=== PATIENT | male | born 1940 | race Caucasian/White ===

== ENCOUNTER 2018-10-16 10:48 | Outpatient (CLI) | payer MEDICARE, BC, SELFPAY ==
[2018-10-16 12:41] LABS: HCT 37.1 % (40.0-50.0); HGB 12.3 g/dL (13.5-17.5); Mean Corp. HGB Concentration 33.2 g/dL (32.0-36.0); Mean Corpuscular Hemoglobin 29.7 pg (27.0-33.0); Mean Corpuscular Volume 89.6 fL (80-95); Mean Platelet Volume 10.4 fL (8.0-11.0); Platelet Count 187 x1000/uL (130-400); RBC 4.14 m/cumm (4.50-6.00); RBC Distribution Width 14.3 % (11.8-14.1); White Blood Cell Count 5.26 k/cumm (4.4-10.8)
[2018-10-16 13:21] LABS: C-Reactive Protein 1.83 mg/dL (0.0-0.3)
== END 2018-10-16 11:08 ==
PROVIDERS: PCP General Practice; Referring Provider General Practice; Visit Provider Surgery
DX: L08.9 Local infection of the skin and subcutaneous tissue, unspecified (principal); L72.3 Sebaceous cyst; I48.91 Unspecified atrial fibrillation; Z79.01 Long term (current) use of anticoagulants
CPT/HCPCS: 85027; 99213; 86140; 87324; 93005; 93010

== ENCOUNTER 2018-11-05 07:57 | Day surgery (SDC) | payer MEDICARE, BC, SELFPAY ==
[2018-11-05 08:30] VITALS: BP 130/66; PULSE 50; RESP 16; TEMP 36.4; O2SAT 99
[2018-11-05] MEDS: Lidocaine 1% Multi-Dose 50 ML VIAL (10:07)
--- NOTE | 2018-11-05 10:20 | SKI_PTH ---
PATIENT: Toni Wells LOC: [facility] U#:[id number] AGE/SX: 78/M ROOM: RE11/05/[address]: Cristina Dean : 1940 BED: DIS: 11/05/2018 SPEC #: [id number] RECD: 11/05/18 12:29 STATUS: CANDACE REQ #: [id number] ADRIANNA: 11/05/18 10:[address]: Cristina Dean DEPT: Surgical Specimen RECD BY: Cherelle Mejia ENTERED: 11/05/18 12:30 SP TYPE: AMENA DAN DR: Arik Amador Tissues: 1 - SKIN CYST/TAG/DEBRIDEMENT Procedures: SKIN BIOPSY LEVEL 3 Comments: [id number]
--- NOTE | 2018-11-05 10:43 | W.PM.OP ---
Date of service: 11/05/18 Time of Service: 10:44 Operative Note DATE OF PROCEDURE: 11/05/18 PRE-OP DIAGNOSIS: recurrent sebaceous cyst POST-OP DIAGNOSIS: same PROCEDURE: excision of cyst. no infection at this time SURGEON: Cristina Dean ANESTHESIA: local ESTIMATED BLOOD LOSS: 5 COMPLICATIONS: None Patient was transported to: same day Patient's condition: stable Procedure Description: dictate
--- NOTE | 2018-11-05 10:46 | W.PM.DSUDISC ---
Discharge Plan Disposition Patient Disposition: HOME Condition: Good Discharge Details Reason For Visit: excision of cyst Attending Provider: Cristina Dean Primary Care Provider: Arik Amador Home Meds and New Rx's Prescriptions: Continued doxazosin [Cardura] 4 mg tablet 4 mg PO DAILY RF: 0 hydrochlorothiazide 25 MG tablet 25 mg PO DAILY RF: 0 Discontinued Xarelto 15 mg tablet 15 mg PO QPM RF: 0 Discharge Instructions Additional Instructions: Caring for Your Incision You?ll need to help care for your incision after surgery and certain medical procedures. To close an incision, your healthcare provider used stitches (sutures), special strips of surgical tape called Steri-Strips, surgical charles, or surgical skin glue. Follow the tips on this sheet to help stop bleeding, speed healing, and prevent infection of your incision. Pain Control Use ice! Ice keeps the swelling down and swelling is what causes pain. Never apply ice directly to the skin. Wrap it in a towel or cloth. Apply ice 20 minutes on and 20 minutes off for pain control. Use as needed. Take tylenol 325 mg by mouth with food every 4 hours as needed for pain. Or ibuprofen 400 mg by mouth with food every 4 hours as needed for pain. Do not take tylenol if you have a history of heavy drinking , hepatits C or liver problems. Do not take ibuprofen if you have a history of stomach ulcers/problems, bleeding problem or kidney issues. Types of incision closures ? Surgical stitches (sutures) are placed by sewing the edges of an incision together with surgical thread. Sutures are either absorbable or non-absorbable. Absorbable sutures break down in the body over time. Non-absorbable sutures need to be removed. ? Home care ? Always wash your hands before touching your incision. ? Keep the incision clean, dry, and out of water, keep the incision out of water. ? Do not to pick at the scabs. Scabs help protect the wound. ? You can take a shower in 24 hours and wash the incision with soap and water. Pat dry/don?t scrub. It?s OK to wash around the incision. But don?t spray water directly on it. ? Pat stitches dry if they get wet. Don't rub. ? Check the incision site daily for pain, redness, drainage, swelling, or separation of the incision edges. ? If there is a bandage (dressing) over the incision, change this every 24 hours as instructed by your provider. Using clean hands change the dressing as directed by your healthcare provider. Always wash your hands before changing your dressing. ? Make sure any clothing that touches the incision is loose-fitting. This will prevent rubbing. If the incision is on the head, keep your child from wearing caps or other head coverings. These may rub against the incision. ? Try to avoid from rough play, contact sports, or physical activities for two weeks. This can put you at risk of opening the incision. ? Make sure you avoid doing things that could cause dirt or sweat to get in or on the incision. As your incision heals, the skin may appear pink or red. It may also feel slightly bumpy or raised. This is called a healing ridge. Over time, the color should fade and the raised skin will become less noticeable. Care for specific closures : ? Sutures or charles. Once you no longer need to keep these dry, clean the incision or wound daily, generally after the first 24 hours. First remove the bandage using clean hands. Then wash the area gently with soap and warm water. Use a wet cotton swab to loosen and remove any blood or crust that forms. After cleaning, put a thin layer of antibiotic ointment on. Then put on a new bandage. Follow-up care [place] or sutures generally need to be removed in 7-10 days. 5 days for the face. Be sure to return for suture or staple removal as directed. If dissolving stitches were used in your mouth, these will not need to be removed. They should fall out or dissolve on their own. If tape closures were used, remove them yourself when your healthcare provider tells you to if they have not fallen off on their own. When to seek medical care Call your healthcare provider right away if you have any of these: ? More pain, redness, swelling, bleeding, or foul-smelling discharge around the incision area ? Fever of 101?F (38.3?C) or higher, or as directed by your child's healthcare provider ? Shaking chills ? Vomiting or nausea that doesn?t go away ? Numbness, coldness, or tingling around the incision area, or changes in skin color ? Opening of the sutures or wound Stitches or charles come apart or fall out or surgical tape falls off before 7 days, or as directed by your healthcare provider Activity:: no heavy lifting or strenuous activity x 3-5 day s Remove Dressings/Wound Care:: 24 hours Shower/Bathe:: 24 hours Diet:: As Tolerated Discharge Orders Discharge Orders: Discharge Order (Routine); Ordered 11/05/18 Ordered By: Cristina Dean DS: Diagnosis Discharge Diagnosis (1) Sebaceous cyst: Status: Acute
--- NOTE | 2018-11-05 10:55 | W.PM.DSUDISC ---
Discharge Plan Disposition Patient Disposition: HOME Condition: Good Discharge Details Reason For Visit: excision of cyst Attending Provider: Cristina Dean Primary Care Provider: Arik Amador Home Meds and New Rx's Prescriptions: New ibuprofen 600 mg tablet 600 mg PO QID PRN (Reason: pain) Qty: 30 RF: 0 tramadol 50 mg tablet 50 mg PO Q6H PRN (Reason: pain) Qty: 7 RF: 0 Continued doxazosin [Cardura] 4 mg tablet 4 mg PO DAILY RF: 0 hydrochlorothiazide 25 MG tablet 25 mg PO DAILY RF: 0 Discontinued Xarelto 15 mg tablet 15 mg PO QPM RF: 0 Discharge Instructions Additional Instructions: Caring for Your Incision You?ll need to help care for your incision after surgery and certain medical procedures. To close an incision, your healthcare provider used stitches (sutures), special strips of surgical tape called Steri-Strips, surgical charles, or surgical skin glue. Follow the tips on this sheet to help stop bleeding, speed healing, and prevent infection of your incision. Pain Control Use ice! Ice keeps the swelling down and swelling is what causes pain. Never apply ice directly to the skin. Wrap it in a towel or cloth. Apply ice 20 minutes on and 20 minutes off for pain control. Use as needed. Take tylenol 325 mg by mouth with food every 4 hours as needed for pain. Or ibuprofen 400 mg by mouth with food every 4 hours as needed for pain. Do not take tylenol if you have a history of heavy drinking , hepatits C or liver problems. Do not take ibuprofen if you have a history of stomach ulcers/problems, bleeding problem or kidney issues. Types of incision closures ? Surgical stitches (sutures) are placed by sewing the edges of an incision together with surgical thread. Sutures are either absorbable or non-absorbable. Absorbable sutures break down in the body over time. Non-absorbable sutures need to be removed. ? Home care ? Always wash your hands before touching your incision. ? Keep the incision clean, dry, and out of water, keep the incision out of water. ? Do not to pick at the scabs. Scabs help protect the wound. ? You can take a shower in 24 hours and wash the incision with soap and water. Pat dry/don?t scrub. It?s OK to wash around the incision. But don?t spray water directly on it. ? Pat stitches dry if they get wet. Don't rub. ? Check the incision site daily for pain, redness, drainage, swelling, or separation of the incision edges. ? If there is a bandage (dressing) over the incision, change this every 24 hours as instructed by your provider. Using clean hands change the dressing as directed by your healthcare provider. Always wash your hands before changing your dressing. ? Make sure any clothing that touches the incision is loose-fitting. This will prevent rubbing. If the incision is on the head, keep your child from wearing caps or other head coverings. These may rub against the incision. ? Try to avoid from rough play, contact sports, or physical activities for two weeks. This can put you at risk of opening the incision. ? Make sure you avoid doing things that could cause dirt or sweat to get in or on the incision. As your incision heals, the skin may appear pink or red. It may also feel slightly bumpy or raised. This is called a healing ridge. Over time, the color should fade and the raised skin will become less noticeable. Care for specific closures : ? Sutures or charles. Once you no longer need to keep these dry, clean the incision or wound daily, generally after the first 24 hours. First remove the bandage using clean hands. Then wash the area gently with soap and warm water. Use a wet cotton swab to loosen and remove any blood or crust that forms. After cleaning, put a thin layer of antibiotic ointment on. Then put on a new bandage. Follow-up care [place] or sutures generally need to be removed in 10 days. 5 days for the face. Be sure to return for suture or staple removal as directed. If dissolving stitches were used in your mouth, these will not need to be removed. They should fall out or dissolve on their own. If tape closures were used, remove them yourself when your healthcare provider tells you to if they have not fallen off on their own. When to seek medical care Call your healthcare provider right away if you have any of these: ? More pain, redness, swelling, bleeding, or foul-smelling discharge around the incision area ? Fever of 101?F (38.3?C) or higher, or as directed by your child's healthcare provider ? Shaking chills ? Vomiting or nausea that doesn?t go away ? Numbness, coldness, or tingling around the incision area, or changes in skin color ? Opening of the sutures or wound Stitches or charles come apart or fall out or surgical tape falls off before 7 days, or as directed by your healthcare provider do not take asa or Xaralto for the next week. Will decide when to re-start at the F/u appt. Stand Alone Forms: Jose Henry ([facility]) Activity:: no heavy lifting or strenuous activity x 3-5 day s Remove Dressings/Wound Care:: 24 hours Shower/Bathe:: 24 hours Diet:: As Tolerated Discharge Orders Discharge Orders: Discharge Order (Routine); Ordered 11/05/18 Ordered By: Cristina Dean DS: Diagnosis Discharge Diagnosis (1) Sebaceous cyst: Status: Acute
--- NOTE | 2018-11-05 10:58 | PDOC.DSDIS_ITS ---
Discharge Plan Disposition Patient Disposition: HOME Condition: Good Discharge Details Reason For Visit: excision of cyst Attending Provider: Cristina Dean Primary Care Provider: Arik Amador Home Meds and New Rx's Prescriptions: New ibuprofen 600 mg tablet 600 mg PO QID PRN (Reason: pain) Qty: 30 RF: 0 tramadol 50 mg tablet 50 mg PO Q6H PRN (Reason: pain) Qty: 7 RF: 0 Continued doxazosin [Cardura] 4 mg tablet 4 mg PO DAILY RF: 0 hydrochlorothiazide 25 MG tablet 25 mg PO DAILY RF: 0 Discontinued Xarelto 15 mg tablet 15 mg PO QPM RF: 0 Discharge Instructions Additional Instructions: Caring for Your Incision You?ll need to help care for your incision after surgery and certain medical procedures. To close an incision, your healthcare provider used stitches (sutures), special strips of surgical tape called Steri-Strips, surgical nadeem, or surgical skin glue. Follow the tips on this sheet to help stop bleeding, speed healing, and prevent infection of your incision. Pain Control Use ice! Ice keeps the swelling down and swelling is what causes pain. Never apply ice directly to the skin. Wrap it in a towel or cloth. Apply ice 20 minutes on and 20 minutes off for pain control. Use as needed. Take tylenol 325 mg by mouth with food every 4 hours as needed for pain. Or ibuprofen 400 mg by mouth with food every 4 hours as needed for pain. Do not take tylenol if you have a history of heavy drinking , hepatits C or liver problems. Do not take ibuprofen if you have a history of stomach ulcers/problems, bleeding problem or kidney issues. Types of incision closures ? Surgical stitches (sutures) are placed by sewing the edges of an incision together with surgical thread. Sutures are either absorbable or non-absorbable. Absorbable sutures break down in the body over time. Non-absorbable sutures need to be removed. ? Home care ? Always wash your hands before touching your incision. ? Keep the incision clean, dry, and out of water, keep the incision out of water. ? Do not to pick at the scabs. Scabs help protect the wound. ? You can take a shower in 24 hours and wash the incision with soap and water. Pat dry/don?t scrub. It?s OK to wash around the incision. But don?t spray water directly on it. ? Pat stitches dry if they get wet. Don't rub. ? Check the incision site daily for pain, redness, drainage, swelling, or separation of the incision edges. ? If there is a bandage (dressing) over the incision, change this every 24 hours as instructed by your provider. Using clean hands change the dressing as directed by your healthcare provider. Always wash your hands before changing your dressing. ? Make sure any clothing that touches the incision is loose-fitting. This will prevent rubbing. If the incision is on the head, keep your child from wearing caps or other head coverings. These may rub against the incision. ? Try to avoid from rough play, contact sports, or physical activities for two weeks. This can put you at risk of opening the incision. ? Make sure you avoid doing things that could cause dirt or sweat to get in or on the incision. As your incision heals, the skin may appear pink or red. It may also feel slightly bumpy or raised. This is called a healing ridge. Over time, the color should fade and the raised skin will become less noticeable. Care for specific closures : ? Sutures or nadeem. Once you no longer need to keep these dry, clean the in cision or wound daily, generally after the first 24 hours. First remove the bandage using clean hands. Then wash the area gently with soap and warm water. Use a wet cotton swab to loosen and remove any blood or crust that forms. After cleaning, put a thin layer of antibiotic ointment on. Then put on a new bandage. Follow-up care [place] or sutures generally need to be removed in 10 days. 5 days for the face. Be sure to return for suture or staple removal as directed. If dissolving stitches were used in your mouth, these will not need to be removed. They should fall out or dissolve on their own. If tape closures were used, remove them yourself when your healthcare provider tells you to if they have not fallen off on their own. When to seek medical care Call your healthcare provider right away if you have any of these: ? More pain, redness, swelling, bleeding, or foul-smelling discharge around the incision area ? Fever of 101?F (38.3?C) or higher, or as directed by your child's healthcare provider ? Shaking chills ? Vomiting or nausea that doesn?t go away ? Numbness, coldness, or tingling around the incision area, or changes in skin color ? Opening of the sutures or wound Stitches or nadeem come apart or fall out or surgical tape falls off before 7 days, or as directed by your healthcare provider do not take asa or Xaralto for the next week. Will decide when to re-start at the F/u appt. Stand Alone Forms: Jose Henry ([facility]) Activity:: no heavy lifting or strenuous activity x 3-5 day s Remove Dressings/Wound Care:: 24 hours Shower/Bathe:: 24 hours Diet:: As Tolerated Discharge Orders Discharge Orders: Discharge Order (Routine); Ordered 11/05/18 Ordered By: Cristina Dean DS: Diagnosis Discharge Diagnosis (1) Sebaceous cyst: Status: Acute
--- NOTE | 2018-11-05 12:30 | ROE_ITS ---
DATE OF PROCEDURE: November 05, 2018 PREOPERATIVE DIAGNOSIS: Recurrent sebaceous cyst of left lower back POSTOPERATIVE DIAGNOSIS: Same. PROCEDURE: Excision of sebaceous cyst 1.5 cm of left lower back/posterior torso SURGEON: Cristina Dean D.O. PEER SUPPORT SPECIALIST: Yulisa Graham ANESTHESIA: Local. ESTIMATED BLOOD LOSS: 5 cc's CONDITION: The patient tolerated the procedure well without complication. INDICATION FOR PROCEDURE: Mr. Wells is a 78-year-old male with a recurrent sebaceous cyst; it was infected. He is currently off antibiotics and there is no current infection. He is here today for removal. He is marked in preop. Informed consent is obtained, explaining risks and benefits of the procedure, including but not limited to bleeding, infection, scarring, recurrence, complications from the anesthesia and other unforetold complications. PROCEDURE DESCRIPTION: The patient is brought to the operative room suite and placed in the prone position. The patient is prepped and draped in the usual sterile fashion using a ChloraPrep scrub solution. A time-out is performed. 30 cc's of lidocaine and Marcaine mixed are used for local anesthetization. The area of the old scar is excised using a #15 blade. The entirety of the cyst, including all of the capsule is then dissected out and removed. It is [id number] of the left lower posterior torso. Electrocautery was used to provide hemostasis. Pressure is held. It is irrigated with saline. There is no bleeding noted at the time of closure. Deep tissues are approximated with #4-0 Vicryl and the skin is approximated with #3-0 Nylon. Compression dressing is applied. The patient tolerated the procedure well without complication and was transferred to recovery in stable condition. The patient is given instructions of wound care, activity and warning signs and will follow-up in ten days for suture removal. cc: Arik Amador M.D.
== END 2018-11-05 11:16 | disposition home or self-care (01) ==
PROVIDERS: PCP General Practice; Visit Provider Surgery
PROC: (CPT 11402; principal; 2018-11-05 09:00)
DX: L72.3 Sebaceous cyst (principal)
CPT/HCPCS: 11402; 12031; 88304

== ENCOUNTER → 2018-11-15 09:08 | Outpatient (BNVA) | payer MEDICARE, BC, SELFPAY | PROVIDERS: PCP General Practice; Referring Provider General Practice; Visit Provider Physical Therapy Assistant | DX: L72.3 Sebaceous cyst (principal); Z48.02 Encounter for removal of sutures ==

== ENCOUNTER 2019-07-15 16:40 | Outpatient (REF) | payer MEDICARE, BC, SELFPAY ==
[2019-07-15 19:59] LABS: Anion Gap 5.1 mmol/L (3-11); BUN 23 mg/dL (7-18); CO2 33.9 mmol/L (21.0-32.0); CREATININE 1.26 mg/dL (0.70-1.30); Calcium 9.3 mg/dL (8.5-10.1); Chloride 104 mmol/L (98-107); Estimated GFR 55.21 (mL/min/1.73m2); Glucose 131 mg/dL (74-106); Magnesium 1.8 mg/dL (1.8-2.4); Potassium 3.3 mmol/L (3.5-5.1); Sodium 143 mmol/L (136-145)
== END 2019-07-15 17:00 ==
LOC: NCHCN 16:40
PROVIDERS: PCP Family Medicine; Visit Provider Family Medicine
DX: I10 Essential (primary) hypertension (principal); I48.91 Unspecified atrial fibrillation
CPT/HCPCS: 80048; 83735

== ENCOUNTER 2020-02-25 08:28 | Outpatient (CLI) | payer MEDICARE, BC, SELFPAY ==
--- NOTE | 2020-02-25 14:23 | DI.RAD_ITS ---
EXAM: XR CHEST 2V PA LATERAL CLINICAL HISTORY: COUGH TECHNIQUE: 2D digital imaging was performed. COMPARISON: CT CHEST WITH CONTRAST from 01/12/2015 FINDINGS: Poor inspiration. MEDIASTINUM: Normal. HEART: Normal. PULMONARY VASCULATURE: Normal. LUNGS: No focal consolidating infiltrates. PLEURAL SPACE: No pleural effusion or pneumothorax. BONE:Within normal limits for the patient's age. OTHER FINDINGS:Normal. IMPRESSION: No acute pulmonary findings. DATA REPOSITORY: RADIATION DOSE DELIVERED:
== END 2020-02-25 08:48 ==
PROVIDERS: PCP Family Medicine; Visit Provider Nurse Practitioner Family
DX: R05 Cough (principal); R06.02 Shortness of breath
CPT/HCPCS: 36415; 80053; 71046; 83880; 85025

== ENCOUNTER 2020-02-25 14:12 | Outpatient (REF) | payer MEDICARE, BC, SELFPAY ==
[2020-02-27 13:43] LABS: Patient Race White; SARS-CoV-2 RNA Undetected (Undetected); SARS-CoV-2 Specimen Source Nasal
== END 2020-02-25 14:32 ==
LOC: NCHCN 14:12
PROVIDERS: PCP Family Medicine; Visit Provider Nurse Practitioner Family
DX: Z20.828 Contact with and (suspected) exposure to other viral communicable diseases (principal)
CPT/HCPCS: U0003

== ENCOUNTER 2020-02-25 14:18 | Outpatient (CLI) | payer MEDICARE, BC, SELFPAY ==
[2020-02-25 15:12] LABS: ALT 27 U/L (16-63); AST 31 U/L (15-37); Albumin 2.9 g/dL (3.4-5.0); Alkaline Phosphatase 80 U/L (46-116); Anion Gap 5.5 mmol/L (3-11); BUN 21 mg/dL (7-18); Bilirubin, Total 0.6 mg/dL (0.2-1.0); CO2 30.5 mmol/L (21.0-32.0); CREATININE 1.28 mg/dL (0.70-1.30); Chloride 102 mmol/L (98-107); Estimated GFR 54.07 (mL/min/1.73m2); Glucose 149 mg/dL (74-106); NT-proBNP 2911 pg/mL (<300); Potassium 3.9 mmol/L (3.5-5.1); Sodium 138 mmol/L (136-145); Total Protein 6.9 g/dL (6.4-8.2)
[2020-02-25 15:51] LABS: Abs Immature Grans 0.02 10^3/uL (0.0-0.06); Absolute Basophil Count 0.02 10^3/uL (0.0-0.2); Absolute Eosinophil Count 0.03 10^3/uL (0.0-0.7); Absolute Lymphocyte Count 0.69 10^3/uL (1.2-3.4); Absolute Monocyte Count 0.66 10^3/uL (0.1-0.8); Absolute Neutrophil Count 4.92 10^3/uL (1.2-6.7); Basophils % 0.3; Eosinophils % 0.5; HCT 30.3 % (40.0-50.0); HGB 9.6 g/dL (13.5-17.5); Immature Grans % 0.3; Lymphocytes % 10.9; MCH 28.7 pg (27.0-33.0); MCHC 31.7 % (32.0-36.0); MCV 90.4 fL (80-95); MPV 10.2 fL (8.0-11.0); Monocytes % 10.4; Neutrophils % 77.6; Nucleated RBC 0 %; Platelet Count 256 10^3/uL (130-400); RBC 3.35 10^6/uL (4.36-5.78); RDW 13.7 % (11.8-14.1); RDW-SD 45.2 fL; WBC 6.34 10^3/uL (4.4-10.8)
== END 2020-02-25 14:38 ==
PROVIDERS: PCP Family Medicine; Visit Provider Nurse Practitioner Family
DX: R06.02 Shortness of breath (principal); R05 Cough
CPT/HCPCS: 36415; 80053; 83880; 85025

== ENCOUNTER 2020-03-03 19:42 | Outpatient (REF) | payer MEDICARE, BC, SELFPAY ==
[2020-03-03 16:20] LABS: Anion Gap 6.7 mmol/L (3-11); BUN 19 mg/dL (7-18); CO2 32.3 mmol/L (21.0-32.0); CREATININE 1.21 mg/dL (0.70-1.30); Calcium 8.7 mg/dL (8.5-10.1); Chloride 102 mmol/L (98-107); Glucose 122 mg/dL (74-106); Potassium 3.2 mmol/L (3.5-5.1); Sodium 141 mmol/L (136-145)
== END 2020-03-03 20:02 ==
LOC: NCHCN 19:42
PROVIDERS: PCP Family Medicine; Visit Provider Nurse Practitioner Family
DX: Z51.81 Encounter for therapeutic drug level monitoring (principal); I10 Essential (primary) hypertension
CPT/HCPCS: 80048

== ENCOUNTER → 2020-03-05 13:31 | Outpatient (BNVA) | payer MEDICARE, BC, SELFPAY | PROVIDERS: PCP Family Medicine; Referring Provider Nurse Practitioner Family; Visit Provider Surgery | DX: D64.9 Anemia, unspecified (principal); E87.6 Hypokalemia; D12.6 Benign neoplasm of colon, unspecified; Z79.01 Long term (current) use of anticoagulants; I48.91 Unspecified atrial fibrillation; I10 Essential (primary) hypertension | CPT/HCPCS: 99213 ==

== ENCOUNTER 2020-03-08 10:28 | Outpatient (CLI) | payer MEDICARE, BC, SELFPAY ==
[2020-03-09 12:31] LABS: COVID-19 RT-PCR Result NEGATIVE (Negative)
== END 2020-03-08 10:48 ==
PROVIDERS: PCP Family Medicine; Visit Provider Surgery
DX: Z11.59 Encounter for screening for other viral diseases (principal); Z01.818 Encounter for other preprocedural examination
CPT/HCPCS: U0003

== ENCOUNTER 2020-03-09 10:23 | Inpatient (IN) | payer MEDICARE, BC, SELFPAY ==
[2020-03-09] VITALS (36 sets, daily range): BP systolic 92–144; BP diastolic 59–75; PULSE 57–82; RESP 16–33; TEMP 36.4–39.6; O2SAT 92–98
--- NOTE | 2020-03-09 10:30 | RT.EKG_ITS ---
APPROVED REPORT Exam: Resting ECG Patient Location: E HR:71 bpm ECG Measurements Heart Rate 71 AXIS AL [id number] P [id number] QRSd 142 QRS 56 QT 433 T -82 QTc 472 Conclusion Atrial fibrillation...V-rate 57- 82, irreg A-activity Right bundle branch block...QRSd>120, terminal axis(90,270)
--- NOTE | 2020-03-09 10:52 | ED.GENADUL_ITS ---
Discharge Plan Disposition Patient Disposition: OTHER Condition: Serious Discharge Details Clinical Impression: CHF (congestive heart failure), Cough, Febrile illness Primary Care Provider: Wing Phan ED Provider: Inder Reeves Rowdy Meds and New Rx's Prescriptions: New spironolactone 25 mg tablet 25 mg PO DAILY Qty: 30 RF: 0 Discontinued triamterene-hydrochlorothiazid 37.5-25 mg capsule 1 cap PO DAILY RF: 0 No Action Xarelto 15 mg tablet 15 mg PO QPM RF: 0 furosemide 20 mg tablet 20 mg PO DAILY RF: 0 Discharge Instructions Instructions: Heart Failure (ED), Acute Cough (ED) Care Plan Goals: At this time we are going to add on spironolactone and discontinue triamterene and hydrochlorothiazide. Starting today, and for the next 5 days, you will take furosemide 40 mg daily rather than 20 mg daily. We have been able to move your echocardiogram test from April 05 to tomorrow at 3 PM, please register at 2:45. Please watch for new or worsening symptoms and return to the ER for any concerns. I have personally spoken with Dr. Phan who is aware of your ER visit and this discharge plan and plans to see you as already scheduled on the . As we discussed, please watch for new or worsening symptoms and return immediately to the ER. Medical Decision Making 79-year-old gentleman with history of A. fib, chronic anticoagulation, hypertension, CHF, presenting to the ER for evaluation of 2-week history of worsening dyspnea, cough was fairly clear sputum. Reports overall generalized weakness-fatigue but no focal weakness. No chest pain whatsoever. Temperature at home was documented to be 101.3, afebrile here and 99.5. Did not take any antipyretics. Patient clinically appears well, nontoxic. Blood pressure is slightly soft at 107/59. Given his blood pressure, subjective complaints, fever at home, will initiate a septic work-up. Given his history of CHF, his pedal edema today, will not aggressively hydrate, will give 1 L IV now, 150 an hour. Work-up in the ER reveals a white count of 4.87 hemoglobin 11.0 hematocrit 34.6 platelet count 147. INR 1.4. Lactate 1.6. Sodium 132, potassium 3.9, creatinine 1.5 with a GFR of 45.03. Calcium 8.4. LFTs unremarkable. Troponin less than 0.05. BNP 6529. Urinalysis without signs of infection. Chest x-ray read by radiology as negative COVID pending 79-year-old gentleman, O2 sats remaining in the mid to high 90s on room air. He appears well, nontoxic. BNP 6529. I question if the cough is secondary to fluid overload. Still no clear source of infection and again he was afebrile. I discussed options with his and the patient himself. Patient would prefer to go home if at all possible. I will discuss the case with his primary care provider, Dr. Phan. We discussed his presentation and options. At this time he would like to increase his furosemide to 40 mg p.o. daily for the next 5 days. He is already scheduled to be seen in his office on the . He has an outpatient echo scheduled but would like this done sooner if at all possible, we will attempt to expedite this. He would like to discontinue his triamterene hydrochlorothiazide and initiate spironolactone 25 mg p.o. We were able to expedite his echocardiogram from April 05 until tomorrow at 3 PM, register at 245. I again updated his with all this information. As we were in the process of discharging the patient he developed a fever of 102.8. At this point there is no clear source of infection. Given his age, comorbidities, need for hydration yet diuresis, I do believe he will likely be better served coming into the hospital for observation. I will discuss the case with our hospitalist team. Case discussed with Dr. Gasca who was agreeable to observation admission. He would like to initiate a IV dose of Lasix 40 mg now here in the ER but hold off on any antibiotics as there is no clear source. It should be noted that his initial COVID test because he was being discharged was sent out as a tier 3 however he was swabbed again and this will be a tier 1 as he is being admitted. Medical Records Medical records reviewed: Yes I reviewed the patient's medical records. Lab Data Lab results reviewed: Yes I reviewed the patient's lab results. Lab results narrative: 03/09/20 10:50 Nose Influenza Types A,B Antigen - Final 03/09/20 10:50 Blood Blood Culture - Pending 03/09/20 10:45 Blood Blood Culture - Pending Laboratory Tests Range/Units 03/09/20 03/09/20 03/09/20 10:45 10:45 10:45 WBC (4.4-10.8) 10^3/uL RBC (4.36-5.78) 10^6/uL Hgb (13.5-17.5) g/dL Hct (40.0-50.0) % MCV (80-95) fL MCH (27.0-33.0) pg MCHC (32.0-36.0) % RDW (11.8-14.1) % Plt Count (130-400) 10^3/uL MPV (8.0-11.0) fL Immature Gran % Neutrophils % Lymphocytes % Monocytes % Eosinophils % Basophils % Nucleated RBC % % Absolute Neutrophils (1.2-6.7) 10^3/uL Absolute Lymphocytes (1.2-3.4) 10^3/uL Absolute Monocytes (0.1-0.8) 10^3/uL Absolute Eosinophils (0.0-0.7) 10^3/uL Absolute Basophils (0.0-0.2) 10^3/uL PT (9.3-11.0) sec INR (0.9-1.1) VBG Lactate (0.6-1.4) mmol/L 1.6 H Sodium (136-145) mmol/L Potassium (3.5-5.1) mmol/L Chloride (98-107) mmol/L Carbon Dioxide (21.0-32.0) mmol/L Anion Gap (3-11) mmol/L BUN (7-18) mg/dL Creatinine (0.70-1.30) mg/dL Estimated GFR/1.73 m2 (mL/min/1.73m2) Glucose (74-106) mg/dL Calcium (8.5-10.1) mg/dL Total Bilirubin (0.2-1.0) mg/dL AST (15-37) U/L ALT (16-63) U/L Alkaline Phosphatase (46-116) U/L Troponin I Cancelled NT-Pro-B Natriuret Pep (<300) pg/mL Total Protein (6.4-8.2) g/dL Albumin (3.4-5.0) g/dL Procalcitonin ng/mL 0.1 Urine Color (Yellow) Urine Clarity (Clear) Urine pH (5-8) Ur Specific [place] (1.005-1.025) Urine Protein (Negative) mg/dL Urine Ketones (Negative) mg/dL Urine Blood (Negative) Urine Nitrite (Negative) Urine Bilirubin (Negative) Urine Urobilinogen (Up TO 0.2) EU/dL Ur Leukocyte Esterase (Negative) Urine RBC (0-2) HPF Urine WBC (0-5) HPF Ur Epithelial Cells (Negative) HPF Urine Crystals (Negative) HPF Urine Bacteria (Negative) HPF Urine Casts (Negative) LPF Urine Mucus (Negative) Ur Culture Indicated? Urine Glucose (Negative) mg/dL COVID-19 PCR Nasopharyn COVID-19 PCR SARS-CoV-2 Source SARS-CoV-2 (PCR) Patient Race Patient Ethnicity Ref Test Method Ref Test Perform Site Range/Units 03/09/20 03/09/20 03/09/20 10:45 10:45 10:45 WBC (4.4-10.8) 10^3/uL 4.87 RBC (4.36-5.78) 10^6/uL 3.88 L Hgb (13.5-17.5) g/dL 11.0 L Hct (40.0-50.0) % 34.6 L MCV (80-95) fL 89.2 MCH (27.0-33.0) pg 28.4 MCHC (32.0-36.0) % 31.8 L RDW (11.8-14.1) % 14.7 H Plt Count (130-400) 10^3/uL 147 D MPV (8.0-11.0) fL 10.5 Immature Gran % 0.6 Neutrophils % 82.8 Lymphocytes % 8.6 Monocytes % 7.6 Eosinophils % 0.0 Basophils % 0.4 Nucleated RBC % % 0 Absolute Neutrophils (1.2-6.7) 10^3/uL 4.03 Absolute Lymphocytes (1.2-3.4) 10^3/uL 0.42 L Absolute Monocytes (0.1-0.8) 10^3/uL 0.37 Absolute Eosinophils (0.0-0.7) 10^3/uL 0.00 Absolute Basophils (0.0-0.2) 10^3/uL 0.02 PT (9.3-11.0) sec 14.3 H INR (0.9-1.1) 1.4 H VBG Lactate (0.6-1.4) mmol/L Sodium (136-145) mmol/L 132 L Potassium (3.5-5.1) mmol/L 3.9 Chloride (98-107) mmol/L 96 L Carbon Dioxide (21.0-32.0) mmol/L 28.7 Anion Gap (3-11) mmol/L 7.3 BUN (7-18) mg/dL 19 H Creatinine (0.70-1.30) mg/dL 1.50 H Estimated GFR/1.73 m2 (mL/min/1.73m2) 45.03 Glucose (74-106) mg/dL 97 Calcium (8.5-10.1) mg/dL 8.4 L Total Bilirubin (0.2-1.0) mg/dL 0.9 AST (15-37) U/L 31 ALT (16-63) U/L 20 Alkaline Phosphatase (46-116) U/L 79 Troponin I < 0.05 NT-Pro-B Natriuret Pep (<300) pg/mL 6529 H Total Protein (6.4-8.2) g/dL 7.2 Albumin (3.4-5.0) g/dL 3.1 L Procalcitonin ng/mL Urine Color (Yellow) Urine Clarity (Clear) Urine pH (5-8) Ur Specific [place] (1.005-1.025) Urine Protein (Negative) mg/dL Urine Ketones (Negative) mg/dL Urine Blood (Negative) Urine Nitrite (Negative) Urine Bilirubin (Negative) Urine Urobilinogen (Up TO 0.2) EU/dL Ur Leukocyte Esterase (Negative) Urine RBC (0-2) HPF Urine WBC (0-5) HPF Ur Epithelial Cells (Negative) HPF Urine Crystals (Negative) HPF Urine Bacteria (Negative) HPF Urine Casts (Negative) LPF Urine Mucus (Negative) Ur Culture Indicated? Urine Glucose (Negative) mg/dL COVID-19 PCR Nasopharyn COVID-19 PCR SARS-CoV-2 Source SARS-CoV-2 (PCR) Patient Race Patient Ethnicity Ref Test Method Ref Test Perform Site Range/Units 03/09/20 03/09/2020 10:45 10:50 10:58 WBC (4.4-10.8) 10^3/uL RBC (4.36-5.78) 10^6/uL Hgb (13.5-17.5) g/dL Hct (40.0-50.0) % MCV (80-95) fL MCH (27.0-33.0) pg MCHC (32.0-36.0) % RDW (11.8-14.1) % Plt Count (130-400) 10^3/uL MPV (8.0-11.0) fL Immature Gran % Neutrophils % Lymphocytes % Monocytes % Eosinophils % Basophils % Nucleated RBC % % Absolute Neutrophils (1.2-6.7) 10^3/uL Absolute Lymphocytes (1.2-3.4) 10^3/uL Absolute Monocytes (0.1-0.8) 10^3/uL Absolute Eosinophils (0.0-0.7) 10^3/uL Absolute Basophils (0.0-0.2) 10^3/uL PT (9.3-11.0) sec INR (0.9-1.1) VBG Lactate (0.6-1.4) mmol/L Sodium (136-145) mmol/L Potassium (3.5-5.1) mmol/L Chloride (98-107) mmol/L Carbon Dioxide (21.0-32.0) mmol/L Anion Gap (3-11) mmol/L BUN (7-18) mg/dL Creatinine (0.70-1.30) mg/dL Estimated GFR/1.73 m2 (mL/min/1.73m2) Glucose (74-106) mg/dL Calcium (8.5-10.1) mg/dL Total Bilirubin (0.2-1.0) mg/dL AST (15-37) U/L ALT (16-63) U/L Alkaline Phosphatase (46-116) U/L Troponin I NT-Pro-B Natriuret Pep (<300) pg/mL Cancelled Total Protein (6.4-8.2) g/dL Albumin (3.4-5.0) g/dL Procalcitonin ng/mL Urine Color (Yellow) Yellow Urine Clarity (Clear) Clear Urine pH (5-8) 5.5 Ur Specific [place] (1.005-1.025) 1.010 Urine Protein (Negative) mg/dL Negative Urine Ketones (Negative) mg/dL Negative Urine Blood (Negative) Small H Urine Nitrite (Negative) Negative Urine Bilirubin (Negative) Negative Urine Urobilinogen (Up TO 0.2) EU/dL 0.2 Ur Leukocyte Esterase (Negative) Negative Urine RBC (0-2) HPF 3-5 H Urine WBC (0-5) HPF 0-2 Ur Epithelial Cells (Negative) HPF Negative Urine Crystals (Negative) HPF Negative Urine Bacteria (Negative) HPF Few Urine Casts (Negative) LPF Negative Urine Mucus (Negative) Negative Ur Culture Indicated? No Urine Glucose (Negative) mg/dL Negative COVID-19 PCR Cancelled Nasopharyn COVID-19 PCR Cancelled SARS-CoV-2 Source Cancelled SARS-CoV-2 (PCR) Cancelled Patient Race Cancelled Patient Ethnicity Cancelled Ref Test Method Cancelled Ref Test Perform Site Cancelled ECG Data Attestation: I personally reviewed and interpreted this ECG (s) as follows: Interpretation: Please see official report by Dr. Johnson. Atrial fibrillation, ventricular rate of 71. Right bundle branch block. No STEMI. HPI General Mode of arrival: ambulatory . Date/Time Provider Initiated Documentation: 03/09/20 10:28 . Limitations to Documentation: no limitations . Information obtained by: patient . HPI Narrative: This is a 79-year-old gentleman with a history of anemia, atrial fibrillation, chronic anticoagulation, hypertension, presenting to the ER for he describes as a worsening cough over the past 2 weeks. He reports he has mild clear-white sputum, generalized fatigue, shortness of breath, headaches when he gets into a severe coughing fit. He denies any chest pain, neck pain, recent travel or sick contacts. He has not had his flu or pneumonia shot this year. What prompted his visit to the ER today was that he developed a fever today at home T-max 101.3. He denies skin rash, abdominal pain, nausea, vomiting, dysuria, diarrhea, numbness, tingling, weakness. Upon further investigation, patient does take 20 mg daily furosemide which he has taken as directed. He is scheduled for a colonoscopy on and is not taking his Xarelto in the last 2 days as directed. Related Data Home Medications Medication Instructions Recorded Confirmed rivaroxaban 15 mg tablet 15 mg PO QPM 11/15/18 03/09/20 furosemide 20 mg PO DAILY 03/09/20 03/09/20 spironolactone 25 mg PO DAILY #30 tab 03/09/20 Previous Rx's Medication Instructions Recorded spironolactone 25 mg PO DAILY #30 tab 03/09/20 Allergies Allergy/AdvReac Type Severity Reaction Status Date / Time oxycodone HCl [From Tylox] Allergy Skin Rash Verified 03/09/20 11:11 General Stated Complaint: SOB RICA: 3 Review of Systems Constitutional Constitutional: Reports fatigue, Reports fever(s), Denies headache(s) and Denies weakness Eyes Eyes: Denies eye discharge ENT Ears, Nose, Mouth, and Throat: Denies otalgia, Denies headache(s) and Denies sore throat Cardiovascular Cardiovascular: Denies chest pain and Reports dyspnea Respiratory Respiratory: Reports cough and Reports dyspnea Gastrointestinal Gastrointestinal: Denies abdominal pain, Denies nausea and Denies vomiting Genitourinary Genitourinary: Denies dysuria Musculoskeletal Musculoskeletal: Denies back pain, Denies numbness and Denies tingling Integumentary/Breasts Skin/Breast: Denies rash Neurologic Neurologic: Denies headache(s), Denies numbness, Denies tingling and Denies weakness Endocrine Endocrine: Reports fatigue PFSH Medical History Actinic keratoses Anemia Angioneurotic edema Atrial fibrillation Chronic anticoagulation Xarelto 15mgs qam Cough HTN (hypertension) Hx of fracture of finger L pointer Hypokalemia, ECF to ICF shifts Left ventricular hypertrophy 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 Called a pilonidal cyst (via biopsy) in [place], s/p partial resection at some point - wants it completely removed. mg Snoring Tubular adenoma of colon (02/11/16) Vitreous floaters of left eye Surgical History Cholecystectomy Colonoscopy - IV Sedation (02/11/16) H/O local excision of skin lesion 11/05/18 Dr Cristina Dean, right lower back, biopsy showed fibrovascular tissue, adipose tissue and skeletal muscle. Social History Smoking/Tobacco Use Status: Former Tobacco Use Quit Date: 06/25/99 Alcohol Intake: current Alcohol Intake frequency: 0-2 drinks per day Alcohol type: hard liquor Drug use: Never Substance use type: does not use Do you feel safe at home: Yes Do you feel safe in your relationship?: Yes Exam Const General: cooperative, healthy appearing, comfortable and no acute distress Orientation: alert, awake and oriented x3 HENMT Head: normal to inspection, normocephalic and atraumatic Ears: TM normal on the right, TM normal on the left (Not visualized, wearing a hearing aid) and other (Right canal unremarkable) General nose exam: external nose normal Face and sinus: normal facial exam Mouth: moist mucous membranes Throat: posterior oropharynx normal Eyes Conjunctivae: conjunctivae normal Sclera: sclerae normal Neck Neck: normal visual inspection, full ROM, no lymphadenopathy, no meningeal signs, trachea midline, supple and nontender Resp Effort & Inspection: normal respiratory effort, able to speak in complete sentences and cough Quality of cough: dry Auscultation: diminished lung sounds bilaterally (Minimally at bases) Cardio Rate: regular rate Rhythm: abnormal rhythm irregularly irregular GI Palpation: soft and nontender Back/Spine/Pelvis Back: No back tenderness Skin General skin exam: no rashes or lesions noted Neuro General: patient alert, patient awake, moves all extremities and no focal motor deficits Cognition: normal cognition Speech: speech normal Gait: normal gait Motor: muscle tone normal throughout Sensory Exam: no sensory deficits noted Extrem General: full ROM, capillary refill normal, no calf tenderness and pedal edema bilaterally pitting, 1+ and 2+ Psych Appearance: grossly normal Mental Status: mental status grossly normal Course Vital Signs Vital signs: Vital Signs Temperature 37.5 C 03/09/20 10:34 Pulse 71 03/09/20 10:34 Respiratory Rate 16 03/09/20 10:34 Blood Pressure 107/59 L 03/09/20 10:34 Pulse Oximetry 97 03/09/20 10:34 Temperature 37.5 C 03/09/20 10:34 Temperature Source Tympanic 03/09/20 10:34 Pulse 71 03/09/20 10:34 Respiratory Rate 16 03/09/20 10:34 Respiratory Effort Non-Labored 03/09/20 10:37 Blood Pressure 107/59 L 03/09/20 10:34 Blood Pressure Position Sitting 03/09/20 10:34 Pulse Oximetry 97 03/09/20 10:34 Oxygen Delivery Method Room Air 03/09/20 10:34 Oxygen Flow Rate 0 03/09/20 10:34 Pain Level 0 03/09/20 10:34 Lab/Test Results Lab/Test Results: 03/09/20 10:51 Nose Influenza Types A,B Antigen - Pending 03/09/20 10:48 Blood Blood Culture - Pending 03/09/20 10:48 Blood Blood Culture - Pending
[2020-03-09 11:08] LABS: Lactate 1.6 mmol/L (0.6-1.4)
[2020-03-09 11:09] LABS: Abs Immature Grans 0.03 10^3/uL (0.0-0.06); Absolute Basophil Count 0.02 10^3/uL (0.0-0.2); Absolute Lymphocyte Count 0.42 10^3/uL (1.2-3.4); Absolute Monocyte Count 0.37 10^3/uL (0.1-0.8); Absolute Neutrophil Count 4.03 10^3/uL (1.2-6.7); Basophils % 0.4; HCT 34.6 % (40.0-50.0); Immature Grans % 0.6; Lymphocytes % 8.6; MCH 28.4 pg (27.0-33.0); MCHC 31.8 % (32.0-36.0); MCV 89.2 fL (80-95); MPV 10.5 fL (8.0-11.0); Monocytes % 7.6; Neutrophils % 82.8; Nucleated RBC 0 %; Platelet Count 147 10^3/uL (130-400); RBC 3.88 10^6/uL (4.36-5.78); RDW 14.7 % (11.8-14.1); RDW-SD 46.5 fL; WBC 4.87 10^3/uL (4.4-10.8)
--- NOTE | 2020-03-09 11:11 | NUR.NOTE ---
Nursing Note: PT not taking blood thinner due to scheduled colonoscopy on 03/11.
[2020-03-09] MEDS: Normal Saline 1,000 ML 125 ML IV ×2 (11:15→22:24)
[2020-03-09 11:19] LABS: INR 1.4 (0.9-1.1); Prothrombin Time 14.3 sec (9.3-11.0)
[2020-03-09 11:24] LABS: Bilirubin Negative (Negative); Blood Small (Negative); Clarity Clear (Clear); Glucose Negative (Negative); Ketones Negative (Negative); Leukocyte Esterase Negative (Negative); Nitrite Negative (Negative); Urobilinogen 0.2 EU/dL (Up TO 0.2); pH 5.5 (5-8)
[2020-03-09 11:34] LABS: Bacteria Few HPF (Negative); C & S Indicated? No; Casts Negative LPF (Negative); Crystals Negative HPF (Negative); Epithelial Cells Negative HPF (Negative); Mucus Negative (Negative); WBC 0-2 HPF (0-5)
[2020-03-09 11:40] LABS: ALT 20 U/L (16-63); AST 31 U/L (15-37); Albumin 3.1 g/dL (3.4-5.0); Alkaline Phosphatase 79 U/L (46-116); Anion Gap 7.3 mmol/L (3-11); BUN 19 mg/dL (7-18); Bilirubin, Total 0.9 mg/dL (0.2-1.0); CO2 28.7 mmol/L (21.0-32.0); Calcium 8.4 mg/dL (8.5-10.1); Chloride 96 mmol/L (98-107); Estimated GFR 45.03 (mL/min/1.73m2); Glucose 97 mg/dL (74-106); NT-proBNP 6529 pg/mL (<300); Potassium 3.9 mmol/L (3.5-5.1); Sodium 132 mmol/L (136-145); Total Protein 7.2 g/dL (6.4-8.2); Troponin I < 0.05 ng/mL (<0.06)
--- NOTE | 2020-03-09 11:55 | DI.RAD_ITS ---
EXAM: XR PORTABLE CHEST AP CLINICAL HISTORY: cough/fever TECHNIQUE: COMPARISON: CR XR CHEST 2V PA LATERAL from 02/25/2020 FINDINGS: Portable AP chest at 1150 hours. The heart is not enlarged. Lungs appear clear. IMPRESSION: No evidence of acute process. RADIATION DOSE DELIVERED: Total DLP
[2020-03-09 12:12] LABS: Procalcitonin 0.1 ng/mL
--- NOTE | 2020-03-09 13:53 | NUR.NOTE ---
Nursing Note: Initial plan was to DC PT with follow up and prescriptions. Upon re assessment it oral temp was found to be 102.2. Provider Lala made aware. Discharge on hold at this time until further notice. PT is alert and oriented, all other vitals stable.
[2020-03-09] MEDS: Acetaminophen 500 MG TAB 1000 MG PO (13:59)
--- NOTE | 2020-03-09 14:00 | RT.EKG_ITS ---
APPROVED REPORT Exam: Resting ECG Patient Location: E HR:65 bpm ECG Measurements Heart Rate 65 AXIS OK [id number] P [id number] QRSd 134 QRS 62 QT 445 T 246 QTc 462 Conclusion Atrial fibrillation...V-rate 50- 73, irreg A-activity Right bundle branch block...QRSd>120, terminal axis(90,270) Abnrm T, consider ischemia, anterolateral lds...T <-0.20mV, I aVL V2-V6
--- NOTE | 2020-03-09 14:32 | HPE_ITS ---
Date of service: 03/09/20 Time of Service: 14:32 Assessment and Plan Assessment and plan (1) Fever: Status: Acute Assessment and plan: no source identified. COVID, blood and urine cultures pending, cxr clear, no skin issues, abdomen exam benign, no headache or meningeal signs, no back or neck pain. would like to get CT chest, abd/pelvis with oral and IV contrast but d/t kidney function will defer to tomorrow. labs added to ED include tick/lyme panel, crp, esr, cpk, HIV, (2) CHF (congestive heart failure): Status: Chronic Assessment and plan: given extra IV lasix dose given in the ED and diuresed 300 cc so far. He doesn't appear particularly wet on exam. no JVD, no orthopnea, cxr clear with clear breath sounds. will continue I&O, daily weights. echocardiogram pending, will hold off on further diuresis for now. (3) Acute kidney injury: Status: Acute Assessment and plan: unclear etiology, thought initially d/t CHF and if so should improve with diuresis. will renal dose meds, avoid nephrotoxic drugs. (4) Atrial fibrillation: Status: Chronic Assessment and plan: rate controlled, fully anticoagulated on xarelto which is on hold for upcoming upper and lower endoscopy. (5) Screening for colorectal cancer: Status: Acute Assessment and plan: patient was scheduled for upper and lower endoscopy with Dr Dean on for routine testing due. His xarelto had been placed on hold for this procedure. She has been notified of his admission and would like us to continue holding for now. (6) DVT prophylaxis: Status: Acute Assessment and plan: teds, xarelto on hold for upcoming testing. (7) Discharge planning issues: Status: Acute Assessment and plan: home with no services once medically stable. discussed with Dr Bonilla who is in agreement. History of Present Illness History of Present Illness Chief Complaint: shortness of breath Narrative: 79 year old male who presents to ED for evaluation of shortness of breath and mild dry cough. he reports he had a fever at home. no recent travel or sick contacts. lives with his who has not had recent illness. he has no identified source. he has been holding his xarelto for upcoming upper and lower endoscopy. work up in the ED is unrevealing. Review of Systems Constitutional Constitutional: Reports fever(s) and Denies headache(s) ENT Ears, Nose, Mouth, and Throat: Denies dizziness and Denies headache(s) Cardiovascular Cardiovascular: Denies chest pain and Reports dyspnea Respiratory Respiratory: Denies chest congestion, Reports cough, Denies hemoptysis, Reports dyspnea and Denies wheezing Gastrointestinal Gastrointestinal: Denies abdominal pain, Denies diarrhea, Denies nausea and D enies vomiting Genitourinary Genitourinary: Denies hematuria, Denies difficulty urinating, Denies dysuria and Denies flank pain Musculoskeletal Musculoskeletal: Denies back pain, Denies myalgias, Denies arthralgias and Denies joint swelling Integumentary/Breasts Skin/Breast: Denies lesions and Denies rash Neurologic Neurologic: Denies dizziness and Denies headache(s) Allergic/Immunologic Allergic/Immunologic: Denies wheezing [facility] Medical History Actinic keratoses Anemia Angioneurotic edema Atrial fibrillation Chronic anticoagulation Xarelto 15mgs qam Cough HTN (hypertension) Hx of fracture of finger L pointer Hypokalemia, ECF to ICF shifts Left ventricular hypertrophy 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 Called a pilonidal cyst (via biopsy) in [facility], s/p partial resection at some point - wants it completely removed. mg Snoring Tubular adenoma of colon (02/11/16) Vitreous floaters of left eye Surgical History Cholecystectomy Colonoscopy - IV Sedation (02/11/16) H/O local excision of skin lesion 11/05/18 Dr Cristina Dean, right lower back, biopsy showed fibrovascular tissue, adipose tissue and skeletal muscle. Social History Smoking/Tobacco Use Status: Former Tobacco Use Quit Date: 06/25/99 Alcohol Intake: current Alcohol Intake frequency: 0-2 drinks per day Alcohol type: hard liquor Drug use: Never Substance use type: does not use Do you feel safe at home: Yes Do you feel safe in your relationship?: Yes Meds Home Medications and Allergies Home Medications Medication Instructions Recorded Confirmed Type rivaroxaban 15 mg tablet 15 mg PO QPM 11/15/18 03/09/20 History furosemide 20 mg PO DAILY 03/09/20 03/09/20 History spironolactone 25 mg PO DAILY #30 tab 03/09/20 Rx Allergies Allergy/AdvReac Type Severity Reaction Status Date / Time oxycodone HCl [From Tylox] Allergy Skin Rash Verified 03/09/20 11:11 Exam Const General: cooperative, healthy appearing (younger than stated age), comfortable and no acute distress Nutritional Appearance: average body habitus Orientation: alert, awake and oriented x3 HENMT Head: normal to inspection, normocephalic and atraumatic Mouth: oral mucosae normal Resp Effort & Inspection: normal respiratory effort Auscultation: clear to auscultation bilaterally, no rales and no wheezes Cardio Rate: regular rate Rhythm: abnormal rhythm irregularly irregular GI Inspection: normal to inspection Palpation: soft, no guarding, no hepatomegaly, no masses, not rigid, nontender and No ascites Auscultation: normal bowel sounds Skin General skin exam: no rashes or lesions noted Neuro General: patient alert, patient awake and patient oriented x3 Cranial Nerves: CN's II-XI intact bilaterally Cognition: normal cognition Gait: normal gait Motor: muscle tone normal throughout Extrem General: normal to inspection, full ROM and no pedal edema Psych Appearance: grossly normal Mental Status: mental status grossly normal Speech and Movement: speech and movement normal Mood: congruent mood Affect: normal affect Attitude: cooperative Thought Process: normal Thought Content: normal Insight: insight good Judgment: judgment good Results Labs Result diagrams: 03/09/20 10:45 03/09/20 10:45 Labs: Laboratory Results - last 24 hr 03/09/20 03/09/20 03/09/20 10:45 10:45 10:45 WBC RBC Hgb Hct MCV MCH MCHC RDW Plt Count MPV Immature Gran % Neutrophils % Lymphocytes % Monocytes % Eosinophils % Basophils % Nucleated RBC % Absolute Neutrophils Absolute Lymphocytes Absolute Monocytes Absolute Eosinophils Absolute Basophils PT INR VBG Lactate 1.6 H Sodium Potassium Chloride Carbon Dioxide Anion Gap BUN Creatinine Estimated GFR/1.73 m2 Glucose Calcium Total Bilirubin AST ALT Alkaline Phosphatase Troponin I Cancelled NT-Pro-B Natriuret Pep Total Protein Albumin Procalcitonin 0.1 Urine Color Urine Clarity Urine pH Ur Specific [place] Urine Protein Urine Ketones Urine Blood Urine Nitrite Urine Bilirubin Urine Urobilinogen Ur Leukocyte Esterase Urine RBC Urine WBC Ur Epithelial Cells Urine Crystals Urine Bacteria Urine Casts Urine Mucus Ur Culture Indicated? Urine Glucose [facility] Ref Test Perform Site 03/09/20 03/09/20 03/09/20 10:45 10:45 10:45 WBC 4.87 RBC 3.88 L Hgb 11.0 L Hct 34.6 L MCV 89.2 MCH 28.4 MCHC 31.8 L RDW 14.7 H Plt Count 147 D MPV 10.5 Immature Gran % 0.6 Neutrophils % 82.8 Lymphocytes % 8.6 Monocytes % 7.6 Eosinophils % 0.0 Basophils % 0.4 Nucleated RBC % 0 Absolute Neutrophils 4.03 Absolute Lymphocytes 0.42 L Absolute Monocytes 0.37 Absolute Eosinophils 0.00 Absolute Basophils 0.02 PT 14.3 H INR 1.4 H VBG Lactate Sodium 132 L Potassium 3.9 Chloride 96 L Carbon Dioxide 28.7 Anion Gap 7.3 BUN 19 H Creatinine 1.50 H Estimated GFR/1.73 m2 45.03 Glucose 97 Calcium 8.4 L Total Bilirubin 0.9 AST 31 ALT 20 Alkaline Phosphatase 79 Troponin I < 0.05 NT-Pro-B Natriuret Pep 6529 H Total Protein 7.2 Albumin 3.1 L Procalcitonin Urine Color Urine Clarity Urine pH Ur Specific [place] Urine Protein Urine Ketones Urine Blood Urine Nitrite Urine Bilirubin Urine Urobilinogen Ur Leukocyte Esterase Urine RBC Urine WBC Ur Epithelial Cells Urine Crystals Urine Bacteria Urine Casts Urine Mucus Ur Culture Indicated? Urine Glucose [facility] Ref Test Perform Site 03/09/20 03/09/20 03/09/20 10:45 10:50 10:58 WBC RBC Hgb Hct MCV MCH MCHC RDW Plt Count MPV Immature Gran % Neutrophils % Lymphocytes % Monocytes % Eosinophils % Basophils % Nucleated RBC % Absolute Neutrophils Absolute Lymphocytes Absolute Monocytes Absolute Eosinophils Absolute Basophils PT INR VBG Lactate Sodium Potassium Chloride Carbon Dioxide Anion Gap BUN Creatinine Estimated GFR/1.73 m2 Glucose Calcium Total Bilirubin AST ALT Alkaline Phosphatase Troponin I NT-Pro-B Natriuret Pep Cancelled Total Protein Albumin Procalcitonin Urine Color Yellow Urine Clarity Clear Urine pH 5.5 Ur Specific [place] 1.010 Urine Protein Negative Urine Ketones Negative Urine Blood Small H Urine Nitrite Negative Urine Bilirubin Negative Urine Urobilinogen 0.2 Ur Leukocyte Esterase Negative Urine RBC 3-5 H Urine WBC 0-2 Ur Epithelial Cells Negative Urine Crystals Negative Urine Bacteria Few Urine Casts Negative Urine Mucus Negative Ur Culture Indicated? No Urine Glucose Negative COVID-19 PCR Cancelled Nasopharyn COVID-19 PCR Cancelled Ref Test Perform Site Cancelled Last Vital Signs Temp 39.0 C H 03/09/20 13:59 Pulse 67 03/09/20 13:31 Resp 33 H 03/09/20 13:40 BP 113/63 03/09/20 13:31 Pulse Ox 97 03/09/20 13:40 COVID-19 Screening Have you,or household,traveled outside [place] in last 14 days?: No Had IN PERSON contact w/suspected or confirmed C-19 person: No
[2020-03-09] MEDS: Furosemide 40 MG/4 ML VIAL IVP (14:49)
[2020-03-09 15:23] LABS: Troponin I < 0.05 ng/mL (<0.06)
--- NOTE | 2020-03-09 15:55 | NUR.NOTE ---
spoke with paris in the lab at 1554 on this date; he relayed to me that patient did in fact get covid swabbed 03/09/20 at 10:55 am but is unsure why it doesn't show under pending labs. Nursing Note:
[2020-03-09 17:05] LABS: C-Reactive Protein 5.21 mg/dL (0.0-0.3)
[2020-03-09 17:09] LABS: Creatine Kinase 88 U/L (39-308)
[2020-03-09 18:11] LABS: ESR 27 mm/hr (1-20)
[2020-03-09] MEDS: Acetaminophen 325 MG TAB 650 MG PO (22:31)
[2020-03-10] VITALS (13 sets, daily range): BP systolic 88–146; BP diastolic 59–86; PULSE 59–85; RESP 16–19; TEMP 36.9–39.8; O2SAT 93–97
--- NOTE | 2020-03-10 | DI.CT_ITS ---
EXAM: CT ABDOMEN PELVIS W CLINICAL HISTORY: left kidney mass TECHNIQUE: COMPARISON: CT CT CHEST/ABD/PEL WO from 03/10/2020 FINDINGS: CT examination of the abdomen and pelvis was performed with bolus infusion of 100 cc of Omnipaque 350 . As noted on the noncontrast CT obtained earlier today, there is cardiomegaly, bilateral pleural ef fusions, and bilateral pulmonary nodules. The liver shows heterogeneous decreased attenuation, this may be due to the patient's presumed CHF. Gallbladder has been surgically removed, no biliary dilatation. No pancreatic mass or other focal pa ncreatic abnormality. Spleen appears normal. There is question of edema/wall thickening of the gastric antrum, consider gastritis. Abdominal aorta is of normal diameter and no major vascular abnormality is seen. No significant abdominal or pelvic adenopathy identified. Adrenals appear normal bilaterally. There are fluid attenuation masses of the left kidney, the large st measuring about 3.8 cm in greatest diameter with appearance consistent with cysts. Minimal wall c alcification identified in the larger cyst. No evidence malignancy. No urinary tract calcification or obstruction. Urinary bladder is mildly thick walled which may indicate bladder outlet obstruction versus cystitis. Mild ascites noted. There is question mild thickening of the wall of the rectum and there is also wall thickening of the sigmoid with a questionable focal area of mucosal abnormality, probable muscular hypertrophy but gerard gnancy not excluded on the basis of this examination. Correlation with colonoscopy recommended. Appendix is normal. IMPRESSION: The left renal mass identified on noncontrast CT is a cyst. No suggestion of renal malignancy. Question gastric antral wall thickening/edema, consider gastritis. Question rectal wall thickening, sigmoid wall thickening noted with question mucosal abnormality, cor relation with colonoscopy recommended to exclude neoplasia or colitis. RADIATION DOSE DELIVERED: 577.4mGy.cm Total DLP
[2020-03-10] MEDS: Normal Saline 1,000 ML 125 ML IV (06:19)
[2020-03-10] MEDS: Acetaminophen 325 MG TAB 650 MG PO ×3 (06:21→23:21)
[2020-03-10 07:18] LABS: Lactate 1.2 mmol/L (0.6-1.4)
[2020-03-10 07:24] LABS: Abs Immature Grans 0.03 10^3/uL (0.0-0.06); Absolute Basophil Count 0.01 10^3/uL (0.0-0.2); Absolute Lymphocyte Count 0.24 10^3/uL (1.2-3.4); Absolute Monocyte Count 0.17 10^3/uL (0.1-0.8); Absolute Neutrophil Count 3.58 10^3/uL (1.2-6.7); Basophils % 0.2; HGB 10.5 g/dL (13.5-17.5); Immature Grans % 0.7; MCH 28.3 pg (27.0-33.0); MCHC 32.8 % (32.0-36.0); MCV 86.3 fL (80-95); MPV 10.4 fL (8.0-11.0); Monocytes % 4.2; Neutrophils % 88.9; Nucleated RBC 0 %; Platelet Count 117 10^3/uL (130-400); RBC 3.71 10^6/uL (4.36-5.78); RDW 14.5 % (11.8-14.1); RDW-SD 45.3 fL; WBC 4.03 10^3/uL (4.4-10.8)
[2020-03-10 07:40] LABS: ALT 17 U/L (16-63); AST 32 U/L (15-37); Albumin 2.5 g/dL (3.4-5.0); Alkaline Phosphatase 63 U/L (46-116); Anion Gap 9.5 mmol/L (3-11); BUN 22 mg/dL (7-18); CO2 25.5 mmol/L (21.0-32.0); CREATININE 1.47 mg/dL (0.70-1.30); Calcium 7.7 mg/dL (8.5-10.1); Chloride 100 mmol/L (98-107); Estimated GFR 46.09 (mL/min/1.73m2); Glucose 92 mg/dL (74-106); Potassium 3.5 mmol/L (3.5-5.1); Sodium 135 mmol/L (136-145); Troponin I < 0.05 ng/mL (<0.06)
[2020-03-10] MEDS: Furosemide 20 MG TAB PO (08:10)
[2020-03-10 08:33] LABS: COVID-19 RT-PCR UVMMC Result Negative (Negative)
--- NOTE | 2020-03-10 08:49 | PGE_ITS ---
Date of Service Date of service: 03/10/20 Time of Service: 08:49 Assessment and Plan Assessment and plan (1) Fever: Status: Acute Assessment and plan: no source identified yet. likely tumor fever. COVID negative x2, blood and urine cultures pending, cxr clear, no skin issues, abdomen exam benign, no headache or meningeal signs, no back or neck pain. will get CT chest, abd/pelvis with oral contrast no IV d/t kidney function. (2) CHF (congestive heart failure): Status: Chronic Assessment and plan: respiratory symptoms improved, resume home lasix dose. will continue I&O, daily weights. echocardiogram today: LVEF 50-55%, no valvular stenosis, mild to mod regurg on all valves, no pericardial effusion Echo from 01/16/2018 EF 55-60% with mild to mod regurg in aortic, mitral and tricuspid valves. (3) Acute kidney injury: Status: Acute Assessment and plan: creatinine stable/slightly improved. will renal dose meds, avoid nephrotoxic drugs. (4) Atrial fibrillation: Status: Chronic Assessment and plan: rate controlled, fully anticoagulated on xarelto which is on hold for upcoming upper and lower endoscopy tomorrow.. (5) Screening for colorectal cancer: Status: Acute Assessment and plan: patient was scheduled for upper and lower endoscopy with Dr Dean on for routine testing due. His xarelto had been placed on hold for this procedure. She has been notified of his admission and would like us to continue holding for now. he is clear liquids today for possible endoscopy tomorrow. suspect malignancy. (6) Pancytopenia: Status: Acute Assessment and plan: add peripheral smear. (7) HTN (hypertension): Status: Chronic Assessment and plan: blood pressures stable off his HCTZ/triam which was stopped prior to admission. continue to monitor. (8) DVT prophylaxis: Status: Acute Assessment and plan: teds, xarelto on hold for upcoming testing. (9) Discharge planning issues: Status: Acute Assessment and plan: home with no services once medically stable. discussed with Dr Bonilla who is in agreement. Subjective Subjective Interval history since last seen: max temp overnight 39.6. otherwise unremarkable evening. oxygenating in the mid 90's on room air. blood pressures soft with sbp 100. symptomatic. no source of infection identified overnight. Exam Const General: cooperative, healthy appearing (younger than stated age), comfortable and no acute distress Nutritional Appearance: average body habitus Orientation: alert, awake and oriented x3 HENMT Head: normal to inspection, normocephalic and atraumatic Mouth: oral mucosae normal Resp Effort & Inspection: normal respiratory effort Auscultation: clear to auscultation bilaterally, no rales and no wheezes Cardio Rate: regular rate Rhythm: abnormal rhythm irregularly irregular GI Inspection: normal to inspection Palpation: soft, no guarding, no hepatomegaly, no masses, not rigid, nontender and No ascites Auscultation: normal bowel sounds Skin General skin exam: no rashes or lesions noted Neuro General: patient alert, patient awake and patient oriented x3 Cranial Nerves: CN's II-XI intact bilaterally Cognition: normal cognition Gait: normal gait Motor: muscle tone normal throughout Extrem General: normal to inspection, full ROM and edema (chronic) Laterality: bilateral Psych Appearance: grossly normal Mental Status: mental status grossly normal Speech and Movement: speech and movement normal Mood: congruent mood Affect: normal affect Attitude: cooperative Thought Process: normal Thought Content: normal Insight: insight good Judgment: judgment good Objective Last Vital Signs Temp 37.6 C H 03/10/20 08:08 Pulse 65 03/10/20 08:08 Resp 18 03/10/20 08:08 BP 99/69 L 03/10/20 08:08 Pulse Ox 94 03/10/20 08:08 Laboratory Results - last 24 hr 03/09/20 03/09/20 03/09/20 10:45 10:45 10:45 WBC RBC Hgb Hct MCV MCH MCHC RDW Plt Count MPV Immature Gran % Neutrophils % Lymphocytes % Monocytes % Eosinophils % Basophils % Nucleated RBC % Absolute Neutrophils Absolute Lymphocytes Absolute Monocytes Absolute Eosinophils Absolute Basophils ESR PT INR VBG Lactate 1.6 H Sodium Potassium Chloride Carbon Dioxide Anion Gap BUN Creatinine Estimated GFR/1.73 m2 Glucose Calcium Total Bilirubin AST ALT Alkaline Phosphatase Creatine Kinase Troponin I Cancelled C-Reactive Protein NT-Pro-B Natriuret Pep Total Protein Albumin Procalcitonin 0.1 Urine Color Urine Clarity Urine pH Ur Specific [place] Urine Protein Urine Ketones Urine Blood Urine Nitrite Urine Bilirubin Urine Urobilinogen Ur Leukocyte Esterase Urine RBC Urine WBC Ur Epithelial Cells Urine Crystals Urine Bacteria Urine Casts Urine Mucus Ur Culture Indicated? Urine Glucose COVID-19 PCR Nasopharyn COVID-19 PCR SARS-CoV-2 Source SARS-CoV-2 (PCR) Patient Race Patient Ethnicity Ref Test Method Ref Test Perform Site 03/09/20 03/09/20 03/09/20 10:45 10:45 10:45 WBC 4.87 RBC 3.88 L Hgb 11.0 L Hct 34.6 L MCV 89.2 MCH 28.4 MCHC 31.8 L RDW 14.7 H Plt Count 147 D MPV 10.5 Immature Gran % 0.6 Neutrophils % 82.8 Lymphocytes % 8.6 Monocytes % 7.6 Eosinophils % 0.0 Basophils % 0.4 Nucleated RBC % 0 Absolute Neutrophils 4.03 Absolute Lymphocytes 0.42 L Absolute Monocytes 0.37 Absolute Eosinophils 0.00 Absolute Basophils 0.02 ESR PT 14.3 H INR 1.4 H VBG Lactate Sodium 132 L Potassium 3.9 Chloride 96 L Carbon Dioxide 28.7 Anion Gap 7.3 BUN 19 H Creatinine 1.50 H Estimated GFR/1.73 m2 45.03 Glucose 97 Calcium 8.4 L Total Bilirubin 0.9 AST 31 ALT 20 Alkaline Phosphatase 79 Creatine Kinase Troponin I < 0.05 C-Reactive Protein NT-Pro-B Natriuret Pep 6529 H Total Protein 7.2 Albumin 3.1 L Procalcitonin Urine Color Urine Clarity Urine pH Ur Specific [place] Urine Protein Urine Ketones Urine Blood Urine Nitrite Urine Bilirubin Urine Urobilinogen Ur Leukocyte Esterase Urine RBC Urine WBC Ur Epithelial Cells Urine Crystals Urine Bacteria Urine Casts Urine Mucus Ur Culture Indicated? Urine Glucose COVID-19 PCR Nasopharyn COVID-19 PCR SARS-CoV-2 Source SARS-CoV-2 (PCR) Patient Race Patient Ethnicity Ref Test Method Ref Test Perform Site 03/09/20 03/09/20 03/09/20 10:45 10:50 10:50 WBC RBC Hgb Hct MCV MCH MCHC RDW Plt Count MPV Immature Gran % Neutrophils % Lymphocytes % Monocytes % Eosinophils % Basophils % Nucleated RBC % Absolute Neutrophils Absolute Lymphocytes Absolute Monocytes Absolute Eosinophils Absolute Basophils ESR PT INR VBG Lactate Sodium Potassium Chloride Carbon Dioxide Anion Gap BUN Creatinine Estimated GFR/1.73 m2 Glucose Calcium Total Bilirubin AST ALT Alkaline Phosphatase Creatine Kinase Troponin I C-Reactive Protein NT-Pro-B Natriuret Pep Cancelled Total Protein Albumin Procalcitonin Urine Color Urine Clarity Urine pH Ur Specific [place] Urine Protein Urine Ketones Urine Blood Urine Nitrite Urine Bilirubin Urine Urobilinogen Ur Leukocyte Esterase Urine RBC Urine WBC Ur Epithelial Cells Urine Crystals Urine Bacteria Urine Casts Urine Mucus Ur Culture Indicated? Urine Glucose COVID-19 PCR Cancelled Negative Nasopharyn COVID-19 PCR Cancelled Not Applicable SARS-CoV-2 Source Cancelled SARS-CoV-2 (PCR) Cancelled Patient Race Cancelled Patient Ethnicity Cancelled Ref Test Method Cancelled Ref Test Perform Site Cancelled [facility] 03/09/20 03/09/20 03/09/20 10:58 14:51 14:51 WBC RBC Hgb Hct MCV MCH MCHC RDW Plt Count MPV Immature Gran % Neutrophils % Lymphocytes % Monocytes % Eosinophils % Basophils % Nucleated RBC % Absolute Neutrophils Absolute Lymphocytes Absolute Monocytes Absolute Eosinophils Absolute Basophils ESR PT INR VBG Lactate Sodium Potassium Chloride Carbon Dioxide Anion Gap BUN Creatinine Estimated GFR/1.73 m2 Glucose Calcium Total Bilirubin AST ALT Alkaline Phosphatase Creatine Kinase Troponin I < 0.05 C-Reactive Protein 5.21 H NT-Pro-B Natriuret Pep Total Protein Albumin Procalcitonin Urine Color Yellow Urine Clarity Clear Urine pH 5.5 Ur Specific [place] 1.010 Urine Protein Negative Urine Ketones Negative Urine Blood Small H Urine Nitrite Negative Urine Bilirubin Negative Urine Urobilinogen 0.2 Ur Leukocyte Esterase Negative Urine RBC 3-5 H Urine WBC 0-2 Ur Epithelial Cells Negative Urine Crystals Negative Urine Bacteria Few Urine Casts Negative Urine Mucus Negative Ur Culture Indicated? No Urine Glucose Negative COVID-19 PCR Nasopharyn COVID-19 PCR SARS-CoV-2 Source SARS-CoV-2 (PCR) Patient Race Patient Ethnicity Ref Test Method Ref Test Perform Site 03/09/20 03/09/20 03/10/20 14:51 16:37 07:09 WBC RBC Hgb Hct MCV MCH MCHC RDW Plt Count MPV Immature Gran % Neutrophils % Lymphocytes % Monocytes % Eosinophils % Basophils % Nucleated RBC % Absolute Neutrophils Absolute Lymphocytes Absolute Monocytes Absolute Eosinophils Absolute Basophils ESR 27 H PT INR VBG Lactate Sodium 135 L Potassium 3.5 Chloride 100 Carbon Dioxide 25.5 Anion Gap 9.5 BUN 22 H Creatinine 1.47 H Estimated GFR/1.73 m2 46.09 Glucose 92 Calcium 7.7 L Total Bilirubin 1.0 AST 32 ALT 17 Alkaline Phosphatase 63 Creatine Kinase 88 Troponin I < 0.05 C-Reactive Protein NT-Pro-B Natriuret Pep Total Protein 6.0 L Albumin 2.5 L Procalcitonin Urine Color Urine Clarity Urine pH Ur Specific [place] Urine Protein Urine Ketones Urine Blood Urine Nitrite Urine Bilirubin Urine Urobilinogen Ur Leukocyte Esterase Urine RBC Urine WBC Ur Epithelial Cells Urine Crystals Urine Bacteria Urine Casts Urine Mucus Ur Culture Indicated? Urine Glucose COVID-19 PCR Nasopharyn COVID-19 PCR SARS-CoV-2 Source SARS-CoV-2 (PCR) Patient Race Patient Ethnicity Ref Test Method Ref Test Perform Site 03/10/20 03/10/20 07:09 07:09 WBC 4.03 L RBC 3.71 L Hgb 10.5 L Hct 32.0 L MCV 86.3 MCH 28.3 MCHC 32.8 RDW 14.5 H Plt Count 117 L MPV 10.4 Immature Gran % 0.7 Neutrophils % 88.9 Lymphocytes % 6.0 Monocytes % 4.2 Eosinophils % 0.0 Basophils % 0.2 Nucleated RBC % 0 Absolute Neutrophils 3.58 Absolute Lymphocytes 0.24 L Absolute Monocytes 0.17 Absolute Eosinophils 0.00 Absolute Basophils 0.01 ESR PT INR VBG Lactate 1.2 Sodium Potassium Chloride Carbon Dioxide Anion Gap BUN Creatinine Estimated GFR/1.73 m2 Glucose Calcium Total Bilirubin AST ALT Alkaline Phosphatase Creatine Kinase Troponin I C-Reactive Protein NT-Pro-B Natriuret Pep Total Protein Albumin Procalcitonin Urine Color Urine Clarity Urine pH Ur Specific [place] Urine Protein Urine Ketones Urine Blood Urine Nitrite Urine Bilirubin Urine Urobilinogen Ur Leukocyte Esterase Urine RBC Urine WBC Ur Epithelial Cells Urine Crystals Urine Bacteria Urine Casts Urine Mucus Ur Culture Indicated? Urine Glucose COVID-19 PCR Nasopharyn COVID-19 PCR SARS-CoV-2 Source SARS-CoV-2 (PCR) Patient Race Patient Ethnicity Ref Test Method Ref Test Perform Site
--- NOTE | 2020-03-10 09:02 | W.SURGCON ---
Date of service: 03/10/20 Time of Service: 09:03 Assessment and Plan Assessment and plan (1) Pancytopenia: Status: Acute (2) Acute kidney injury: Status: Acute (3) Febrile illness: Status: Acute (4) CHF (congestive heart failure): Status: Chronic (5) Anemia: Status: Acute (6) Tubular adenoma of colon: Status: Resolved (7) Atrial fibrillation: Status: Chronic (8) Abnormal CT of the abdomen: Status: Acute Assessment and plan: I did review the patient's CT scans with Dr. Rivas. The mass in his kidney does just appear to be a simple cyst. He does have some thickening in the gastric wall on CT and also some thickening in the rectosigmoid region. Medicine feels that he is medicaTh ept understands that they need to do a bowel prep and the importance of hydration during this. The patient understands there is a theuraretical risk of renal failure. Plavix and coumadin will need to be held except in unusual circumstances. patient in A. Fib do not need to be bridged with Lovenox or on CVA prophylaxis. A baby ASA can be continued but full dose ASA needs to be stopped for 10 days prior to the procedure. A complete H & P is required with in 30 days of the procedure. MAC is used for the colonoscopy. Colonoscopy does not require antibiotics prophylaxis. Risks: Informed consent is obtained for the procedural (explained in simple layman's terms that the pt and/or family could understand) explaining risks vs benefits and alternatives to the procedure and consequences if we do not do the procedure and need/rational for the procedure. Risks include but are not limited to:bleeding, infection, perforation of colon. This would necessitate emergency surgery to repair the damage w/ possible ostomy; and other associated complications w/ the required surgery. Also complications of anesthesia including aspiration,MD/CVA/. I discussed with the patient would they could expect during the procedure, post procedure and recovery time and risks. The patient understands that they need to have a ride home after the procedure. The patient was given all this information in writing and expressed understanding. medically stable for EGD and colonoscopy. And we will plan on proceeding with those procedures tomorrow patient is in agreement History of Present Illness Narrative: Consult date 916 I saw Toni in the office on 03/05 for anemia. Since I have seen him last week looks like he has lost quite a bit of weight. His says he is actually been having a lot of diarrhea. He looks frail and not robust like he normally does. (1) Anemia: (2) Hypokalemia, ECF to ICF shifts: (3) Tubular adenoma of colon: (4) Chronic anticoagulation: (5) Atrial fibrillation: (6) Anemia: From office consult: Denies pin or diff swallowing. wt is same. eating ok. notes swollen legs. started on HCTZ. feels tired adn SOB. denies blood in stools or black tarry stools. on Xaralto for A fib. denies hematomas or blood thinners. no nose bleeds. denies changes in bowels habits. notes stools are loose. 2-3x a day depending on what he eats. this is same. denies any upper or lower s/s. no abdom pain whatsoever. feels week and tired. no dizziness or feeling his heart is beating fast or erratic. polyps in the past. smoker- quit in 20 yrs than chewed for 10 yrs coffee: 2per day ETOH 1 day. stopped for last week. 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 mg Snoring Tubular adenoma of colon (02/11/16) Vitreous floaters of left eye Surgical History Cholecystectomy Colonoscopy - IV Sedation (02/11/16) H/O local excision of skin lesion 5/14/19 Dr Cristina Dean, right lower back, biopsy showed fibrovascular tissue, adipose tissue and skeletal muscle. Social History Smoking/Tobacco Use Status: Former Tobacco Use Quit Date: 06/25/99 Alcohol Intake: current Alcohol Intake frequency: 0-2 drinks per day Alcohol type: hard liquor Drug use: Never Substance use type: does not use Do you feel safe at home: Yes Do you feel safe in your relationship?: Yes Exam Const General: cooperative, healthy appearing, comfortable, no acute distress, well developed and well groomed Nutritional Appearance: average body habitus and well nourished Orientation: alert, awake and oriented x3 HENMT Head: normal to inspection, normocephalic and atraumatic Ears: hearing grossly normal bilaterally and external ears normal General nose exam: external nose normal Face and sinus: normal facial exam and sinuses nontender Mouth: oral mucosae normal, lip normal, tongue normal and moist mucous membranes Teeth and gingiva: dentition normal Eyes General: appearance normal, both eyes and all related structures Conjunctivae: conjunctivae normal Sclera: sclerae normal Pupils: PERRL Neck Neck: normal visual inspection and full ROM Chest Chest: normal inspection of the chest Resp Effort & Inspection: normal respiratory effort, able to speak in complete sentences, no cough, no nasal flaring, not tachypneic and no use of accessory muscles Auscultation: clear to auscultation bilaterally, no rales, no rhonchi and no wheezes Cardio Jugular venous pressure: no JVD Rate: regular rate Rhythm: other GI Inspection: normal to inspection, no edema and non-distended Palpation: soft, no masses, nontender and No ascites Auscultation: normal bowel sounds Skin General skin exam: no rashes or lesions noted Trauma: no lacerations or abrasions Neuro General: patient alert, patient oriented x3, oriented, gait normal, moves all extremities, no focal motor deficits and CN's II-XI intact bilaterally Cognition: normal cognition Speech: speech normal Gait: normal gait Motor: muscle tone normal throughout Extrem General: full ROM and no clubbing, cyanosis or edema Other: 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 Psych Appearance: grossly normal and well kempt Mental Status: mental status grossly normal Speech and Movement: speech and movement normal Affect: normal affect Results Last Vital Signs Temp 37.6 C H 03/10/20 08:08 Pulse 65 03/10/20 08:08 Resp 18 03/10/20 08:08 BP 99/69 L 03/10/20 08:08 Pulse Ox 94 03/10/20 08:08 Labs Result diagrams: 03/10/20 07:09 03/10/20 07:09 Labs: Laboratory Results - last 24 hr 03/09/20 03/09/20 03/09/20 10:45 10:45 10:45 WBC RBC Hgb Hct MCV MCH MCHC RDW Plt Count MPV Immature Gran % Neutrophils % Lymphocytes % Monocytes % Eosinophils % Basophils % Nucleated RBC % Absolute Neutrophils Absolute Lymphocytes Absolute Monocytes Absolute Eosinophils Absolute Basophils ESR PT INR VBG Lactate 1.6 H Sodium Potassium Chloride Carbon Dioxide Anion Gap BUN Creatinine Estimated GFR/1.73 m2 Glucose Calcium Total Bilirubin AST ALT Alkaline Phosphatase Creatine Kinase Troponin I Cancelled C-Reactive Protein NT-Pro-B Natriuret Pep Total Protein Albumin Procalcitonin 0.1 Urine Color Urine Clarity Urine pH Ur Specific [place] Urine Protein Urine Ketones Urine Blood Urine Nitrite Urine Bilirubin Urine Urobilinogen Ur Leukocyte Esterase Urine RBC Urine WBC Ur Epithelial Cells Urine Crystals Urine Bacteria Urine Casts Urine Mucus Ur Culture Indicated? Urine Glucose COVID-19 PCR Nasopharyn COVID-19 PCR SARS-CoV-2 Source SARS-CoV-2 (PCR) Patient Race Patient Ethnicity Ref Test Method Ref Test Perform Site 03/09/20 03/09/20 03/09/20 10:45 10:45 10:45 WBC 4.87 RBC 3.88 L Hgb 11.0 L Hct 34.6 L MCV 89.2 MCH 28.4 MCHC 31.8 L RDW 14.7 H Plt Count 147 D MPV 10.5 Immature Gran % 0.6 Neutrophils % 82.8 Lymphocytes % 8.6 Monocytes % 7.6 Eosinophils % 0.0 Basophils % 0.4 Nucleated RBC % 0 Absolute Neutrophils 4.03 Absolute Lymphocytes 0.42 L Absolute Monocytes 0.37 Absolute Eosinophils 0.00 Absolute Basophils 0.02 ESR PT 14.3 H INR 1.4 H VBG Lactate Sodium 132 L Potassium 3.9 Chloride 96 L Carbon Dioxide 28.7 Anion Gap 7.3 BUN 19 H Creatinine 1.50 H Estimated GFR/1.73 m2 45.03 Glucose 97 Calcium 8.4 L Total Bilirubin 0.9 AST 31 ALT 20 Alkaline Phosphatase 79 Creatine Kinase Troponin I < 0.05 C-Reactive Protein NT-Pro-B Natriuret Pep 6529 H Total Protein 7.2 Albumin 3.1 L Procalcitonin Urine Color Urine Clarity Urine pH Ur Specific [place] Urine Protein Urine Ketones Urine Blood Urine Nitrite Urine Bilirubin Urine Urobilinogen Ur Leukocyte Esterase Urine RBC Urine WBC Ur Epithelial Cells Urine Crystals Urine Bacteria Urine Casts Urine Mucus Ur Culture Indicated? Urine Glucose COVID-19 PCR Nasopharyn COVID-19 PCR SARS-CoV-2 Source SARS-CoV-2 (PCR) Patient Race Patient Ethnicity Ref Test Method Ref Test Perform Site 03/09/20 03/09/20 03/09/20 10:45 10:50 10:50 WBC RBC Hgb Hct MCV MCH MCHC RDW Plt Count MPV Immature Gran % Neutrophils % Lymphocytes % Monocytes % Eosinophils % Basophils % Nucleated RBC % Absolute Neutrophils Absolute Lymphocytes Absolute Monocytes Absolute Eosinophils Absolute Basophils ESR PT INR VBG Lactate Sodium Potassium Chloride Carbon Dioxide Anion Gap BUN Creatinine Estimated GFR/1.73 m2 Glucose Calcium Total Bilirubin AST ALT Alkaline Phosphatase Creatine Kinase Troponin I C-Reactive Protein NT-Pro-B Natriuret Pep Cancelled Total Protein Albumin Procalcitonin Urine Color Urine Clarity Urine pH Ur Specific [place] Urine Protein Urine Ketones Urine Blood Urine Nitrite Urine Bilirubin Urine Urobilinogen Ur Leukocyte Esterase Urine RBC Urine WBC Ur Epithelial Cells Urine Crystals Urine Bacteria Urine Casts Urine Mucus Ur Culture Indicated? Urine Glucose COVID-19 PCR Cancelled Negative Nasopharyn COVID-19 PCR Cancelled Not Applicable SARS-CoV-2 Source Cancelled SARS-CoV-2 (PCR) Cancelled Patient Race Cancelled Patient Ethnicity Cancelled Ref Test Method Cancelled Ref Test Perform Site Cancelled Graff uvmmc lab 03/09/20 03/09/20 03/09/20 10:58 14:51 14:51 WBC RBC Hgb Hct MCV MCH MCHC RDW Plt Count MPV Immature Gran % Neutrophils % Lymphocytes % Monocytes % Eosinophils % Basophils % Nucleated RBC % Absolute Neutrophils Absolute Lymphocytes Absolute Monocytes Absolute Eosinophils Absolute Basophils ESR PT INR VBG Lactate Sodium Potassium Chloride Carbon Dioxide Anion Gap BUN Creatinine Estimated GFR/1.73 m2 Glucose Calcium Total Bilirubin AST ALT Alkaline Phosphatase Creatine Kinase Troponin I < 0.05 C-Reactive Protein 5.21 H NT-Pro-B Natriuret Pep Total Protein Albumin Procalcitonin Urine Color Yellow Urine Clarity Clear Urine pH 5.5 Ur Specific [place] 1.010 Urine Protein Negative Urine Ketones Negative Urine Blood Small H Urine Nitrite Negative Urine Bilirubin Negative Urine Urobilinogen 0.2 Ur Leukocyte Esterase Negative Urine RBC 3-5 H Urine WBC 0-2 Ur Epithelial Cells Negative Urine Crystals Negative Urine Bacteria Few Urine Casts Negative Urine Mucus Negative Ur Culture Indicated? No Urine Glucose Negative COVID-19 PCR Nasopharyn COVID-19 PCR SARS-CoV-2 Source SARS-CoV-2 (PCR) Patient Race Patient Ethnicity Ref Test Method Ref Test Perform Site 03/09/20 03/09/20 03/10/20 14:51 16:37 07:09 WBC RBC Hgb Hct MCV MCH MCHC RDW Plt Count MPV Immature Gran % Neutrophils % Lymphocytes % Monocytes % Eosinophils % Basophils % Nucleated RBC % Absolute Neutrophils Absolute Lymphocytes Absolute Monocytes Absolute Eosinophils Absolute Basophils ESR 27 H PT INR VBG Lactate Sodium 135 L Potassium 3.5 Chloride 100 Carbon Dioxide 25.5 Anion Gap 9.5 BUN 22 H Creatinine 1.47 H Estimated GFR/1.73 m2 46.09 Glucose 92 Calcium 7.7 L Total Bilirubin 1.0 AST 32 ALT 17 Alkaline Phosphatase 63 Creatine Kinase 88 Troponin I < 0.05 C-Reactive Protein NT-Pro-B Natriuret Pep Total Protein 6.0 L Albumin 2.5 L Procalcitonin Urine Color Urine Clarity Urine pH Ur Specific [place] Urine Protein Urine Ketones Urine Blood Urine Nitrite Urine Bilirubin Urine Urobilinogen Ur Leukocyte Esterase Urine RBC Urine WBC Ur Epithelial Cells Urine Crystals Urine Bacteria Urine Casts Urine Mucus Ur Culture Indicated? Urine Glucose COVID-19 PCR Nasopharyn COVID-19 PCR SARS-CoV-2 Source SARS-CoV-2 (PCR) Patient Race Patient Ethnicity Ref Test Method Ref Test Perform Site 03/10/20 03/10/20 07:09 07:09 WBC 4.03 L RBC 3.71 L Hgb 10.5 L Hct 32.0 L MCV 86.3 MCH 28.3 MCHC 32.8 RDW 14.5 H Plt Count 117 L MPV 10.4 Immature Gran % 0.7 Neutrophils % 88.9 Lymphocytes % 6.0 Monocytes % 4.2 Eosinophils % 0.0 Basophils % 0.2 Nucleated RBC % 0 Absolute Neutrophils 3.58 Absolute Lymphocytes 0.24 L Absolute Monocytes 0.17 Absolute Eosinophils 0.00 Absolute Basophils 0.01 ESR PT INR VBG Lactate 1.2 Sodium Potassium Chloride Carbon Dioxide Anion Gap BUN Creatinine Estimated GFR/1.73 m2 Glucose Calcium Total Bilirubin AST ALT Alkaline Phosphatase Creatine Kinase Troponin I C-Reactive Protein NT-Pro-B Natriuret Pep Total Protein Albumin Procalcitonin Urine Color Urine Clarity Urine pH Ur Specific [place] Urine Protein Urine Ketones Urine Blood Urine Nitrite Urine Bilirubin Urine Urobilinogen Ur Leukocyte Esterase Urine RBC Urine WBC Ur Epithelial Cells Urine Crystals Urine Bacteria Urine Casts Urine Mucus Ur Culture Indicated? Urine Glucose COVID-19 PCR Nasopharyn COVID-19 PCR SARS-CoV-2 Source SARS-CoV-2 (PCR) Patient Race Patient Ethnicity Ref Test Method Ref Test Perform Site
[2020-03-10 09:21] LABS: Iron 8 ug/dL (65-175); Total Iron Binding Capacity 214 ug/dL (250-450); Transferrin Sat 4 % (20-55)
[2020-03-10 09:34] LABS: Ferritin 548 ng/mL (26-388)
--- NOTE | 2020-03-10 10:21 | PDOC.CMIN ---
- If Service Date Differs Date of service: 03/10/20 Time of Service: 15:28 Care Management Initial Assess REASON FOR HOSPITALIZATION:: Fever unknown origin PAST MEDICAL HISTORY/PAST SURGICAL HISTORY:: Actinic keratoses, anemia, angioneurotic edema, A-fib, chronic anticoagulation, current everyday drinker, cough, HTN, finger fracture, hypokalemia, left ventricular hypertrophy, malignant melanoma of skin of elbow, sebaceous cyst, sensorineural hearing loss, shortness of breath, skin lesion on back, snoring, tubular adenoma of colon, vitreous floaters of left eye, cholecystectomy, colonoscopy, local excision of skin lesion PREVIOUS FUNCTIONAL STATUS/SOCIAL/FAMILY SUPPORTS:: Toni resides with his , Rolo in [place], [place]. He remains independent at baseline in the community. CURRENT FUNCTIONAL STATUS:: Toni is up independently in his room. He is awaiting determination of treatment recommendations. ADVANCE DIRECTIVES:: None on file at [facility]. Has patient been provided with info about the portal/API?: Yes Did the patient sign up for the portal?: No CODE STATUS:: Full Code INSURANCE COVERAGE / FINANCIAL ISSUES:: BC/BS. Medicare CURRENT HOME/COMMUNITY SERVICES/EQUIPMENT:: No current services or equipment. PRIMARY CARE PHYSICIAN:: Wing Phan MD. POTENTIAL DISCHARGE NEEDS:: Follow up appointment with PCP. PATIENT/FAMILY EDUCATION NEEDS:: Review discharge instructions, discuss Ask Me Three. ANTICIPATED BARRIERS TO DISCHARGE:: None identified. TRANSPORTATION:: Toni will transport home via private vehicle. PLAN:: Toni continues to be closely monitored at this time. Anticipate he will return home with no additional services when ready per MD. Toni will follow up with his PCP and plan of care as prescribed. He will transport home via private vehicle with his .
[2020-03-10] MEDS: Pantoprazole 40 MG VIAL IVP (10:36)
--- NOTE | 2020-03-10 12:30 | DI.CT_ITS ---
EXAM: CT CHEST/ABD/PEL WO CLINICAL HISTORY: FEVER UNKNOWN ORIGIN TECHNIQUE: CT examination of the chest, abdomen and pelvis was performed without contrast administra tion. COMPARISON: No exams were available for comparison FINDINGS: There are bilateral pleural effusions. There is cardiomegaly. There is a trace pericardial effusion . There are coronary artery calcifications. No focal pulmonary consolidation or pulmonary edema. There are multiple pleural-based and intrapulmo nary nodules seen in both lungs, the largest in the right upper lobe measuring about 8 millimeters in greatest diameter. These are noncalcified. These are of uncertain etiology, metastatic disease not excluded. Tracheobronchial tree appears intact. There is an enlarged aortopulmonary window node me asuring about 10 x 23 millimeters in diameter. No other significant mediastinal or hilar adenopathy seen by noncontrast criteria. No thoracic aortic aneurysm. There is trace ascites. There is unremarkable appearance of the liver. Gallbladder has been surgica lly removed. No biliary dilatation. Unremarkable appearance of the pancreas by noncontrast criteria . Unremarkable noncontrast appearance of the spleen. Adrenals appear normal bilaterally. Right kidney is unremarkable in appearance with no hydronephrosis, mass, or calcification. Urinary b ladder grossly unremarkable. There is a question of a 4 cm in diameter isoattenuating mass of the lower pole of the left kidney. Possibility of renal neoplasm is raised. Additional evaluation with contrast enhanced CT, MRI, or ul trasound recommended. No abdominal aortic aneurysm seen. No significant abdominal or pelvic adenopathy. No significant ab dominal wall hernia. Appendix is normal. No evidence of diverticulitis or bowel obstruction. Multiple metallic foreign bodies noted in the right buttock/SI joint region. No gross erosive or destructive bony lesion identified in the region surveilled in the chest, abdomen , or pelvis. IMPRESSION: Question left renal 4 cm in diameter mass, suspicious for neoplasm. Additional evaluation with contr ast-enhanced CT or MRI recommended. Multiple indeterminate intrapulmonary nodules, which are noncalcified. Metastatic disease not exclud ed; however, the findings may be due to post inflammatory process. Enlarged left AP window node, nonspecific. Bilateral pleural effusions and cardiomegaly, question mild CHF. No caleb pulmonary edema. Trace as cites and trace pericardial effusion also noted. RADIATION DOSE DELIVERED: 801.16mGy.cm Total DLP
--- NOTE | 2020-03-10 14:25 | PHA.REVIEW ---
Pharmacy Admission Review - Admission Clinical Review (Last Updated 03/10/20 @ 08:56 by Marsha Rubio NP) Pancytopenia (Acute) Acute kidney injury (Acute) Febrile illness (Acute) Discharge planning issues (Acute) DVT prophylaxis (Acute) Fever (Acute) Cough (Acute) Screening for colorectal cancer (Acute) oxycodone HCl [From Tylox] Allergy (Verified 03/09/20 11:11) Skin Rash Height 5 ft 11 in Weight 64.864 kg - Comments Comments/Follow Ups: Fever due to malignancy/tumor? - Renal Dosing Renal Dosing: BUN 22 mg/dL (7-18) H 03/10/20 07:09 Creatinine 1.47 mg/dL (0.70-1.30) H 03/10/20 07:09 Medications needing adjustments: Reviewed - Anticoagulation Anticoagulation: Hgb 10.5 g/dL (13.5-17.5) L 03/10/20 07:09 Hct 32.0 % (40.0-50.0) L 03/10/20 07:09 Plt Count 117 10^3/uL (130-400) L 03/10/20 07:09 INR 1.4 (0.9-1.1) H 03/09/20 10:45 Creatinine 1.47 mg/dL (0.70-1.30) H 03/10/20 07:09 DVT Prohphylaxis: N/A Therapeutic Anticoagulation: Reviewed Medications: Rivaroxaban (currently on hold for upcoming endoscopy) - Opiate Usage Evaluate Pain Scale/Pains Meds: N/A - Relevant Labs ESR 27 mm/hr (1-20) H 03/09/20 16:37 Sodium 135 mmol/L (136-145) L 03/10/20 07:09 Potassium 3.5 mmol/L (3.5-5.1) 03/10/20 07:09 Chloride 100 mmol/L (98-107) 03/10/20 07:09 C-Reactive Protein 5.21 mg/dL (0.0-0.3) H 03/09/20 14:51 Electrolytes, C-Reactive P, ESR: Reviewed - DM Control DM Control: Glucose 92 mg/dL (74-106) 03/10/20 07:09 - Heart Failure/NY Heart Failure/NY: Troponin I < 0.05 ng/mL (<0.06) 03/10/20 07:09 NT-Pro-B Natriuret Pep 6529 pg/mL (<300) H 03/09/20 10:45 NT-Pro-B Natriuret Pep Cancelled 03/09/20 10:45 EF%, VICKY's, B-Blockers, Diuretics: Reviewed - BP Control BP Control: Blood Pressure 122/67 Blood Pressure 99/69 Blood Pressure 104/63 If elevated: Reviewed - Qtc Review If Elevated: Reviewed (QTc 472) - IV to PO Switch IV Medications: Reviewed - Home Meds Home Med List reviewed: Reviewed (Prior to the decision to be admitted, ED provider in consultation with Mr. Wells's PCP changed some of his medications -- discontinue triamterene-HCTZ and initiate spironolactone 25mg) Relevent Home Meds Not ordered & why?: Spironolactone, Xarelto is on hold due to procedure
[2020-03-10] MEDS: Bisacodyl 5 MG TABEC 10 MG PO (15:27)
[2020-03-10] MEDS: Polyethylene Glycol 3350 238 GM BTL PO (16:00)
--- NOTE | 2020-03-10 18:00 | PAPNONF_PTH ---
PATIENT: Toni Wells LOC: [id number] AGE/SX: 79/M ROOM: RE03/10/[address]: Inder Gasca : 1940 BED: A DIS: 03/13/2020 SPEC #: [id number] RECD: 03/11/20 13:17 STATUS: CANDACE REQ #: [id number] ADRIANNA: 03/10/20 18:[address]: Inder Gasca DEPT: [facility], 1928–1983 Cytology RECD BY: Cherelle Mejia ENTERED: 03/11/20 13:18 SP TYPE: RAÚL DAN DR: Wing Phan Tissues: 1 - BODY FLUID CYTO(SPUTUM/URINE)[facility] Procedures: BODY FLUID CYTO(URINE/SPUTUM) Comments: [id number] (TOTAL VOLUME = 80 ml's) (40 ml's URINE & 40 ml's CYTOLYT ADDED IN 2 CONTAINERS)
[2020-03-10] MEDS: Normal Saline 1,000 ML 75 ML IV ×2 (20:12→23:22)
[2020-03-11] VITALS (10 sets, daily range): BP systolic 108–141; BP diastolic 65–93; PULSE 63–82; RESP 17–22; TEMP 37.4–39.5; O2SAT 91–98
[2020-03-11] MEDS: Normal Saline 1,000 ML 100 ML IV ×3 (01:14→17:31)
[2020-03-11] MEDS: Normal Saline Flush 10 ML SYR IVP ×2 (07:47→21:29)
[2020-03-11] MEDS: Pantoprazole 40 MG VIAL IVP (07:47)
[2020-03-11] MEDS: Acetaminophen 325 MG TAB 650 MG PO ×3 (07:47→21:28)
--- NOTE | 2020-03-11 09:57 | PDOC.CMPRO ---
- If Service Date Differs Date of service: 03/11/21 Time of Service: 16:00 Care Management Progress Note S/O: Toni remains inpatient, CM continues to follow. A: 79 year old male admitted to [facility] 03/10/20 for Fever Unknown Origin P: Toni continues to be closely monitored at this time. Anticipate he will return home with no additional services when ready per MD. Toni will follow up with his PCP and plan of care as prescribed. He will transport home via private vehicle with his .
[2020-03-11 10:10] LABS: HIV-1/2 Ag & Ab Screen Negative (Negative)
[2020-03-11 10:18] LABS: Lyme Ab w Rflx to Lyme Confirm Negative (Negative)
--- NOTE | 2020-03-11 12:03 | W.PM.PROGNOT ---
Date of Service Date of service: 03/11/20 Time of Service: 12:04 Assessment and Plan Assessment and plan (1) Fever: Status: Acute Assessment and plan: no source identified yet. COVID negative x2, blood and urine cultures pending, cxr clear, no skin issues, abdomen exam benign, no headache or meningeal signs, no back or neck pain. will get CT chest, abd/pelvis with oral contrast no IV d/t kidney function. (2) CHF (congestive heart failure): Status: Chronic Assessment and plan: respiratory symptoms improved, resume home lasix dose. will continue I&O, daily weights. echocardiogram today: LVEF 50-55%, no valvular stenosis, mild to mod regurg on all valves, no pericardial effusion Echo from 01/16/2018 EF 55-60% with mild to mod regurg in aortic, mitral and tricuspid valves. (3) Acute kidney injury: Status: Acute Assessment and plan: creatinine stable/slightly improved. will renal dose meds, avoid nephrotoxic drugs. (4) Atrial fibrillation: Status: Chronic Assessment and plan: rate controlled, fully anticoagulated on xarelto which is on hold for upcoming upper and lower endoscopy. (5) Screening for colorectal cancer: Status: Acute Assessment and plan: patient was scheduled for upper and lower endoscopy with Dr Dean on for routine testing due. His xarelto had been placed on hold for this procedure. She has been notified of his admission and would like us to continue holding for now. he is clear liquids today for possible endoscopy tomorrow. suspect malignancy. (6) Pancytopenia: Status: Acute Assessment and plan: add peripheral smear. (7) HTN (hypertension): Status: Chronic Assessment and plan: blood pressures stable off his HCTZ/triam which was stopped prior to admission. continue to monitor. (8) DVT prophylaxis: Status: Acute Assessment and plan: teds, xarelto on hold for upcoming testing. (9) Discharge planning issues: Status: Acute Assessment and plan: home with no services once medically stable. discussed with Dr Bonilla who is in agreement. Subjective Subjective Patient reports: no new complaints and fever Interval history since last seen: max temp 38.9 overnight. NPO for upper and lower endoscopy today. Exam Const General: cooperative, healthy appearing (younger than stated age), comfortable and no acute distress Nutritional Appearance: average body habitus Orientation: alert, awake and oriented x3 [facility] Head: normal to inspection, normocephalic and atraumatic Mouth: oral mucosae normal Resp Effort & Inspection: normal respiratory effort Auscultation: clear to auscultation bilaterally, no rales and no wheezes Cardio Rate: regular rate Rhythm: abnormal rhythm irregularly irregular GI Inspection: normal to inspection Palpation: soft, no guarding, no hepatomegaly, no masses, not rigid, nontender and No ascites Auscultation: normal bowel sounds Skin General skin exam: no rashes or lesions noted Neuro General: patient alert, patient awake and patient oriented x3 Cranial Nerves: CN's II-XI intact bilaterally Cognition: normal cognition Gait: normal gait Motor: muscle tone normal throughout Extrem General: normal to inspection, full ROM and edema (chronic) Laterality: bilateral Psych Appearance: grossly normal Mental Status: mental status grossly normal Speech and Movement: speech and movement normal Mood: congruent mood Affect: normal affect Attitude: cooperative Thought Process: normal Thought Content: normal Insight: insight good Judgment: judgment good Objective Last Vital Signs Temp 37.8 C H 03/11/20 11:33 Pulse 82 03/11/20 11:33 Resp 17 03/11/20 11:33 BP 138/86 03/11/20 11:33 Pulse Ox 97 03/11/20 11:33
[2020-03-11 14:48] LABS: Erythropoietin 30.1 mIU/mL (2.6 - 18.5)
--- NOTE | 2020-03-11 15:15 | BOWEL_PTH ---
PATIENT: Toni Wells LOC: U#:[id number] AGE/SX: 79/M ROOM: RE03/10/[address]: Inder Gasca : 1940 BED: A DIS: 03/13/2020 SPEC #: [id number] RECD: 03/11/20 18:21 STATUS: CANDACE REQ #: [id number] ADRIANNA: 03/11/20 15:[address]: Inder Gasca DEPT: Surgical Specimen RECD BY: Cherelle Mejia ENTERED: 03/11/20 18:23 SP TYPE: Bowel OTHR DR: Wing Phan Tissues: 1 - BIOPSY BOWEL 2 - STOMACH BIOPSY 3 - STOMACH BIOPSY 4 - ESOPHAGUS BIOPSY 5 - ESOPHAGUS BIOPSY Procedures: GROSS AND MICRO LEVEL 4 IMMUNOPEROXIDASE STAIN Comments: [id number]
--- NOTE | 2020-03-11 15:49 | W.COLOREPORT ---
Date of service: 03/11/20 Time of Service: 15:49 Colonoscopy Report Date of procedure: 03/11/20 Pre-op diagnosis general: Anemia Post-op diagnosis procedure note: other (Minor diverticular disease) Procedure: Colonoscopy Surgeon: Cristina Dean Anesthesia proc note operative: MAC Pathology: none sent Complications: None Disposition: PACU Prep: Miralax/Dulcolax Retraction Time: 10 Procedure Description: After informed consent was obtained the patient was taken to the procedure room and placed in a left decubitous position. Monitors were applied and a time out was done. The patients name, date of , procedure, allergies to medications and metal in their body was reviewed. The patient was then sedated. Once sedated and comfortable a rectal exam was done. External exam was normal. Internal exam revealed a normal sphincter tone and no palpable masses. The prostate nl. The scope was then introduced and retrofelexed. grade II internal hemorrhoids were identified. The scope was then advanced to the cecum w/out difficulty. The TI and appendiceal orifice were identified. The prep was good. The scope was then slowly retracted over 10 minutes back into the rectum. Polyps were removed at none. He has a few small scattered diverticuli in the sigmoid colon of no consequence. There is no signs of active bleeding or infection. Mucosa is pink and healthy. The scope was removed and the patient was woken up and taken back to Same day surgery in stable condition. The patient tolerated the procedure well and there were no immediate complications. Follow up: The patient should follow up in [] years unless they develop changes in bowel habits or other new gastrointestinal complaints.
--- NOTE | 2020-03-11 15:52 | W.PM.ENDDOP ---
Date of service: 03/11/20 Time of Service: 15:52 Endoscopy Report DATE OF PROCEDURE: 03/11/20 PRE-OP DIAGNOSIS: anemia POST-OP DIAGNOSIS: other (mild gastritis ) PROCEDURE: EGD and bx SURGEON: Cristina Dean ANESTHESIA: MAC ESTIMATED BLOOD LOSS: 0 PATHOLOGY: other COMPLICATIONS: None DISPOSITION: PACU PROCEDURE DESCRIPTION: After informed consent was obtained the patient was take to the procedure room and placed in a supine position. Monitors were applied and a time out was done. The patients name, date of , procedure type, allergies to medications and metal in their body was reviewed. A bite block was placed and the patient was sedated. Once sedated and comfortable the gastroscope was advanced through the oropharynx which was grossly normal into the esophagus. The proximal and mid-esophagus were nl. In the distal esophagus there was : No esophageal erosions varices diverticular stricture apparent. The scope was advanced into the stomach and through the pylorus into the 3rd portion of the duodenum. The duodenum was noted to be nl. Biopsies were done all specimen is retrieved and no bleeding is noted.. The scope was retracted back into the stomach and biopsies were done to rule out H. pylori. There is maybe some mild gastritis in the antral region. there were no ulcers. The scope was retroflexed. The cardia and fundus were noted to be normal. There no a hiatal hernia noted. The scope was retracted back into the esophagus and biopsies were done of the GE junction to rule out Smart's. The Z line was regular. The scope was removed and the patient was woken up and taken back to [facility] in stable condition.
--- NOTE | 2020-03-11 15:53 | CMPROGNOTE_ITS ---
Care Management Progress Note S/O: Toni was sitting up in bed when CM met with him. He reported being hungry, but shared no other concerns. He used good humor and appeared to be in good spirits. He will be brought to the OR today for colonoscopy; CM continues to follow. A: 79 year old male admitted to [facility] 03/10/20 for fever of unknown origin P: Toni will be brought to the OR for colonoscopy today; awaiting results. Toni continues to be closely monitored at this time. Anticipate he will return home with no additional services when ready per MD. Toni will follow up with his PCP and plan of care as prescribed. He will transport home via private vehicle with his .
--- NOTE | 2020-03-11 20:10 | W.PM.PROGNOT ---
Date of Service Date of service: 03/11/20 Time of Service: 20:11 Assessment and Plan Assessment and plan (1) HTN (hypertension): Status: Chronic (2) Acute kidney injury: Status: Acute (3) CHF (congestive heart failure): Status: Chronic (4) Anemia: Status: Acute Assessment and plan: EGD_ minimal gastritis. CE- few diverticula -this findings do not explain his degree of anemia. I don't thnk it is related to this anemia Will check his peripheral smear and retic count. Iron stores are borderline. WIll hold on venofer for now. d/c when medical stable per hosp (5) Chronic anticoagulation: Status: Chronic (6) Atrial fibrillation: Status: Chronic Objective Last Vital Signs Temp 38.2 C H 03/11/20 19:41 Pulse 82 03/11/20 19:41 Resp 18 03/11/20 19:41 BP 108/65 03/11/20 19:41 Pulse Ox 96 03/11/20 19:41 Laboratory Results - last 24 hr 03/09/20 03/09/20 03/10/20 10:45 10:45 07:09 Erythropoietin 30.1 H Lyme Disease Antibody Negative HIV 1&2 Ag/Ab, 4th Gen Negative
[2020-03-12] VITALS (9 sets, daily range): BP systolic 112–150; BP diastolic 64–91; PULSE 68–80; RESP 18–22; TEMP 36.7–39.6; O2SAT 95–99
[2020-03-12] MEDS: Normal Saline 1,000 ML 100 ML IV ×2 (03:10→13:24)
[2020-03-12] MEDS: Acetaminophen 325 MG TAB 650 MG PO ×2 (03:56→10:08)
[2020-03-12 07:16] LABS: Reticulocyte 0.8 % (0.5-2.4)
[2020-03-12] MEDS: Normal Saline Flush 10 ML SYR IVP (07:52)
[2020-03-12] MEDS: Pantoprazole 40 MG VIAL IVP (07:52)
--- NOTE | 2020-03-12 09:59 | CMPROGNOTE_ITS ---
Care Management Progress Note S/O: Toni remains independent in his room though weaker than usual. Fevers continue; undetermined source, continues work-up. Per provider, new IV ABX will be trialed today. CM continues to follow. A: 79 year old male admitted to [facility] 03/10/20 for fever of unknown origin P: Toni continues to be closely monitored at this time. Anticipate he will return home with no additional services when ready per MD. Toni will follow up with his PCP and plan of care as prescribed. He will transport home via private vehicle with his .
[2020-03-12 10:03] LABS: Abs Immature Grans 0.02 10^3/uL (0.0-0.06); HCT 34.5 % (40.0-50.0); HGB 11.2 g/dL (13.5-17.5); MCH 28.4 pg (27.0-33.0); MCHC 32.5 % (32.0-36.0); MCV 87.3 fL (80-95); MPV 11.9 fL (8.0-11.0); Nucleated RBC 0 %; RBC 3.95 10^6/uL (4.36-5.78); RDW 14.7 % (11.8-14.1); RDW-SD 46.9 fL; WBC 3.75 10^3/uL (4.4-10.8)
[2020-03-12 10:08] LABS: Platelet Count 78 10^3/uL (130-400)
[2020-03-12 10:14] LABS: ALT 26 U/L (16-63); AST 53 U/L (15-37); Absolute Lymphocyte Count 0.45 10^3/uL (1.2-3.4); Absolute Monocyte Count 0.15 10^3/uL (0.1-0.8); Absolute Neutrophil Count 3.15 10^3/uL (1.2-6.7); Albumin 2.4 g/dL (3.4-5.0); Alkaline Phosphatase 66 U/L (46-116); Anion Gap 9.9 mmol/L (3-11); BUN 23 mg/dL (7-18); Bands % 10; Bilirubin, Total 0.8 mg/dL (0.2-1.0); CO2 24.1 mmol/L (21.0-32.0); CREATININE 1.41 mg/dL (0.70-1.30); Calcium 7.5 mg/dL (8.5-10.1); Chloride 102 mmol/L (98-107); Estimated GFR 48.36 (mL/min/1.73m2); Glucose 106 mg/dL (74-106); Potassium 3.7 mmol/L (3.5-5.1); Sodium 136 mmol/L (136-145); Total Protein 5.6 g/dL (6.4-8.2)
[2020-03-12 10:15] LABS: Diff Comment Manual Differential; Polychromasia Present
[2020-03-12 10:16] LABS: Poikilocytes 1+
[2020-03-12] MEDS: Ferrous Sulfate 325 MG TAB PO ×2 (11:09→20:16)
[2020-03-12] MEDS: DOXYCYCLINE 100 MG in Normal Saline 100 ML IVPB ×2 (11:10→21:31)
--- NOTE | 2020-03-12 11:52 | W.PM.PROGNOT ---
Date of Service Date of service: 03/12/20 Time of Service: 11:52 Assessment and Plan Assessment and plan (1) Fever: Status: Acute Assessment and plan: no source identified yet. was suspicious for tumor fever but CT chest/abd/pelvis unrevealing and upper and lower endoscopy unrevealing. will add spep and upep. tick panel still pending but now remembers a tick removal 4 weeks ago. will add doxycycline while pending. COVID negative x2, blood and urine cultures pending, cxr clear, no skin issues, abdomen exam benign, no headache or meningeal signs, no back or neck pain. (2) CHF (congestive heart failure): Status: Chronic Assessment and plan: respiratory symptoms improved, resume home lasix dose. will continue I&O, daily weights. echocardiogram today: LVEF 50-55%, no valvular stenosis, mild to mod regurg on all valves, no pericardial effusion Echo from 01/16/2018 EF 55-60% with mild to mod regurg in aortic, mitral and tricuspid valves. (3) Acute kidney injury: Status: Acute Assessment and plan: creatinine stable/slightly improved. will renal dose meds, avoid nephrotoxic drugs. (4) Atrial fibrillation: Status: Chronic Assessment and plan: rate controlled, fully anticoagulated on xarelto which is on hold for upcoming upper and lower endoscopy tomorrow.. (5) Screening for colorectal cancer: Status: Acute Assessment and plan: patient was scheduled for upper and lower endoscopy with Dr Dean on for routine testing due. His xarelto had been placed on hold for this procedure. She has been notified of his admission and would like us to continue holding for now. he is clear liquids today for possible endoscopy tomorrow. suspect malignancy. (6) Pancytopenia: Status: Acute Assessment and plan: add peripheral smear. (7) HTN (hypertension): Status: Chronic Assessment and plan: blood pressures stable off his HCTZ/triam which was stopped prior to admission. continue to monitor. (8) DVT prophylaxis: Status: Acute Assessment and plan: teds, xarelto on hold for upcoming testing. (9) Discharge planning issues: Status: Acute Assessment and plan: home with no services once medically stable. discussed with Dr Bonilla who is in agreement. Subjective Subjective Patient reports: no new complaints and fever Interval history since last seen: continues with fevers, does have a productive cough clear sputum, no shortness of breath or oxygen requirements. no source of infection identified. does recall his removing a small tick with tweezer that was not embedded approx 4 weeks ago Exam Const General: cooperative, healthy appearing (younger than stated age), comfortable and no acute distress Nutritional Appearance: average body habitus Orientation: alert, awake and oriented x3 [facility] Head: normal to inspection, normocephalic and atraumatic Mouth: oral mucosae normal Resp Effort & Inspection: normal respiratory effort Auscultation: clear to auscultation bilaterally, no rales and no wheezes Cardio Rate: regular rate Rhythm: abnormal rhythm irregularly irregular GI Inspection: normal to inspection Palpation: soft, no guarding, no hepatomegaly, no masses, not rigid, nontender and No ascites Auscultation: normal bowel sounds Skin General skin exam: no rashes or lesions noted Neuro General: patient alert, patient awake and patient oriented x3 Cranial Nerves: CN's II-XI intact bilaterally Cognition: normal cognition Gait: normal gait Motor: muscle tone normal throughout Extrem General: normal to inspection, full ROM and edema (chronic) Laterality: bilateral Psych Appearance: grossly normal Mental Status: mental status grossly normal Speech and Movement: speech and movement normal Mood: congruent mood Affect: normal affect Attitude: cooperative Thought Process: normal Thought Content: normal Insight: insight good Judgment: judgment good Objective Last Vital Signs Temp 39.0 C H 03/12/20 11:23 Pulse 77 03/12/20 11:23 Resp 20 03/12/20 11:23 BP 119/65 03/12/20 11:23 Pulse Ox 95 03/12/20 11:23 Laboratory Results - last 24 hr 03/09/20 03/09/20 03/10/20 10:45 10:45 07:09 WBC RBC Hgb Hct MCV MCH MCHC RDW Plt Count MPV Reticulocyte % (Auto) Immature Gran % Neutrophils % Band Neutrophils % Lymphocytes % Monocytes % Eosinophils % Basophils % Nucleated RBC % Absolute Neutrophils Absolute Lymphocytes Absolute Monocytes Absolute Eosinophils Absolute Basophils RBC Morphology Polychromasia Poikilocytosis Sodium Potassium Chloride Carbon Dioxide Anion Gap BUN Creatinine Estimated GFR/1.73 m2 Glucose Calcium Erythropoietin Total Bilirubin AST ALT Alkaline Phosphatase Total Protein Albumin Lyme Disease Antibody Negative HIV 1&2 Ag/Ab, 4th Gen Negative Pathology Consult Spec 09/03/11/20 03/12/20 07:09 15:55 06:44 WBC RBC Hgb Hct MCV MCH MCHC RDW Plt Count MPV Reticulocyte % (Auto) 0.8 Immature Gran % Neutrophils % Band Neutrophils % Lymphocytes % Monocytes % Eosinophils % Basophils % Nucleated RBC % Absolute Neutrophils Absolute Lymphocytes Absolute Monocytes Absolute Eosinophils Absolute Basophils RBC Morphology Polychromasia Poikilocytosis Sodium Potassium Chloride Carbon Dioxide Anion Gap BUN Creatinine Estimated GFR/1.73 m2 Glucose Calcium Erythropoietin 30.1 H Total Bilirubin AST ALT Alkaline Phosphatase Total Protein Albumin Lyme Disease Antibody HIV 1&2 Ag/Ab, 4th Gen Pathology Consult Spec Cancelled 03/12/20 03/12/20 06:44 06:44 WBC 3.75 L RBC 3.95 L Hgb 11.2 L Hct 34.5 L MCV 87.3 MCH 28.4 MCHC 32.5 RDW 14.7 H Plt Count 78 L MPV 11.9 H Reticulocyte % (Auto) Immature Gran % 0.0 Neutrophils % 74.0 Band Neutrophils % 10 Lymphocytes % 12.0 Monocytes % 4.0 Eosinophils % 0.0 Basophils % 0.0 Nucleated RBC % 0 Absolute Neutrophils 3.15 Absolute Lymphocytes 0.45 L Absolute Monocytes 0.15 Absolute Eosinophils 0.00 Absolute Basophils 0.00 RBC Morphology See below Polychromasia Present Poikilocytosis 1+ Sodium 136 Potassium 3.7 Chloride 102 Carbon Dioxide 24.1 Anion Gap 9.9 BUN 23 H Creatinine 1.41 H Estimated GFR/1.73 m2 48.36 Glucose 106 Calcium 7.5 L Erythropoietin Total Bilirubin 0.8 AST 53 H ALT 26 Alkaline Phosphatase 66 Total Protein 5.6 L Albumin 2.4 L Lyme Disease Antibody HIV 1&2 Ag/Ab, 4th Gen Pathology Consult Spec
[2020-03-12 20:26] LABS: B. miyamotoi PCR Negative (Negative); Babesia divergens/MO-1 Negative (Negative); Babesia duncani Negative (Negative); Babesia microti Negative (Negative); Ehrlichia chaffeensis Negative (Negative); Ehrlichia ewingii/canis Negative (Negative); Ehrlichia muris eauclairensis Negative (Negative)
[2020-03-12 22:42] LABS: Anaplasma phagocytophilum Positive (Negative)
[2020-03-13] MEDS: Normal Saline 1,000 ML 100 ML IV (00:16)
[2020-03-13 04:45] VITALS: BP 136/62; PULSE 69; RESP 17; TEMP 37; O2SAT 97
[2020-03-13 07:32] VITALS: BP 138/90; PULSE 76; RESP 28; TEMP 36; O2SAT 93
[2020-03-13 11:38] VITALS: BP 138/82; PULSE 78; RESP 21; TEMP 37.1; O2SAT 96
[2020-03-13] MEDS: Ferrous Sulfate 325 MG TAB PO (11:41)
[2020-03-13] MEDS: Normal Saline Flush 10 ML SYR IVP (11:42)
--- NOTE | 2020-03-13 12:25 | W.PM.DS.N ---
Date of service: 03/13/20 Time of Service: 12:25 DS: Diagnosis Discharge Diagnosis (1) Fever: Status: Acute (2) CHF (congestive heart failure): Status: Chronic (3) Acute kidney injury: Status: Acute (4) Atrial fibrillation: Status: Chronic (5) Screening for colorectal cancer: Status: Acute (6) Pancytopenia: Status: Acute (7) HTN (hypertension): Status: Chronic (8) DVT prophylaxis: Status: Resolved (9) Discharge planning issues: Status: Resolved Discharge Plan Disposition Patient Disposition: HOME Condition: Serious Discharge Details Reason For Visit: FEVER UNKNOWN ORIGIN Admit Date/Time: 03/10/20 10:13 Admit Provider: Inder Gasca Attending Provider: Inder Gasca Primary Care Provider: Wing Phan [facility] Course: Toni Wells is a very pleasant 79 year old man with a past medical history significant for HTN, CHF, and a-fib anticoagulated with xarelto who presented to the [facility] ED on 03/09/20 with reports of a 2-week history of worsening dyspnea, cough, weakness, fatigue and fever. In he ED, his chest x-ray was negative for an acute process, his labs were notable for elevated BNP. His case was discussed with his PCP who requested that his lasix be increased to 40 mg PO daily x5 days, HCTZ discontinued and add aldactone 25 mg po daily. He was ready for discharge home from the ED when he was noted to have a fever of 102.8 and he was admitted to med/surg for further evaluation and management of FUO. He went on to have an echocardiogram which showed LVEF of 50%, moderately dilated left atrium and mildly dilated right atrium, moderate mitral regurgitation. He had a CT chest/abd/pelvis w/o contrast with concern for a left renal mass, follow up CT w/ contrast showed a cyst, no suggestion of renal malignancy. He was also noted on CT w/o to have multiple indeterminate intrapulmonary nodules, which are noncalcified, there was initially concern that they could represent metastatic disease, however, they may be due to post inflammatory process. He will require follow up on these nodules, he was noted to have nodules on CT chest in 2015. A tick panel was drawn and he was positive for anaplasmosis. He recalls removing a tick about 4 weeks ago. He was initiated on doxycycline with no further fevers. Toni was scheduled for an outpatient upper and lower endoscopy, which as completed during his hospitalization. He was noted to have minimal gastritis and was started on PPI therapy. His iron stores are borderline and he was initiated on oral iron (he is advised to take PPI/doxy and iron at different times). His colonoscopy showed few diverticula. He is discharged home on oral doxycycline for a total of 10 days. He is back on his home dose of lasix, 20 mg daily.He will follow up with his PCP next week as scheduled. ED note states that he has a PCP visit scheduled for 03/17, he will call Sunday to verify. Labs ordered to reassess renal function next week as his creatinine was slightly increased from baseline. Home Meds and New Rx's Prescriptions: New spironolactone 25 mg tablet 25 mg PO DAILY Qty: 30 RF: 0 doxycycline hyclate 100 mg Capsule 100 mg PO Q12H Qty: 17 RF: 0 ferrous sulfate 325 mg (65 mg iron) Tablet 325 mg PO BID Qty: 30 RF: 0 omeprazole 20 mg Capsule,Delayed Release(Dr/Ec) 40 mg PO DAILY@0730 Qty: 30 RF: 0 Continued Xarelto 15 mg tablet 15 mg PO QPM RF: 0 furosemide 20 mg tablet 20 mg PO DAILY RF: 0 Discontinued triamterene-hydrochlorothiazid 37.5-25 mg capsule 1 cap PO DAILY RF: 0 Discharge Instructions Instructions: Heart Failure (ED), Tick Bite (ED) Care Plan Goals: Resume your usual medications. Spironolactone, omeprazole, iron and doxycycline have been added. Take the omeprazole, doxycycline and spironolactone in the morning. Take iron separately, at least 4 hours later (you may take it at night). Your CT scan showed a cyst on your kidney and lung nodules. Discuss follow up with your PCP. You have a PCP appointment scheduled for 03/17, call Sunday to verify that they still have it scheduled. You will need to have labs drawn in 3 days to reassess your kidney function. take care! Stand Alone Forms: Nursing Discharge Form Referrals: [facility] Radiology [Other] - 03/14/20 3:00 pm Activity:: Activity as Tolerated Equipment/Supplies:: No Equipment Needed Diet:: As Tolerated Discharge Orders Discharge Orders: Discharge Order (Routine); Ordered 03/13/20 Ordered By: Unique Martinez Other Ambulatory Orders: Basic Metabolic Panel (Routine) Timeframe: 3 Days Location: None Selected Ordered By: Unique Martinez DS: Summary Status at Discharge Functional status at discharge: independent ambulation Overall status at discharge: patient is progressing back to baseline Mental Status: mental status grossly normal Speech and Movement: speech and movement normal Mood: congruent mood Affect: normal affect Exam Narrative Exam Narrative: General: Elderly, thin man, laying in bed, in no acute distress, awake and alert, talkative, answers questions appropriately. HEENT: Normocephalic, atraumatic, pupils equal and round, mucous membranes moist. Neck: Supple, no JVD. Cardiovascular: Heart sounds irregularly irregular, non-tachycardic. Respiratory: Respirations appear even and unlabored, lung sounds clear to auscultation throughout, rare cough during exam. GI: Abdomen is soft, flat, nondistended, nontender on palpation, bowel sounds x4 quadrants. Extremities: No cyanosis or edema. Psych Mental Status: mental status grossly normal Speech and Movement: speech and movement normal Mood: congruent mood Affect: normal affect DS: Data Vitals/I&O Vitals and I&O: Vital Signs Temperature 36 C L 03/13/20 07:32 Temperature Source Tympanic 03/13/20 07:32 Pulse 76 03/13/20 07:32 Pulse Rhythm Irregular 03/13/20 04:46 Pulse 71 03/09/20 13:40 Respiratory Rate 28 H 03/13/20 07:32 Respiratory Effort Non-Labored 03/13/20 04:46 Respiratory Depth Normal 03/13/20 04:46 Respiratory Pattern Normal 03/13/20 04:46 Blood Pressure 138/90 03/13/20 07:32 Blood Pressure Mean 75 03/09/20 13:31 Blood Pressure Position Sitting 03/09/20 10:34 Pulse Oximetry 93 03/13/20 07:32 Oxygen Delivery Method Room Air 03/13/20 07:32 Oxygen Flow Rate 0 03/13/20 07:32 Pain Level 0 03/13/20 07:32 Comment 03/13/20 07:32 Intake & Output 03/12/20 03/13/20 03/13/20 23:59 11:59 23:59 Intake Total 2680 / 3665 1000 / 1000 Output Total 300 / 300 Balance 2680 / 3665 700 / 700 Weight 61.8 kg Intake: IV 2200 / 3185 1000 / 1000 Oral 480 / 480 Output: Urine 300 / 300 Other: Comment pt voiding independently. Voiding Methods Toilet Data Completed and Pending Completed studies during hospitalization [Text1]: See hospital course. Labs on day of discharge: Labs from last 24 hours 03/12/20 03/09/20 11:20 10:45 Ur Random Albumin Pending U Random Total Protein Pending Urine Globulin Pending Urine Random PEP Note Pending Urine Immunofixation Pending A.phagocytophil DNA PCR Positive A B. divergens/MO-1 PCR Negative Babesia duncani (PCR) Negative Babesia microti DNA PCR Negative Borrelia (PCR) Negative E.chaffeensis DNA (PCR) Negative E.ewingii/canis DNA PCR Negative E. muris-like DNA (PCR) Negative Preliminary micro results at discharge 03/10/20 16:25 Blood Culture - Preliminary Blood NO GROWTH 48 HOURS 03/10/20 16:25 Blood Culture - Preliminary Blood NO GROWTH 48 HOURS 03/09/20 10:50 Blood Culture - Preliminary Blood NO GROWTH 72 HOURS 03/09/20 10:45 Blood Culture - Preliminary Blood NO GROWTH 72 HOURS PFS Medical History Abnormal CT of the abdomen Actinic keratoses Anemia Angioneurotic edema Atrial fibrillation Chronic anticoagulation Xarelto 15mgs qam Cough HTN (hypertension) Hx of fracture of finger L pointer Hypokalemia, ECF to ICF shifts Left ventricular hypertrophy 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 Called a pilonidal cyst (via biopsy) in [facility], s/p partial resection at some point - wants it completely removed. mg Snoring Tubular adenoma of colon (02/11/16) Vitreous floaters of left eye Surgical History Cholecystectomy Colonoscopy - IV Sedation (02/11/16) H/O local excision of skin lesion 11/05/18 Dr Cristina Dean, right lower back, biopsy showed fibrovascular tissue, adipose tissue and skeletal muscle. Social History Smoking/Tobacco Use Status: Former Tobacco Use Quit Date: 06/25/99 Alcohol Intake: current Alcohol Intake frequency: 0-2 drinks per day Alcohol type: hard liquor Drug use: Never Substance use type: does not use Do you feel safe at home: Yes Do you feel safe in your relationship?: Yes
[2020-03-13] MEDS: Omeprazole 20 MG CAPCR 40 MG PO (13:15)
[2020-03-13] MEDS: Doxycycline Hyclate 100 MG CAP PO (13:16)
--- NOTE | 2020-03-13 17:20 | PDOC.CMDIS ---
- If Service Date Differs Date of service: 03/13/20 Time of Service: 17:20 LACE Index Scoring Tool - Questions: Length of Stay (in days): 4 - 6 Acuity (Admit via E.D.?): Yes Comorbidities: Congestive Heart Failure, Mild Liver/Renal Disease E.D. Visits: 1 - Answers: Total Score: 13 Risk of Readmission: High Risk Care Management Discharge Reason for Hospitalization: Fever unknown origin Discharge Plan: Toni will return home with no additional services at this time. He will be driven home via private vehicle by family. He will follow up with his PCP and discharge plan of care. Patient/Family Education Needs: Review discharge instructions regarding activity levels and medications, discussion of self care needs and goals of care.
[2020-03-15 12:57] LABS: Albumin 47.7 % (55.8-66.1); Comment (See Note); Total Protein 5.5 g/dL (6.3-8.2)
[2020-03-15 15:52] LABS: Albumin, Urine % 13.8 % ((See Note)); Globulins, Urine % 86.2 %; Immunotyping, Urine (See Note); Total Protein Urine 39 mg/dL (See Note)
[2020-03-16 16:07] LABS: Immunotyping, Serum (See Note)
== END 2020-03-13 15:42 | disposition home or self-care (01) | DRG 868 ==
LOC: ER 15:49 → MS 15:50
PROVIDERS: Nurse Practitioner Acute Care; Surgery; Admitting Provider Internal Medicine; Emergency Provider Physician Assistant; PCP Family Medicine; Visit Provider Internal Medicine
PROC: 0DJD8ZZ Inspection of Lower Intestinal Tract, Via Natural or Artificial Opening Endoscopic (ICD-10-PCS; CPT 43239; principal; 2020-03-11 13:30)
DX: A77.49 Other ehrlichiosis (principal); N17.9 Acute kidney failure, unspecified; I48.20 Chronic atrial fibrillation, unspecified; D61.818 Other pancytopenia; I50.9 Heart failure, unspecified; Z79.01 Long term (current) use of anticoagulants; D64.9 Anemia, unspecified; R05 Cough; I11.0 Hypertensive heart disease with heart failure; H90.3 Sensorineural hearing loss, bilateral; Z86.010 Personal history of colon polyps; Z87.891 Personal history of nicotine dependence; E87.6 Hypokalemia; K64.1 Second degree hemorrhoids; R91.8 Other nonspecific abnormal finding of lung field; N28.1 Cyst of kidney, acquired; K29.70 Gastritis, unspecified, without bleeding; W57.XXXA Bitten or stung by nonvenomous insect and other nonvenomous arthropods, initial encounter; Z12.11 Encounter for screening for malignant neoplasm of colon
CPT/HCPCS: 43239; G0105; 36410; 36415; 45378; 71250; 80053; 82550; 82668; 84145; 84156; 84166; 85652; 86335; 87040; 87389; 87449; 87798; 88305; 93005; 96361; 96374; 99220; 99221; 99233; 99239; 99252; 99285; NC; U0003; 71045; 74176; 74177; 81003; 81015; 82728; 83540; 83550; 83605; 83880; 84165; 84484; 85025; 85045; 85610; 86140; 86320; 86618; 87070; 87205; 88104; 88361; 93010; 93306; G0378; J1940; J2001; J3490

== ENCOUNTER 2020-03-17 10:47 | Outpatient (REF) | payer MEDICARE, BC, SELFPAY ==
[2020-03-17 20:15] LABS: Anion Gap 6.4 mmol/L (3-11); BUN 14 mg/dL (7-18); CO2 30.6 mmol/L (21.0-32.0); CREATININE 1.07 mg/dL (0.70-1.30); Calcium 8.5 mg/dL (8.5-10.1); Chloride 104 mmol/L (98-107); Glucose 112 mg/dL (74-106); Potassium 3.9 mmol/L (3.5-5.1); Sodium 141 mmol/L (136-145)
== END 2020-03-17 11:07 ==
LOC: NCHCN 10:47
PROVIDERS: PCP Family Medicine; Visit Provider Family Medicine
DX: N28.9 Disorder of kidney and ureter, unspecified (principal)
CPT/HCPCS: 80048

== ENCOUNTER → 2020-03-19 11:28 | Outpatient (BNVA) | payer MEDICARE, BC, SELFPAY | PROVIDERS: PCP Family Medicine; Referring Provider Family Medicine; Visit Provider Internal Medicine Cardiovascular Disease | DX: I50.9 Heart failure, unspecified (principal); I11.0 Hypertensive heart disease with heart failure; E87.6 Hypokalemia; Z79.01 Long term (current) use of anticoagulants; I48.20 Chronic atrial fibrillation, unspecified | CPT/HCPCS: 99204; 99215 ==

== ENCOUNTER → 2020-06-29 12:44 | Outpatient (BNVA) | payer MEDICARE, BC, SELFPAY | PROVIDERS: PCP Family Medicine; Referring Provider Family Medicine; Visit Provider Internal Medicine Cardiovascular Disease | DX: I48.20 Chronic atrial fibrillation, unspecified (principal); I11.0 Hypertensive heart disease with heart failure; Z79.01 Long term (current) use of anticoagulants; I50.9 Heart failure, unspecified; M79.89 Other specified soft tissue disorders | CPT/HCPCS: 99214; 99213 ==

== ENCOUNTER 2020-08-26 15:54 | Outpatient (REF) | payer MEDICARE, BC, SELFPAY ==
[2020-08-26 15:58] LABS: HCT 39.9 % (40.0-50.0); HGB 13.3 g/dL (13.5-17.5); MCH 30.3 pg (27.0-33.0); MCHC 33.3 % (32.0-36.0); MCV 90.9 fL (80-95); MPV 11.6 fL (8.0-11.0); Platelet Count 169 10^3/uL (130-400); RBC 4.39 10^6/uL (4.36-5.78); RDW 14.1 % (11.8-14.1); RDW-SD 47.2 fL; WBC 6.22 10^3/uL (4.4-10.8)
[2020-08-26 16:03] LABS: Iron 63 ug/dL (65-175); Total Iron Binding Capacity 340 ug/dL (250-450); Transferrin Sat 19 % (20-55)
[2020-08-26 16:21] LABS: ALT 22 U/L (16-63); AST 23 U/L (15-37); Alkaline Phosphatase 95 U/L (46-116); Anion Gap 8.9 mmol/L (3-11); BUN 31 mg/dL (7-18); Bilirubin, Total 0.6 mg/dL (0.2-1.0); CO2 29.1 mmol/L (21.0-32.0); CREATININE 1.2 mg/dL (0.70-1.30); Calcium 9.2 mg/dL (8.5-10.1); Chloride 105 mmol/L (98-107); Estimated GFR 58.11 (mL/min/1.73m2); Glucose 103 mg/dL (74-106); Potassium 4.6 mmol/L (3.5-5.1); Sodium 143 mmol/L (136-145); Total Protein 7.3 g/dL (6.4-8.2)
[2020-08-27 09:15] LABS: Hepatitis B Surface Ag Negative (Negative)
[2020-08-27 09:53] LABS: Hepatitis C Ab w Rflx HCV PCR Negative (Negative)
== END 2020-08-26 15:55 | disposition home or self-care (01) ==
LOC: NCHCN 15:54
PROVIDERS: PCP Family Medicine; Visit Provider Family Medicine
DX: D50.9 Iron deficiency anemia, unspecified (principal); R94.5 Abnormal results of liver function studies; I10 Essential (primary) hypertension
CPT/HCPCS: 80053; 85027; 86803; 87340; 83540; 83550

== ENCOUNTER → 2021-07-01 09:50 | Outpatient (BNVA) | payer MEDICARE, BC, SELFPAY | PROVIDERS: PCP Family Medicine; Referring Provider Family Medicine; Visit Provider Internal Medicine Cardiovascular Disease | DX: I48.21 Permanent atrial fibrillation (principal); I10 Essential (primary) hypertension; Z79.01 Long term (current) use of anticoagulants | CPT/HCPCS: 99213 ==

== ENCOUNTER 2021-10-18 16:52 | Outpatient (REF) | payer MEDICARE, BC, SELFPAY ==
[2021-10-18 19:20] LABS: HCT 39.7 % (40.0-50.0); HGB 13.2 g/dL (13.5-17.5); MCH 30.9 pg (27.0-33.0); MCHC 33.2 % (32.0-36.0); MPV 11.2 fL (8.0-11.0); Platelet Count 162 10^3/uL (130-400); RBC 4.27 10^6/uL (4.36-5.78); RDW 13.4 % (11.8-14.1); RDW-SD 45.7 fL; WBC 6.47 10^3/uL (4.4-10.8)
[2021-10-18 19:28] LABS: Iron 94 ug/dL (65-175); Total Iron Binding Capacity 304 ug/dL (250-450); Transferrin Sat 31 % (20-55)
[2021-10-18 19:40] LABS: Anion Gap 8.2 mmol/L (3-11); BUN 27 mg/dL (7-18); CO2 26.8 mmol/L (21.0-32.0); CREATININE 1.3 mg/dL (0.70-1.30); Calcium 8.8 mg/dL (8.5-10.1); Chloride 103 mmol/L (98-107); Estimated GFR 52.85 (mL/min/1.73m2); Glucose 170 mg/dL (74-106); Potassium 4.5 mmol/L (3.5-5.1); Sodium 138 mmol/L (136-145); TSH (W/Ref FT4) 1.75 uIU/mL (0.36-3.74)
[2021-10-19 05:36] LABS: Vitamin B12 299 pg/mL (193-986)
== END 2021-10-18 16:53 | disposition home or self-care (01) ==
LOC: NCHCN 16:52
PROVIDERS: PCP Family Medicine; Visit Provider Family Medicine
DX: D50.9 Iron deficiency anemia, unspecified (principal); R41.3 Other amnesia; I10 Essential (primary) hypertension
CPT/HCPCS: 80048; 85027; 82607; 83540; 83550; 84443

== ENCOUNTER 2022-01-24 16:01 | Observation (INO) | payer MEDICARE, BC, SELFPAY ==
[2022-01-24 16:06] VITALS: BP 138/80; PULSE 65; RESP 16; TEMP 36.2; O2SAT 99
--- NOTE | 2022-01-24 16:15 | DI.CT_ITS ---
Exam(s) CT HEAD CERVICAL SPINE WO EXAM: CT HEAD CERVICAL SPINE WO CLINICAL HISTORY: Fall with neck pain-on Xarelto. TECHNIQUE: Imaging Protocol: Axial computed tomography images with coronal and sagittal reformatted images were created and reviewed COMPARISON: No exams were available for comparison FINDINGS: Head CT Ventricles and Extra axial spaces: Normal in size and morphology for the patient's age. Hemorrhage: None. Cerebral parenchyma: Mild atrophy. Old right parietal infarct.. Midline shift: None. Brainstem/Cerebellum: Normal. Calvarium: Normal. Visualized Paranasal sinuses/Mastoids: Clear. Cervical Spine CT BONES: vertebral body heights are maintained. Alignment is normal. There is no evidence of acute fra cture. Degenerative disc changes and facet degenerative changes are seen . SOFT TISSUES: No paraspinal hematoma. The airway appears intact. No pneumothorax is seen at the lung apices. Fibrotic changes are seen at the lung apices. IMPRESSION: Head CT: Old right parietal infarct. No acute abnormality. C-spine CT: Degenerative changes, no acute abnormality. RADIATION DOSE DELIVERED: 989.99mGy.cm Total DLP DATA REPOSITORY: All CT scans at this facility are submitted to the National Radiology Data Registry (NRDR) Dose Index Registry (DIR) with the [employer] (ACR). RADIATION OPTIMIZATION: All CT scans at this facility use at least one of these dose optimization te chniques: automated exposure control; mA and/or kV adjustment per patient size (includes targeted exa ms where dose is matched to clinical indication); or iterative reconstruction.
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
[2022-01-24 16:43] LABS: Abs Immature Grans 0.02 10^3/uL (0.0-0.06); Absolute Basophil Count 0.03 10^3/uL (0.0-0.2); Absolute Eosinophil Count 0.05 10^3/uL (0.0-0.7); Absolute Lymphocyte Count 1.29 10^3/uL (1.2-3.4); Absolute Monocyte Count 0.73 10^3/uL (0.1-0.8); Absolute Neutrophil Count 4.94 10^3/uL (1.2-6.7); Basophils % 0.4; Eosinophils % 0.7; HCT 40.3 % (40.0-50.0); HGB 13.8 g/dL (13.5-17.5); Immature Grans % 0.3; Lymphocytes % 18.3; MCHC 34.2 % (32.0-36.0); MCV 91 fL (80-95); Monocytes % 10.3; Platelet Count 146 10^3/uL (130-400); RBC 4.45 10^6/uL (4.36-5.78); RDW 13.3 % (11.8-14.1); WBC 7.06 10^3/uL (4.4-10.8)
[2022-01-24 17:01] LABS: Bilirubin Negative (Negative); Blood Large (Negative); Clarity Sl Cloudy (Clear); Glucose Negative (Negative); Ketones Negative (Negative); Leukocyte Esterase Small (Negative); Nitrite Negative (Negative); Urobilinogen 0.2 EU/dL (Up TO 0.2)
[2022-01-24 17:04] LABS: ALT 27 U/L (16-63); AST 35 U/L (15-37); Alkaline Phosphatase 83 U/L (46-116); Anion Gap 6.4 mmol/L (3-11); BUN 24 mg/dL (7-18); Bilirubin, Total 0.8 mg/dL (0.2-1.0); CO2 29.6 mmol/L (21.0-32.0); CREATININE 1.4 mg/dL (0.70-1.30); Calcium 9.4 mg/dL (8.5-10.1); Chloride 100 mmol/L (98-107); Estimated GFR 48.52 (mL/min/1.73m2); Glucose 126 mg/dL (74-106); Potassium 4.2 mmol/L (3.5-5.1); Sodium 136 mmol/L (136-145); Total Protein 8.1 g/dL (6.4-8.2)
[2022-01-24 17:10] LABS: Bacteria Rare HPF (Negative); C & S Indicated? Yes; RBC >50 HPF (0-2)
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
[2022-01-24 18:15] VITALS: BP 155/88; PULSE 54; RESP 18; TEMP 36.2; O2SAT 98
[2022-01-24] MEDS: Omnipaque 350 MG/ML 100 ML BTL IV (18:25)
[2022-01-24] MEDS: Normal Saline Flush 10 ML SYR IVP (18:26)
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
--- NOTE | 2022-01-24 18:42 | DI.VRAD_ITS ---
PROCEDURE INFORMATION: Exam: CT Head Without Contrast Exam date and time: 01/24/2022 5:24 PM Age: 81 years old Clinical indication: Other: Fall with neck pain-on xarelto; Additional info: Fall-on xarelto, TECHNIQUE: Imaging protocol: Computed tomography of the head without contrast. Radiation optimization: All CT scans at this facility use at least one of these dose optimization techniques: automated exposure control; mA and/or kV adjustment per patient size (includes targeted exams where dose is matched to clinical indication); or iterative reconstruction. COMPARISON: No relevant prior studies available. FINDINGS: Brain: Encephalomalacia in the right parietal lobe. Calcification in the right basal ganglia. Cerebral ventricles: No ventriculomegaly. Paranasal sinuses: Visualized sinuses are unremarkable. No fluid levels. Mastoid air cells: Visualized mastoid air cells are well aerated. Orbital cavities: Left cataract surgery. Bones/joints: Unremarkable. No acute fracture. Soft tissues: Unremarkable. IMPRESSION: 1. No acute intracranial abnormality. 2. Chronic microvascular ischemic changes. PROCEDURE INFORMATION: Exam: CT Cervical Spine Without Contrast Exam date and time: 01/24/2022 5:24 PM Age: 81 years old Clinical indication: Other: Fall with neck pain-on xarelto; Additional info: Fall-on xarelto, TECHNIQUE: Imaging protocol: Computed tomography of the cervical spine without contrast. Radiation optimization: All CT scans at this facility use at least one of these dose optimization techniques: automated exposure control; mA and/or kV adjustment per patient size (includes targeted exams where dose is matched to clinical indication); or iterative reconstruction. COMPARISON: CT CHEST/ABD/PEL WO 03/10/2020 12:28 PM FINDINGS: Bones/joints: No acute fracture. Normal alignment. Discs/Spinal canal/Neural foramina: Multilevel degenerative disc disease. Lungs: Lung apices are normal. Soft tissues: Unremarkable. IMPRESSION: No acute abnormality. Dictated and Authenticated by: Skyler Lang MD. Ordering:JIMMIE Colorado MD
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
[2022-01-24] MEDS: Normal Saline 1,000 ML 150 ML IV (19:36)
[2022-01-24 20:41] LABS: Source Nasal/Nares
[2022-01-24 21:22] VITALS: BP 151/73; PULSE 55; TEMP 36.3; O2SAT 99
[2022-01-24 21:51] LABS: COVID-19 PCR Negative (Negative)
[2022-01-24 22:13] VITALS: BP 165/75; PULSE 60; RESP 18; TEMP 36.4; O2SAT 99
[2022-01-24 22:30] VITALS: BP 132/70; PULSE 60
[2022-01-24 22:35] VITALS: BP 165/75; PULSE 60; RESP 18; TEMP 36.4; O2SAT 99
--- NOTE | 2022-01-25 | DI.US_ITS ---
Exam(s) US RENAL EXAM: US RENAL CLINICAL HISTORY: hemorrhagic cyst of kidney secondary to trauma. TECHNIQUE: Covarrubias scale, color and spectral Doppler were used. COMPARISON: No exams were available for comparison FINDINGS: Renal size in cm: Right: 9.3 left: 11.7 Echogenicity: Normal Hydronephrosis: No Cyst or mass: 4.4 x 3.4 x 4 centimeter cystic lesion with internal clot. No vascularity. Additional 1.3 centimeter simple cyst posterior midpole left kidney. Nephrolithiasis: No Bladder:Distended with a prevoid volume of 655 cc Postvoid vol:0 cc Prostate volume 60 cc. IMPRESSION: 4.4 centimeter cyst with internal debris which may represent hemorrhage. Mass not entirely excluded. Close interval follow-up recommended. DATA REPOSITORY:
[2022-01-25] MEDS: Normal Saline 1,000 ML 150 ML IV ×2 (02:20→07:42)
[2022-01-25 07:02] LABS: Abs Immature Grans 0.02 10^3/uL (0.0-0.06); Absolute Basophil Count 0.03 10^3/uL (0.0-0.2); Absolute Eosinophil Count 0.07 10^3/uL (0.0-0.7); Absolute Lymphocyte Count 1.08 10^3/uL (1.2-3.4); Absolute Monocyte Count 0.62 10^3/uL (0.1-0.8); Absolute Neutrophil Count 3.93 10^3/uL (1.2-6.7); Basophils % 0.5; Eosinophils % 1.2; HCT 34.4 % (40.0-50.0); HGB 11.8 g/dL (13.5-17.5); Immature Grans % 0.3; Lymphocytes % 18.8; MCH 31.2 pg (27.0-33.0); MCHC 34.3 % (32.0-36.0); MCV 91 fL (80-95); MPV 11.1 fL (8.0-11.0); Monocytes % 10.8; Neutrophils % 68.4; Platelet Count 129 10^3/uL (130-400); RBC 3.78 10^6/uL (4.36-5.78); RDW 13.5 % (11.8-14.1); RDW-SD 45.4 fL; WBC 5.75 10^3/uL (4.4-10.8)
[2022-01-25 07:18] LABS: Anion Gap 4.8 mmol/L (3-11); BUN 21 mg/dL (7-18); CO2 28.2 mmol/L (21.0-32.0); CREATININE 1.2 mg/dL (0.70-1.30); Calcium 8.3 mg/dL (8.5-10.1); Chloride 106 mmol/L (98-107); Estimated GFR 57.96 (mL/min/1.73m2); Glucose 102 mg/dL (74-106); Potassium 4.1 mmol/L (3.5-5.1); Sodium 139 mmol/L (136-145)
[2022-01-25 07:28] LABS: Creatine Kinase 123 U/L (39-308); NT-proBNP 1180 pg/mL (<300)
[2022-01-25] MEDS: Spironolactone 25 MG TAB PO (07:42)
[2022-01-25 08:32] VITALS: BP 166/78; PULSE 91; RESP 20; TEMP 36.1; O2SAT 100
--- NOTE | 2022-01-25 08:52 | PDOC.CMIN ---
- If Service Date Differs Date of service: 01/25/22 Time of Service: 08:52 Care Management Initial Assess REASON FOR HOSPITALIZATION:: Blunt Abdominal Trauma, Hemorrhagic renal cyst PAST MEDICAL HISTORY/PAST SURGICAL HISTORY:: All Active Problems (Updated 01/24/22 @ 21:18 by Stanislav Morales NP). Traumatic hematuria (Acute). Trauma (Acute). Abnormal CT of the abdomen (Acute). Pancytopenia (Acute). HTN (hypertension) (Chronic). Acute kidney injury (Acute). Febrile illness (Acute). Fever (Acute). CHF (congestive heart failure) (Chronic). Cough (Acute). Anemia (Acute). Hypokalemia, ECF to ICF shifts (Acute). Chronic anticoagulation (Chronic). Xarelto 15mgs qam. Atrial fibrillation (Chronic). Sebaceous cyst (Acute). Screening for colorectal cancer (Acute). Medical History . Actinic keratoses. Angioneurotic edema. Cough. Hx of fracture of finger. L pointer. Left ventricular hypertrophy. Sensorineural hearing loss. bilateral. Shortness of breath. Skin lesion of back. 09/30/[address] Amador for mass of right mid back which has frequently been infected. Called a pilonidal cyst (via biopsy) in [facility], s/p partial resection at some point - wants it completely removed. mg. Snoring. Vitreous floaters of left eye. Surgical History . Cholecystectomy. Colonoscopy - IV Sedation (02/11/16). H/O local excision of skin lesion. 11/05/18 Dr Cristina Dean, right lower back, biopsy showed fibrovascular tissue, adipose tissue and skeletal muscle. PREVIOUS FUNCTIONAL STATUS/SOCIAL/FAMILY SUPPORTS:: Toni lives in [facility] with his Rolo. He has 2 adult children and is retired from the [employer]. Toni drives and is independent at baseline. Toni enjoys music and playing his guitar at local events, including the meal site in [place]. CURRENT FUNCTIONAL STATUS:: Toni was lying in bed when CM met with his. He is alert, oriented and easy to engage in conversation. Toni spoke fondly of the times that he traveled to his favorite campground in [place] and how he taught himself to play the mandolin, which turned out being a big hit among the campers. ADVANCE DIRECTIVES:: None on file, per pt filed with his workers compensation attorney Has patient been provided with info about the portal/API?: Yes Did the patient sign up for the portal?: No CODE STATUS:: Full Code INSURANCE COVERAGE / FINANCIAL ISSUES:: /BS. Medicare CURRENT HOME/COMMUNITY SERVICES/EQUIPMENT:: None PRIMARY CARE PHYSICIAN:: Wing Phan MD. PATIENT/FAMILY EDUCATION NEEDS:: Review discharge instructions, discuss [facility] [employer]. TRANSPORTATION:: Toni will transport home via private vehicle. PLAN:: Toni requires additional monitoring and medical workup. Anticipate Toni will discharge home with no new services when medically ready. He will transport via private vehicle located in the parking lot. Toni will need follow up appointments and discharge plan of care.
--- NOTE | 2022-01-25 09:03 | W.PM.HP.N ---
Date of service: 01/25/22 Time of Service: 09:04 Assessment and Plan Assessment and plan (1) Traumatic hematuria: Status: Acute Assessment and plan: Patient describes continued hematuria H/H 11.8/34.4 Today Patient denies any pain or discomfort. Regular diet Activity as tolerated in the room, ambulation and sitting in the chair (2) Trauma: Status: Acute (3) Abnormal CT of the abdomen: Status: Acute Assessment and plan: Question left renal 4 cm in diameter mass, suspicious for neoplasm.? Additional evaluation with contrast-enhanced CT or MRI recommended. Urolog[place] [facility] [place] holding patient's Xeralto and follow up with repeat CT imaging. (4) Acute kidney injury: Status: Acute (5) HTN (hypertension): Status: Chronic (6) CHF (congestive heart failure): Status: Chronic History of Present Illness History of Present Illness Chief Complaint: Hematuria Narrative: 81 y/o male with a history of HTN, CHF and atrial fibrillation on chronic anticoagulation presented tot he ER last evening with c/o hematuria. Patient describes having a fall 3 days prior at which time he has some neck and back pain which had fully resolved. Today the patient states he feels great! Absolutely no pain, but still having bright red urine. Chest/Abd/Pelvic CT scan was remarkable for, Question left renal 4 cm in diameter mass, suspicious for neoplasm.? Additional evaluation with contrast-enhanced CT or MRI recommended. ER provider spoke with Urologist at [facility] [place] whom recommended holding patient's Xarelto and following up with CT imaging for concern of calcifications and complex cyst. Patient was admitted to observation over night to monitor him and to recheck labs this morning. Xarelto evening dose was held last night. PFSH All Active Problems (Updated 01/24/22 @ 21:18 by Stanislav Morales NP) Traumatic hematuria (Acute) Trauma (Acute) Abnormal CT of the abdomen (Acute) Pancytopenia (Acute) HTN (hypertension) (Chronic) Acute kidney injury (Acute) Febrile illness (Acute) Fever (Acute) CHF (congestive heart failure) (Chronic) Cough (Acute) Anemia (Acute) Hypokalemia, ECF to ICF shifts (Acute) Chronic anticoagulation (Chronic) Xarelto 15mgs qam Atrial fibrillation (Chronic) Sebaceous cyst (Acute) Screening for colorectal cancer (Acute) Medical History Actinic keratoses Angioneurotic edema Cough Hx of fracture of finger L pointer Left ventricular hypertrophy Sensorineural hearing loss bilateral Shortness of breath Skin lesion of back 09/30/[address] Amador for mass of right mid back which has frequently been infected. Called a pilonidal cyst (via biopsy) in [facility], s/p partial resection at some point - wants it completely removed. mg Snoring Vitreous floaters of left eye Surgical History Cholecystectomy Colonoscopy - IV Sedation (02/11/16) H/O local excision of skin lesion 11/05/18 Dr Cristina Dean, right lower back, biopsy showed fibrovascular tissue, adipose tissue and skeletal muscle. Social History Smoking/Tobacco Use Status: Former Tobacco Use Quit Date: 06/25/99 Smoking risk assessment performed?: Yes Alcohol Intake: current Alcohol Intake frequency: 0-2 drinks per day Alcohol type: hard liquor Drug use: Never Substance use type: does not use Do you feel safe at home: Yes Do you feel safe in your relationship?: Yes Meds Allergies and Home Medications Allergies Allergy/AdvReac Type Severity Reaction Status Date / Time oxycodone HCl [From Tylox] Allergy Skin Rash Verified 01/24/22 16:08 Home Medications Medication Instructions Recorded Confirmed Type rivaroxaban 15 mg tablet (Xarelto) 15 mg PO QPM 11/15/18 01/25/22 History spironolactone 25 mg tablet 25 mg PO DAILY #30 tabs 03/14/20 01/25/22 Rx cholecalciferol (vitamin D3) 25 25 mcg PO DAILY 07/01/21 01/25/22 History mcg (1,000 unit) capsule multivit with [id number] 1 cap PO DAILY 07/01/21 01/25/22 History 3,6,9 no.3 400 mcg-300 mcg capsule Exam Const General: cooperative, healthy appearing and comfortable Orientation: alert and oriented x3 Resp Effort & Inspection: normal respiratory effort, no audible wheezes and no cough GI Inspection: normal to inspection Palpation: soft, no guarding and nontender Results Labs Result diagrams: 01/25/22 06:28 01/25/22 06:28 Labs: Laboratory Results - last 24 hr 01/24/22 01/24/22 01/24/22 16:37 16:37 16:52 WBC 7.06 RBC 4.45 Hgb 13.8 Hct 40.3 MCV 91 MCH 31.0 MCHC 34.2 RDW 13.3 Plt Count 146 MPV 11.0 Immature Gran % 0.3 Neutrophils % 70.0 Lymphocytes % 18.3 Monocytes % 10.3 Eosinophils % 0.7 Basophils % 0.4 Nucleated RBC % 0.0 Absolute Neutrophils 4.94 Absolute Lymphocytes 1.29 Absolute Monocytes 0.73 Absolute Eosinophils 0.05 Absolute Basophils 0.03 Sodium 136 Potassium 4.2 Chloride 100 Carbon Dioxide 29.6 Anion Gap 6.4 BUN 24 H Creatinine 1.4 H Estimated GFR/1.73 m2 48.52 Glucose 126 H Calcium 9.4 Total Bilirubin 0.8 AST 35 ALT 27 Alkaline Phosphatase 83 Creatine Kinase NT-Pro-B Natriuret Pep Total Protein 8.1 Albumin 4.0 Urine Color Urine Clarity Sl Cloudy Urine pH 6.0 Ur Specific [place] 1.010 Urine Protein 100 H Urine Ketones Negative Urine Blood Large H Urine Nitrite Negative Urine Bilirubin Negative Urine Urobilinogen 0.2 Ur Leukocyte Esterase Small H Urine RBC >50 H Urine WBC Ur Epithelial Cells Not Applicable Urine Crystals Not Applicable Urine Bacteria Rare Urine Mucus Not Applicable Ur Culture Indicated? Yes Urine Glucose Negative COVID-19 Source SARS-CoV-2 (PCR) 01/24/22 01/25/22 01/25/22 20:37 06:28 06:28 WBC 5.75 RBC 3.78 L Hgb 11.8 L D Hct 34.4 L MCV 91 MCH 31.2 MCHC 34.3 RDW 13.5 Plt Count 129 L MPV 11.1 H Immature Gran % 0.3 Neutrophils % 68.4 Lymphocytes % 18.8 Monocytes % 10.8 Eosinophils % 1.2 Basophils % 0.5 Nucleated RBC % 0.0 Absolute Neutrophils 3.93 Absolute Lymphocytes 1.08 L Absolute Monocytes 0.62 Absolute Eosinophils 0.07 Absolute Basophils 0.03 Sodium Potassium Chloride Carbon Dioxide Anion Gap BUN Creatinine Estimated GFR/1.73 m2 Glucose Calcium Total Bilirubin AST ALT Alkaline Phosphatase Creatine Kinase 123 NT-Pro-B Natriuret Pep 1180 H Total Protein Albumin Urine Color Urine Clarity Urine pH Ur Specific [place] Urine Protein Urine Ketones Urine Blood Urine Nitrite Urine Bilirubin Urine Urobilinogen Ur Leukocyte Esterase Urine RBC Urine WBC Ur Epithelial Cells Urine Crystals Urine Bacteria Urine Mucus Ur Culture Indicated? Urine Glucose COVID-19 Source Nasal/Nares SARS-CoV-2 (PCR) Negative 01/25/22 06:28 WBC RBC Hgb Hct MCV MCH MCHC RDW Plt Count MPV Immature Gran % Neutrophils % Lymphocytes % Monocytes % Eosinophils % Basophils % Nucleated RBC % Absolute Neutrophils Absolute Lymphocytes Absolute Monocytes Absolute Eosinophils Absolute Basophils Sodium 139 Potassium 4.1 Chloride 106 Carbon Dioxide 28.2 Anion Gap 4.8 BUN 21 H Creatinine 1.2 Estimated GFR/1.73 m2 57.96 Glucose 102 Calcium 8.3 L Total Bilirubin AST ALT Alkaline Phosphatase Creatine Kinase NT-Pro-B Natriuret Pep Total Protein Albumin Urine Color Urine Clarity Urine pH Ur Specific [place] Urine Protein Urine Ketones Urine Blood Urine Nitrite Urine Bilirubin Urine Urobilinogen Ur Leukocyte Esterase Urine RBC Urine WBC Ur Epithelial Cells Urine Crystals Urine Bacteria Urine Mucus Ur Culture Indicated? Urine Glucose COVID-19 Source SARS-CoV-2 (PCR) Last Vital Signs Temp 36.1 C L 01/25/22 08:32 Pulse 91 H 01/25/22 08:32 Resp 20 01/25/22 08:32 BP 166/78 H 01/25/22 08:32 Pulse Ox 100 01/25/22 08:32
[2022-01-25 15:47] VITALS: BP 115/60; PULSE 60; RESP 19; TEMP 36.8; O2SAT 99
--- NOTE | 2022-01-25 16:41 | W.PM.DS.N ---
Date of service: 01/25/22 Time of Service: 16:42 DS: Diagnosis Discharge Diagnosis (1) Traumatic hematuria: Status: Acute Asessment and Plan: This seems most consistent with traumatic rupture of the renal cyst, although renal mass remains on the differential diagnosis. His hematuria has cleared, and his vital signs remained reassuring despite the original decrease in his hemoglobin. Follow-up ultrasound supported the diagnosis of a ruptured renal cyst but it did not definitively rule out malignancy. I will continue to hold her Xarelto until this upcoming Sunday at which time I think it would be fine to reintroduce it. I would like him to follow-up with Dr. Phan next week. You will probably benefit from a urology consultation as an outpatient to better characterize the renal abnormalities. (2) HTN (hypertension): Status: Chronic Asessment and Plan: He can resume his spironolactone tomorrow. (3) CHF (congestive heart failure): Status: Chronic Asessment and Plan: At this time, his lungs are clear, he does not have any edema. I think the resumption of his spironolactone will help with help with this. Discharge Plan Disposition Patient Disposition: HOME Condition: Stable Discharge Details Reason For Visit: Blunt Abdominal Trauma/Hemorrhagic Renal Cyst/Customer Engagement Specialist Admit Date/Time: 01/24/22 20:42 Admit Provider: Cristina Dean Attending Provider: Cristina Dean Primary Care Provider: Wing Phan [facility] Course: Briefly, Toni is an 81-year-old male who has a past medical history that is most significant for use of rivaroxaban for atrial fibrillation. He was on a ladder approximately 5 feet off the ground several days ago when the ladder gave way and he fell straight down landing on the hard portion of the ladder. Although he initially felt well, he did develop some hematuria. That is why he went to the emergency department. He underwent a CAT scan of the abdomen and pelvis that demonstrated a left-sided renal cyst with some change in the internal character that seems most consistent with hemorrhage, although renal malignancy remains on the differential diagnosis. By the morning of 01/25/2022 his hematuria had markedly improved. His vital signs are all reassuring, and he was able to tolerate a diet without any difficulty. He underwent a ultrasound of the kidney that supported the findings of the CAT scan. By the evening of the third, he felt back to his baseline and is eager to be discharged home. I explained that I would recommend continuing to hold rivaroxaban until this upcoming Sunday at which point I think it would be safe to resume. Home Meds and New Rx's Prescriptions: Continued cholecalciferol (vitamin D3) 25 mcg (1,000 unit) capsule 25 mcg PO DAILY sx-yz-EO-lycop-omega 3,6,9 #3 400-300 mcg capsule 1 cap PO DAILY spironolactone 25 mg tablet 25 mg PO DAILY Qty: 30 0RF Held Xarelto 15 mg tablet 15 mg PO QPM Hold Instructions: Resume on 01/28/22. Discharge Instructions Instructions: Kidney Cyst (GEN) Additional Instructions: 1. Do not take Xarelto until Sunday 2. Schedule appointment to see Dr. Phan next week Stand Alone Forms: Nursing Discharge Form Referrals: Wing Phan [Primary Care Provider] - (Please call morning for an appointment in the next 3 weeks ) Wiley Mcelroy MD [[facility] STAFF PHYSICIAN] - (Call for an appointment ) Activity:: Activity as Tolerated Equipment/Supplies:: No Equipment Needed Diet:: As Tolerated Discharge Orders Discharge Orders: Discharge Order (Routine); Ordered 01/25/22 Ordered By: Wiley Mcelroy DS: Summary Time Spent with Patient providing and/or coordinating discharge services: Greater than 30 minutes Specific discharge activities: Reviewing activity, reviewing follow-up with his primary care physician and urology, reviewing medication Status at Discharge Functional status at discharge: independent ambulation Overall status at discharge: patient is back to baseline Mental Status: mental status grossly normal Speech and Movement: speech and movement normal Mood: congruent mood Affect: normal affect Exam Const General: cooperative and healthy appearing Nutritional Appearance: average body habitus and well nourished Orientation: alert, awake and oriented x3 Neck Neck: normal visual inspection, full ROM, trachea midline and supple Chest Chest: normal inspection of the chest Resp Effort & Inspection: normal respiratory effort Auscultation: clear to auscultation bilaterally Cardio Jugular venous pressure: no JVD Rate: abnormal rate Heart Sounds: S1 normal and S2 normal GI Inspection: normal to inspection Palpation: soft, not firm, no guarding and no hernias Percussion: normal to percussion Auscultation: normal bowel sounds Back/Spine/Pelvis Back: no CVA tenderness Cervical Spine: cervical ROM normal Thoracic/Lumbar Spine: thoracic and lumbar spine normal to inspection and No paraspinal tenderness Neuro General: patient alert, patient awake and patient oriented x3 Extrem General: normal to inspection Right upper extremity: no edema Left upper extremity: no edema Right lower extremity: no edema Left lower extremity: no edema Psych Mental Status: mental status grossly normal Speech and Movement: speech and movement normal Mood: congruent mood Affect: normal affect DS: Data Vitals/I&O Vitals and I&O: Vital Signs Temperature 98.2 F 01/25/22 15:47 Temperature Source Tympanic 01/25/22 15:47 Pulse 60 01/25/22 15:47 Pulse Rhythm Regular 01/25/22 14:50 Respiratory Rate 19 01/25/22 15:47 Respiratory Effort Non-Labored 01/25/22 14:50 Respiratory Depth Normal 01/25/22 06:00 Respiratory Pattern Normal 01/25/22 14:50 Blood Pressure 115/60 01/25/22 15:47 Blood Pressure Position Sitting 01/24/22 16:06 Pulse Oximetry 99 01/25/22 15:47 Oxygen Delivery Method Room Air 01/25/22 15:47 Oxygen Flow Rate 0 01/25/22 15:47 Pain Level 0 01/25/22 08:32 Comment 01/24/22 22:13 Intake & Output 01/24/22 01/25/22 01/25/22 23:59 11:59 23:59 Intake Total 140 / 140 2205 / 3205 1000 / 3205 Output Total 1050 / 1950 900 / 1950 Balance 140 / 140 1155 / 1255 100 / 1255 Weight 125 lb 125 lb Intake: IV 20 / 20 1805 / 2805 1000 / 2805 Oral 120 / 120 400 / 400 Output: Urine 1050 / 1950 900 / 1950 Other: Urine Color [place] Light Kalie Bone Urine Appearance Hematuria Clear Sediment Urine Odor Normal None Comment pepsi color Voiding Methods Urinal Urinal Data Completed and Pending Labs on day of discharge: Labs from last 24 hours 01/25/22 01/25/22 01/25/22 06:28 06:28 06:28 WBC 5.75 RBC 3.78 L Hgb 11.8 L D Hct 34.4 L MCV 91 MCH 31.2 MCHC 34.3 RDW 13.5 Plt Count 129 L MPV 11.1 H Immature Gran % 0.3 Neutrophils % 68.4 Lymphocytes % 18.8 Monocytes % 10.8 Eosinophils % 1.2 Basophils % 0.5 Nucleated RBC % 0.0 Absolute Neutrophils 3.93 Absolute Lymphocytes 1.08 L Absolute Monocytes 0.62 Absolute Eosinophils 0.07 Absolute Basophils 0.03 Sodium 139 Potassium 4.1 Chloride 106 Carbon Dioxide 28.2 Anion Gap 4.8 BUN 21 H Creatinine 1.2 Estimated GFR/1.73 m2 57.96 Glucose 102 Calcium 8.3 L Total Bilirubin AST ALT Alkaline Phosphatase Creatine Kinase 123 NT-Pro-B Natriuret Pep 1180 H Total Protein Albumin Urine Color Urine Clarity Urine pH Ur Specific [employer] Urine Protein Urine Ketones Urine Blood Urine Nitrite Urine Bilirubin Urine Urobilinogen Ur Leukocyte Esterase Urine RBC Urine WBC Ur Epithelial Cells Urine Crystals Urine Bacteria Urine Mucus Ur Culture Indicated? Urine Glucose COVID-19 Source SARS-CoV-2 (PCR) 01/24/22 01/24/22 01/24/22 20:37 16:52 16:37 WBC 7.06 RBC 4.45 Hgb 13.8 Hct 40.3 MCV 91 MCH 31.0 MCHC 34.2 RDW 13.3 Plt Count 146 MPV 11.0 Immature Gran % 0.3 Neutrophils % 70.0 Lymphocytes % 18.3 Monocytes % 10.3 Eosinophils % 0.7 Basophils % 0.4 Nucleated RBC % 0.0 Absolute Neutrophils 4.94 Absolute Lymphocytes 1.29 Absolute Monocytes 0.73 Absolute Eosinophils 0.05 Absolute Basophils 0.03 Sodium Potassium Chloride Carbon Dioxide Anion Gap BUN Creatinine Estimated GFR/1.73 m2 Glucose Calcium Total Bilirubin AST ALT Alkaline Phosphatase Creatine Kinase NT-Pro-B Natriuret Pep Total Protein Albumin Urine Color Urine Clarity Sl Cloudy Urine pH 6.0 Ur Specific [employer] 1.010 Urine Protein 100 H Urine Ketones Negative Urine Blood Large H Urine Nitrite Negative Urine Bilirubin Negative Urine Urobilinogen 0.2 Ur Leukocyte Esterase Small H Urine RBC >50 H Urine WBC Ur Epithelial Cells Not Applicable Urine Crystals Not Applicable Urine Bacteria Rare Urine Mucus Not Applicable Ur Culture Indicated? Yes Urine Glucose Negative COVID-19 Source Nasal/Nares SARS-CoV-2 (PCR) Negative 01/24/22 16:37 WBC RBC Hgb Hct MCV MCH MCHC RDW Plt Count MPV Immature Gran % Neutrophils % Lymphocytes % Monocytes % Eosinophils % Basophils % Nucleated RBC % Absolute Neutrophils Absolute Lymphocytes Absolute Monocytes Absolute Eosinophils Absolute Basophils Sodium 136 Potassium 4.2 Chloride 100 Carbon Dioxide 29.6 Anion Gap 6.4 BUN 24 H Creatinine 1.4 H Estimated GFR/1.73 m2 48.52 Glucose 126 H Calcium 9.4 Total Bilirubin 0.8 AST 35 ALT 27 Alkaline Phosphatase 83 Creatine Kinase NT-Pro-B Natriuret Pep Total Protein 8.1 Albumin 4.0 Urine Color Urine Clarity Urine pH Ur Specific [employer] Urine Protein Urine Ketones Urine Blood Urine Nitrite Urine Bilirubin Urine Urobilinogen Ur Leukocyte Esterase Urine RBC Urine WBC Ur Epithelial Cells Urine Crystals Urine Bacteria Urine Mucus Ur Culture Indicated? Urine Glucose COVID-19 Source SARS-CoV-2 (PCR) Preliminary micro results at discharge 01/24/22 16:52 Urine Culture - Preliminary Urine - Reflex from Ua Gram Positive Mary PFSH All Active Problems Traumatic hematuria (Acute) Trauma (Acute) Abnormal CT of the abdomen (Acute) Pancytopenia (Acute) HTN (hypertension) (Chronic) Acute kidney injury (Acute) Febrile illness (Acute) Fever (Acute) CHF (congestive heart failure) (Chronic) Cough (Acute) Anemia (Acute) Hypokalemia, ECF to ICF shifts (Acute) Chronic anticoagulation (Chronic) Xarelto 15mgs qam Atrial fibrillation (Chronic) Sebaceous cyst (Acute) Screening for colorectal cancer (Acute) Medical History Actinic keratoses Angioneurotic edema Cough Hx of fracture of finger L pointer Left ventricular hypertrophy Sensorineural hearing loss bilateral Shortness of breath Skin lesion of back 09/30/[address] Amador for mass of right mid back which has frequently been infected. Called a pilonidal cyst (via biopsy) in [facility], s/p partial resection at some point - wants it completely removed. mg Snoring Vitreous floaters of left eye Surgical History Cholecystectomy Colonoscopy - IV Sedation (02/11/16) H/O local excision of skin lesion 11/05/18 Dr Cristina Dean, right lower back, biopsy showed fibrovascular tissue, adipose tissue and skeletal muscle. Social History Smoking/Tobacco Use Status: Former Tobacco Use Quit Date: 06/25/99 Smoking risk assessment performed?: Yes Alcohol Intake: current Alcohol Intake frequency: 0-2 drinks per day Alcohol type: hard liquor Drug use: Never Substance use type: does not use Do you feel safe at home: Yes Do you feel safe in your relationship?: Yes
== END 2022-01-25 17:27 | disposition home or self-care (01) ==
LOC: ER 21:29 → MS 22:00
PROVIDERS: Admitting Provider Surgery; Emergency Provider Nurse Practitioner Family; PCP Family Medicine; Visit Provider Surgery
DX: S37.092A Other injury of left kidney, initial encounter (principal); N17.9 Acute kidney failure, unspecified; R31.9 Hematuria, unspecified; I48.91 Unspecified atrial fibrillation; Z79.01 Long term (current) use of anticoagulants; N28.1 Cyst of kidney, acquired; R91.8 Other nonspecific abnormal finding of lung field; I11.0 Hypertensive heart disease with heart failure; I50.9 Heart failure, unspecified; W19.XXXA Unspecified fall, initial encounter; D61.818 Other pancytopenia; D64.9 Anemia, unspecified; R93.5 Abnormal findings on diagnostic imaging of other abdominal regions, including retroperitoneum; Z79.899 Other long term (current) drug therapy; Z20.822 Contact with and (suspected) exposure to COVID-19
CPT/HCPCS: 36415; 74177; 76770; 80048; 80053; 82550; 87635; 96360; 96361; 99219; 99284; 99285; 70450; 71260; 72125; 81003; 81015; 83880; 85025; 87086; G0378; J3490

== ENCOUNTER 2022-01-27 01:57 | Outpatient (CLI) | payer MEDICARE, BC, SELFPAY ==
--- OUTSIDE RECORDS SUMMARY | 2022-01-27 01:59 | XMS_ITS | Encounter Summary ---
:1940 Author Organization [facility] [place] [address] Care Team Providers Name Role Phone Arik Amador MD Primary Care Provider Reason for Visit Reason Comments Annual Exam Encounter Details Date Type Department Care Team Description 03/27/2019 Office Visit Dermatology at [facility] [place] (act inic keratosis); Jose MEADOWS History of malignant melanoma [address] [facility] Isai B DERMATOLOGY [place], [place] [id number] [phone] Social History Tobacco Use Types Packs/Day Years Used Date Former Smoker Quit: 06/30/18 70 Smokeless Tobacco: Never Used Alcohol Use Standard Drinks/Week Comments Yes 5 (1 standard drink = 0.6 oz pure alcoho l) Sex Assigned at Date Recorded Not on file documented as of this encounter Progress Notes Pete Baltazar MD - 03/27/2019 1:45 PM EDT Problem: 1. Repeat skin checkup 2. History of malignant melanoma, 0.5 mm Breslow depth, left lateral shoulder, November 2007 3. History of malignant melanoma, 0.65 mm Breslow depth, left elbow, March 2007 4. 43 years of service with [employer], started working for stated age 20 in 1960 5. 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 He is been doing well. [place] and not deal with a traffic on the long drive to [place] any longer. He hashis wood all split and ready for the winter. 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 Physical examination feels a pleasant 78-year-old gentleman who has actinic's present on the dorsal hands in very early stages of development. They are not symptomatic. He has actinic's on the helical rims. Fortunately examination of the thinning parietal scalp the face the neck the chest the back thehands the arms informs is benign. There is no evidence of recurrent pigmentation at the above-noted 2 melanoma excision sites. Assessment plan: Actinic keratosis dorsal hands 1. Relatively minimal today 2. Last year LN2 therapy to this caused significant blistering 3. Monitor for now consider 5-FU in the future Actinic keratosis helical rims 1. LN 2 x 2 applied each of 3 sites Personal history of 2 malignant melanomas 1. Patient reassured by today's benign skin examination 2. Return to clinic in another year for repeat check. Is: Arik Amador MD documented in this encounter Plan of Treatment Upcoming Encounters Date Type Specialty Care Team Description 04/17/2022 Office Visit Dermatology Pete Baltazar MD [address] [facility] DERMATOLOGY [place], [place] [address] (Wo rk) documented as of this encounter Visit Diagnoses Diagnosis [place] (actinic keratosis) Actinic keratosis History of malignant melanoma Personal history of malignant melanoma o f skin documented in this encounter Care Teams Public Relations Studies Director Relationship Specialty Start Date End Date Arik Amador MD PCP - General 05/17/10 06/24/19 documented as of this encounter
--- OUTSIDE RECORDS SUMMARY | 2022-01-27 01:59 | XMS_ITS | Encounter Summary ---
:1940 [place] [address] Care Team Providers Name Role Phone Wing Phan MD Primary Care Provider Encounter Details Date Type Department Care Team Description 01/24/2022 [facility] [place] [address] [place] [address] [phone] (Wo rk) Social History Tobacco Use Types Packs/Day Years Used Date Former Smoker Quit: 06/30/18 69 Smokeless Tobacco: Never Used Alcohol Use Standard Drinks/Week Comments Yes 5 (1 standard drink = 0.6 oz pure alcoho l) Sex Assigned at Date Recorded Not on file documented as of this encounter Plan of Treatment Upcoming Encounters Date Type Specialty Care Team Description 04/17/2022 Office Visit Dermatology Pete Baltazar MD [address] [place] [address] DERMATOLOGY [place], [place] [address] (Wo rk) documented as of this encounter Procedures Procedure Name Priority Date/Time Associated Diagnosis Comme nts FILM LIBRARY Routine 01/24/2022 7:18 PM Results f or this STORAGE ONLY CT EDT procedure ar e in HEAD AND SPINE the results section. documented in this encounter Results Film Library- Storage Only CT Head And Spine (01/24/2022 7:18 PM EDT) Specimen (Source) Anatomical Location Collection Method / Collectio n Time Received Time / Laterality Volume Narrative RAD - 01/24/2022 7:18 PM EDT This exam is auto-finalizing. It's purpo se is for storage only. Arik Ross MD IMG FILM LIBRARY ORDERABLES Performing Organization Address City/State/ZIP Code Phon e Number [place], [place] documented in this encounter Visit Diagnoses Not on filedocumented in this encounter Care Teams Care Giver Relationship Specialty Start Date End Date Wing Phan MD PCP - General Family Medicine 03/29/20 [address] [place] [phone] documented as of this encounter
--- OUTSIDE RECORDS SUMMARY | 2022-01-27 01:59 | XMS_ITS | Encounter Summary ---
:1940 Author Organization [facility] [address] Care Team Providers Name Role Phone Wing Phan MD Primary Care Provider Encounter Details Date Type Department Care Team Description 04/22/2021 Telephone Dermatology at [facility] Kiesha Reveles LPN [address] [place] [address] Social History Tobacco Use Types Packs/Day Years Used Date Former Smoker Quit: 06/30/18 69 Smokeless Tobacco: Never Used Alcohol Use Standard Drinks/Week Comments Yes 5 (1 standard drink = 0.6 oz pure alcoho l) Sex Assigned at Date Recorded Not on file documented as of this encounter Miscellaneous Notes Telephone Encounter - Kiesha Reveles LPN - 04/22/2021 3:03 PM EDT 04/15/21 A- shave right dorsal hand B-shave 2nd MCP right hand C-Shave 2nd MCP left hand Dx: A-SCCA, no further treatment necessary B-SCCA, no further treatment necessary C-SCCA, no further treatment necessary Return to clinic 04/17/22 Reviewed biopsies results with Rolo. She voiced understanding documented in this encounter Plan of Treatment Upcoming Encounters Date Type Specialty Care Team Description 04/17/2022 Office Visit Dermatology Pete Baltazar MD [address] [facility] DERMATOLOGY [place], [place] [address] (Wo rk) documented as of this encounter Visit Diagnoses Not on filedocumented in this encounter Care Teams Hide Cleaner Relationship Specialty Start Date End Date Wing Phan MD PCP - General Family Medicine 03/29/20 [address] [place] [phone] documented as of this encounter
--- OUTSIDE RECORDS SUMMARY | 2022-01-27 01:59 | XMS_ITS | Encounter Summary ---
:1940 Author Organization [facility] [place] [address] Care Team Providers Name Role Phone Arik Amador MD Primary Care Provider Reason for Visit Reason Comments Follow-up s/p radha anthonye ac 12/01 Encounter Details Date Type Department Care Team Description 12/29/2014 Office Visit General Surgery at [facility] Veronica Gibson, [place] [address] GENERAL SURGERY [place] [id number] (Wo rk) Social History Tobacco Use Types Packs/Day Years Used Date Former Smoker Quit: 06/30/18 69 Smokeless Tobacco: Never Used Alcohol Use Standard Drinks/Week Comments Yes 5 (1 standard drink = 0.6 oz pure alcoho l) Sex Assigned at Date Recorded Not on file documented as of this encounter Progress Notes Veronica Gibson, ARBITRATOR - 01/01/2015 3:27 PM EDT Toni Wells is here for hospital check. 12/02/14 :laparoscopic cholecystectomy-Ronan Path:Gallbladder, cholecystectomy: Chronic cholecystitis and cholelithiasis Feels very well, denies fevers chills jaundice, pale stools or dark urine. Denies abdominal pain, nausea, or vomiting, appetite and energy good, denies any incisional pain. Pleased with progress, in good spirits. Exam: Well appearing, moves easily about the exam room and onto the exam table. Sclera clear and non icteric, no jaundice. Abd soft non tender non distended, with benign trocar sites. Impression/plan: Unremarkable post discharge course At this time there is no scheduled general surgery FU indicated. However, the patient knows to feelfree to call us should there be any question, concern, or should anything specific arise. documented in this encounter Plan of Treatment Upcoming Encounters Date Type Specialty Care Team Description 04/17/2022 Office Visit Dermatology Pete Baltazar MD [address] [place] [address] DERMATOLOGY [place], [place] [address] (Wo rk) documented as of this encounter Visit Diagnoses Diagnosis Surgery follow-up Follow-up examination, following unspeci fied surgery documented in this encounter Care Teams Tool/Die Maker Relationship Specialty Start Date End Date Arik Amador MD PCP - General 05/17/10 06/24/19 documented as of this encounter
--- OUTSIDE RECORDS SUMMARY | 2022-01-27 01:59 | XMS_ITS | Encounter Summary ---
:1940 [place] [address] Care Team Providers Name Role Phone Wing Phan MD Primary Care Provider Encounter Details Date Type Department Care Team Description 01/24/2022 Ancillary [facility] [place] [address] [place] [address] [phone] (Wo rk) Social History Tobacco Use Types [...] 04/17/2022 Office Visit Dermatology Pete Baltazar MD [address] [place] [address] DERMATOLOGY [place], [place] [address] (Wo rk) documented as of this encounter Procedures Procedure Name Priority Date/Time Associated Diagnosis Comme nts FILM LIBRARY Routine 01/24/2022 7:19 PM Results f or this STORAGE ONLY CT EDT procedure ar e in CHEST ABDOMEN the results PELVIS section. documented in this encounter Results Film Library- Storage Only CT Chest Abdomen Pelvis (01/24/2022 7:19 PM EDT) Specimen (Source) Anatomical Location Collection Method / Collectio n Time Received Time / Laterality Volume Narrative RAD - 01/24/2022 7:19 PM EDT This exam is auto-finalizing. It's purpo se is for storage only. Arik Ross MD IMG FILM LIBRARY ORDERABLES Performing Organization Address City/State/ZIP Code Phon e Number [place], [place] documented in this encounter Visit Diagnoses Not on filedocumented in this encounter Care Teams Program Director/Music Director Relationship Specialty Start Date End Date Wing Phan MD PCP - General Family Medicine 03/29/20 [address] [place] [phone] documented as of this encounter
--- OUTSIDE RECORDS SUMMARY | 2022-01-27 01:59 | XMS_ITS | Encounter Summary ---
:1940 [place] [address] Care Team Providers Name Role Phone Benedicto Amador MD Primary Care Provider Encounter Details Date Type Department Care Team Description 11/27/2014 - Hospital Encounter 3 Brendon Vinson Do, [place] [address] Choledocholithiasis 12/02/2014 [facility] [place] [address] [place] [phone] Social History Tobacco Use Types Packs/Day Years Used Date Former Smoker Quit: 06/30/18 69 Smokeless Tobacco: Never Used Alcohol Use Standard Drinks/Week Comments Yes 5 (1 standard drink = 0.6 oz pure alcoho l) Sex Assigned at Date Recorded Not on file documented as of this encounter Last Filed Vital Signs Vital Sign Reading Time Taken Comments Blood Pressure 127/66 12/02/2014 8:25 AM EDT Pulse 72 12/02/2014 8:25 AM EDT Temperature 36.7 ??C (98.1 ??F) 12/02/2014 8:25 AM EDT Respiratory Rate 17 12/02/2014 8:25 AM EDT Oxygen Saturation 96% 12/02/2014 8:25 AM EDT Inhaled Oxygen Concentration - - Weight 67.1 kg (148 lb) 11/28/2014 7:00 AM EDT Height 172.7 cm (5' 8) 11/28/2014 7:00 AM EDT Body Mass Index 22.5 11/28/2014 7:00 AM EDT documented in this encounter Discharge Summaries Latha Gunter I - 12/01/2014 11:30 AM EDT Discharge Summary Patient Name: Toni Vincent Patient Age: 74 y.o. Language: Setswana Race: White Ethnicity: Not nor Admit date: 11/27/2014 Discharge date and time: 12/03/2014 Attending Physician: Lazaro Kaiser MD Discharge Physician: Latha Gunter MD Follow-up Recommendations for Providers: - F/u appt scheduled with surgery in 4 weeks - Please f/u his Cr, on discharge his Cr was 1.31 he was hydrated during his admission, unclear if this is his baseline Cr but given his trend while he was here this seems to be where he usually is - On discharge his WBC was elevated at 13.2 from 6. This was not concerning given that this leukocytosis was most likely inflammatory post-op. Please follow up on this if patient has any signs or symptoms of infection; he competed 5d course of zosyn during his admission and never had any fevers, leukocytosis (until day after surgery), or other signs of infection. Inpatient Provider Contact Information: For questions regarding this document or issues relating to this hospitalization on the Medical Service, please contact your inpatient physician through the [facility] Hospital Education Coordinator . Issues after hours and on weekends will be handled by the Hospitalist staff on-call. Discharge Diagnoses (Hospital Problems) and Secondary Diagnoses (Chronic Problems): Active Hospital Problems Diagnosis ??? Choledocholithiasis ??? Hypertension Resolved Hospital Problems Diagnosis Date Resolved No resolved problems to display. Active Non-Hospital Problems Diagnosis ??? History of squamous cell carcinoma ??? Squamous cell carcinoma ??? History of malignant melanoma ??? Actinic keratosis Operations/Major Procedures: Operations: Procedure(s): ERCP 11/28/2014 Procedure(s): LAPAROSCOPIC CHOLECYSTECTOMY 12/01/2014 History of Presentation: 74 y.o. male w/ hx of HTN who presents with 3 days of worsening abd pain. Pain is RUQ, has been waxing/waning but progressively worsening over the last 3 days, and this AM, woke up and it was 20/10 squeezing pain, did not radiate. No associated symptoms he had. Food did not seem to affect it. Bowel movement was more pellet like in form, but color was normal. No nausea or vomiting. Did not feel like he had a fever, but documented 38.6 at OSH. Denies skin color changes. He says the pain went away whenthey gave him pain meds in the ambulance; has not really returned, he just feels some discomfort in the RUQ area. He thought he had a similar episode in August, of pain and nausea/vomiting. At OSH, was febrile, US showed dilated common bile duct to 0.9cm, gallbladder wall 0.4cm, gallbladder had sludge and stones. Received zosyn OSH labs: CBC: 8.7 / 11.8 / 148 BMP: 141 / 3.8 / 104 / 30 / 15 / 1.3 LFT: t bili 2.46 -> 4.25; AST 129, ALT 208; Alk phos 200; amylase 62; Lipase 425 -> 200 Hospital Course: # Choledocholithiasis 74 y.o. male w/ hx of HTN who presented with 3 days of abd pain, fever at OSH, dilated CBD concerning for possible cholangitis, was started on zosyn and completed 5 day course. Since admission, howeverhe has remained afebrile with no leukocytosis or evidence of infection. GI was consulted on presentation and preformed ERCP which was c/w obstructing stone and sludge. Sphincterotomy was preformed withgood result. Since then, his abdominal pain has resolved and he was tolerating normal diet, LFTs down-trending. On 12/01 he underwent a a laparoscopic cholecystectomy, which he tolerated very well. The next day he was feeling well with no abdominal pain, having normal BMs, urinating adequately and tolerating normal diet. He had minimal pain from surgery and did not require any pain medication afterwards. Patient was told he would be discharged home with a few days of narcotics for pain if he were to have any as this is expected after surgery. He refused pain medication and said that he had not had any pain. He was instructed to take tylenol or Ibuprofen if he does have pain. He was discharged home with a 4 week f/u with in surgery clinic and a f/u appointment with his PCP. Vital Signs at Discharge: BP: 127/66 mmHg, Heart Rate: 72, Temp: 36.7 ??C (98.1 ??F), Resp: 17, BMI (Calculated): 22.6 Height: 172.7 cm (5' 8) (11/28/14 07) Weight - Scale: 67.132 kg (148 lb) (11/28/14 07) Functional and Cognitive Status: Good/Good Important Studies and Lab Data: Labs: Last 3 wbc, hgb, hct plt Recent Labs 12/02/14 0335 12/01/145 11/30/14 0345 WBC 13.2* 6.0 5.8 HGB 11.8* 12.1* 11.5* HCT 35.4* 36.1* 35.0* PLATELET 187 189 180 Last 3 Lytes Recent Labs 12/02/14 0335 12/01/14 0415 11/30/14 0345 NA 139 141 142 K 4.1 4.5 4.2 CL 99 101 99 CO2 28 28 30 BUN 15 14 16 CREATININE 1.31 1.24 1.34 Last 3 LFTs Recent Labs 12/02/14 0335 12/01/145 11/30/14 0345 AST 71* 40* 49* ALT 94* 80* 99* ALKPHOS 134* 161* 183* BILITOT 1.2 1.3 1.5* BILIDIR 0.5* 0.7* 0.8* Last 3 Coags Recent Labs 11/28/14 0211 PT 15.1 INR 1.1 Microbiology: OSH BCx (11/27/14) - No growth BCx (11/28/14) - No growth Imaging: ERCP (11/28/14) - - A filling defect consistent with a stone and sludge was seen on the cholangiogram. - A sphincterotomy was performed. - The biliary tree was swept and sludge was found. - The examination was suspicious for choledocholithiasis. Sludge was removed from the common bile duct. No pus noted with initial sphincterotomy and/or sweeping of bile duct. Pending Studies and Lab Data: None Discharge Conditions/Prognosis: Choledocholithiasis s/p lap hansa / Good Discharge to: Home Updated Allergies/ADRs: Allergies Allergen Reactions ??? Codeine ??? Tylox [Oxycodone-Acetaminophen] Immunizations Given this Hospitalization: There is no immunization history on file for this patient. Discharge Medications: Your Medications Continued medications, unchanged Dose Details aspirin 81 mg Tbec Take 81 mg by mouth daily. 81 mg Refills: 0 DOXAZOSIN ORAL Take 8 mg by mouth daily. 8 mg Refills: 0 hydrochlorothiazide 25 mg Tab Commonly known as: HYDRODIURIL Take 25 mg by mouth daily. 25 mg Refills: 0 Smoking Status at Discharge: History Smoking status ??? Former Smoker ??? Quit date: 06/30/1969 Smokeless tobacco ??? Never Used Instructions Given to Patient at Discharge: Patient Instructions Instructions For Patient: Wound Care: Keep dressings/Band-Aids on incisions for the next 2 days. Do not get dressings wet. If they become wet or soaked with drainage you may change them with fresh ones as needed. If there are pieces of tape directly on the incision (steri-strips or butterflys), please leave them on until they fall off on their own. You may trim them back as they begin to peel up. After 2 days you may remove dressing/Band-Aids and leave open to air. You may now shower and get incisions wet. Pat dry immediately following. Do not scrub them vigorously for the next 2-3 weeks. Do not soak incision(s) under water for the next 2 weeks (i.e. soaking in bath or swimming) as this may promote a wound infection. Your stitches will dissolve and do not need to be removed. Activity: No heavy lifting more than 15 pounds for the next 4 weeks, then you may gradually lift heavier objects as tolerated by discomfort. Otherwise activity as tolerated by your comfort level. Diet: You may resume a normal regular diet. Call Doctor for: Please call if you notice worsening redness or drainage from incision(s) lasting longer than 5 days after your surgery, any foul-smelling drainage from the incision, pain not controlled by pain medications, persistent nausea and vomiting, or for any fevers greater than 101.3 F. The number for questions is [phone] before 5 PM weekdays and [phone] after 5 PM and weekends. Pain Medication: No driving for 8 hours after any dose of opioid pain medication if one was prescribed for you. You may use ibuprofen (motrin, advil) in addition to this medication if your pain is not totally controlled by the opioid. Follow-up: You will need to follow up wit the surgery clinic in 3- weeks. Below is a scheduled time.Please call [phone] (clinic number for appointments) to confirm date and time of your appointment if you do not receive your apointment in 3 weeks. Future Appointments Date Time Provider Department Center 12/29/2014 10:30 AM Veronica Gibson APRN [facility] Your inpatient Providers: Attending - Lazaro Kaiser MD Resident - Celestino Carrasquillo MD Order Make Up Clerk - Latha Gunter MD Your PCP: BENEDICTO AMADOR MD [address] [address] General Instructions None Future Appointments Provider Department Dept Phone 12/29/2014 10:30 AM Veronica Gibson APRN General Surgery [phone] Discharge References/Attachments None documented in this encounter Discharge Instructions Patient InstructionsLatha Gunter I - 12/01/2014 12:08 PM EDT Instructions For Patient: Wound Care: Keep dressings/Band-Aids on incisions for the next 2 days. Do not get dressings wet. If they become wet or soaked with drainage you may change them with fresh ones as needed. If there are pieces of tape directly on the incision (steri-strips or butterflys), please leave them on until they fall off on their own. You may trim them back as they begin to peel up. After 2 days you may remove dressing/Band-Aids and leave open to air. You may now shower and get incisions wet. Pat dry immediately following. Do not scrub them vigorously for the next 2-3 weeks. Do not soak incision(s) under water for the next 2 weeks (i.e. soaking in bath or swimming) as this may promote a wound infection. Your stitches will dissolve and do not need to be removed. Activity: No heavy lifting more than 15 pounds for the next 4 weeks, then you may gradually lift heavier objects as tolerated by discomfort. Otherwise activity as tolerated by your comfort level. Diet: You may resume a normal regular diet. Call Doctor for: Please call if you notice worsening redness or drainage from incision(s) lasting longer than 5 days after your surgery, any foul-smelling drainage from the incision, pain not controlled by pain medications, persistent nausea and vomiting, or for any fevers greater than 101.3 F. The number for questions is [phone] before 5 PM weekdays and [phone] after 5 PM and weekends. Pain Medication: No driving for 8 hours after any dose of opioid pain medication if one was prescribed for you. You may use ibuprofen (motrin, advil) in addition to this medication if your pain is not totally controlled by the opioid. Follow-up: You will need to follow up wit the surgery clinic in 3- weeks. Below is a scheduled time.Please call [phone] (clinic number for appointments) to confirm date and time of your appointment if you do not receive your apointment in 3 weeks. Future Appointments Date Time Provider Department Center 12/29/2014 10:30 AM Veronica Gibson, RESEARCH SCHOLAR [facility] Your inpatient Providers: Attending - Lazaro Kaiser MD Resident - Celestino Carrasquillo MD Order Make Up Clerk - Latha Gunter MD Your PCP: BENEDICTO AMADOR MD [address] / [facility] [id number] documented in this encounter Medications at Time of Discharge Medication Sig Dispensed Refills Start Date End Date aspirin 81 mg EC tablet Take 81 mg by 0 04/01/2018 mouth daily. hydrochlorothiazide Take 25 mg by 0 (HYDRODIURIL) 25 mg tablet mouth daily. DOXAZOSIN MESYLATE (DOXAZOSIN Take 8 mg by 0 04/01/2018 ORAL) mouth daily. documented as of this encounter Progress Notes Lazaro Kaiser MD - 12/03/2014 6:06 PM EDT Hospital Medicine - Attending Day of Discharge Documentation Discharge diagnosis Active Hospital Problems Diagnosis ??? Choledocholithiasis ??? Hypertension Resolved Hospital Problems Diagnosis Date Resolved No resolved problems to display. Secondary Issues Active Non-Hospital Problems Diagnosis ??? History of squamous cell carcinoma ??? Squamous cell carcinoma ??? History of malignant melanoma ??? Actinic keratosis I have personally seen and examined the patient and they are ready for discharge. Select the appropriate statement that describes your involvement and care and omit the other: I spent <30 minutes (Day of Discharge Code 30690) involved in the final examination of the patient, discussion of the hospital stay, instructions for continuing care to all relevant caregivers, and preparation of discharge records, prescriptions and referral forms. Plans ? Discharge to home ? Follow-up scheduled with surgery ? Please see the Discharge Summary for complete details of any medication changes and additional plans. Natalia Valverde RN - 12/02/2014 11:38 AM EDT Pt d/c to home per MD order. Patient AOx4, hrr, lung sounds clear, no n/v, sob or chest pain at timeof discharge. +bs, LBM 12/02/14, voiding clear yellow urine. Patient ambulating independently at thistime. Patient has minimal pain and has not been taking pain medication. All LDA's removed. All belongings home with patient. Prescriptions given to patient, all discharge instructions reviewed with patient and . All questions answered. Please see flowsheet for full assessment. De Gordillo - 12/02/2014 9:05 AM EDT Video Production Engineer Encounter Note Patient Name: Toni Vincent : [id number] MR#: [id number] Admit Date: 11/27/2014 11:30 PM Hospital Day 5 days Narrative:Visited to introduce and assess acceptance of Video Production Engineer services. Pt was awake, alert, oriented and in bed. Pt says that he is feeling better and today going to home and his is coming to give him ride. Assessment:Patient coping positively with stresses of illness/hospitalization at this time. Pt seemed in good spirits and happy that he is going to home. Pt has family care and support. Intervention and Outcome:Video Production Engineer services accepted.Conversation to build trusting relationship.Provided pastoral presence. Follow-up: No Time in Direct Care:10 Mins De Rand 12/02/2014 Inder Lowe MD - 12/01/2014 6:15 PM EDT Post-Op Check note: ID: [id number] POD# 0 s/p Lap cholecystectomy S: feels well, tolerating regular diet, pain controlled, ambulated O: AVSS Exam: NAD, non-toxic, pleasant, RRR, abdomen appropriately tendner, incision dressing c/d/i A: POD# 1 s/p Lap Hansa. Doing well, HD stable, pain controlled. Tolerating a diet. Ok to discharge from surgery perspective. P: Ok for discharge home this evening from surgery perspective F/u appt scheduled with surgery in 4 weeks Discharge pt with about 30-40 tabs of dilaudid for pain management in addition to Tylenol and Ibuprofen Discharge Instruction provided Inder Lowe MD Mohini Trotter RN - 12/01/2014 12:00 PM EDT Arrived pacu #12, monitors placed, alarms set. 12:45 states abd. timoteoe, does not use # scale, discussed pain med options, denies need for IVP med,given Tylenol 650mg at pt. Request. Inder Lowe MD - 12/01/2014 8:54 AM EDT [facility] Department of Surgery Inpatient Consult Progress Note ID: Toni Vincent is a 74 y.o. male with choledocholithiasis s/p ERCP sphincterotomy consulted forcholecystectomy in the setting of cholelithiasis. 24 hr events: No acute events S: feels well, tolerating reg diet yesterday. No N/V no abdominal pain. PE: Temp: [36.4 ??C (97.5 ??F)-36.8 ??C (98.2 ??F)] Heart Rate: [47-63] Resp: [18-20] BP: (144-174)/(70-80) SpO2: [97 %-100 %] Intake/Output Summary (Last 24 hours) at 12/01/14 0854 Last data filed at 12/01/14 0841 Gross per 24 hour Intake 3048 ml Output 3175 ml Net -127 ml Gen: NAD, nontoxic, well nourshied CV: RRR, no murmurs Pulm: CTABL, equal chest rise Abd: soft, ND, NT Ext: warm well perfused no edema Recent Results (from the past 24 hour(s)) BASIC METABOLIC PANEL (NON-FASTING) Result Value Ref Range Glucose Lvl 97 65 - 199 mg/dL BUN 14 10 - 20 mg/dL Creatinine 1.24 0.80 - 1.50 mg/dL Sodium 141 135 - 145 mmol/L Potassium 4.5 3.5 - 5.0 mmol/L Chloride 101 98 - 107 mmol/L CO2 28 22 - 31 mmol/L Anion Gap 12 5 - 15 mmol/L Calcium 9.4 8.5 - 10.5 mg/dL Estimated GFR 57 (*) >=60 HEPATIC FUNCTION PANEL Result Value Ref Range Total Protein 6.5 6.1 - 8.0 gm/dL Albumin 3.4 3.2 - 5.2 gm/dL AST 40 (*) 0 - 39 unit/L ALT 80 (*) 0 - 55 unit/L Alk Phos 161 (*) 40 - 120 unit/L Total Bilirubin 1.3 0.2 - 1.3 mg/dL Bili, Direct 0.7 (*) 0.0 - 0.3 mg/dL HEMOGRAM Result Value Ref Range WBC 6.0 4.0 - 10.0 x10(3)/mcL RBC 4.06 (*) 4.63 - 6.08 x10(6)/mcL Hemoglobin 12.1 (*) 13.7 - 17.5 gm/dL Hematocrit 36.1 (*) 40.0 - 51.0 % MCV 88.9 79.0 - 92.0 fL MCH 29.8 25.6 - 32.2 pg MCHC 33.5 32.0 - 36.5 gm/dL Platelets 189 145 - 370 x10(3)/mcL RDWSD 46.5 (*) 35.0 - 46.0 fL RDWCV 14.2 10.9 - 14.4 % MPV 11.0 9.0 - 12.0 fL DIFFERENTIAL, AUTOMATED Result Value Ref Range Neutrophils % 63.9 Neutr Abs (ANC) 3.81 1.50 - 6.30 x10(3)/mcL Lymphocytes % 21.8 Lymphocytes Abs 1.3 1.0 - 3.6 x10(3)/mcL Monocytes % 10.9 Monocyte Abs 0.6 0.2 - 1.0 x10(3)/mcL Eosinophils % 2.8 Eosinophils Abs 0.2 0.0 - 0.5 x10(3)/mcL Basophils % 0.3 Basophils Abs 0.0 0.0 - 0.2 x10(3)/mcL Immature Gran % 0.30 Ginny Gran Abs 0.02 0.00 - 0.05 x10(3)/mcL ABO/RH TYPING Result Value Ref Range ABORh Type A Neg ANTIBODY SCREEN Result Value Ref Range Ab Screen Interp Negative Expires at 5093 on: [id number] Assessment: 74 y.o. male with choledocholithiasis s/p ERCP sphincterotomy consulted for cholecystectomy in the setting of cholelithiasis and choledocholithiasis . Doing well. Plan for cholecystectomy this AM. Plan: NPO To OR today for Lap Hansa 2g Cefazolin pre-op SCDs for DVT ppx Inder Lowe MD Lazaro Kaiser MD - 12/01/2014 7:25 AM EDT General Internal Medicine Progress Note Attending:Lazaro Kaiser MD Hospital Course: 74 y.o. male w/ hx of HTN who presented with 3 days of abd pain, fever at OSH, dilated CBD concerning for possible cholangitis, was started on zosyn and completed 5 day course. Since admission, howeverhe has remained afebrile with no leukocytosis or evidence of infection. GI was consulted on presentation and preformed ERCP which was c/w obstructing stone and sludge. Sphincterotomy was preformed withgood result. Since then, his abdominal pain has resolved and he was tolerating normal diet, LFTs down-trending. Plan is for patient to go for elective cholecystectomy today for choledocholithiasis. 24 hour events/subjective: - Afebrile, VSS, no acute events o/n - Day 5 of zosyn - no fevers or leukocytosis - LFTs trending down, tolerating diet, abdominal pain resolved - denies CP, SOB, F/C, N/V, pain, constipation Vitals: Last value 24Hr Range Temperature Temp: 36.5 ??C (97.7 ??F) Temp: [36.4 ??C (97.5 ??F)-36.8 ??C (98.2 ??F)] Heart Rate Heart Rate: 54 Heart Rate: [46-63] Blood Pressure BP: 171/77 mmHg BP: (144-178)/(70-80) Respiratory Rate Resp: 18 Resp: [17-18] SpO2 SpO2: 98 % SpO2: [97 %-100 %] Intake/Output Summary (Last 24 hours) at 12/01/14 0726 Last data filed at 12/01/14 0606 Gross per 24 hour Intake 3048 ml Output 2875 ml Net 173 ml Physical Exam: Gen: AAOX3, NAD HEENT: PERRLA, EOMI, Anicteric sclera, OP clear with mmm Neck: Supple with normal ROM, No cervical LAD appreciated, JVD flat CV: RRR without murmur, rub, click or lester Resp: CTAB, Nl respiratory effort Abd: Soft, NT, ND, NABS, No HSM appreciated EXT: WWP, no pitting edema and equal dpp bl Skin: No rashes, sores or ulcers Neuro: Nonfocal, Moving all 4 extremities equally Labs: Recent Labs 12/01/1441411/30/1434411/29/14 0422 WBC 6.0 5.8 5.4 HGB 12.1* 11.5* 11.6* HCT 36.1* 35.0* 34.1* PLATELET 189 180 165 NEUTROABS 3.81 3.55 3.69 Recent Labs 12/01/1441411/30/1434411/29/14 042 NA 141 142 138 K 4.5 4.2 4.0 CL 101 99 99 CO2 28 30 29 BUN 14 16 14 CREATININE 1.24 1.34 1.14 GLUCOSE 97 105 102 Recent Labs 12/01/1441411/30/1434411/29/14 042 AST 40* 49* 89* ALT 80* 99* 128* ALKPHOS 161* 183* 210* BILITOT 1.3 1.5* 3.4* BILIDIR 0.7* 0.8* 2.4* Microbiology: OSH BCx (11/27/14) - NGTD BCx (11/28/14) - NGTD Imaging: ERCP (11/28/14) - - A filling defect consistent with a stone and sludge was seen on the cholangiogram. - A sphincterotomy was performed. - The biliary tree was swept and sludge was found. - The examination was suspicious for choledocholithiasis. Sludge was removed from the common bile duct. No pus noted with initial sphincterotomy and/or sweeping of bile duct. Assessment: 74 y.o. male w/ hx of HTN who presented with 3 days of abd pain, fever at OSH, dilated CBD concerning for possible cholangitis, was started on zosyn, but has been afebrile here and no WBC count, picture looking more like choledocolithiasis. ERCP c/w obstructing stone and sludge. Sphincterotomy was preformed with good result. LFTs down-trending. Plan for elective cholecystectomy this morning. NPO at [place] otherwise doing well today. Plan: # Choledocholithiasis - s/p ERCP and sphincterotomy - LFTs down-trending - tolerating normal diet - tentative plan for cholecystectomy tomorrow - NPO at FL tonight - good PO intake so d/c IVFs - cont zosyn for 5d course (D5) per GI; although no signs of infection # HTN - cont home HCTZ # PPx: DVT - lovenox, holding morning dose for OR Diet - low residual diet Code - FULL CODE Latha Gunter MD Internal Medcine, PGY-1 [facility], Pager #[phone] 12/01/2014 I have seen and examined the patient, providing santoro components as outlined below. I have reviewed the resident???s above note and agree with the findings, assessment and plan with exceptions noted in my evaluation of the patient below: 74 y.o. male with h/o choledocholithiasis sp cholecystectomy today, will monitor, potentially discharge tomorrow post op. Lazaro Kaiser MD 12/01/2014 Lazaro Kaiser MD - 11/30/2014 7:28 AM EDT General Internal Medicine Progress Note Attending:Lazaro Kaiser MD ID: 74 y.o. male w/ hx of HTN who presents with 3 days of abd pain, fever at OSH, dilated CBD concerning for choledocholithiasis. 24 hour events/subjective: - Afebrile, VSS, no acute events o/n - Day 4 of zosyn - no fevers or leukocytosis - LFTs trending down, tolerating diet, abdominal pain resolved - denies CP, SOB, F/C, N/V, pain, constipation Vitals: Last value 24Hr Range Temperature Temp: 36.6 ??C (97.9 ??F) Temp: [36.4 ??C (97.5 ??F)-37 ??C (98.6 ??F)] Heart Rate Heart Rate: 46 (RN awared) Heart Rate: [46-67] Blood Pressure BP: 178/79 mmHg BP: (118-178)/(65-80) Respiratory Rate Resp: 17 Resp: [17-18] SpO2 SpO2: 100 % SpO2: [97 %-100 %] Intake/Output Summary (Last 24 hours) at 11/30/14 0949 Last data filed at 11/30/14 0705 Gross per 24 hour Intake 1635 ml Output 1950 ml Net -315 ml Physical Exam: Gen: AAOX3, NAD HEENT: PERRLA, EOMI, Anicteric sclera, OP clear with mmm Neck: Supple with normal ROM, No cervical LAD appreciated, JVD flat CV: RRR without murmur, rub, click or lester Resp: CTAB, Nl respiratory effort Abd: Soft, NT, ND, NABS, No HSM appreciated EXT: WWP, no pitting edema and equal dpp bl Skin: No rashes, sores or ulcers Neuro: Nonfocal, Moving all 4 extremities equally Labs: Recent Labs 11/30/1434411/29/14 0422 11/28/14 0211 WBC 5.8 5.4 5.2 HGB 11.5* 11.6* 11.4* HCT 35.0* 34.1* 33.8* PLATELET 180 165 135* NEUTROABS 3.55 3.69 3.43 Recent Labs 11/30/1434411/29/14 0422 11/28/14 0211 NA 142 138 142 K 4.2 4.0 3.9 CL 99 99 103 CO2 30 29 28 BUN 16 14 16 CREATININE 1.34 1.14 1.25 GLUCOSE 105 102 86 Recent Labs 11/30/1434411/29/14 0422 11/28/14 0211 CALCIUM 9.5 8.6 8.7 MAGNESIUM -- -- 0.74 PHOS -- -- 2.7 Recent Labs 11/30/1434411/29/14 0422 11/28/14 0211 AST 49* 89* 125* ALT 99* 128* 155* ALKPHOS 183* 210* 192* BILITOT 1.5* 3.4* 5.4* BILIDIR 0.8* 2.4* 4.5* Recent Labs 11/28/14 0211 INR 1.1 PT 15.1 Microbiology: OSH BCx (11/27/14) - NGTD BCx (11/28/14) - NGTD Imaging: ERCP (11/28/14) - - A filling defect consistent with a stone and sludge was seen on the cholangiogram. - A sphincterotomy was performed. - The biliary tree was swept and sludge was found. - The examination was suspicious for choledocholithiasis. Sludge was removed from the common bile duct. No pus noted with initial sphincterotomy and/or sweeping of bile duct. Assessment: 74 y.o. male w/ hx of HTN who presents with 3 days of abd pain, fever at OSH, dilated CBD concerningfor possible cholangitis, was started on zosyn, but has been afebrile here and no WBC count, picturelooking more like choledocolithiasis. ERCP yesterday c/w obstructing stone and sludge. Sphincterotomy was preformed with good result. LFTs down-trending. Plan for elective cholecystectomy stan. NPO at [place] otherwise doing well today. Plan: # Choledocholithiasis - s/p ERCP and sphincterotomy - LFTs down-trending - tolerating normal diet - tentative plan for cholecystectomy tomorrow - NPO at [place] tonight - good PO intake so d/c IVFs - cont zosyn for 5d course (D4) per GI; although no signs of infection # HTN - cont home HCTZ # PPx: DVT - lovenox, holding morning dose for OR stan Diet - low residual diet Code - FULL CODE Latha Gunter MD Internal Medcine, PGY-1 [facility], Pager #[phone] 11/30/2014 I have seen and examined the patient, providing santoro components as outlined below. I have reviewed the resident???s above note and agree with the findings, assessment and plan with exceptions noted in my evaluation of the patient below: 74 y.o. male with h/o choledocolithiasis, now stable, to surgery tomorrow for cholecystectomy. Lazaro Kaiser MD 12/01/2014 Marsha Magaña RN - 11/30/2014 12:57 AM EDT Patient transferred to [facility], report given to NASRIN Cates. Patient denies pain, VSS. Ml Lopes MD - 11/29/2014 1:36 PM EDT [facility] Department of Gastroenterology Inpatient Progress Note Patient info: Toni Vincent 1940 [id number] BENEDICTO AMADOR MD Date of Admission: 11/27/2014 ( Hospital Day 2 days ) Attending: Dr. Lopes Service: Gastroenterology ID: 74yo male with pmh HTN, intermittent biliary colic for 1 year, with more acute 24 hours persistent RUQ pain, progressive acute jaundice at OSH 11/27, eventually febrile, transferred to [facility] for cholangitis, GI consulted. GI Problem List: Cholangitis -s/p ERCP 11/28 noting choledocholithiasis on cholangiogram, no overt pus drained -Abd US OSH had noted cholelithiasis -Pt had biliary colic for 1 year Interval Events: HD stable stable, afebrile, downtrending LFTs, T.bili, Surgery consulted Subjective: Pt feeling better tolerating PO denies f/c/n/v/cp/sob. Medications: Scheduled Meds: ??? hydrochlorothiazide 25 mg Oral Daily ??? sodium chloride 0.9 % 5 mL Intravenous BID ??? enoxaparin 40 mg Subcutaneous Daily ??? senna-docusate 2 tablet Oral BID ??? piperacillin-tazobactam 3.375 g Intravenous Q8H Continuous Infusions: PRN Meds:.sodium chloride 0.9 %, lidocaine, polyethylene glycol, acetaminophen, ondansetron OR ondansetron PHYSICAL EXAM: Vitals: Last value Range last 24 hrs Temperature Temp: 37 ??C (98.6 ??F) Temp: [36.6 ??C (97.9 ??F)-37 ??C (98.6 ??F)] Heart Rate Heart Rate: 61 Heart Rate: [43-74] Blood Pressure BP: 120/60 mmHg BP: (120-146)/(60-75) Respiratory Rate Resp: 18 Resp: [16-19] SpO2 SpO2: 97 % SpO2: [96 %-99 %] Intake/Output Summary (Last 24 hours) at 11/29/14 1336 Last data filed at 11/29/14 1200 Gross per 24 hour Intake 1410 ml Output 2375 ml Net -965 ml Wt Readings from Last 3 Encounters: 11/28/14 67.132 kg (148 lb) Body mass index is 22.51 kg/(m^2). Exam: Gen: NAD, cooperative HEENT: EOMI, Anicteric sclera, MMM CV: RRR Resp: CTAB Abd: Soft, NT, no murphys sign, ND, NABS, No HSM appreciated EXT: No pedal edema Neuro: Grossly nonfocal Labs: Recent Labs 11/29/1442111/28/14210 WBC 5.4 5.2 HGB 11.6* 11.4* HCT 34.1* 33.8* PLATELET 165 135* NEUTROABS 3.69 3.43 Recent Labs 11/29/1442111/28/14 021 NA 138 142 K 4.0 3.9 CL 99 103 CO2 29 28 BUN 14 16 CREATININE 1.14 1.25 Recent Labs 11/29/1442111/28/14210 CALCIUM 8.6 8.7 MAGNESIUM -- 0.74 PHOS -- 2.7 Recent Labs 11/29/1442111/28/14210 AST 89* 125* ALT 128* 155* ALKPHOS 210* 192* BILITOT 3.4* 5.4* BILIDIR 2.4* 4.5* Recent Labs 11/28/14210 INR 1.1 PT 15.1 Microbiology: Blood Culture: NGTD ASSESSMENT/PLAN: 74yo male with pmh HTN, intermittent biliary colic for 1 year, with more acute RUQ pain, progressivejaundice, fevers, Abd US noting serial CBD dilation, cholelithiasis, pt transferred for ERCP for cholangitis. ERCP noted choledocholithiasis s/p balloon extraction and sphincterotomy successful. No overt pus noted during stone extraction. At this time recommend 5 days zosyn, Surgery consult for CCY during hospitalization. Recommendations: -Daily LFTs -Zosyn X5 days -Surgery consult -PO as tolerated Code Status: Full Code Felipe Licea Gastroenterology Fellow 11/29/2014 Pager #[phone] Staff Addendum: I have independently interviewed and examined this patient and have personally reviewed the relevantclinical, laboratory and radiological data with Dr. Licea. Please refer to his note above, for complete details of our encounter with this patient. I have reviewed and agree with the recommendations as outlined. Ml Lopes MD Lazaro Kaiser MD - 11/29/2014 7:33 AM EDT General Internal Medicine Progress Note Attending:Lazaro Kaiser MD ID: 74 y.o. male w/ hx of HTN who presents with 3 days of abd pain, fever at OSH, dilated CBD concerning for choledocholithiasis. 24 hour events/subjective: - ERCP yesterday with sphincterotomy, sludge and no signs of infection - Afebrile, VSS, no acute events o/n - Day 3 of zosyn - no fevers or leukocytosis - abdominal pain resolved, tolerating normal diet - denies CP, SOB, F/C, N/V, pain, constipation Vitals: Last value 24Hr Range Temperature Temp: 36.9 ??C (98.4 ??F) Temp: [36.6 ??C (97.9 ??F)-36.9 ??C (98.4 ??F)] Heart Rate Heart Rate: 74 Heart Rate: [43-74] Blood Pressure BP: 138/75 mmHg BP: (128-177)/(60-82) Respiratory Rate Resp: 18 Resp: [9-22] SpO2 SpO2: 99 % SpO2: [96 %-100 %] Physical Exam: Gen: AAOX3, NAD HEENT: PERRLA, EOMI, Anicteric sclera, OP clear with mmm Neck: Supple with normal ROM, No cervical LAD appreciated, JVD flat CV: RRR without murmur, rub, click or lester Resp: CTAB, Nl respiratory effort Abd: Soft, NT, ND, NABS, No HSM appreciated EXT: WWP, no pitting edema and equal dpp bl Skin: No rashes, sores or ulcers Neuro: Nonfocal, Moving all 4 extremities equally Labs: Recent Labs 11/29/142 11/28/14210 WBC 5.4 5.2 HGB 11.6* 11.4* HCT 34.1* 33.8* PLATELET 165 135* NEUTROABS 3.69 3.43 Recent Labs 11/29/142 11/28/14210 NA 138 142 K 4.0 3.9 CL 99 103 CO2 29 28 BUN 14 16 CREATININE 1.14 1.25 GLUCOSE 102 86 Recent Labs 11/29/14421 11/28/14 0211 CALCIUM 8.6 8.7 MAGNESIUM -- 0.74 PHOS -- 2.7 Recent Labs 11/29/14 0422 11/28/14 0211 AST 89* 125* ALT 128* 155* ALKPHOS 210* 192* BILITOT 3.4* 5.4* BILIDIR 2.4* 4.5* Recent Labs 11/28/14 0211 INR 1.1 PT 15.1 Microbiology: OSH BCx (11/27/14) - NGTD BCx (11/28/14) - NGTD Imaging: ERCP (11/28/14) - - A filling defect consistent with a stone and sludge was seen on the cholangiogram. - A sphincterotomy was performed. - The biliary tree was swept and sludge was found. - The examination was suspicious for choledocholithiasis. Sludge was removed from the common bile duct. No pus noted with initial sphincterotomy and/or sweeping of bile duct. Assessment: 74 y.o. male w/ hx of HTN who presents with 3 days of abd pain, fever at OSH, dilated CBD concerningfor possible cholangitis, was started on zosyn, but has been afebrile here and no WBC count, picturelooking more like choledocolithiasis. ERCP yesterday c/w obstructing stone and sludge. Sphincterotomy was preformed with good result. LFTs down-trending. Plan for elective cholecystectomy this admission. Discussed with General Surgery resident, Inder Lowe, and will make NPO at midnight in anticipation of surgery possibly Mon. Plan: # Choledocholithiasis - s/p ERCP and sphincterotomy - LFTs down-trending - tolerating normal diet - anticipate cholecystectomy during this admsion, maybe Mon or - NPO at [place] tonight - good PO intake so d/c IVFs - cont zosyn for now per GI; although no signs of infection # HTN - cont home HCTZ # PPx: DVT - lovenox Diet - low residual diet Code - FULL CODE Latha Gunter MD Internal Medcine, PGY-1 [facility], Pager #[phone] 11/29/2014 I have seen and examined the patient, providing santoro components as outlined below. I have reviewed the resident???s above note and agree with the findings, assessment and plan with exceptions noted in my evaluation of the patient below: 74 y.o. male with h/o abdominal pain, now with probable choledocholithiasis. On abx, not clearly infected but possible so monitoring. Need surgery this stay will discuss with general surgery tomorrow for possible transfer to them. Lazaro Kaiser MD 11/29/2014 Trudy Walden RN - 11/28/2014 9:00 AM EDT Pt off unit for ERCP procedure in endoscopy. Lazaro Kaiser MD - 11/28/2014 8:55 AM EDT General Internal Medicine Progress Note Attending:Brendon Garcia MD ID: 4 y.o. male w/ hx of HTN who presents with 3 days of abd pain, fever at OSH, dilated CBD concerning for choledocholithiasis 24 hour events/subjective -D2 of zosyn -no fevers or leukocytosis -no pain, hasn't required pain meds -undergoing ERCP today Vitals: Last value 24Hr Range Temperature Temp: 36.6 ??C (97.9 ??F) Temp: [36.6 ??C (97.9 ??F)-36.8 ??C (98.2 ??F)] Heart Rate Heart Rate: 53 Heart Rate: [45-57] Blood Pressure BP: 134/62 mmHg BP: (124-155)/(62-82) Respiratory Rate Resp: 16 Resp: [16-18] SpO2 SpO2: 96 % SpO2: [94 %-99 %] Physical Exam: Gen: AAOX3, NAD HEENT: PERRLA, EOMI, Anicteric sclera, OP clear with mmm Neck: Supple with normal ROM, No cervical LAD appreciated, JVD flat CV: RRR without murmur, rub, click or lester Resp: CTAB, Nl respiratory effort Abd: Soft, NT, ND, NABS, No HSM appreciated EXT: WWP, no pitting edema and equal dpp bl Skin: No rashes, sores or ulcers Neuro: Nonfocal, Moving all 4 extremities equally Labs: Recent Labs 11/28/14210 WBC 5.2 HGB 11.4* HCT 33.8* PLATELET 135* NEUTROABS 3.43 Recent Labs 11/28/14210 NA 142 K 3.9 CL 103 CO2 28 BUN 16 CREATININE 1.25 GLUCOSE 86 Recent Labs 11/28/14210 CALCIUM 8.7 MAGNESIUM 0.74 PHOS 2.7 Recent Labs 11/28/14210 AST 125* ALT 155* ALKPHOS 192* BILITOT 5.4* BILIDIR 4.5* Recent Labs 11/28/14210 INR 1.1 PT 15.1 No results for input(s): LDH, URICACID in the last 168 hours. Assessment: 74 y.o. male w/ hx of HTN who presents with 3 days of abd pain, fever at OSH, dilated CBD concerningfor possible cholangitis, was started on zosyn, but has been afebrile here and no WBC count, picturelooking more like choledocolithiasis. GI is involved, and plan for ERCP today. Discussed with General Surgery resident, and since it is no cholecystitis, doesn't need urgent cholecystostomy, but one during the admission. Plan is for reconsult on Sunday AM (talk with Inder Lowe) after presumed improvement in LFTs, make NPO at midnight in anticipation of surgery Sunday. Plan: # Choledocholithiasis - undergoing ERCP today - trend LFTs - anticipate restarting diet after ERCP, but following for GI recommendation - anticipate cholecystectomy during this admsion, maybe Sun or Patient was seen and discussed with Brendon Garcia MD [facility], PGY-2 11/28/2014 Team Pager [phone] I have seen and examined the patient, providing santoro components as outlined below. I have reviewed the resident???s above note and agree with the findings, assessment and plan with exceptions noted in my evaluation of the patient below: 74 y.o. male with h/o RUQ pain, ERCP today showed evidence of cheoldocolithiasis, no puss. Continuing NPO and abx, surgical consultation for cholecystectomy. Lazaro Kaiser MD 11/28/2014 Jolie Kemp RN - 11/28/2014 2:20 AM EDT Patient arrived to floor via stretcher. Patient A&O x 4, lungs clear, heart rate regular. Patient has active bowel sounds, tender to palpation of RUQ. Patient has an IV access to right arm. Patientstates their pain level is 0/10. Patient denies chest pain, shortness of breath, numbness or tingling. Patient oriented to room, call claros, IS. Will continue to monitor. documented in this encounter H&P Notes Felipe Licea - 11/28/2014 9:50 AM EDT Gastroenterology and Hepatology Pre-Procedure History and Physical Exam Procedure: ERCP: Indication: 74yo male with pmh HTN, intermittent biliary colic for 1 year, with more acute 24 hours persistent RUQ pain, progressive acute jaundice at OSH 6/5, cholestatic LFTs transaminases 200s, alk phos 200, T.bili 4.2. Last evening at OSH multiple temperatures at > 38C. Absd US noting interval increased CBD dilation to 9mm, cholelithiasis, sludge in gallbladder. Based on clinical cholangitis, pt transferred to [facility], placed on IVF, NPO Zosyn, consented for ERCP. Overnight pt HD stable afebrile while on zosyn. Patient Active Problem List Diagnosis Code ??? History of malignant melanoma V10.82 ??? Actinic keratosis 702.0 ??? Squamous cell carcinoma 199.1 ??? History of squamous cell carcinoma V10.89 ??? Hypertension 401.9 EXAM: HEENT: Airway examined, oropharynx clear Mallampati Score: II (soft palate, uvula, fauces visible) LUNGS: Clear to auscultation HEART: Regular rate and rhythm, normal S1, S2 ABDOMEN: Normal bowel sounds, soft, TTP RUQ, non distended, A/P Proceed with the planned endoscopic procedure. ASA 2 - Patient with mild systemic disease with no functional limitations Sedation Plan: moderate (conscious sedation) Risks and benefits of the procedure explained to the patient. Consent signed. Electronically signed by: Felipe Licea Gastroenterology Fellow [facility] Pager [phone] 11/28/2014 Lazaro Kaiser MD - 11/28/2014 1:18 AM EDT Inpatient Hospital Medicine - Admission History & Physical Presenting diagnosis/chief complaint: abd pain Past medical/surgical history: Patient Active Problem List Diagnosis Code ??? History of malignant melanoma V10.82 ??? Actinic keratosis 702.0 ??? Squamous cell carcinoma 199.1 ??? History of squamous cell carcinoma V10.89 ??? Hypertension 401.9 History of present illness: 74 y.o. male w/ hx of HTN who presents with 3 days of worsening abd pain. Pain is RUQ, has been waxing/waning but progressively worsening over the last 3 days, and this AM, woke up and it was 20/10 squeezing pain, did not radiate. No associated symptoms he had. Food did notseem to affect it. Bowel movement was more pellet like in form, but color was normal. No nausea or vomiting. Did not feel like he had a fever, but documented 38.6 at OSH. Denies skin color changes. He says the pain went away when they gave him pain meds in the ambulance; has not really returned, he just feels some discomfort in the RUQ area. He thought he had a similar episode in August, of pain and nausea/vomiting. At OSH, was febrile, US showed dilated common bile duct to 0.9cm, gallbladder wall 0.4cm, gallbladder had sludge and stones. Received zosyn OSH labs: CBC: 8.7 / 11.8 / 148 BMP: 141 / 3.8 / 104 / 30 / 15 / 1.3 LFT: t bili 2.46 -> 4.25; AST 129, ALT 208; Alk phos 200; amylase 62; Lipase 425 -> 200 Review of systems: General: no chills, weight change, night sweats, fatigue Eyes: no change in vision ENT: no dysphagia, no change in hearing Cardiovascular: no chest pain, palpitations, orthopnea or PND Respiratory: no dyspnea, cough or wheeze GI: no nausea, vomiting, diarrhea, constipation, maroon or dark stools : no hematuria or dysuria Musculoskeletal: no new jont pains or joint swelling Neuro: no numbness or tingling, no focal weakness Hem/Lymph: no easy bruising or bleeding Skin: no rashes Medications: Prescriptions prior to admission Medication Sig Dispense Refill ??? aspirin 81 mg EC tablet Take 81 mg by mouth daily. ??? hydrochlorothiazide (HYDRODIURIL) 25 mg tablet Take 25 mg by mouth daily. ??? DOXAZOSIN MESYLATE (DOXAZOSIN ORAL) Take 8 mg by mouth daily. Allergies: Allergies Allergen Reactions ??? Codeine ??? Tylox [Oxycodone-Acetaminophen] Social history: - tobacco: denies; quit 35 years ago - alcohol: 1 drink per night, never more - illicits: denies Retired [employer]. Lives with Significant family history: Father: emphysema Mother; Bone Ca Physical Exam: Temp: [36.8 ??C (98.2 ??F)] Heart Rate: [57] Resp: [18] BP: (155)/(71) SpO2: [99 %] Constitutional: NAD, laying comfortably in bed HEENT: eomi, perrl, mmm, no scleral icterus CV: rrr, no m/r/g, nl s1s2 Lungs; CTAB Abd; Soft, ND, no tenderness to percussion; mild tenderness to palpation in RUQ, negative sanchez's. Negative straight leg. No rebound Ext: no edema, pedal pulses 2+, no rashes Neuro: CN2-12, strength 5/5 in major muscle groups; sensation grossly intact Laboratory: No results found for this or any previous visit (from the past 24 hour(s)). Assessment: 74 y.o. male w/ hx of HTN who presents with 3 days of abd pain, fever at OSH, dilated CBD concerning for possible cholangitis, was started on zosyn. Is hemodynamically stable and comfortable right now. -admit to medicine -cont zosyn -recheck CMP, lipase, BMP, blood cultures -GI consult for possible ERCP -NPO -IVF: 100cc/hr -zofran prn -home meds: Cont hctz # Prophylaxis - lovenox la # Full code Stephen Perez MD PGY3 Pager [phone] I have seen and examined the patient, providing santoro components as outlined below. I have reviewed the resident???s above note and agree with the findings, assessment and plan with exceptions noted in my evaluation of the patient below: Please see my addendum from 11/28 for day's documentation. Lazaro Kaiser MD 11/30/2014 documented in this encounter Procedure Notes Shonna Bhandari RN - 11/28/2014 12:08 PM EDT Post ERCP report given to NASRIN Yates. Pt drowsy, but arousable to name spoken. Denies pain. Stateshe wants to go back to his room. VSS. documented in this encounter Miscellaneous Notes Op Note - Inder Lowe MD - 12/02/2014 7:31 AM EDT [facility] Operative Note Patient Name: Toni Vincent : [id number] MR#: [id number] Case Date: 12/01/2014 Surgeon: Surgeon(s) and Role: * Yamil Ferraro MD - Primary * Inder Lowe MD - Resident-Surgeon Tio * Zaki Gama MD - Resident-Kosher Sealer Preoperative diagnosis: CHOLEDOCOLITHIASIS Postoperative diagnosis: CHOLEDOCOLITHIASIS Procedure(s): LAPAROSCOPIC CHOLECYSTECTOMY Anesthesia: General Estimated Blood Loss: 75 mL Specimens removed during surgery: Gallbladder Findings: 1. Normal appearing GB but with some evidence of scarring. 2. Critical view of safety achieved with classic anatomy. 3. Some spillage of stones during dissection but all stones meticulousy removed. Drains: none Surgical Closure: Primary Closure - closure of ALL tissue levels during the original surgery regardless of wires, wickes, drains, or other devices extruding through the incision Disposition: awakened from anesthesia, extubated and taken to the recovery room in a stable condition, having suffered no apparent untoward event. Condition: doing well without problems (Please see the Surgical Encounter Summary for any Implant and Specimen details pertinent to this patient.) HPI/Surgical Indications: 74 y.o. Man with cholelithiasis, likely history of biliary colic with choledocholithiasis, s/p ERCP with sphincterotomy sludge extraction and resolution in symptoms with normalizing LFTs. Surgery consulted for Cholecystectomy. Although chance of further episode of choledocholithiasis is low after sphincterotomy, risk of recurrence would be further reduced with cholecystectomy. After discussion with patient he agrees with proceeding with cholecystectomy tomorrow so we will plan on taking him to the operating room tomorrow. The risks and benefits were explained and he wishesto proceed. Procedure Description: The patient was taken from his inpatient bed to the OR after obtaining consent. He was placed in the supine position. He was anesthetized and intubated by anesthesia. The patientwas prepped and draped in the usual sterile fashion. A timed out was performed. All were in agreement to proceed. We started by making infraumbilical curvilinear incision to fit a 11mm trochar after infiltration with local anesthetic. The tissue was spread with S retractors to expose the midline fascia which was grasped with a Catrina. A 2-0 vicryl U stich on a UR-6 was placed on either side of the fascia. The peritoneum was gasped and entered. A nupur 11 mm trochar was inserted into the abdomen and secured. The abdomen was insufflated to 15 L/min of CO2. A 10mm 30 degree scope was inserted. And the abdomen surveyed. The gallbladder appeared grossly normal. We proceeded to place a a 5mm epigastricport and 2 LUQ ports under direct visualization. The patient was placed in reverse Trendelenburg andairplaned to the left. The gallbladder was grasped with a wave and elevated cranially. The infundibulum was grasped and retracted anterolaterally. The peritoneum was carefully dissected at the lateral edge of the cystic duct to help expose it. This was done with a combination using a kelly, curved cryo and a kittner. The tissues were somewhat friable and there was evidence of scarring. Once the cysti c duct was better exposed a window was developed between the cystic artery and cystic duct with a curved cryo. The cystic duct was cleared of remaining peritoneum. A critical view was then obtained andthe duct was then clipped X 3 proximally and X 1 near the GB. The cystic duct was then transected. We then dissected the the cystic artery circumferentially and clipped and transected it. The gallbladder was then dissected off the liver with electrocautery the plane was somewhat thin and a hole was made in the GB which spilled some small stones. The stones and bile was carefully suctioned. There alsosome bleeding from the liver bed which a controlled with electrocautery. The GB was eventually comple tley dissected off and removed with an endo catch bag. The pursestring did break while extracting and the bag was removed with a nciholas clamp. The specimen was sent for pathology. The operative site was then irrigated with 1 L of sterile NS and assessed for hemostasis. Areas of oozing from the liver bed were controlled with electrocautery. At the end the fluid was clear and there was good hemostasis.All visible stones and clot were removed. The trochars were then removed under visualization. The abdomen was desufflated. The umbilical fascia was closed with the already placed the 2-0 vicryl. There was no defect on palpation. The skin was then closed with 4-0 subcuticular monocryl followed by mastisol and steri strips. A count was correct X2. Dr. Ferraro was present and scrubbed for the procedure. The patient was awakened and extubated and taken to the PACU in stable condition. There were no complications with the procedure. Inder Lowe MD Associated attestation - Yamil Ferraro MD - 12/02/2014 9:52 PM EDT Attestation: Case Date: 12/01/2014 I was present and I participated during the entire procedure (does not need to include opening and closing). Yamil Ferraro MD 12/02/2014 Plan of Care - Reva Hester RN - 12/02/2014 3:33 AM EDT Problem: General Plan of Care Goal: Plan of Care Review 12/01/14 0355 Plan of Care Review Plan of Care Outcome Status ongoing (interventions implemented as appropriate) Progress improving Coping/Psychosocial Response Interventions Plan of Care Reviewed with patient OUTCOME EVALUATION NOTE: OUTCOME SUMMARY: Toni had a good night this shift. He denies SOB, CP, N/V. Denies pain at this time and is aware to call RN if pain level increases. Pt repositions himself in bed prn. Voiding adequately. Stab sites to abdomen with steri-strips intact, no drainage noted. PLAN MOVING FORWARD: pain management; infection control; develop d/c plan INDIVIDUALIZED FALL PREVENTION: Assistance: Stand by assist when OOB. Repositions self independently while in bed. Supervision: Independent with ADL's. Surveillance: Omer, purposeful rounding. CPG GOAL OUTCOME EVALUATION: Goal: Individualization and Mutuality 11/28/14652 Mutuality/Individual Preferences What anxieties, fears or concerns do you have about your health or care? none What questions do you have about your health or care? none What information would help us give you more personalized care? none Goal: Fall Prevention-Safe Patient Handling 11/30/142053 Safety Interventions Safety Precautions/Fall Reduction commode/urinal/bedpan at bedside;fall reduction program maintained;environmental modification;lighting adjusted for task/safety;low bed;nonskid shoes/slippers when outof bed Johnson Fall Risk History of Falling 0 Secondary Diagnosis 0 Ambulatory Aids 0 Intravenous Therapy/Heparin/Saline Lock 20 Gait/Transferring 0 Mental Status 0 Score 20 OTHER Johnson Fall Risk Low Musculoskeletal Interventions Activity/Level of Assistance up ad silvio;with stand by assist Positioning independent Goal: Infection Control 11/30/142053 Safety Interventions Isolation Precautions standard precautions maintained Infection Prevention rest/sleep promoted;promote handwashing;hydration promoted;environmental surveillance Coping/Psychosocial Response Interventions Counseling understanding of situation facilitated;reassurance provided Goal: Discharge Needs Assessment 12/01/14354 Discharge Needs Assessment Concerns to be Addressed denies needs/concerns at this time Readmission Within the Last 30 Days no previous admission in last 30 days Living Environment Transportation Available car;family or friend will provide Problem: Pain, Acute (Adult, Obstetrics) Goal: Identify Signs and Symptoms and Related Risk Factors Signs and symptoms and related risk factors are identified upon initiation of Human Response Clinical Practice Guideline (CPG) 12/01/14 0355 Pain, Acute Related Risk Factors (Acute Pain) disease process Signs and Symptoms (Acute Pain) verbalization of pain descriptors Goal: Acceptable Pain Control/Comfort Level Patient will demonstrate the desired outcomes. 12/01/14 0355 Pain, Acute (Adult, Obstetrics) Acceptable Pain Control/Comfort Level making progress toward outcome Plan of Care - Natalia Valverde RN - 12/01/2014 6:10 PM EDT Problem: General Plan of Care Goal: Plan of Care Review Outcome: Ongoing (Interventions Implemented as Appropriate) 12/01/141804 Plan of Care Review Plan of Care Outcome Status ongoing (interventions implemented as appropriate) Progress progress toward functional goals as expected Coping/Psychosocial Response Interventions Plan of Care Reviewed with patient OUTCOME EVALUATION NOTE: OUTCOME SUMMARY: Patient went to OR this morning for laparoscopic cholecystectomy. Lap sites covered with steri-strips and band-aids; umbilical site covered with gauze. Pt denies nausea and was able to eat lunch. Voiding adequate amounts in urinal and has passed flatus once. He reports minimal to moderate pain in abdomen but refused scheduled and PRN pain medications. PLAN MOVING FORWARD: Pain control Probable D/C to home Sunday INDIVIDUALIZED FALL PREVENTION: Assistance: Independent Supervision: Eyes on with ambulation Surveillance: Purposeful hourly rounding, Masimo monitoring CPG GOAL OUTCOME EVALUATION: Goal: Individualization and Mutuality Outcome: Ongoing (Interventions Implemented as Appropriate) Goal: Fall Prevention-Safe Patient Handling Outcome: Ongoing (Interventions Implemented as Appropriate) 12/01/14133712/01/141804 Safety Interventions Safety Precautions/Fall Reduction commode/urinal/bedpan at bedside;environmental modification;fall reduction program maintained;lighting adjusted for task/safety;low bed;nonskid shoes/slippers when outof bed -- Johnson Fall Risk History of Falling 0 -- Secondary Diagnosis 15 -- Ambulatory Aids 0 -- Intravenous Therapy/Heparin/Saline Lock 20 -- Gait/Transferring 0 -- Mental Status 0 -- Score 35 -- OTHER Johnson Fall Risk Med -- Musculoskeletal Interventions Activity/Level of Assistance up ad silvio;independently -- Positioning independent -- Self-Care Promotion -- independence encouraged while providing assistance Goal: Infection Control Outcome: Ongoing (Interventions Implemented as Appropriate) 12/01/141337 Safety Interventions Isolation Precautions standard precautions maintained Infection Prevention environmental surveillance;hydration promoted;nutrition promoted;rest/sleep promoted Coping/Psychosocial Response Interventions Counseling reassurance provided;understanding of situation facilitated;verbalization of feelings encouraged Goal: Discharge Needs Assessment Outcome: Ongoing (Interventions Implemented as Appropriate) Problem: Pain, Acute (Adult, Obstetrics) Goal: Identify Signs and Symptoms and Related Risk Factors Signs and symptoms and related risk factors are identified upon initiation of Human Response Clinical Practice Guideline (CPG) Outcome: Ongoing (Interventions Implemented as Appropriate) 12/01/14 0355 12/01/14 1805 Pain, Acute Related Risk Factors (Acute Pain) disease process -- Signs and Symptoms (Acute Pain) -- facial mask of pain/grimace;verbalization of pain descriptors Goal: Acceptable Pain Control/Comfort Level Patient will demonstrate the desired outcomes. Outcome: Ongoing (Interventions Implemented as Appropriate) 12/01/14 1805 Pain, Acute (Adult, Obstetrics) Acceptable Pain Control/Comfort Level making progress toward outcome Brief Op Note - Inder Lowe MD - 12/01/2014 12:12 PM EDT Brief Operative Note Patient Name: Toni Vincent : [id number] MR#: [id number] Case Date: 12/01/2014 Surgeon: Surgeon(s) and Role: * Yamil Ferraro MD - Primary * Inder Lowe MD - Resident-Surgeon Tio * Zaki Gama MD - Resident-Kosher Sealer Preoperative diagnosis: CHOLEDOCOLITHIASIS Postoperative diagnosis: CHOLEDOCOLITHIASIS Procedure(s): LAPAROSCOPIC CHOLECYSTECTOMY Anesthesia: General Findings: 1. Normal appearing GB but with some evidence of scarring. 2. Critical view of safety achieved with classic anatomy. 3. Some spillage of stones during dissection but all stones meticulousy removed. Complications: none Fluids: 1200 Estimated Blood Loss: 75 mL Drains: none Disposition: awakened from anesthesia, extubated and taken to the recovery room in a stable condition, having suffered no apparent untoward event. Condition: doing well without problems (Please see the Surgical Encounter Summary for any Implant and Specimen details pertinent to this patient.) Inder Lowe MD Plan of Care - Reva Hester RN - 12/01/2014 4:02 AM EDT Problem: General Plan of Care Goal: Plan of Care Review 12/01/14354 Plan of Care Review Plan of Care Outcome Status ongoing (interventions implemented as appropriate) Progress improving Coping/Psychosocial Response Interventions Plan of Care Reviewed with patient OUTCOME EVALUATION NOTE: OUTCOME SUMMARY: Toni had a good night this shift. He denies SOB, CP, N/V. Denies pain at this time and is aware to call RN if pain level increases. Pt repositions himself in bed prn. Voiding adequately. He has beenNPO since [place] and is scheduled to go to OR around 08:30. PLAN MOVING FORWARD: OR today for lap cholecystectomy; pain management; infection control INDIVIDUALIZED FALL PREVENTION: Assistance: Stand by assist when OOB. Repositions self independently while in bed. Supervision: Independent with ADL's. Surveillance: Omer, purposeful rounding. CPG GOAL OUTCOME EVALUATION: Goal: Individualization and Mutuality 11/28/14652 Mutuality/Individual Preferences What anxieties, fears or concerns do you have about your health or care? none What questions do you have about your health or care? none What information would help us give you more personalized care? none Goal: Fall Prevention-Safe Patient Handling 11/30/142053 Safety Interventions Safety Precautions/Fall Reduction commode/urinal/bedpan at bedside;fall reduction program maintained;environmental modification;lighting adjusted for task/safety;low bed;nonskid shoes/slippers when outof bed Johnson Fall Risk History of Falling 0 Secondary Diagnosis 0 Ambulatory Aids 0 Intravenous Therapy/Heparin/Saline Lock 20 Gait/Transferring 0 Mental Status 0 Score 20 OTHER Johnson Fall Risk Low Musculoskeletal Interventions Activity/Level of Assistance up ad silvio;with stand by assist Positioning independent Goal: Infection Control 11/30/142053 Safety Interventions Isolation Precautions standard precautions maintained Infection Prevention rest/sleep promoted;promote handwashing;hydration promoted;environmental surveillance Coping/Psychosocial Response Interventions Counseling understanding of situation facilitated;reassurance provided Goal: Discharge Needs Assessment 12/01/14354 Discharge Needs Assessment Concerns to be Addressed denies needs/concerns at this time Readmission Within the Last 30 Days no previous admission in last 30 days Living Environment Transportation Available car;family or friend will provide Problem: Pain, Acute (Adult, Obstetrics) Goal: Identify Signs and Symptoms and Related Risk Factors Signs and symptoms and related risk factors are identified upon initiation of Human Response Clinical Practice Guideline (CPG) 12/01/14 0355 Pain, Acute Related Risk Factors (Acute Pain) disease process Signs and Symptoms (Acute Pain) verbalization of pain descriptors Goal: Acceptable Pain Control/Comfort Level Patient will demonstrate the desired outcomes. 12/01/14 0355 Pain, Acute (Adult, Obstetrics) Acceptable Pain Control/Comfort Level making progress toward outcome Plan of Care - Trudy Walden RN - 11/30/2014 3:59 PM EDT Problem: General Plan of Care Goal: Plan of Care Review Outcome: Ongoing (Interventions Implemented as Appropriate) 11/29/14 1753 11/30/14 1000 Plan of Care Review Plan of Care Outcome Status ongoing (interventions implemented as appropriate) -- Progress improving -- Coping/Psychosocial Response Interventions Plan of Care Reviewed with -- patient OUTCOME EVALUATION NOTE: OUTCOME SUMMARY: Pt having a decent day, disappointed he will not be going to the OR until tomorrow (Tu AM), diet switched from NPO to restricted fat diet. Pt tolerating PO intake. Receiving IV antibiotic. VSS; BP elevated in AM; medicine team paged and aware. Voiding adequate amounts of urine in bedside urinal. Will continue to monitor. PLAN MOVING FORWARD: NPO at midnight for OR in am, IV antibiotics, mobilize INDIVIDUALIZED FALL PREVENTION: Assistance: 1x Standby assist Supervision: Intermittent, pt making needs known Surveillance: Purposeful roundingomer CPG GOAL OUTCOME EVALUATION: Goal: Individualization and Mutuality Outcome: Ongoing (Interventions Implemented as Appropriate) 11/28/14 0653 Mutuality/Individual Preferences What anxieties, fears or concerns do you have about your health or care? none What questions do you have about your health or care? none What information would help us give you more personalized care? none Goal: Fall Prevention-Safe Patient Handling Outcome: Ongoing (Interventions Implemented as Appropriate) 11/30/14 1000 Safety Interventions Safety Precautions/Fall Reduction commode/urinal/bedpan at bedside;lighting adjusted for task/safety;fall reduction program maintained;environmental modification;nonskid shoes/slippers when out of bed;low bed Johnson Fall Risk History of Falling 0 Secondary Diagnosis 15 Ambulatory Aids 0 Intravenous Therapy/Heparin/Saline Lock 20 Gait/Transferring 0 Mental Status 0 Score 35 OTHER Johnson Fall Risk Med Musculoskeletal Interventions Activity/Level of Assistance up ad silvio Positioning HOB up 30 degrees Goal: Infection Control Outcome: Ongoing (Interventions Implemented as Appropriate) 11/30/14 1000 Safety Interventions Isolation Precautions standard precautions maintained Infection Prevention rest/sleep promoted;promote handwashing;nutrition promoted;hydration promoted Coping/Psychosocial Response Interventions Counseling calming techniques promoted;emotional support provided Goal: Discharge Needs Assessment Outcome: Ongoing (Interventions Implemented as Appropriate) Problem: Pain, Acute (Adult, Obstetrics) Goal: Identify Signs and Symptoms and Related Risk Factors Signs and symptoms and related risk factors are identified upon initiation of Human Response Clinical Practice Guideline (CPG) Outcome: Ongoing (Interventions Implemented as Appropriate) Goal: Acceptable Pain Control/Comfort Level Patient will demonstrate the desired outcomes. Outcome: Unable to achieve outcome by discharge 11/30/14 1553 Pain, Acute (Adult, Obstetrics) Acceptable Pain Control/Comfort Level making progress toward outcome Problem: Skin Integrity Impairment, Risk/Actual (Adult, Obstetrics) Goal: Identify Signs and Symptoms and Related Risk Factors Signs and symptoms and related risk factors are identified upon initiation of Human Response Clinical Practice Guideline (CPG) Outcome: Ongoing (Interventions Implemented as Appropriate) Goal: Skin Integrity/Wound Healing Patient will demonstrate the desired outcomes. Outcome: Ongoing (Interventions Implemented as Appropriate) 11/30/14 1553 Skin Integrity Impairment, Risk/Actual (Adult, Obstetrics) Skin Integrity/Wound Healing making progress toward outcome Consult Note - Yamil Ferraro MD - 11/30/2014 10:24 AM EDT [facility] Department of Acute Care Surgery Inpatient Consult Note Consultation Requested by: Lazaro Kaiser MD History of Present Illness: We are seeing Toni Vincent today at the request of Lazaro Stallings MD for evaluation and advice about cholecystectomy in the setting of choledocholithiasis. Mr. Vincent is 74 y.o. Man with PMH of HTN who presented to [facility] on 11/28 with worsening RUQ abdominal pain . He has had intermittent RUQ abdominal pain over the last week. He has had intermittentRUQ abdominal pain over the last year as well although he is not sure if it was post pranadial. Denies heartburn symptoms Non N/V fevers or chills. No changes stool color but had dark urine and no jaundice. He has had only 1 episode of severe RUQ pain associated with N/V and after a big meal in the past when he was in [place] which resolved after a couple of days. He had a RUQ US on 11/[address] [facility] whichshowed gallstones no acute cholecystitis and a dilated CBD with a a distal obstruction. He was transferred here for ERCP. Here he had RUQ abdominal pain that showed a LFTs sig for T Bili 5.4, dbili 4.5and AST/ALT 125/155 AlkP 192. Normal lipase. WBC of 5.8. He had ERCP 11/28 which showed obstructing sludge which was swept and a sphincterotomy was performed. His LFTs have downtrended and his pain has resolved post procedure. He has tolerated a Low fat diet post procedure and has no abdominal pain today. Has never had any surgery before. Has no difficult climbing stairs and denies SOB or CP. Quit smoking 3+ years ago and drinks occasionally. Had colo 5 years ag which was normal. Past Medical History: No past medical history on file. Past Surgical History Procedure Laterality Date ??? Ercp,diagnostic N/A 11/28/2014 ERCP performed by iWley Hemphill MD at [facility] ENDOSCOPY Family History: Emphysema Bone cancer Social History: History Social History ??? Marital Status: Spouse Name: N/A Number of Children: N/A ??? Years of Education: N/A Occupational History ??? Not on file. Social History Main Topics ??? Smoking status: Former Smoker Quit date: 06/30/1969 ??? Smokeless tobacco: Never Used ??? Alcohol Use: 3.0 oz/week 5 Cans of beer per week ??? Drug Use: No ??? Sexual Activity: Not on file Other Topics Concern ??? Not on file Social History Narrative Review of Systems: As stated above, otherwise negative Physical Exam: Temp: [36.4 ??C (97.5 ??F)-37 ??C (98.6 ??F)] Heart Rate: [46-67] Resp: [17-18] BP: (118-178)/(65-80) SpO2: [97 %-100 %] Gen: NAD, nontoxic, well nourshied CV: RRR, no murmurs Pulm: CTABL, equal chest rise Abd: soft, ND, NT Ext: warm well perfused no edema Skin: warm pink no lesions Data independently reviewed: Recent Results (from the past 24 hour(s)) BASIC METABOLIC PANEL (NON-FASTING) Result Value Ref Range Glucose Lvl 105 65 - 199 mg/dL BUN 16 10 - 20 mg/dL Creatinine 1.34 0.80 - 1.50 mg/dL Sodium 142 135 - 145 mmol/L Potassium 4.2 3.5 - 5.0 mmol/L Chloride 99 98 - 107 mmol/L CO2 30 22 - 31 mmol/L Anion Gap 13 5 - 15 mmol/L Calcium 9.5 8.5 - 10.5 mg/dL Estimated GFR 52 (*) >=60 HEPATIC FUNCTION PANEL Result Value Ref Range Total Protein 6.3 6.1 - 8.0 gm/dL Albumin 3.3 3.2 - 5.2 gm/dL AST 49 (*) 0 - 39 unit/L ALT 99 (*) 0 - 55 unit/L Alk Phos 183 (*) 40 - 120 unit/L Total Bilirubin 1.5 (*) 0.2 - 1.3 mg/dL Bili, Direct 0.8 (*) 0.0 - 0.3 mg/dL HEMOGRAM Result Value Ref Range WBC 5.8 4.0 - 10.0 x10(3)/mcL RBC 3.92 (*) 4.63 - 6.08 x10(6)/mcL Hemoglobin 11.5 (*) 13.7 - 17.5 gm/dL Hematocrit 35.0 (*) 40.0 - 51.0 % MCV 89.3 79.0 - 92.0 fL MCH 29.3 25.6 - 32.2 pg MCHC 32.9 32.0 - 36.5 gm/dL Platelets 180 145 - 370 x10(3)/mcL RDWSD 47.3 (*) 35.0 - 46.0 fL RDWCV 14.4 10.9 - 14.4 % MPV 11.3 9.0 - 12.0 fL DIFFERENTIAL, AUTOMATED Result Value Ref Range Neutrophils % 61.8 Neutr Abs (ANC) 3.55 1.50 - 6.30 x10(3)/mcL Lymphocytes % 26.6 Lymphocytes Abs 1.5 1.0 - 3.6 x10(3)/mcL Monocytes % 9.0 Monocyte Abs 0.5 0.2 - 1.0 x10(3)/mcL Eosinophils % 2.1 Eosinophils Abs 0.1 0.0 - 0.5 x10(3)/mcL Basophils % 0.3 Basophils Abs 0.0 0.0 - 0.2 x10(3)/mcL Immature Gran % 0.20 Ginny Gran Abs 0.01 0.00 - 0.05 x10(3)/mcL RUQ US FROM OSH: - Neg Sonographic Sanchez's sign - sludge filled GB, mild GB wall thickening but no pericholecystic fluid - Dilated CBD to 9mm ERCP: - A filling defect consistent with a stone and sludge was seen on the cholangiogram. - A sphincterotomy was performed. - The biliary tree was swept and sludge was found. - The examination was suspicious for choledocholithiasis. Sludge was removed from the common bile duct Impression: 74 y.o. Man with cholelithiasis, likely history of biliary colic with choledocholithiasis, s/p ERCP with sphincterotomy sludge extraction and resolution in symptoms with normalizing LFTs. Surgery consulted for Cholecystectomy. Although chance of further episode of choledocholithiasis is low after sphincterotomy, risk of recurrence would be further reduced with cholecystectomy. After discussion with patient he agrees with proceeding with cholecystectomy tomorrow so we will plan on taking him to the operating room tomorrow. The risks and benefits were explained and he wishes to proceed. Please Make NPO at [place] Recommendations: - NPO at [place] - Plan for Cholecystectomy tomorrow morning - Type and screen - Discussed with Dr. Ferraro Thank you for this consult. If you have any questions regarding this consult, please page [phone] [X] Consult service to continue to follow [] Consult service to sign off Inder Lowe MD ADDENDUM: I have independently seen and evaluated the patient. I agree with the assessment and plan listed above with the following additions: Toni Vincent is a 74 y.o. male admitted to ERCP after discovery of choledocholithiasis. S/p ERCP.Pain and LFTs improving. RUQ U/S showed evidence of cholelithiasis and sludge. Consult placed for consideration of L/S hansa. Given recent sphincterotomy, pt unlikely to suffer recurrent episode of chol edocholithiasis or cholangitis. Concern, however, for recurrent biliary colic or cholecystitis. Pt requests operative intervention to decrease possibility of recurrent RUQ/biliary pain syndrome. To OR for L/S hansa in AM. NPO p MN. Routine post op care. Yamil Ferraro MD Care Management - Dax More RN - 11/30/2014 8:54 AM EDT 74 y.o. male w/ hx of HTN who presents with 3 days of abd pain, fever at OSH, dilated CBD concerningfor possible cholangitis, was started on zosyn. Is hemodynamically stable and comfortable right now. 74yo male with pmh HTN, intermittent biliary colic for 1 year, with more acute 24 hours persistent RUQ pain, progressive acute jaundice at OSH 6/5, cholestatic LFTs transaminases 200s, alk phos 200, T.bili 4.2. Last evening at OSH multiple temperatures at > 38C. Absd US noting interval increased CBD dilation to 9mm, cholelithiasis, sludge in gallbladder. Based on clinical cholangitis, pt transferred to [facility], placed on IVF, NPO Zosyn, consented for ERCP. S: I was surprised I could stand up today after the procedure but I was fine, I even ate a little fruit. O: Chart reviewed and met with pt who is lying in bed in NAD. Pt had lap hansa this am and states hefeels so much better since the surgery. I discussed having a VN at home and he denies the need but Isaid I would check again after he speaks with his . A: Much improved since surgery. P: Will follow in am, anticipate d/c in am. Plan of Care - Loan Garza RN - 11/30/2014 6:28 AM EDT Problem: General Plan of Care Goal: Plan of Care Review Outcome: Ongoing (Interventions Implemented as Appropriate) 11/29/14 1753 11/29/141933 Plan of Care Review Plan of Care Outcome Status ongoing (interventions implemented as appropriate) -- Progress improving -- Coping/Psychosocial Response Interventions Plan of Care Reviewed with -- patient OUTCOME EVALUATION NOTE: OUTCOME SUMMARY: Pt comfortable, slept well overnight. No complaints of pain. Pt has been NPO since midnight for possible OR in the morning. No N/V. PLAN MOVING FORWARD: To the OR INDIVIDUALIZED FALL PREVENTION: Assistance: OOB with walker and standby assist Supervision: Minimal assist with ADLs Surveillance: Ajith, hourly rounding. CPG GOAL OUTCOME EVALUATION: Goal: Individualization and Mutuality Outcome: Ongoing (Interventions Implemented as Appropriate) 11/28/14 0653 Mutuality/Individual Preferences What anxieties, fears or concerns do you have about your health or care? none What questions do you have about your health or care? none What information would help us give you more personalized care? none Goal: Fall Prevention-Safe Patient Handling Outcome: Ongoing (Interventions Implemented as Appropriate) 11/30/14 0100 Safety Interventions Safety Precautions/Fall Reduction commode/urinal/bedpan at bedside;environmental modification;fall reduction program maintained;nonskid shoes/slippers when out of bed;room near unit station Johnson Fall Risk History of Falling 0 Secondary Diagnosis 15 Ambulatory Aids 0 Intravenous Therapy/Heparin/Saline Lock 20 Gait/Transferring 0 Mental Status 0 Score 35 OTHER Johnson Fall Risk Med Musculoskeletal Interventions Activity/Level of Assistance bed rest Positioning independent Goal: Infection Control Outcome: Ongoing (Interventions Implemented as Appropriate) 11/29/14 193 Safety Interventions Isolation Precautions standard precautions maintained Infection Prevention environmental surveillance;hydration promoted;nutrition promoted;rest/sleep promoted;promote handwashing Coping/Psychosocial Response Interventions Counseling calming techniques promoted Goal: Discharge Needs Assessment Outcome: Ongoing (Interventions Implemented as Appropriate) 11/28/14 0653 11/29/14 0134 Discharge Needs Assessment Concerns to be Addressed -- adjustment to diagnosis/illness concerns Living Environment Transportation Available family or friend will provide -- Problem: Pain, Acute (Adult, Obstetrics) Goal: Identify Signs and Symptoms and Related Risk Factors Signs and symptoms and related risk factors are identified upon initiation of Human Response Clinical Practice Guideline (CPG) Outcome: Ongoing (Interventions Implemented as Appropriate) Goal: Acceptable Pain Control/Comfort Level Patient will demonstrate the desired outcomes. Outcome: Ongoing (Interventions Implemented as Appropriate) 11/28/14 1844 Pain, Acute (Adult, Obstetrics) Acceptable Pain Control/Comfort Level making progress toward outcome Problem: Skin Integrity Impairment, Risk/Actual (Adult, Obstetrics) Goal: Identify Signs and Symptoms and Related Risk Factors Signs and symptoms and related risk factors are identified upon initiation of Human Response Clinical Practice Guideline (CPG) Outcome: Ongoing (Interventions Implemented as Appropriate) Goal: Skin Integrity/Wound Healing Patient will demonstrate the desired outcomes. Outcome: Ongoing (Interventions Implemented as Appropriate) Plan of Care - Mariam Lora RN - 11/29/2014 5:55 PM EDT Problem: General Plan of Care Goal: Plan of Care Review Outcome: Ongoing (Interventions Implemented as Appropriate) 11/29/14 175 Plan of Care Review Plan of Care Outcome Status ongoing (interventions implemented as appropriate) Progress improving Coping/Psychosocial Response Interventions Plan of Care Reviewed with patient Goal: Individualization and Mutuality Outcome: Ongoing (Interventions Implemented as Appropriate) 11/28/14 0653 Mutuality/Individual Preferences What anxieties, fears or concerns do you have about your health or care? none What questions do you have about your health or care? none What information would help us give you more personalized care? none Goal: Fall Prevention-Safe Patient Handling Outcome: Ongoing (Interventions Implemented as Appropriate) 11/29/14 1753 Johnson Fall Risk History of Falling 0 Secondary Diagnosis 15 Ambulatory Aids 0 Intravenous Therapy/Heparin/Saline Lock 20 Gait/Transferring 0 Mental Status 0 Score 35 OTHER Johnson Fall Risk Med Goal: Infection Control Outcome: Ongoing (Interventions Implemented as Appropriate) 11/29/14 0920 11/29/14 1753 Safety Interventions Isolation Precautions standard precautions maintained -- Infection Prevention -- environmental surveillance;hydration promoted;nutrition promoted;promote handwashing;rest/sleep promoted Coping/Psychosocial Response Interventions Counseling -- understanding of situation facilitated;goal setting facilitated Goal: Discharge Needs Assessment 11/28/14 0653 11/29/14 0134 Discharge Needs Assessment Concerns to be Addressed -- adjustment to diagnosis/illness concerns Living Environment Transportation Available family or friend will provide -- OUTCOME EVALUATION NOTE: OUTCOME SUMMARY: Patient tolerating low fiber diet today. Receiving iv antibiotics and awaiting OR. No pain, nausea or discomfort today. PLAN MOVING FORWARD: continue to monitor. INDIVIDUALIZED FALL PREVENTION: Assistance: independent Supervision: independent Surveillance: maschantaleo, hourly rounding CPG OUTCOME EVALUATION: progress Plan of Care - Marlo Hodges RN - 11/29/2014 1:35 AM EDT Problem: General Plan of Care Goal: Plan of Care Review Outcome: Ongoing (Interventions Implemented as Appropriate) 11/28/141930 Coping/Psychosocial Response Interventions Plan of Care Reviewed with patient OUTCOME EVALUATION NOTE: OUTCOME SUMMARY: Patient states he has no concerns or problems at this time. IV infusing in RUE, no signs of infiltration/infection. Pt. States he understands he is NPO p MN and fluids removed from bedside. Pt. Voidingyellow urine in urinal without problems. States he has no pain at this time. PLAN MOVING FORWARD: INDIVIDUALIZED FALL PREVENTION: Assistance: Supervision: Surveillance: jennifero and rounding CPG GOAL OUTCOME EVALUATION: Goal: Individualization and Mutuality Outcome: Ongoing (Interventions Implemented as Appropriate) 11/28/14652 Mutuality/Individual Preferences What anxieties, fears or concerns do you have about your health or care? none What questions do you have about your health or care? none What information would help us give you more personalized care? none Goal: Fall Prevention-Safe Patient Handling Outcome: Ongoing (Interventions Implemented as Appropriate) 11/28/141930 Safety Interventions Safety Precautions/Fall Reduction environmental modification;fall reduction program maintained;lighting adjusted for task/safety;low bed;nonskid shoes/slippers when out of bed;room near unit station Johnson Fall Risk History of Falling 0 Secondary Diagnosis 15 Ambulatory Aids 0 Intravenous Therapy/Heparin/Saline Lock 20 Gait/Transferring 0 Mental Status 0 Score 35 OTHER Johnson Fall Risk Med Musculoskeletal Interventions Activity/Level of Assistance up in room;with stand by assist Positioning independent Goal: Infection Control Outcome: Ongoing (Interventions Implemented as Appropriate) 06/06/15 1931 Safety Interventions Isolation Precautions standard precautions maintained Infection Prevention hydration promoted;nutrition promoted;environmental surveillance Coping/Psychosocial Response Interventions Counseling calming techniques promoted;emotional support provided;reassurance provided;verbalizationof feelings encouraged Goal: Discharge Needs Assessment Outcome: Ongoing (Interventions Implemented as Appropriate) 11/29/14 0134 Discharge Needs Assessment Concerns to be Addressed adjustment to diagnosis/illness concerns Plan of Care - Trudy Walden RN - 11/28/2014 6:53 PM EDT Problem: General Plan of Care Goal: Plan of Care Review Outcome: Ongoing (Interventions Implemented as Appropriate) 11/28/14 1347 Coping/Psychosocial Response Interventions Plan of Care Reviewed with patient OUTCOME EVALUATION NOTE: OUTCOME SUMMARY: Pt having an okay day, ERCP procedure in morning, NPO all AM into late afternoon, MD changed diet tohealthy menu/cardiac diet in later afternoon. Pt been sleeping on and off all day, VSS; HR indio, dipping down to 42-44's, Medicine MD Engle paged and aware. Pt receiving NS at 100 mls/ hr, encourag ing PO's now that pt is NPO at midnight. Voiding in urinal dark julio cesar urine. Family has been at pt'sbedside throughout shift, MD Engle at bedside with family earlier to answer questions. Will continue to monitor. PLAN MOVING FORWARD: NPO at midnight for possible OR, pain control, antibiotics INDIVIDUALIZED FALL PREVENTION: Assistance: 1x SBA Supervision: Intermittent, pt making needs known Surveillance: Purposeful roundOmer segal CPG GOAL OUTCOME EVALUATION: Goal: Individualization and Mutuality Outcome: Ongoing (Interventions Implemented as Appropriate) 11/28/14 0653 Mutuality/Individual Preferences What anxieties, fears or concerns do you have about your health or care? none What questions do you have about your health or care? none What information would help us give you more personalized care? none Goal: Fall Prevention-Safe Patient Handling Outcome: Ongoing (Interventions Implemented as Appropriate) 11/28/14 1347 Safety Interventions Safety Precautions/Fall Reduction fall reduction program maintained;lighting adjusted for task/safety;low bed;nonskid shoes/slippers when out of bed;environmental modification;commode/urinal/bedpan at bedside Johnson Fall Risk History of Falling 0 Secondary Diagnosis 15 Ambulatory Aids 0 Intravenous Therapy/Heparin/Saline Lock 20 Gait/Transferring 0 Mental Status 0 Score 35 OTHER Johnson Fall Risk Med Musculoskeletal Interventions Activity/Level of Assistance up in room;with 1-person assist Positioning up in chair Goal: Infection Control Outcome: Ongoing (Interventions Implemented as Appropriate) 11/28/14 1347 Safety Interventions Isolation Precautions standard precautions maintained Infection Prevention rest/sleep promoted;environmental surveillance Coping/Psychosocial Response Interventions Counseling calming techniques promoted;verbalization of feelings encouraged Goal: Discharge Needs Assessment Outcome: Ongoing (Interventions Implemented as Appropriate) 11/28/14 0653 Living Environment Transportation Available family or friend will provide Problem: Pain, Acute (Adult, Obstetrics) Goal: Identify Signs and Symptoms and Related Risk Factors Signs and symptoms and related risk factors are identified upon initiation of Human Response Clinical Practice Guideline (CPG) Outcome: Ongoing (Interventions Implemented as Appropriate) Goal: Acceptable Pain Control/Comfort Level Patient will demonstrate the desired outcomes. Outcome: Ongoing (Interventions Implemented as Appropriate) 11/28/14 1844 Pain, Acute (Adult, Obstetrics) Acceptable Pain Control/Comfort Level making progress toward outcome Plan of Care - Jolie Kemp RN - 11/28/2014 7:36 AM EDT Problem: General Plan of Care Goal: Plan of Care Review Outcome: Ongoing (Interventions Implemented as Appropriate) 11/27/14 2343 Coping/Psychosocial Response Interventions Plan of Care Reviewed with patient OUTCOME EVALUATION NOTE: OUTCOME SUMMARY: Patient sleeping most of the night. A&Ox4, Heart rate occasionally dipping down to the low 40s, patient asymptomatic. MD Perez aware, will continue to monitor patient. Some discomfort to RUQ. Currently denies pain, patient aware to alert RN if pain is arises. NPO. Will continue to monitor patient. PLAN MOVING FORWARD: NPO, plan for possible surgery today? Monitor labs INDIVIDUALIZED FALL PREVENTION: Assistance: Standby assist Supervision: With ADLS/Transfers Surveillance: Jennifero, Purposeful rounding CPG OUTCOME EVALUATION: Goal: Individualization and Mutuality Outcome: Ongoing (Interventions Implemented as Appropriate) 11/28/14 0653 Mutuality/Individual Preferences What anxieties, fears or concerns do you have about your health or care? none What questions do you have about your health or care? none What information would help us give you more personalized care? none Goal: Fall Prevention-Safe Patient Handling 11/27/14 2343 Safety Interventions Safety Precautions/Fall Reduction fall reduction program maintained;environmental modification;lighting adjusted for task/safety;low bed;nonskid shoes/slippers when out of bed;room near unit station Johnson Fall Risk History of Falling 0 Secondary Diagnosis 15 Ambulatory Aids 0 Intravenous Therapy/Heparin/Saline Lock 20 Gait/Transferring 0 Mental Status 0 Score 35 OTHER Johnson Fall Risk Med Musculoskeletal Interventions Activity/Level of Assistance up in room;with stand by assist Positioning HOB up 30-45 degrees;independent Goal: Infection Control Outcome: Ongoing (Interventions Implemented as Appropriate) 11/27/14 23411/28/14 0708 Safety Interventions Isolation Precautions -- standard precautions maintained Infection Prevention rest/sleep promoted;promote handwashing -- Coping/Psychosocial Response Interventions Counseling verbalization of feelings encouraged;understanding of situation facilitated;relaxation techniques promoted;reassurance provided;personal strengths integrated;problem solving facilitated -- Goal: Discharge Needs Assessment Outcome: Ongoing (Interventions Implemented as Appropriate) 11/28/14 0653 Living Environment Transportation Available family or friend will provide documented in this encounter Plan of Treatment Upcoming Encounters Date Type Specialty Care Team Description 04/17/2022 Office Visit Dermatology Pete Baltazar MD [address] [facility] [place], [place] [address] (Wo rk) Pending Results Name Type Priority Associated Diagnoses Date/Ti me XR ERCP Imaging Routine 11/28/2014 11:0 6 AM EDT Scheduled Orders Name Type Priority Associated Diagnoses Order S chedule XR ERCP Imaging Routine Once PRN (for R adiant use) for 1 Occurrences sta rting 11/28/2014 until 11/28/2014 documented as of this encounter Procedures Procedure Name Priority Date/Time Associated Diagnosis Comme nts ECG SCAN 12/03/2014 12:00 AM EDT HEMOGRAM Routine 12/02/2014 3:35 Results for this AM EDT procedure are i n the results section. DIFFERENTIAL, AUTOMATED Routine 12/02/2014 3:35 R esults for this AM EDT procedure are i n the results section. CBC (WITH DIFF) Routine 12/02/2014 3:35 AM EDT HEPATIC FUNCTION PANEL Routine 12/02/2014 3:35 Re sults for this AM EDT procedure are i n the results section. BASIC METABOLIC PANEL Routine 12/02/2014 3:35 Res ults for this (NON-FASTING) AM EDT procedure are in the results section. SURGICAL PATHOLOGY Routine 12/01/2014 11:45 Resul ts for this REPORT AM EDT procedure are i n the results section. SPECIMEN TO PATHOLOGY Routine 12/01/2014 11:21 Re sults for this AM EDT procedure are i n the results section. LAPAROSCOPIC 12/01/2014 9:17 CHOLEDOCOLITHIASIS CHOLECYSTECTOMY ([facility] AM EDT 10.47) HEMOGRAM Routine 12/01/2014 4:15 Results for this AM EDT procedure are i n the results section. DIFFERENTIAL, AUTOMATED Routine 12/01/2014 4:15 R esults for this AM EDT procedure are i n the results section. ABO/RH TYPING Routine 12/01/2014 4:15 Results for this AM EDT procedure are i n the results section. CBC (WITH DIFF) Routine 12/01/2014 4:15 AM EDT ANTIBODY SCREEN Routine 12/01/2014 4:15 Results f or this AM EDT procedure are i n the results section. TYPE AND SCREEN Routine 12/01/2014 4:15 ([facility]/VINCE) AM EDT HEPATIC FUNCTION PANEL Routine 12/01/2014 4:15 Re sults for this AM EDT procedure are i n the results section. BASIC METABOLIC PANEL Routine 12/01/2014 4:15 Res ults for this (NON-FASTING) AM EDT procedure are in the results section. EKG 12-LEAD Routine 11/30/2014 6:16 Choledocholithiasis Resul ts for this PM EDT procedure are i n the results section. HEMOGRAM Routine 11/30/2014 3:45 Results for this AM EDT procedure are i n the results section. DIFFERENTIAL, AUTOMATED Routine 11/30/2014 3:45 R esults for this AM EDT procedure are i n the results section. CBC (WITH DIFF) Routine 11/30/2014 3:45 AM EDT HEPATIC FUNCTION PANEL Routine 11/30/2014 3:45 Re sults for this AM EDT procedure are i n the results section. BASIC METABOLIC PANEL Routine 11/30/2014 3:45 Res ults for this (NON-FASTING) AM EDT procedure are in the results section. HEMOGRAM Routine 11/29/2014 4:22 Results for this AM EDT procedure are i n the results section. DIFFERENTIAL, AUTOMATED Routine 11/29/2014 4:22 R esults for this AM EDT procedure are i n the results section. CBC (WITH DIFF) Routine 11/29/2014 4:22 AM EDT HEPATIC FUNCTION PANEL Routine 11/29/2014 4:22 Re sults for this AM EDT procedure are i n the results section. BASIC METABOLIC PANEL Routine 11/29/2014 4:22 Res ults for this (NON-FASTING) AM EDT procedure are in the results section. ERCP 11/28/2014 9:18 ? cholangitis AM EDT BLOOD CULTURE STAT 11/28/2014 3:26 Results for this AM EDT procedure are i n the results section. BLOOD CULTURE STAT 11/28/2014 3:21 Results for this AM EDT procedure are i n the results section. HEMOGRAM Routine 11/28/2014 2:11 Results for this AM EDT procedure are i n the results section. DIFFERENTIAL, AUTOMATED Routine 11/28/2014 2:11 R esults for this AM EDT procedure are i n the results section. PROTHROMBIN TIME Routine 11/28/2014 2:11 Results for this AM EDT procedure are i n the results section. CBC (WITH DIFF) Routine 11/28/2014 2:11 AM EDT PHOSPHORUS Routine 11/28/2014 2:11 Results for this AM EDT procedure are i n the results section. MAGNESIUM Routine 11/28/2014 2:11 Results for this AM EDT procedure are i n the results section. LIPASE Routine 11/28/2014 2:11 Results for this AM EDT procedure are i n the results section. HEPATIC FUNCTION PANEL Routine 11/28/2014 2:11 Re sults for this AM EDT procedure are i n the results section. BASIC METABOLIC PANEL Routine 11/28/2014 2:11 Res ults for this (NON-FASTING) AM EDT procedure are in the results section. documented in this encounter Results SCAN DOC: ECG (12/03/2014 12:00 AM EDT) Narrative This result has an attachment that is no t available. Scanning Provider MEDIA MGR SCAN EXT ORDR/RSLT (ABNORMAL) Differential, Automated (12/02/2014 3:35 AM EDT) Patholo gist Method Time Signature Neutrophils % 83.6 % CERNER MILLENNIUM Neutr Abs (ANC) 11.03 (H) 1.50 - CERNER 6.30 MILLENNIUM x10(3)/mc L Lymphocytes % 10.2 % CERNER MILLENNIUM Lymphocytes Abs 1.3 1.0 - 3.6 CERNER x10(3)/mc MILLENNIUM L Monocytes % 5.8 % CERNER MILLENNIUM Monocyte Abs 0.8 0.2 - 1.0 CERNER x10(3)/mc MILLENNIUM L Eosinophils % 0.2 % CERNER MILLENNIUM Eosinophils Abs 0.0 0.0 - 0.5 CERNER x10(3)/mc MILLENNIUM L Basophils % 0.0 % CERNER MILLENNIUM Basophils Abs 0.0 0.0 - 0.2 CERNER x10(3)/mc MILLENNIUM L Immature Gran % 0.20 % CERNER MILLENNIUM Comment: Immature granulocytes(IG's)percentage an d absolute count will include metamyelocytes, myelocytes, and promyelo cytes. Blood smears from CBCs yielding IG's will be scanned manually for leander elaine. If this scan disagrees with the automated IG or if promyelocytes are not ed, a manual differential will be performed. Ginny Gran Abs 0.03 0.00 - 0.05 x10(3)/mcL CER NER MILLENNIUM Specimen Anatomical Collection Method Collection Time Receive d Time (Source) Location / / Volume Laterality Blood specimen 12/02/2014 3:35 AM 015 3:44 (specimen) EDT AM EDT Resulting Agency Comment Spec In Lab Lazaro Kaiser MD HEMATOLOGY ORDERABLES Performing Organization Address City/State/[place] [address] CERNER MILLENNIUM (ABNORMAL) Hemogram (12/02/2014 3:35 AM EDT) P athologist Signature WBC 13.2 (H) 4.0 - 10.0 CERNER x10(3)/mcL MILLENNIUM RBC 4.02 (L) 4.63 - CERNER 6.08 MILLENNIUM x10(6)/mcL Hemoglobin 11.8 (L) 13.7 - CERNER 17.5 gm/dL MILLENNIUM Hematocrit 35.4 (L) 40.0 - CERNER 51.0 % MILLENNIUM MCV 88.1 79.0 - CERNER 92.0 fL MILLENNIUM MCH 29.4 25.6 - CERNER 32.2 pg MILLENNIUM MCHC 33.3 32.0 - CERNER 36.5 gm/dL MILLENNIUM Platelets 187 145 - 370 CERNER x10(3)/mcL MILLENNIUM RDWSD 45.8 35.0 - CERNER 46.0 fL MILLENNIUM RDWCV 14.2 10.9 - CERNER 14.4 % MILLENNIUM MPV 10.8 9.0 - 12.0 CERNER fL MILLENNIUM Specimen Anatomical Collection Method Collection Time Receive d Time (Source) Location / / Volume Laterality Blood specimen 12/02/2014 3:35 AM 015 3:44 (specimen) EDT AM EDT Resulting Agency Comment Spec In Lab Lazaro Kaiser MD HEMATOLOGY ORDERABLES Performing Organization Address City/State/ZIP Code Phon e Number [place] [phone] CERNER MILLENNIUM (ABNORMAL) Hepatic Function Panel (12/02/2014 3:35 AM EDT) P athologist Signature Total Protein 6.3 6.1 - 8.0 CERNER gm/dL MILLENNIUM Albumin 3.3 3.2 - 5.2 CERNER gm/dL MILLENNIUM AST 71 (H) 0 - 39 CERNER unit/L MILLENNIUM ALT 94 (H) 0 - 55 CERNER unit/L MILLENNIUM Alk Phos 134 (H) 40 - 120 CERNER unit/L MILLENNIUM Total 1.2 0.2 - 1.3 CERNER Bilirubin mg/dL MILLENNIUM Bili, Direct 0.5 (H) 0.0 - 0.3 CERNER mg/dL MILLENNIUM Specimen Anatomical Collection Method Collection Time Receive d Time (Source) Location / / Volume Laterality Blood specimen 12/02/2014 3:35 AM 015 3:44 (specimen) EDT AM EDT Resulting Agency Comment Spec In Lab Lazaro Kaiser MD CHEMISTRY ORDERABLES Performing Organization Address City/State/ZIP [place] [address] CERNER MILLENNIUM (ABNORMAL) Basic Metabolic Panel (non-fasting) (12/02/2014 3:35 AM EDT) P athologist Signature Glucose Lvl 147 65 - 199 CERNER mg/dL MILLENNIUM Comment: Diabetes: >=200 mg/dL plus symp toms BUN 15 10 - 20 mg/dL CERNER MILLENNIU M Creatinine 1.31 0.80 - 1.50 mg/dL CERNER MILL ENNIUM Comment: Please note that the pediatric reference intervals supplied above were not validated at [facility]. Results from pediatri c patients should be interpreted in conjunction to the patient's age, height and muscle mass. Sodium 139 135 - 145 mmol/L CERNER YNES NIUM Potassium 4.1 3.5 - 5.0 mmol/L CERNER YNES NIUM Comment: Please note: ??Patients with WBC >100,00 0 may have falsely elevated Potassium levels. ??For accurate Potassium quantif ication in these patients send serum separator tube (gold top) for subsequent determinations. ??Contact the Clinical Chemistry Laboratory if there are any qu estions. Chloride 99 98 - 107 mmol/L CERNER MILLENN IUM CO2 28 22 - 31 mmol/L CERNER MILLENNI UM Anion Gap 12 5 - 15 mmol/L CERNER MILLENNIU M Calcium 8.8 8.5 - 10.5 mg/dL CERNER YNES NIUM Estimated GFR 53 (L) >=60 CERNER MILLENNIU M Comment: This estimated GFR (eGFR) value was calc ulated using the MDRD equation which has been validated on patients between t he ages of 18 and 70. The MDRD should not be used to assess kidney function in patients < 18 years of age or in patients with extremes of body mass, or in patients with acute kidney failure. This value should be multiplied by 1.2 f or patients. For further information please copy and past e the following links into your internet browser. [email or web address] http://[employer]DHMCnkf Specimen Anatomical Collection Method Collection Time Receive d Time (Source) Location / / Volume Laterality Blood specimen 12/02/2014 3:35 AM 015 3:44 (specimen) EDT AM EDT Resulting Agency Comment Spec In Lab Lazaro Kaiser MD CHEMISTRY ORDERABLES Performing Organization Address City/State/Z[place] [address] [facility] Surgical Pathology Report (12/01/2014 11:45 AM EDT) Component Value Ref Test Analysis Performed At [facility] gist Range Method Time Signature Surgical [facility] Pathology ? [facility] Report ? Provider: ?? YAMIL FERRARO ??Pt. Name: ?? TONI VINCENT ? Acc #: ?[id number] ?Pt. MRN: ?[id number] ? Col Date: ?? 12/01/2014 ?/Sex: ?1940,(74 years),Male ? Rec Date: ?? 12/01/2014 ?LOC: ?[id number] ? SURGICAL PATHOLOGY ? ---Pathologic Diagnosis--- ? Gallbladder, cholecystectomy: ? Chronic cholecystitis and cholelithiasis. ? CR-0 ? 12/02/14 ? AAS ? 12/02/14 Verified by: ? Felipe Trevino MD ? Pathologist ? (Electronic Si gnature) ? The attending pathologist whose signature appears o n this report has ? reviewed all diagnostic slides and has edited the dre ss and/or ? microscopic portion of the report in rendering the fi nal pathologic ? diagnosis. ? ---Gross Description--- ? A - Labeled/Fixative: Gallbladder and content, fresh. ? Quantity/Size: Single, 6.0 x 3.2 x 1.4 cm. ? Specimen Description: Previously incised and focally torn gallbladder. ? External surface: The serosal surface is smooth and glistening. The ? adventitia is shaggy. ? Lumen contents: Multiple green -brown slightly firm debris fragments. ? Mucosa: Rayo-red and velvety. ? Wall: Averaging 0.3 cm. ? Duct: Patent and unremarkable. ? Lymph Node: Absent. ? Sections/Processing: (R1) ??aee/ejr ? ---Clinical Information--- ? Specimen Submitted: ? A - Gallbladder and content ? Clinical History: ? Choledocolithiasis ? Clinical Diagnosis: ? Same Specimen (Source) Anatomical Collection Method Collection Time Re ceived Time Location / / Volume Laterality 12/01/2014 11:45 AM EDT Yamil Ferraro MD PATHOLOGY/CYTOLOGY ORDERABLE S Performing Organization Address [facility]/ZIP Code Phon e Number [address] REGINALDOTaggable Specimen to Pathology (surgical or derm) (12/01/2014 11:21 AM EDT) Specimen Anatomical Collection Method Collection Time Receive d Time (Source) Location / / Volume Laterality AP Specimen 12/01/2014 11:21 12/01/2014 AM EDT 11:21 AM EDT Narrative CERNER CRISTOBALENNIUM - 12/01/2014 11:21 AM EDT Specimen requisition ordered. ??Separate Pathology report to follow Yamil Ferraro MD PATHOLOGY/CYTOLOGY ORDERABLE S Performing Organization Address [facility]/ZIP Code Phon e Number [address] CERNER MILLENNIUM Antibody screen (12/01/2014 4:15 AM EDT) Analysis Performed At [facility] logist [place] Signature Ab Screen Negative LUBNA Lemus RONIUM Expires at [id number] on: MILLENNIUM Specimen Anatomical Collection Method Collection Time Receive d Time (Source) Location / / Volume Laterality Blood specimen 12/01/2014 4:15 AM 015 5:26 (specimen) EDT AM EDT Resulting Agency Comment Spec In Lab Lazaro Kaiser MD BLOOD BANK ORDERABLES Performing Organization Address City/State/ZIP Code Phon e Number [address] LUBNA VELASQUEZIUM ABO/Rh Typing (12/01/2014 4:15 AM EDT) athologist Signature ABORh Type A Neg [facility] Specimen Anatomical Collection Method Collection Time Receive d Time (Source) Location / / Volume Laterality Blood specimen 12/01/2014 4:15 AM 015 5:26 (specimen) EDT AM EDT Resulting Agency Comment Spec In Lab Lazaro Kaiser MD BLOOD BANK ORDERABLES Performing Organization Address City/State/ZIP Code Phon e Number [address] LUBNA VELASQUEZIUM Differential, Automated (12/01/2014 4:15 AM EDT) athologist Signature Neutrophils % 63.9 % CERNER MILLENNIUM Neutr Abs (ANC) 3.81 1.50 - CERNER 6.30 MILLENNIUM x10(3)/mcL Lymphocytes % 21.8 % CERNER MILLENNIUM Lymphocytes Abs 1.3 1.0 - 3.6 CERNER x10(3)/mcL MILLENNIUM Monocytes % 10.9 % CERNER MILLENNIUM Monocyte Abs 0.6 0.2 - 1.0 CERNER x10(3)/mcL MILLENNIUM Eosinophils % 2.8 % CERNER MILLENNIUM Eosinophils Abs 0.2 0.0 - 0.5 CERNER x10(3)/mcL MILLENNIUM Basophils % 0.3 % CERNER MILLENNIUM Basophils Abs 0.0 0.0 - 0.2 CERNER x10(3)/mcL MILLENNIUM Immature Gran % 0.30 % CERNER MILLENNIUM Comment: Immature granulocytes(IG's)percentage an d absolute count will include metamyelocytes, myelocytes, and promyelo cytes. Blood smears from CBCs yielding IG's will be scanned manually for concor dance. If this scan disagrees with the automated IG or if promyelocytes are not ed, a manual differential will be performed. Ginny Gran Abs 0.02 0.00 - 0.05 x10(3)/mcL CER NER MILLENNIUM Specimen Anatomical Collection Method Collection Time Receive d Time (Source) Location / / Volume Laterality Blood specimen 12/01/2014 4:15 AM 015 4:41 (specimen) EDT AM EDT Resulting Agency Comment Spec In Lab Jonathan Diop MD HEMATOLOGY ORDERABLES Performing Organization Address City/State/[place] [address] CERNER MILLENNIUM (ABNORMAL) Hemogram (12/01/2014 4:15 AM EDT) P athologist Signature WBC 6.0 4.0 - 10.0 CERNER x10(3)/mcL MILLENNIUM RBC 4.06 (L) 4.63 - CERNER 6.08 MILLENNIUM x10(6)/mcL Hemoglobin 12.1 (L) 13.7 - CERNER 17.5 gm/dL MILLENNIUM Hematocrit 36.1 (L) 40.0 - CERNER 51.0 % MILLENNIUM MCV 88.9 79.0 - CERNER 92.0 fL MILLENNIUM MCH 29.8 25.6 - CERNER 32.2 pg MILLENNIUM MCHC 33.5 32.0 - CERNER 36.5 gm/dL MILLENNIUM Platelets 189 145 - 370 CERNER x10(3)/mcL MILLENNIUM RDWSD 46.5 (H) 35.0 - CERNER 46.0 fL MILLENNIUM RDWCV 14.2 10.9 - CERNER 14.4 % MILLENNIUM MPV 11.0 9.0 - 12.0 CERNER fL MILLENNIUM Specimen Anatomical Collection Method Collection Time Receive d Time (Source) Location / / Volume Laterality Blood specimen 12/01/2014 4:15 AM 015 4:41 (specimen) EDT AM EDT Resulting Agency Comment Spec In Lab Jonathan Diop MD HEMATOLOGY ORDERABLES Performing Organization Address City/[facility]/ZIP Code Phon e Number [address] CERNER MILLENNIUM (ABNORMAL) Hepatic Function Panel (12/01/2014 4:15 AM EDT) athologist Signature Total Protein 6.5 6.1 - 8.0 CERNER gm/dL MILLENNIUM Albumin 3.4 3.2 - 5.2 CERNER gm/dL MILLENNIUM AST 40 (H) 0 - 39 CERNER unit/L MILLENNIUM ALT 80 (H) 0 - 55 CERNER unit/L MILLENNIUM Alk Phos 161 (H) 40 - 120 CERNER unit/L MILLENNIUM Total 1.3 0.2 - 1.3 CERNER Bilirubin mg/dL MILLENNIUM Bili, Direct 0.7 (H) 0.0 - 0.3 CERNER mg/dL MILLENNIUM Specimen Anatomical Collection Method Collection Time Receive d Time (Source) Location / / Volume Laterality Blood specimen 12/01/2014 4:15 AM 015 4:41 (specimen) EDT AM EDT Resulting Agency Comment Spec In Lab Lazaro Kaiser MD CHEMISTRY ORDERABLES Performing Organization Address City/[facility] [place] [address] CERNER MILLENNIUM (ABNORMAL) Basic Metabolic Panel (non-fasting) (12/01/2014 4:15 AM EDT) athologist Signature Glucose Lvl 97 65 - 199 CERNER mg/dL MILLENNIUM Comment: Diabetes: >=200 mg/dL plus symp toms BUN 14 10 - 20 mg/dL CERNER MILLENNIU M Creatinine 1.24 0.80 - 1.50 mg/dL CERNER MILL ENNIUM Comment: Please note that the pediatric reference intervals supplied above were not validated at [facility]. Results from pediatri c patients should be interpreted in conjunction to the patient's age, height and muscle mass. Sodium 141 135 - 145 mmol/L CERNER YNES NIUM Potassium 4.5 3.5 - 5.0 mmol/L CERNER YNES NIUM Comment: Please note: ??Patients with WBC >100,00 0 may have falsely elevated Potassium levels. ??For accurate Potassium quantif ication in these patients send serum separator tube (gold top) for subsequent determinations. ??Contact the Clinical Chemistry Laboratory if there are any qu estions. Chloride 101 98 - 107 mmol/L CERNER MILLENN IUM CO2 28 22 - 31 mmol/L CERNER MILLENNI UM Anion Gap 12 5 - 15 mmol/L CERNER MILLENNIU M Calcium 9.4 8.5 - 10.5 mg/dL CERNER YNES NIUM Estimated GFR 57 (L) >=60 CERNER MILLENNIU M Comment: This estimated GFR (eGFR) value was calc ulated using the MDRD equation which has been validated on patients between t he ages of 18 and 70. The MDRD should not be used to assess kidney function in patients < 18 years of age or in patients with extremes of body mass, or in patients with acute kidney failure. This value should be multiplied by 1.2 f or patients. For further information please copy and past e the following links into your internet browser. http://[employer]DHnkdep http://[employer]DHMCnkf Specimen Anatomical Collection Method Collection Time Receive d Time (Source) Location / / Volume Laterality Blood specimen 12/01/2014 4:15 AM 015 4:41 (specimen) EDT AM EDT Resulting Agency Comment Spec In Lab Lazaro Kaiser MD CHEMISTRY ORDERABLES Performing Organization Address City/State/[place] [address] CERAMOR MILLENNIUM EKG 12 Lead (11/30/2014 6:16 PM EDT) [facility] Method Time Signature Ventricular rate 62 BPM MUSE SYSTEM Atrial Rate 62 BPM MUSE SYSTEM P-R Interval 144 ms MUSE SYSTEM QRS Duration 122 ms MUSE SYSTEM Q-T Interval 458 ms MUSE SYSTEM QTC Calculated 464 ms MUSE SYSTEM (Bezet) Calculated P [place] 37 degrees MUSE SYSTEM Calculated R [place] -14 degrees MUSE SYSTEM Calculated T [place] 6 degrees MUSE SYSTEM INTERPRETATION Normal sinus rhythm MUSE SYSTEM Right bundle branch block Moderate voltage criteria for LVH, may be normal variant Abnormal ECG No previous ECGs available Confirmed by MD URRUTIA ARMIN ([id number]) on 11/30/2014 11:05:18 PM Specimen Anatomical Collection Method Collection Time Receive d Time (Source) Location / / Volume Laterality 11/30/2014 6:16 PM 5 EDT 11:05 PM EDT Gisel Tovar MD ECG ORDERABLES Performing Organization Address City/State/ZIP Code Phon e Number MUSE SYSTEM Differential, Automated (11/30/2014 3:45 AM EDT) P athologist Signature Neutrophils % 61.8 % CERNER MILLENNIUM Neutr Abs (ANC) 3.55 1.50 - CERNER 6.30 MILLENNIUM x10(3)/mcL Lymphocytes % 26.6 % CERNER MILLENNIUM Lymphocytes Abs 1.5 1.0 - 3.6 CERNER x10(3)/mcL MILLENNIUM Monocytes % 9.0 % CERNER MILLENNIUM Monocyte Abs 0.5 0.2 - 1.0 CERNER x10(3)/mcL MILLENNIUM Eosinophils % 2.1 % CERNER MILLENNIUM Eosinophils Abs 0.1 0.0 - 0.5 CERNER x10(3)/mcL MILLENNIUM Basophils % 0.3 % CERNER MILLENNIUM Basophils Abs 0.0 0.0 - 0.2 CERNER x10(3)/mcL MILLENNIUM Immature Gran % 0.20 % CERNER MILLENNIUM Comment: Immature granulocytes(IG's)percentage an d absolute count will include metamyelocytes, myelocytes, and promyelo cytes. Blood smears from CBCs yielding IG's will be scanned manually for concor dance. If this scan disagrees with the automated IG or if promyelocytes are not ed, a manual differential will be performed. Ginny Gran Abs 0.01 0.00 - 0.05 x10(3)/mcL CER NER MILLENNIUM Specimen Anatomical Collection Method Collection Time Receive d Time (Source) Location / / Volume Laterality Blood specimen 11/30/2014 3:45 AM 015 4:27 (specimen) EDT AM EDT Resulting Agency Comment Spec In Lab Jonathan Diop MD HEMATOLOGY ORDERABLES Performing Organization Address City/State/ZIP Code Phon e Number [place] [phone] CERNER MILLENNIUM (ABNORMAL) Hemogram (11/30/2014 3:45 AM EDT) P athologist Signature WBC 5.8 4.0 - 10.0 CERNER x10(3)/mcL MILLENNIUM RBC 3.92 (L) 4.63 - CERNER 6.08 MILLENNIUM x10(6)/mcL Hemoglobin 11.5 (L) 13.7 - CERNER 17.5 gm/dL MILLENNIUM Hematocrit 35.0 (L) 40.0 - CERNER 51.0 % MILLENNIUM MCV 89.3 79.0 - CERNER 92.0 fL MILLENNIUM MCH 29.3 25.6 - CERNER 32.2 pg MILLENNIUM MCHC 32.9 32.0 - CERNER 36.5 gm/dL MILLENNIUM Platelets 180 145 - 370 CERNER x10(3)/mcL MILLENNIUM RDWSD 47.3 (H) 35.0 - CERNER 46.0 fL MILLENNIUM RDWCV 14.4 10.9 - CERNER 14.4 % MILLENNIUM MPV 11.3 9.0 - 12.0 CERNER fL MILLENNIUM Specimen Anatomical Collection Method Collection Time Receive d Time (Source) Location / / Volume Laterality Blood specimen 11/30/2014 3:45 AM 015 4:27 (specimen) EDT AM EDT Resulting Agency Comment Spec In Lab Jonathan Diop MD HEMATOLOGY ORDERABLES Performing Organization Address City/State/[place] [address] CERNER MILLENNIUM (ABNORMAL) Hepatic Function Panel (11/30/2014 3:45 AM EDT) P athologist Signature Total Protein 6.3 6.1 - 8.0 CERNER gm/dL MILLENNIUM Albumin 3.3 3.2 - 5.2 CERNER gm/dL MILLENNIUM AST 49 (H) 0 - 39 CERNER unit/L MILLENNIUM ALT 99 (H) 0 - 55 CERNER unit/L MILLENNIUM Alk Phos 183 (H) 40 - 120 CERNER unit/L MILLENNIUM Total 1.5 (H) 0.2 - 1.3 CERNER Bilirubin mg/dL MILLENNIUM Bili, Direct 0.8 (H) 0.0 - 0.3 CERNER mg/dL MILLENNIUM Specimen Anatomical Collection Method Collection Time Receive d Time (Source) Location / / Volume Laterality Blood specimen 11/30/2014 3:45 AM 015 4:27 (specimen) EDT AM EDT Resulting Agency Comment Spec In Lab Lazaro Kaiser MD CHEMISTRY ORDERABLES Performing Organization Address City/State/[place] [address] CERNER MILLENNIUM (ABNORMAL) Basic Metabolic Panel (non-fasting) (11/30/2014 3:45 AM EDT) athologist Signature Glucose Lvl 105 65 - 199 CERNER mg/dL MILLENNIUM Comment: Diabetes: >=200 mg/dL plus symp toms BUN 16 10 - 20 mg/dL CERNER MILLENNIU M Creatinine 1.34 0.80 - 1.50 mg/dL CERNER MILL ENNIUM Comment: Please note that the pediatric reference intervals supplied above were not validated at [facility]. Results from pediatri c patients should be interpreted in conjunction to the patient's age, height and muscle mass. Sodium 142 135 - 145 mmol/L CERNER YNES NIUM Potassium 4.2 3.5 - 5.0 mmol/L CERNER YNES NIUM Comment: Please note: ??Patients with WBC >100,00 0 may have falsely elevated Potassium levels. ??For accurate Potassium quantif ication in these patients send serum separator tube (gold top) for subsequent determinations. ??Contact the Clinical Chemistry Laboratory if there are any qu estions. Chloride 99 98 - 107 mmol/L CERNER MILLENN IUM CO2 30 22 - 31 mmol/L CERNER MILLENNI UM Anion Gap 13 5 - 15 mmol/L CERNER MILLENNIU M Calcium 9.5 8.5 - 10.5 mg/dL CERNER YNES NIUM Estimated GFR 52 (L) >=60 CERNER MILLENNIU M Comment: This estimated GFR (eGFR) value was calc ulated using the MDRD equation which has been validated on patients between t he ages of 18 and 70. The MDRD should not be used to assess kidney function in patients < 18 years of age or in patients with extremes of body mass, or in patients with acute kidney failure. This value should be multiplied by 1.2 f or patients. For further information please copy and past e the following links into your internet browser. http://[employer]DHnkdep http://[employer]DHMCnkf Specimen Anatomical Collection Method Collection Time Receive d Time (Source) Location / / Volume Laterality Blood specimen 11/30/2014 3:45 AM 015 4:27 (specimen) EDT AM EDT Resulting Agency Comment Spec In Lab Lazaro Kaiser MD CHEMISTRY ORDERABLES Performing Organization Address City/State/ZIP Code Phon e Number [place] [phone] CERNER MILLENNIUM (ABNORMAL) Differential, Automated (11/29/2014 4:22 AM EDT) [facility] Method Time Signature Neutrophils % 68.9 % CERNER MILLENNIUM Neutr Abs (ANC) 3.69 1.50 - CERNER 6.30 MILLENNIUM x10(3)/mcL Lymphocytes % 17.4 % CERNER MILLENNIUM Lymphocytes Abs 0.9 (L) 1.0 - 3.6 CERNER x10(3)/mcL MILLENNIUM Monocytes % 10.7 % CERNER MILLENNIUM Monocyte Abs 0.6 0.2 - 1.0 CERNER x10(3)/mcL MILLENNIUM Eosinophils % 2.4 % CERNER MILLENNIUM Eosinophils Abs 0.1 0.0 - 0.5 CERNER x10(3)/mcL MILLENNIUM Basophils % 0.6 % CERNER MILLENNIUM Basophils Abs 0.0 0.0 - 0.2 CERNER x10(3)/mcL MILLENNIUM Immature Gran % 0.00 % CERNER MILLENNIUM Comment: Immature granulocytes(IG's)percentage an d absolute count will include metamyelocytes, myelocytes, and promyelo cytes. Blood smears from CBCs yielding IG's will be scanned manually for concor dance. If this scan disagrees with the automated IG or if promyelocytes are not ed, a manual differential will be performed. Ginny Gran Abs 0.00 0.00 - 0.05 x10(3)/mcL CER NER MILLENNIUM Specimen Anatomical Collection Method Collection Time Receive d Time (Source) Location / / Volume Laterality Blood specimen 11/29/2014 4:22 AM 015 4:31 (specimen) EDT AM EDT Resulting Agency Comment Spec In Lab Jonathan Diop MD HEMATOLOGY ORDERABLES Performing Organization Address City/[facility]/[place] [address] CERNER MILLENNIUM (ABNORMAL) Hemogram (11/29/2014 4:22 AM EDT) P athologist Signature WBC 5.4 4.0 - 10.0 CERNER x10(3)/mcL MILLENNIUM RBC 3.91 (L) 4.63 - CERNER 6.08 MILLENNIUM x10(6)/mcL Hemoglobin 11.6 (L) 13.7 - CERNER 17.5 gm/dL MILLENNIUM Hematocrit 34.1 (L) 40.0 - CERNER 51.0 % MILLENNIUM MCV 87.2 79.0 - CERNER 92.0 fL MILLENNIUM MCH 29.7 25.6 - CERNER 32.2 pg MILLENNIUM MCHC 34.0 32.0 - CERNER 36.5 gm/dL MILLENNIUM Platelets 165 145 - 370 CERNER x10(3)/mcL MILLENNIUM RDWSD 45.4 35.0 - CERNER 46.0 fL MILLENNIUM RDWCV 14.3 10.9 - CERNER 14.4 % MILLENNIUM MPV 11.0 9.0 - 12.0 CERNER fL MILLENNIUM Specimen Anatomical Collection Method Collection Time Receive d Time (Source) Location / / Volume Laterality Blood specimen 11/29/2014 4:22 AM 015 4:31 (specimen) EDT AM EDT Resulting Agency Comment Spec In Lab Jonathan Diop MD HEMATOLOGY ORDERABLES Performing Organization Address City/[facility]/ZIP Code Phon e Number [address] CERNER MILLENNIUM (ABNORMAL) Hepatic Function Panel (11/29/2014 4:22 AM EDT) P athologist Signature Total Protein 5.9 (L) 6.1 - 8.0 CERNER gm/dL MILLENNIUM Albumin 3.1 (L) 3.2 - 5.2 CERNER gm/dL MILLENNIUM AST 89 (H) 0 - 39 CERNER unit/L MILLENNIUM ALT 128 (H) 0 - 55 CERNER unit/L MILLENNIUM Alk Phos 210 (H) 40 - 120 CERNER unit/L MILLENNIUM Total 3.4 (H) 0.2 - 1.3 CERNER Bilirubin mg/dL MILLENNIUM Bili, Direct 2.4 (H) 0.0 - 0.3 CERNER mg/dL MILLENNIUM Specimen Anatomical Collection Method Collection Time Receive d Time (Source) Location / / Volume Laterality Blood specimen 11/29/2014 4:22 AM 015 4:30 (specimen) EDT AM EDT Resulting Agency Comment Spec In Lab Lazaro Kaiser MD CHEMISTRY ORDERABLES Performing Organization Address City/State/[place] [address] CERNER MILLENNIUM Basic Metabolic Panel (non-fasting) (11/29/2014 4:22 AM EDT) athologist Signature Glucose Lvl 102 65 - 199 CERNER mg/dL MILLENNIUM Comment: Diabetes: >=200 mg/dL plus symp toms BUN 14 10 - 20 mg/dL CERNER MILLENNIU M Creatinine 1.14 0.80 - 1.50 mg/dL CERNER MILL ENNIUM Comment: Please note that the pediatric reference intervals supplied above were not validated at [facility]. Results from pediatri c patients should be interpreted in conjunction to the patient's age, height and muscle mass. Sodium 138 135 - 145 mmol/L CERNER YNES NIUM Potassium 4.0 3.5 - 5.0 mmol/L CERNER YNES NIUM Comment: Please note: ??Patients with WBC >100,00 0 may have falsely elevated Potassium levels. ??For accurate Potassium quantif ication in these patients send serum separator tube (gold top) for subsequent determinations. ??Contact the Clinical Chemistry Laboratory if there are any qu estions. Chloride 99 98 - 107 mmol/L CERNER MILLENN IUM CO2 29 22 - 31 mmol/L LUBNA GANNON UM Anion Gap 10 5 - 15 mmol/L LUBNA Perez Calcium 8.6 8.5 - 10.5 mg/dL LUBNA QUICK NIUM Estimated GFR >60 >=60 LUBNA Perez Comment: This estimated GFR (eGFR) value was calc ulated using the MDRD equation which has been validated on patients between t he ages of 18 and 70. The MDRD should not be used to assess kidney function in patients < 18 years of age or in patients with extremes of body mass, or in patients with acute kidney failure. This value should be multiplied by 1.2 f or patients. For further information please copy and past e the following links into your internet browser. http://[employer]DHnkdep http://[employer]DHMCnkf Specimen Anatomical Collection Method Collection Time Receive d Time (Source) Location / / Volume Laterality Blood specimen 11/29/2014 4:22 AM 015 4:30 (specimen) EDT AM EDT Resulting Agency Comment Spec In Lab Lazaro Kaiser MD CHEMISTRY ORDERABLES Performing Organization Address City/State/[place] [address] LUBNA MATHUR Blood culture (11/28/2014 3:26 AM EDT) [facility] Method Time Signature Blood Culture CERNER ? Patient Name: TONI VINCENT ? Ordered By: JONATHAN DIOP ? MR#: [id number] ?LOC: ??3WST ? /Sex: ??1940 (74 years), ? Male ? PROCEDURE: Blood Culture ?SOURCE: Blood ? COLLECTED: 11/28/2014 03:26 ?FREE TEXT SOURCE: LAC ? STARTED: 11/28/2014 04:03 ? FINAL REPORT ? Final Report ? Verified:12/03/2014 07:01 ? No growth at 5 days. ? PRELIMINARY REPORT ? Preliminary Report ? Verified:12/02/2014 07:01 ? No growth at 4 days. ? Specimen Anatomical Collection Method Collection Time Receive d Time (Source) Location / / Volume Laterality Blood specimen 11/28/2014 3:26 AM 015 4:03 (specimen) EDT AM EDT Comment: LAC Resulting Agency Comment Spec In Lab Jonathan Diop MD MICROBIOLOGY - BLOOD ORDERAB LES Performing Organization Address City/State/[place] [address] LUBNA MATHUR Blood culture (11/28/2014 3:21 AM EDT) [facility] Method Time Signature Blood Culture [facility] ? Patient Name: TONI VINCENT ? Ordered By: JONATHAN DIOP ? MR#: [id number] ?LOC: ??3WST ? /Sex: ??1940 (74 years), ? Male ? PROCEDURE: Blood Culture ?SOURCE: Blood ? COLLECTED: 11/28/2014 03:21 ?FREE TEXT SOURCE: RH ? STARTED: 11/28/2014 04:03 ? FINAL REPORT ? Final Report ? Verified:12/03/2014 07:01 ? No growth at 5 days. ? PRELIMINARY REPORT ? Preliminary Report ? Verified:12/02/2014 07:01 ? No growth at 4 days. ? Specimen Anatomical Collection Method Collection Time Receive d Time (Source) Location / / Volume Laterality Blood specimen 11/28/2014 3:21 AM 015 4:03 (specimen) EDT AM EDT Comment: RH Resulting Agency Comment Spec In Lab Jonathan Diop MD MICROBIOLOGY - BLOOD ORDERAB LES Performing Organization Address City/State/[place] [address] CERNER MILLENNIUM (ABNORMAL) Differential, Automated (11/28/2014 2:11 AM EDT) [facility] Method Time Signature Neutrophils % 65.9 % CERNER MILLENNIUM Neutr Abs (ANC) 3.43 1.50 - CERNER 6.30 MILLENNIUM x10(3)/mcL Lymphocytes % 17.5 % CERNER MILLENNIUM Lymphocytes Abs 0.9 (L) 1.0 - 3.6 CERNER x10(3)/mcL MILLENNIUM Monocytes % 13.7 % CERNER MILLENNIUM Monocyte Abs 0.7 0.2 - 1.0 CERNER x10(3)/mcL MILLENNIUM Eosinophils % 2.5 % CERNER MILLENNIUM Eosinophils Abs 0.1 0.0 - 0.5 CERNER x10(3)/mcL MILLENNIUM Basophils % 0.4 % CERNER MILLENNIUM Basophils Abs 0.0 0.0 - 0.2 CERNER x10(3)/mcL MILLENNIUM Immature Gran % 0.00 % CERNER MILLENNIUM Comment: Immature granulocytes(IG's)percentage an d absolute count will include metamyelocytes, myelocytes, and promyelo cytes. Blood smears from CBCs yielding IG's will be scanned manually for concor dance. If this scan disagrees with the automated IG or if promyelocytes are not ed, a manual differential will be performed. Ginny Gran Abs 0.00 0.00 - 0.05 x10(3)/mcL CER NER MILLENNIUM Specimen Anatomical Collection Method Collection Time Receive d Time (Source) Location / / Volume Laterality Blood specimen 11/28/2014 2:11 AM 015 2:17 (specimen) EDT AM EDT Resulting Agency Comment Spec In Lab Jonathan Diop MD HEMATOLOGY ORDERABLES Performing Organization Address City/State/[place] [address] CERNER MILLENNIUM (ABNORMAL) Hemogram (11/28/2014 2:11 AM EDT) P athologist Signature WBC 5.2 4.0 - 10.0 CERNER x10(3)/mcL MILLENNIUM RBC 3.80 (L) 4.63 - CERNER 6.08 MILLENNIUM x10(6)/mcL Hemoglobin 11.4 (L) 13.7 - CERNER 17.5 gm/dL MILLENNIUM Hematocrit 33.8 (L) 40.0 - CERNER 51.0 % MILLENNIUM MCV 88.9 79.0 - CERNER 92.0 fL MILLENNIUM MCH 30.0 25.6 - CERNER 32.2 pg MILLENNIUM MCHC 33.7 32.0 - CERNER 36.5 gm/dL MILLENNIUM Platelets 135 (L) 145 - 370 CERNER x10(3)/mcL MILLENNIUM RDWSD 46.2 (H) 35.0 - CERNER 46.0 fL MILLENNIUM RDWCV 14.2 10.9 - CERNER 14.4 % MILLENNIUM MPV 11.1 9.0 - 12.0 CERNER fL MILLENNIUM Specimen Anatomical Collection Method Collection Time Receive d Time (Source) Location / / Volume Laterality Blood specimen 11/28/2014 2:11 AM 015 2:17 (specimen) EDT AM EDT Resulting Agency Comment Spec In Lab Jonathan Diop MD HEMATOLOGY ORDERABLES Performing Organization Address City/[facility]/ZIP Code Phon e Number [address] CERNER MILLENNIUM (ABNORMAL) Hepatic Function Panel (11/28/2014 2:11 AM EDT) athologist Signature Total Protein 6.0 (L) 6.1 - 8.0 CERNER gm/dL MILLENNIUM Albumin 3.2 3.2 - 5.2 CERNER gm/dL MILLENNIUM AST 125 (H) 0 - 39 CERNER unit/L MILLENNIUM ALT 155 (H) 0 - 55 CERNER unit/L MILLENNIUM Alk Phos 192 (H) 40 - 120 CERNER unit/L MILLENNIUM Total 5.4 (H) 0.2 - 1.3 CERNER Bilirubin mg/dL MILLENNIUM Bili, Direct 4.5 (H) 0.0 - 0.3 CERNER mg/dL MILLENNIUM Specimen Anatomical Collection Method Collection Time Receive d Time (Source) Location / / Volume Laterality Blood specimen 11/28/2014 2:11 AM 015 2:17 (specimen) EDT AM EDT Resulting Agency Comment Spec In Lab Lazaro Kaiser MD CHEMISTRY ORDERABLES Performing Organization Address City/[facility]/[place] [address] CERNER MILLENNIUM (ABNORMAL) Basic Metabolic Panel (non-fasting) (11/28/2014 2:11 AM EDT) P athologist Signature Glucose Lvl 86 65 - 199 CERNER mg/dL MILLENNIUM Comment: Diabetes: >=200 mg/dL plus symp toms BUN 16 10 - 20 mg/dL CERNER MILLENNIU M Creatinine 1.25 0.80 - 1.50 mg/dL CERNER MILL ENNIUM Comment: Please note that the pediatric reference intervals supplied above were not validated at [facility]. Results from pediatri c patients should be interpreted in conjunction to the patient's age, height and muscle mass. Sodium 142 135 - 145 mmol/L CERNER YNES NIUM Potassium 3.9 3.5 - 5.0 mmol/L CERNER YNES NIUM Comment: Please note: ??Patients with WBC >100,00 0 may have falsely elevated Potassium levels. ??For accurate Potassium quantif ication in these patients send serum separator tube (gold top) for subsequent determinations. ??Contact the Clinical Chemistry Laboratory if there are any qu estions. Chloride 103 98 - 107 mmol/L CERNER MILLENN IUM CO2 28 22 - 31 mmol/L CERNER MILLENNI UM Anion Gap 11 5 - 15 mmol/L CERNER MILLENNIU M Calcium 8.7 8.5 - 10.5 mg/dL CERNER YNES NIUM Estimated GFR 56 (L) >=60 CERNER MILLENNIU M Comment: This estimated GFR (eGFR) value was calc ulated using the MDRD equation which has been validated on patients between t he ages of 18 and 70. The MDRD should not be used to assess kidney function in patients < 18 years of age or in patients with extremes of body mass, or in patients with acute kidney failure. This value should be multiplied by 1.2 f or patients. For further information please copy and past e the following links into your internet browser. http://[employer]DHnkdep http://[employer]DHMCnkf Specimen Anatomical Collection Method Collection Time Receive d Time (Source) Location / / Volume Laterality Blood specimen 11/28/2014 2:11 AM 015 2:17 (specimen) EDT AM EDT Resulting Agency Comment Spec In Lab Lazaro Kaiser MD CHEMISTRY ORDERABLES Performing Organization Address City/State/Z[place] [address] CERNER MILLENNIUM Lipase (11/28/2014 2:11 AM EDT) P athologist Signature Lipase 34 0 - 60 CERNER unit/L MILLENNIUM Specimen Anatomical Collection Method Collection Time Receive d Time (Source) Location / / Volume Laterality Blood specimen 11/28/2014 2:11 AM 015 2:17 (specimen) EDT AM EDT Resulting Agency Comment Spec In Lab Jonathan Diop MD CHEMISTRY ORDERABLES Performing Organization Address City/State/[place] [address] CERNER MILLENNIUM Phosphorus (11/28/2014 2:11 AM EDT) P athologist Signature Phosphorus 2.7 2.5 - 4.5 CERNER mg/dL MILLENNIUM Specimen Anatomical Collection Method Collection Time Receive d Time (Source) Location / / Volume Laterality Blood specimen 11/28/2014 2:11 AM 015 2:17 (specimen) EDT AM EDT Resulting Agency Comment Spec In Lab Jonathan Diop MD CHEMISTRY ORDERABLES Performing Organization Address City/[facility]/ZIP Code Phon e Number [address] CERNER MILLENNIUM Magnesium (11/28/2014 2:11 AM EDT) athologist Signature Magnesium 0.74 0.69 - 1.07 CERNER mmol/L MILLENNIUM Specimen Anatomical Collection Method Collection Time Receive d Time (Source) Location / / Volume Laterality Blood specimen 11/28/2014 2:11 AM 015 2:17 (specimen) EDT AM EDT Resulting Agency Comment Spec In Lab Jonathan Diop MD CHEMISTRY ORDERABLES Performing Organization Address City/[facility]/ZIP [facility] [place] [address] CERNER MILLENNIUM Prothrombin Time (11/28/2014 2:11 AM EDT) P athologist Signature PT 15.1 12.5 - 15.5 CERNER sec MILLENNIUM Comment: Transfusion Committee Guidelines: INR less than 2.0, PTT less than OR equal to 43.5 seconds, or Fibrinogen greater t lazaro or equal to 100 mg/dl indicate adequate procoagulant activity for hemos tasis in patients without underlying bleeding disorders. INR 1.1 0.9 - 1.1 CERNER MILLENNIUM Specimen Anatomical Collection Method Collection Time Receive d Time (Source) Location / / Volume Laterality Blood specimen 11/28/2014 2:11 AM 015 2:17 (specimen) EDT AM EDT Resulting Agency Comment Spec In Lab Jonathan Diop MD HEMATOLOGY ORDERABLES Performing Organization Address City/State/ZIP Code Phon e Number [place] [phone] [facility] documented in this encounter Visit Diagnoses Diagnosis Choledocholithiasis Calculus of bile duct without mention of cholecystitis or obstruction Hypertension Unspecified essential hypertension documented in this encounter Administered Medications Inactive Administered Medications - up to 3 most recent administrations Medication Order MAR Action Action Date Dose Rate Site acetaminophen (TYLENOL) tablet Given 12/01/2014 12:38 PM EDT 650 mg 650 mg 650 mg, Oral, EVERY 6 HOURS PRN, Starting on Sun11/28/14 at 0128, Until Sun12/02/14 at 1344, Pain, Fever, Administer for temperature greater than or equal to 38.2 degrees celsius. Maximum daily dose of acetaminophen from all sources not to exceed 4,000 mg., Routine enoxaparin (LOVENOX) injection 40 mg Given 11/29/2014 9:27 AM EDT 40 mg 40 mg, Subcutaneous, DAILY, First dose on Sun11/28/14 at 0900, Until Discontinued, Routine heparin (porcine) subcutaneous injection Given 015 9:39 AM EDT 5,000 Units 5,000 Units 5,000 Units, Subcutaneous, EVERY 12 HOURS SCHEDULED (2 times per day), First dose on Sun12/01/14 at 2100, Until Discontinued, Routine Given 12/01/2014 9:17 PM EDT 5,000 Units hydrochlorothiazide (HYDRODIURIL) tablet 25 mg Given 11/30/2014 8:22 AM EDT 25 mg 25 mg, Oral, DAILY, First dose on Sun11/28/14 at 0900, Until Discontinued, Routine Given 11/29/2014 9:26 AM EDT 25 mg Given 11/28/2014 1:30 PM EDT 25 mg hydrochlorothiazide (HYDRODIURIL) tablet 25 mg Given 12/02/2014 9:39 AM EDT 25 mg 25 mg, Oral, DAILY, First dose (after last modification) on Sun12/01/14 at 0900, Until Discontinued, Routine Given 12/01/2014 8:44 AM EDT 25 mg lactated ringers infusion New Bag 12/01/2014 12:41 PM EDT 100 mL/hr 100 mL/hr 100 mL/hr, Intravenous, CONTINUOUS, Starting on Sun12/01/14 at 1245, Until Sun12/02/14 at 1344 piperacillin-tazobactam (ZOSYN) Given 12/01/2014 9:18 PM EDT 3.3 75 g 12.5 mL/hr 3.375 g in dextrose 5% 50 mL 3.375 g, Intravenous, EVERY 8 HOURS, 12 doses, First dose on Sun11/28/14 at 0600, Last dose on Sun12/01/14 at 2200, Administer over 4 Hours, Indication for (Active or Suspected): GI/Intra-abdominal Given 12/01/2014 2:34 PM EDT 3.375 g 12.5 mL/hr Given 12/01/2014 6:06 AM EDT 3.375 g 12.5 mL/hr senna-docusate (PERICOLACE) 8.6-50 mg per Given 2014 9:39 AM EDT 2 tablets tablet 2 tablet 2 tablet, Oral, 2 TIMES DAILY, First dose on Sun11/28/14 at 0145, Until Discontinued, Routine Given 12/01/2014 9:17 PM EDT 2 tablets Given 12/01/2014 8:44 AM EDT 2 tablets sodium chloride 0.9 % flush 5 mL Given 12/02/2014 9:39 AM EDT 5 mLs 5 mL, Intravenous, 2 TIMES DAILY, First dose on Sun11/28/14 at 0145, Until Discontinued, Routine Given 11/30/2014 9:47 PM EDT 5 mLs Given 11/30/2014 8:23 AM EDT 5 mLs sodium chloride 0.9% 1,000 mL IV bolus Given 11/30/2014 9:43 AM EDT Intravenous, ONCE, 1 dose, On 11/30/14 at 0915 sodium chloride 0.9% infusion New Bag 11/28/2014 2:19 AM EDT 1,000 mLs 100 mL/hr 1,000 mL, at 100 mL/hr, Intravenous, CONTINUOUS, Starting on 11/28/14 at 0145, Until Sun11/28/14 at 1144 sodium chloride 0.9% infusion New Bag 11/29/2014 1:30 AM EDT 100 mL/hr 100 mL/hr 100 mL/hr, Intravenous, CONTINUOUS, Starting on Sun11/29/14 at 0130, Until 11/29/14 at 0838 documented in this encounter Active and Recently Administered Medications Times are shown in EDT. Scheduled Medication Order 11/30/2014 12/01/2014 12/02/2014 heparin (porcine) subcutaneous injection 5,000 Units (CANCEL ED) 0900 (AUG Hold - Provider: Admin Adt - Reason: Transfer to a Procedural area)1342 (AUG Unhold - Provider: Admin Adt)2117 (Given - Provider: Marquita Valdez RN) 0939 (Given - Provider: Natalia Valverde RN) 5,000 Units, Subcutaneous, EVERY 12 HOUR S SCHEDULED (2 times per day), First dose on Sun12/01/14 at 2100, Until Discontinued, Routine hydrochlorothiazide (HYDRODIURIL) tablet 25 mg (CANCEL ED) 0822 (Given - Provider: Trudy aWlden RN) 25 mg, Oral, DAILY, First dose on 11/28/14 at 0900, Until Discontinued, Routine hydrochlorothiazide (HYDRODIURIL) tablet 25 mg (CANCELED) 0844 (Given - Provider: Natalia Valverde RN)0900 (AUG Hold - Provider: Admin Adt - Reason: Transfer to a Procedural area)1342 (AUG Unhold - Provider: Admin Adt) 0939 (Given - Provider: Natalia Valverde RN) 25 mg, Oral, DAILY, First dose on 03/09 at 0900, Until Discontinued, Routine piperacillin-tazobactam (ZOSYN) 3.375 g in dextrose 5% 50 mL () 0616 (Given - Provider: Loan Garza RN)1358 (Given - Provider: Trudy Walden RN)2144 (Given - Provider: Reva Hester RN) 0606 (Given - Provider: Reva Hester RN)0900 (AUG Hold - Provider: Admin Adt - Reason: Transfer to a Procedural area)1342 (AUG Unhold - Provider: Admin Adt)1434 (Given - Provider: Natalia Valverde RN) 3.375 g, Intravenous, EVERY 8 HOURS, 12 doses, First dose on 11/28/14 at 0600, Last dose on Sun12/01/14 at 2200, for 4 Hours, Indication for (Active or Suspected): GI/Intra-abdominal 2117 (Given - Provider: Marquita Valdez, NASRIN) senna-docusate (PERICOLACE) 8.6-50 mg per tablet 2 tab let (CANCELED) 0822 (Given - Provider: Trudy Walden RN)214 (Given - Provider: Reva Hester, NASRIN) 0844 (Given - Provider: Natalia Valverde RN)0900 (MAR Hold - Provider: Admin Adt - Reason: Transfer to a Procedural area)1342 (MAR Unhold - Provider: Admin Adt)2117 (Given - Provider: Marquita Valdez RN) 0939 (Given - Provider: Natalia Valverde RN) 2 tablet, Oral, 2 TIMES DAILY, First dos e on 11/28/14 at 0145, Until Discontinued, Routine sodium chloride 0.9 % flush 5 mL (CANCELED) 0823 (Give n - Provider: Trudy Walden RN)214 (Given - Provider: Reva Hester RN) 0900 (Not Given - Provider: Natalia Valverde RN - Reason: See comment - Comment: IV infusing)0901 ([facility] Hold - Provider: Admin Adt - Reason: Transfer to a Procedural area)1342 ([facility] Unhold - Provider: Admin Adt) 0939 (Given - Provider: Natalia Valverde RN) 5 mL, Intravenous, 2 TIMES DAILY, First dose on 11/28/14 at 0145, Until Discontinued, Routine 2100 (Not Given - Provider: Marquita Valdez RN - Reason: See comment - Comment: infusing) sodium chloride 0.9% 1,000 mL IV bolus (COMPLETED) 090 0 (Not Given - Provider: Trudy Walden RN - Reason: See comment - Comment: spoke with medicine MD, fluids to go at 100 ml/hr)0943 (Given - Provider: Trudy Walden RN) Intravenous, ONCE, 1 dose, 11/30/14 at 0915 Continuous Medication Order 11/30/2014 12/01/2014 12/02/2014 lactated ringers infusion (CANCELED) 124 1 (New Bag - Provider: Mohini Cunha RN) 100 mL/hr, at 100 mL/hr, Intravenous, CO NTINUOUS, Starting 12/01/14 at 1245, Until 12/02/14 at 1344 PRN Medication Order 11/30/2014 12/01/2014 12/02/2014 acetaminophen (TYLENOL) tablet 650 mg (CANCELED) 0900 (AUG Hold - Provider: Admin Adt - Reason: Transfer to a Procedural area)1236 (MAR Unhold - Provider: Mohini Cunha RN)1238 (Given - Provider: Mohini Cunha RN) 650 mg, Oral, EVERY 6 HOURS PRN, Startin g 11/28/14 at 0128, Until 12/02/14 at 1344, Pain, Fever, Administer for temperature greater than or equal to 38.2 degrees celsius. Maximum daily dose of acet aminophen from all sources not to exceed 4,000 mg., Routine BUpivacaine (PF) (MARCAINE) 0.25 % (2.5 mg/mL) injection (CA NCELED) 1100 (Given - Provider: Yamil Ferraro MD - Comment: 8 ml) ONCE PRN, Starting 12/01/14 at 1100, U ntil 12/01/14 at 1335, Intra-Operative (Intra-Procedure), Routine documented in this encounter Care Teams Mobile Unit Assistant Relationship Specialty Start Date End Date Benedicto Amador MD PCP - General 05/17/10 06/24/19 documented as of this encounter
--- OUTSIDE RECORDS SUMMARY | 2022-01-27 01:59 | XMS_ITS | Encounter Summary ---
:1940 Author Organization [facility] [place] [address] Care Team Providers Name Role Phone Wing Phan MD Primary Care Provider Reason for Visit Reason Comments Skin Check Encounter Details Date Type Department Care Team Description 04/15/2021 Office Visit Dermatology at [facility]ta[facility] [place] (act inic keratosis); Jose MEADOWS History of malignant melanoma [address] [facility] [address] [facility] Isai B DERMATOLOGY [place], [place] [id number] [phone] Social History Tobacco Use Types Packs/Day Years Used Date Former Smoker Quit: 06/30/18 70 Smokeless Tobacco: Never Used Alcohol Use Standard Drinks/Week Comments Yes 5 (1 standard drink = 0.6 oz pure alcoho l) Sex Assigned at Date Recorded Not on file documented as of this encounter Progress Notes Pete Baltazar MD - 04/15/2021 2:45 PM EDT Problem: 1. ??Repeat ??skin checkup 2. ??History of malignant melanoma, 0.5 mm Breslow depth, left lateral shoulder, November 2007 3. ??History of malignant melanoma, 0.65 mm Breslow depth, left elbow, March 2007 4. ??43 years of service with??[employer], started working for stated age 20 in 1960 5. 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 Last February he was in thehospital for Lyme disease. He notes some new lesions of concern on his hands. Physical examination reveals a pleasant 80-year-old gentleman who has to hyperkeratotic papular nodules on the right dorsal hand and 1 on the left. These are concerning for SCCA's. Otherwise careful examination of the head and neck the chest the back the hands the arms follows the thighs and the calves is benign. There is no evidence of recurrent melanoma at the two-point prior excision sites. Assessment plan: Rule out SCCA's 1. After obtaining informed patient consent, 3 sites were anesthetized and site A right dorsal hand,site B second MCP right hand, and site C second MCP left hand were removed with shave C&D. 2. After curettage each site measured 1 cm in diameter 3. Triple antibiotic ointment and Band-Aids placed 4. Wound care instructions supplies given 5. Return to clinic in a year for repeat check. 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 No evidence of recurrence at prior treatment sites 2. Continue our once yearly skin checkups. CC: Wing Phan MD documented in this encounter Plan of Treatment Upcoming Encounters Date Type Specialty Care Team Description 04/17/2022 Office Visit Dermatology Pete Baltazar MD [address] [facility] DERMATOLOGY [place], [place] [address] (Wo rk) documented as of this encounter Visit Diagnoses Diagnosis [place] (actinic keratosis) Actinic keratosis History of malignant melanoma Personal history of malignant melanoma o f skin documented in this encounter Care Teams Deputy Clerk Of Court Relationship Specialty Start Date End Date Wing Phan MD PCP - General Family Medicine 03/29/20 [address] [place] [address] documented as of this encounter
--- OUTSIDE RECORDS SUMMARY | 2022-01-27 01:59 | XMS_ITS | Encounter Summary ---
:1940 Author Organization [facility] Address [place] [id number] Care Team Providers Name Role Phone Wing Phan MD Primary Care Provider Encounter Details Date Type Department Care Team Description 03/29/2020 Office Visit Dermatology at Pete Baltazar [place] (act inic keratosis); Jose MEADOWS History of malignant melanoma [address] [facility] [address] [facility] Isai B DERMATOLOGY [place], [place] [phone] Social History Tobacco Use Types Packs/Day Years Used Date Former Smoker Quit: 06/30/18 70 Smokeless Tobacco: Never Used Alcohol Use Standard Drinks/Week Comments Yes 5 (1 standard drink = 0.6 oz pure alcoho l) Sex Assigned at Date Recorded Not on file documented as of this encounter Progress Notes Pete Baltazar MD - 03/29/2020 1:30 PM EDT Problem: 1. ??Repeat ??skin checkup 2. ??History of malignant melanoma, 0.5 mm Breslow depth, left lateral shoulder, November 2007 3. ??History of malignant melanoma, 0.65 mm Breslow depth, left elbow, March 2007 4. ??43 years of service with [employer], started working for stated age 20 [id number] 5. 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 Toni follows up and is here today with his . He is been doing all right although unfortunately he recently had a hospital stay at [facility] following a tick bite and a tickborne illness. He briefly suffered apparently congestive heart failure. Physical examination reveals a pleasant 79-year-old gentleman has a benign examination of the head and neck the chest the back the hands the arms the forearms the thighs and the calves. He does have nonhealing crusting scabbing area on the left preauricular cheek concerning for SCC versus BCCA. There is no evidence of recurrent pigmentation at either of the prior two melanoma excision sites. Assessment plan: Actinic keratosis dorsal hands 1. LN2 x2 today applied each of 10 sites Rule SCC versus BCCA left preauricular cheek 1. After obtaining informed patient consent, site was anesthetized and removed shave C&D 2. Triple antibiotic and bandage placed 3. Wound care instructions and supplies given. 4. After curettage site measured 8 mm in diameter History of malignant melanomas 1. No evidence of recurrence 2. Continue our once yearly skin checkups. CC: Wing Phan MD documented in this encounter Plan of Treatment Upcoming Encounters Date Type Specialty Care Team Description 04/17/2022 Office Visit Dermatology Pete Baltazar MD [address] [facility] DERMATOLOGY [place], [place] [address] (Wo rk) documented as of this encounter Visit Diagnoses Diagnosis [place] (actinic keratosis) Actinic keratosis History of malignant melanoma Personal history of malignant melanoma o f skin documented in this encounter Care Teams Voltage Inspector Relationship Specialty Start Date End Date Wing Phan MD PCP - General Family Medicine 03/29/[address] [place] [id number] documented as of this encounter
--- OUTSIDE RECORDS SUMMARY | 2022-01-27 01:59 | XMS_ITS | Encounter Summary ---
:[address] [facility] [place] [address] Care Team Providers Name Role Phone Wing Phan MD Primary Care Provider Encounter Details Date Type Department Care Team Description 01/24/2022 [facility] [place] [address] [place] [address] [phone] (Wo rk) Social History Tobacco Use Types [...] 04/17/2022 Office Visit Dermatology Pete Baltazar MD [address] [place] [address] DERMATOLOGY [place], [place] [address] (Wo rk) documented as of this encounter Procedures Procedure Name Priority Date/Time Associated Diagnosis Comme nts FILM LIBRARY Routine 01/24/2022 7:20 PM Results f or this STORAGE ONLY CT EDT procedure ar e in SPINE the results section. documented in this encounter Results Film Library- Storage Only CT Spine (01/24/2022 7:20 PM EDT) Specimen (Source) Anatomical Location Collection Method / Collectio n Time Received Time / Laterality Volume Narrative RAD - 01/24/2022 7:20 PM EDT This exam is auto-finalizing. It's purpo se is for storage only. Arik Ross MD IMG FILM LIBRARY ORDERABLES Performing Organization Address City/State/ZIP Code Phon e Number [place], [place] documented in this encounter Visit Diagnoses Not on filedocumented in this encounter Care Teams Gm Mobile Relationship Specialty Start Date End Date Wing Phan MD PCP - General Family Medicine 03/29/20 [address] [place] [address] documented as of this encounter
--- OUTSIDE RECORDS SUMMARY | 2022-01-27 01:59 | XMS_ITS | Encounter Summary ---
:1940 Author Organization [facility] Address [facility] [place] [address] Care Team Providers Name Role Phone Unknown Primary Care Provider Unavailable Encounter Details Date Type Department Care Team Description 03/10/2020 Hospital Encounter Mobile Marsha Rubio Fever of unknown origin (FUO); Echocardiography T, CAT SWAMPER Heart failure, unspecified HF chronicity , unspecified heart failure type; [address] Acute renal failure, unspecified acute r enal failure type; Drive [place], Atrial fibrillation, unspeci fied type; [facility] [address] Special screening for malignant neoplasm of colon; [id number] Unspecified prophylactic or treatment measure; Encounters for unspecified administrativ e purpose Social History Tobacco Use Types Packs/Day Years Used Date Former Smoker Quit: 06/30/18 70 Smokeless Tobacco: Never Used Alcohol Use Standard Drinks/Week Comments Yes 5 (1 standard drink = 0.6 oz pure alcoho l) Sex Assigned at Date Recorded Not on file documented as of this encounter Medications at Time of Discharge Medication Sig Dispensed Refills Start Date End Date XARELTO 15 mg Tablet 0 01/21/2018 doxazosin (CARDURA) 4 mg 0 03/08/2018 04/15/2021 Tablet hydrochlorothiazide Take 25 mg by 0 (HYDRODIURIL) 25 mg tablet mouth daily. documented as of this encounter Plan of Treatment Upcoming Encounters Date Type Specialty Care Team Description 04/17/2022 Office Visit Dermatology Pete Baltazar MD [address] [facility] [place], [place] [address] (Wo rk) documented as of this encounter Procedures Procedure Name Priority Date/Time Associated Diagnosis Comme nts ECHOCARDIOGRAM Routine 03/10/2020 1:06 Fever of unknown Result s for this COMPLETE PM EDT origin (FUO) procedure are in Heart failure, the results unspecified HF section. chronicity, unspecified heart failure type Acute renal failure, unspecified acute renal failure ty pe Atrial fibrillation, unspecified type Special screening for malignant neoplasm of colon Unspecified prophylactic or treatment measur e Encounters for unspecified administrative purpose documented in this encounter Results ECHOCARDIOGRAM COMPLETE (03/10/2020 1:06 PM EDT) P athologist Signature EF 50 HEARTLAB SYSTEM Specimen (Source) Anatomical Location Collection Method / Collectio n Time Received Time / Laterality Volume 03/10/2020 Narrative HEARTLAB SYSTEM - 03/10/2020 2:33 PM EDT Procedure: ?Transthoracic Echocardiogram Patient: ?MELISA MENA P. . . ?? (Age): 1940(79y) Med Rec#: ? [id number] ?Sex: ?M ? Site Loc: ? [facility] ??H t / Wt: ??180.34(cm)/64.8 Pt. Loc: ?Adult Floor ? BSA: ?1.83 Study Date: ?? 03/10/2020 ?Pt. Type: Inpatient Tape: ? Referring: [facility](Med/Surg) Referring: [facility] (Diag Imaging) Referring: [facility](Med Rec) Referring: [facility] Reading: Arik Keys ([id number]) Hospitality House Supervisor: RON Hospitality House Supervisor: RON Interpreting Fellow: Terrance Metzger ([phone]) Diagnosis: *Heart failure, unspecified (I50.9) BP: ? 99/69 SUMMARY: 1. The left ventricular chamber size and wall thickness are normal. There is normal global left ventricular systolic function with EF 50%. There are no left ventricular segmental wall motion abnormalities. 2. Right ventricular chamber size, wall thickness, and systolic function are within normal limits. The estimated pulmonary artery systolic pressure is 26 mmHg. 3. The left atrium is moderately dilated . The right atrium is mildly dilated. 4. There is moderate (2+/4+) mitral regu rgitation present. 5. See remainder of report for additiona l findings. No prior echocardiogram for comparison. Findings ? : Left Ventricle: ? The left ventricul ar chamber size is normal. ?Left ventricular wall thickness is normal. ?There is no evidence of LVOT obstr uction. ?No ventricular septal defect is vi sualized. ?There is normal global left ventri cular systolic function. ??Ejection fraction is estimated to be 50%. ?There are no left ventricular segm ental wall motion abnormalities. Left Atrium: ? The left atrium is mo derately dilated. Right Ventricle: ? Right ventricular chamber size, wall thickness, and systolic function are within normal limi ts. ?Right ventricular global systolic function is normal. ?The estimated pulmonary artery sys tolic pressure is 26 mmHg. Right Atrium: ? The right atrium is mildly dilated. Aortic Valve: ? The aortic valve is probably tricuspid. ?The aortic valve leaflets are mild ly thickened. ?Systolic excursion of the aortic v alve is normal. ?There is no evidence of aortic domonique ve stenosis. ?There is a trace of aortic regurgi tation present. Mitral Valve: ? The mitral valve len flets appear normal. ?There is moderate (2+/4+) mitral r egurgitation present. Tricuspid Valve: ? The tricuspid domonique ve leaflets are morphologically normal. ?There is mild (1+/4+) tricuspid re gurgitation present. Pulmonic Valve: ? The pulmonic valve appears normal. ?There is mild (1+/4+) pulmonic reg urgitation present. Aorta: ? The aortic root is normal i n size. ?The ascending aorta is normal in s ize. Pulmonary Artery: ? The main pulmona ry artery appears normal. Venous: ? The inferior vena cava michelle ears normal in size. ?There is a greater than 50% respir atory change in the inferior vena cava dimension. Misc: ? See remainder of report for additional findings. ?Two-dimensional echo, spectral Dop pler and color Doppler performed. Chambers 2D ?Value ?Units (Range) ? IVSd (2D) ? 1.08 ? cm ? LVPWd (2D) ?1.09 ? cm ? IVS:LVPW ratio (2D) 0.99 ? ratio ? LVIDd (2D) ?4.26 ? cm ? LVIDs (2D) ?3.13 ? cm ? LV FS (2D) ?26.41 ?% ? EF Teichholz (2D) ?? 52.05 ?% ? Ao root diameter (2D3.6 ?cm (2.1 - 3.6) ? Ascending Ao ?3.5 ?cm (2 - 3.5) ? Volumes/Mass ?Value ?Units (Range) ? LA ESV BP (A/L) inde42.37 ? ml/m2 ? LV ESV SP 4CH (MOD) 40.21 ? ml ? LV ESV SP 2CH (MOD) 48.69 ? ml ? LV EDV BP ? 93.83 ?ml ? LV ESV BP ? 45.63 ?ml ? BP EF (MOD) ? 51.37 ?% ? Diastolic/Systolic Function ?Value ?Units (Range) ? MV E-wave Vmax ?1.08 ? m/sec ? MV deceleration neps869.69 ? m sec ? LV septal e' Vmax ?? 0.11 ? m/sec ? LV lateral e' Vmax ??0.14 ? m/sec ? LV E:e' septal ratio10.11 ? ratio ? LV E:e' lateral rati7.65 ? ratio ? Aortic Valve ?Value ?Units (Range) ? AV Vmax ? 1.36 ? m/sec ? AV VTI ?25.43 ?cm ? AV peak gradient ?7.36 ? mmHg ? AV mean gradient ?4.76 ? mmHg ? LVOT diameter ? 2.01 ? cm ? LVOT Vmax ? 0.97 ? m/sec ? LVOT VTI ?17.65 ?cm ? CO LVOT ? 4.54 ? l/min ? ABENA (continuity Vmax2.27 ? cm2 ? ABENA (continuity Vmax1.24 ? cm2/m2 ? ABENA (continuity VTI)1.2 ?cm2/m2 ? AR PHT ?588.59 ? msec ? Mitral Valve ?Value ?Units (Range) ? MV VTI ?31.71 ?cm ? MV annulus VTI ?29.09 ?cm ? MV PHT ?59.65 ?msec ? MR Vmax ? 5.08 ? m/sec ? MR VTI ?146.89 ? cm ? MR volume (PISA) ?16.43 ?ml ? MR flow (PISA) ?56.86 ?ml/sec ? MR ERO ?0.11 ? cm2 ? MR PISA radius ?0.51 ? cm ? MR alias Vmax ? 35 ? cm/sec ? MVA (PHT) ? 3.69 ? cm2 ? Tricuspid Valve ?Value ?Units (Range) ? TR Vmax ? 2.4 ?m/sec ? TR peak gradient ?22.95 ?mmHg ? RAP ? 3 ?mmHg ? RVSP ?26 ? mmHg ? Pulmonic Valve/Qp:Qs ?Value ?Units (Range) ? PV Vmax ? 0.8 ?m/sec ? PV VTI ?13.62 ?cm ? PV peak gradient ?2.55 ? mmHg ? PV mean gradient ?1.54 ? mmHg ? RVOT Vmax ? 0.53 ? m/sec ? RVOT VTI ?7.34 ? cm ? RVOT peak gradient ??1.14 ? mmHg ? PV acceleration time53.87 ? msec ? PV ejection time ?227.91 ? msec ? PV AT:ET ?0.24 ? ratio ? Wall Motion: Segment Name ?Rest ? Base-Anteroseptal ?? Normal ? Base-Anterior ? Normal ? Base-Anterolateral ??Normal ? Base-Posterolateral Normal ? Base-Inferior ? Normal ? Base-Inferoseptal ?? Normal ? Mid-Anteroseptal ?Normal ? Mid-Anterior ?Normal ? Mid-Anterolateral ?? Normal ? Mid-Posterolateral ??Normal ? Mid-Inferior ?Normal ? Mid-Inferoseptal ?Normal ? [place]-Septal ? Normal ? [place]-Anterior ? Normal ? [place]-Lateral ?Normal ? [place]-Inferior ? Normal ? [place]-Tip ?Normal ? This report has been electronically sign ed by: _ Arik Keys MD ? 03/10/2020 14: 19:55 Images reviewed and interpretation [facility] Cardiac Ultrasound Laboratory Procedure Note Arik Keys MD - 03/10/2020Formatti ng of this note might be different from the original. Procedure: Transthoracic Echocardiogram Patient: MELISA Paulson Khurram (Age): 1940(79y) Med Rec#: [id number] Sex: M Site Loc: [facility] Ht / Wt: 180.34(cm)/64.8 Pt. Loc: Adult Floor BSA: 1.83 Study Date: 03/10/2020 Pt. Type: Inpatie nt Tape: Referring: [facility](Med/Surg) Referring: [facility] (Diag Imaging) Referring: [facility](Med Rec) Referring: [place] Reading: Arik Keys ([id number]) Hospitality House Supervisor: RON Hospitality House Supervisor: RON Interpreting Fellow: Terrance Metzger ([phone]) Diagnosis: *Heart failure, unspecified (I50.9) BP: 99/69 SUMMARY: 1. The left ventricular chamber size and wall thickness are normal. There is normal global left ventricular systolic function with EF 50%. There are no left ventricular segmental wall motion abnormalities. 2. Right ventricular chamber size, wall thickness, and systolic function are within normal limits. The estimated pulmonary artery systolic pressure is 26 mmHg. 3. The left atrium is moderately dilated . The right atrium is mildly dilated. 4. There is moderate (2+/4+) mitral regu rgitation present. 5. See remainder of report for additiona l findings. No prior echocardiogram for comparison. Findings : Left Ventricle: The left ventricular corby mber size is normal. Left ventricular wall thickness is norm al. There is no evidence of LVOT obstructio n. No ventricular septal defect is visuali zed. There is normal global left ventricular systolic function. Ejection fraction is estimated to be 50%. There are no left ventricular segmental wall motion abnormalities. Left Atrium: The left atrium is moderate ly dilated. Right Ventricle: Right ventricular chamb er size, wall thickness, and systolic function are within normal limi ts. Right ventricular global systolic funct ion is normal. The estimated pulmonary artery systolic pressure is 26 mmHg. Right Atrium: The right atrium is mildly dilated. Aortic Valve: The aortic valve is probab ly tricuspid. The aortic valve leaflets are mildly th ickened. Systolic excursion of the aortic valve is normal. There is no evidence of aortic valve st enosis. There is a trace of aortic regurgitatio n present. Mitral Valve: The mitral valve leaflets appear normal. There is moderate (2+/4+) mitral regurg itation present. Tricuspid Valve: The tricuspid valve len flets are morphologically normal. There is mild (1+/4+) tricuspid regurgi tation present. Pulmonic Valve: The pulmonic valve appea rs normal. There is mild (1+/4+) pulmonic regurgit ation present. Aorta: The aortic root is normal in size . The ascending aorta is normal in size. Pulmonary Artery: The main pulmonary art poncho appears normal. Venous: The inferior vena cava appears n ormal in size. There is a greater than 50% respiratory change in the inferior vena cava dimension. Misc: See remainder of report for additi onal findings. Two-dimensional echo, spectral Doppler and color Doppler performed. Chambers 2D Value Units (Range) IVSd (2D) 1.08 cm LVPWd (2D) 1.09 cm IVS:LVPW ratio (2D) 0.99 ratio LVIDd (2D) 4.26 cm LVIDs (2D) 3.13 cm LV FS (2D) 26.41 % EF Teichholz (2D) 52.05 % Ao root diameter (2D3.6 cm (2.1 - 3.6) Ascending Ao 3.5 cm (2 - 3.5) Volumes/Mass Value Units (Range) LA ESV BP (A/L) inde42.37 ml/m2 LV ESV SP 4CH (MOD) 40.21 ml LV ESV SP 2CH (MOD) 48.69 ml LV EDV BP 93.83 ml LV ESV BP 45.63 ml BP EF (MOD) 51.37 % Diastolic/Systolic Function Value Units (Range) MV E-wave Vmax 1.08 m/sec MV deceleration kkdf936.69 msec LV septal e' Vmax 0.11 m/sec LV lateral e' Vmax 0.14 m/sec LV E:e' septal ratio10.11 ratio LV E:e' lateral rati7.65 ratio Aortic Valve Value Units (Range) AV Vmax 1.36 m/sec AV VTI 25.43 cm AV peak gradient 7.36 mmHg AV mean gradient 4.76 mmHg LVOT diameter 2.01 cm LVOT Vmax 0.97 m/sec LVOT VTI 17.65 cm CO LVOT 4.54 l/min ABENA (continuity Vmax2.27 cm2 ABENA (continuity Vmax1.24 cm2/m2 ABENA (continuity VTI)1.2 cm2/m2 AR PHT 588.59 msec Mitral Valve Value Units (Range) MV VTI 31.71 cm MV annulus VTI 29.09 cm MV PHT 59.65 msec MR Vmax 5.08 m/sec MR VTI 146.89 cm MR volume (PISA) 16.43 ml MR flow (PISA) 56.86 ml/sec MR ERO 0.11 cm2 MR PISA radius 0.51 cm MR alias Vmax 35 cm/sec MVA (PHT) 3.69 cm2 Tricuspid Valve Value Units (Range) TR Vmax 2.4 m/sec TR peak gradient 22.95 mmHg RAP 3 mmHg RVSP 26 mmHg Pulmonic Valve/Qp:Qs Value Units (Range) PV Vmax 0.8 m/sec PV VTI 13.62 cm PV peak gradient 2.55 mmHg PV mean gradient 1.54 mmHg RVOT Vmax 0.53 m/sec RVOT VTI 7.34 cm RVOT peak gradient 1.14 mmHg PV acceleration time53.87 msec PV ejection time 227.91 msec PV AT:ET 0.24 ratio Wall Motion: Segment Name Rest Base-Anteroseptal Normal Base-Anterior Normal Base-Anterolateral Normal Base-Posterolateral Normal Base-Inferior Normal Base-Inferoseptal Normal Mid-Anteroseptal Normal Mid-Anterior Normal Mid-Anterolateral Normal Mid-Posterolateral Normal Mid-Inferior Normal Mid-Inferoseptal Normal [place]-Septal Normal [place]-Anterior Normal [place]-Lateral Normal [place]-Inferior Normal [place]-Tip Normal This report has been electronically sign ed by: _ Arik Keys MD 03/10/2020 14:19:55 Images reviewed and interpretation verif ied [facility] Cardiac Ultrasound Laboratory Marsha Rubio APRN ECHO ORDERABLES Performing Organization Address City/State/ZIP Code Phon e Number HEARTLAB SYSTEM documented in this encounter Visit Diagnoses Diagnosis Fever of unknown origin (FUO) Fever, unspecified Heart failure, unspecified HF chronicity , unspecified heart failure type Acute renal failure, unspecified acute r enal failure type Atrial fibrillation, unspecified type Special screening for malignant neoplasm of colon Special screening for malignant neoplasm s, colon Unspecified prophylactic or treatment me asure Encounters for unspecified administrativ e purpose documented in this encounter Care Teams Surface Supervisor Relationship Specialty Start Date End Date Unknown PCP - General 06/25/19 03/28/20 None documented as of this encounter
--- OUTSIDE RECORDS SUMMARY | 2022-01-27 01:59 | XMS_ITS | Encounter Summary ---
:1940 [place] [address] Care Team Providers Name Role Phone Benedicto Amador MD Primary Care Provider Encounter Details Date Type Department Care Team Description 12/01/2014 Surgery Main Operating Room Yamil Ferraro ROSCOPIC Diane Ley MD CHOLECYSTECTOMY ([facility].) [facility] [address] [place] [address] [place] [address] [phone] Social History Tobacco Use Types Packs/Day Years [...] in this encounter Discharge Summaries Latha Gunter 12/01/2014 11:30 AM EDT Discharge Summary Patient Name: Trina Vincent Patient Age: 74 y.o. Language: Mexican Race: White Ethnicity: Not nor Admit date: [...] please contact your inpatient physician through the [facility] Machine Maintenance Mechanic . Issues after hours and on weekends [...] 22.6 Height: 172.7 cm (5' 8) (11/28/14 0700) Weight - Scale: 67.132 kg (148 lb) (11/28/14 0700) Functional and Cognitive Status: Good/Good Important Studies [...] Last 3 LFTs Recent Labs 12/02/14 0335 12/01/14 0415 11/30/14 0345 AST 71* 40* 49* ALT [...] 101.3 F. The number for questions is [phone] before 5 PM weekdays and [phone] after 5 PM and weekends. Pain Medication: [...] weeks. Below is a scheduled time.Please call [phone] (clinic number for appointments) to confirm date and time of your appointment if you do not receive your apointment in 3 weeks. Future Appointments Date Time Provider Department Center 12/29/2014 10:30 AM Veronica Gibson APRN [facility] Your inpatient Providers: Attending - Lazaro Kaiser MD Resident - Celestino Carrasquillo MD Web Marketing Specialist - Latha Gunter MD Your PCP: BENEDICTO AMADOR MD [address] / [facility] [address] General Instructions None Future Appointments Provider Department Dept Phone 12/29/2014 10:30 AM Veronica Gibson APRN General Surgery [phone] Discharge References/Attachments None documented in this encounter [...] 101.3 F. The number for questions is [phone] before 5 PM weekdays and [phone] after 5 PM and weekends. Pain Medication: [...] weeks. Below is a scheduled time.Please call [phone] (clinic number for appointments) to confirm date and time of your appointment if you do not receive your apointment in 3 weeks. Future Appointments Date Time Provider Department Center 12/29/2014 10:30 AM Veronica Gibson, DEBBIE [facility] Your inpatient Providers: Attending - Lazaro Kaiser MD Resident - Celestino Carrasquillo MD Web Marketing Specialist - Latha Gunter MD Your PCP: BENEDICTO AMADOR MD [address] / [facility] [id number] documented in this encounter Medications at Time [...] spent <30 minutes (Day of Discharge Code 83285) involved in the final examination of the [...] De Gordillo - 12/02/2014 9:05 AM EDT Communications Assistant Encounter Note Patient Name: Trina Vincent : [id number] MR#: [id number] Admit Date: 11/27/2014 11:30 PM Hospital Day 5 days Narrative:Visited to introduce and assess acceptance of Communications Assistant services. Pt was awake, alert, oriented and in bed. Pt says that he is feeling better and today going to home and his is coming to give him ride. Assessment:Patient coping positively with stresses of illness/hospitalization at this time. Pt seemed in good spirits and happy that he is going to home. Pt has family care and support. Intervention and Outcome:Communications Assistant services accepted.Conversation to build trusting relationship.Provided pastoral presence. Follow-up: No Time in Direct Care:10 Mins De Gordillo 12/02/2014 Inder Lowe MD - 12/01/2014 6:15 [...] monitors placed, alarms set. 12:45 states abd. sore, does not use # scale, discussed pain med options, denies need for IVP med,given Tylenol 650mg at pt. Request. Inder Lowe MD - 12/01/2014 8:54 AM EDT [facility] Department of Surgery Inpatient Consult Progress Note ID: Trina Vincent is a 74 y.o. male with [...] Range Ab Screen Interp Negative Expires at 9799 on: [id number] Assessment: 74 y.o. male with [...] all 4 extremities equally Labs: Recent Labs 12/01/14 0415 11/30/14 0345 11/29/14 0422 WBC 6.0 5.8 5.4 HGB 12.1* 11.5* 11.6* HCT 36.1* 35.0* 34.1* PLATELET 189 180 165 NEUTROABS 3.81 3.55 3.69 Recent Labs 12/01/145 11/30/145 11/29/14 0422 NA 141 142 138 K 4.5 4.2 4.0 CL 101 99 99 CO2 28 30 29 BUN 14 16 14 CREATININE 1.24 1.34 1.14 GLUCOSE 97 105 102 Recent Labs 12/01/145 11/30/145 11/29/14 0422 AST 40* 49* 89* ALT 80* 99* [...] for elective cholecystectomy this morning. NPO at CT otherwise doing well today. Plan: # Choledocholithiasis - s/p ERCP and sphincterotomy - LFTs down-trending - tolerating normal diet - tentative plan for cholecystectomy tomorrow - NPO at CT tonight - good PO intake so d/c IVFs - cont zosyn for 5d course (D5) per GI; although no signs of infection # HTN - cont home HCTZ # PPx: DVT - lovenox, holding morning dose for OR Diet - low residual diet Code - FULL CODE Latha I. Jani, MD Internal Medcine, PGY-1 [facility], Pager #[phone] 12/01/2014 I have seen and examined the [...] all 4 extremities equally Labs: Recent Labs 11/30/1434411/29/1442111/28/14 0211 WBC 5.8 5.4 5.2 HGB 11.5* 11.6* 11.4* HCT 35.0* 34.1* 33.8* PLATELET 180 165 135* NEUTROABS 3.55 3.69 3.43 Recent Labs 11/30/1434411/29/1442111/28/14 0211 NA 142 138 142 K 4.2 4.0 3.9 CL 99 99 103 CO2 30 29 28 BUN 16 14 16 CREATININE 1.34 1.14 1.25 GLUCOSE 105 102 86 Recent Labs 11/30/1434411/29/1442111/28/14 0211 CALCIUM 9.5 8.6 8.7 MAGNESIUM -- -- 0.74 PHOS -- -- 2.7 Recent Labs 11/30/1434411/29/1442111/28/14 0211 AST 49* 89* 125* ALT 99* [...] Plan for elective cholecystectomy stan. NPO at CT otherwise doing well today. Plan: # Choledocholithiasis - s/p ERCP and sphincterotomy - LFTs down-trending - tolerating normal diet - tentative plan for cholecystectomy tomorrow - NPO at CT tonight - good PO intake so d/c IVFs - cont zosyn for 5d course (D4) per GI; although no signs of infection # HTN - cont home HCTZ # PPx: DVT - lovenox, holding morning dose for OR stan Diet - low residual diet Code - FULL CODE Latha Gunter MD Internal Medcine, PGY-1 [facility], Pager #[phone] 11/30/2014 I have seen and examined the [...] 11/30/2014 12:57 AM EDT Patient transferred to [facility] [place], report given to NASRIN Orsandra. Patient denies pain, VSS. Ml Lopes MD - 11/29/2014 1:36 PM EDT [facility] Department of Gastroenterology Inpatient Progress Note Patient info: Trina Vincent 1940 [id number] BENEDICTO AMADOR MD Date of Admission: 11/27/2014 ( Hospital Day 2 days ) Attending: Dr. Lopes Service: Gastroenterology ID: 74yo male with pmh HTN, intermittent biliary colic for 1 year, with more acute 24 hours persistent RUQ pain, progressive acute jaundice at OSH 11/27, eventually febrile, transferred to [facility] for cholangitis, GI consulted. GI Problem List: [...] edema Neuro: Grossly nonfocal Labs: Recent Labs 11/29/14 0422 11/28/14 021 WBC 5.4 5.2 HGB 11.6* 11.4* HCT 34.1* 33.8* PLATELET 165 135* NEUTROABS 3.69 3.43 Recent Labs 11/29/14 0422 11/28/14 0211 NA 138 142 K 4.0 3.9 CL 99 103 CO2 29 28 BUN 14 16 CREATININE 1.14 1.25 Recent Labs 11/29/14 0422 11/28/14 0211 CALCIUM 8.6 8.7 MAGNESIUM -- 0.74 PHOS -- 2.7 Recent Labs 11/29/142 11/28/14 021 AST 89* 125* ALT 128* 155* ALKPHOS 210* 192* BILITOT 3.4* 5.4* BILIDIR 2.4* 4.5* Recent Labs 11/28/14 021 INR 1.1 PT 15.1 Microbiology: Blood Culture: [...] Code Felipe Licea Gastroenterology Fellow 11/29/2014 Pager #[phone] Staff Addendum: I have independently interviewed and [...] all 4 extremities equally Labs: Recent Labs 11/29/1442111/28/14210 WBC 5.4 5.2 HGB 11.6* 11.4* HCT 34.1* 33.8* PLATELET 165 135* NEUTROABS 3.69 3.43 Recent Labs 11/29/1442111/28/14210 NA 138 142 K 4.0 3.9 CL 99 103 CO2 29 28 BUN 14 16 CREATININE 1.14 1.25 GLUCOSE 102 86 Recent Labs 11/29/1442111/28/14210 CALCIUM 8.6 8.7 MAGNESIUM -- 0.74 PHOS -- 2.7 Recent Labs 11/29/14421 11/06/15 0211 AST 89* 125* ALT 128* 155* [...] admsion, maybe Mon or - NPO at CT tonight - good PO intake so d/c IVFs - cont zosyn for now per GI; although no signs of infection # HTN - cont home HCTZ # PPx: DVT - lovenox Diet - low residual diet Code - FULL CODE Latha Gunter MD Internal Medcine, PGY-1 [facility], Pager #[phone] 11/29/2014 I have seen and examined the [...] all 4 extremities equally Labs: Recent Labs 11/28/14 0211 WBC 5.2 HGB 11.4* HCT 33.8* PLATELET 135* NEUTROABS 3.43 Recent Labs 11/28/14 021 NA 142 K 3.9 CL 103 CO2 [...] MD Garrett Wasp, PGY-2 11/28/2014 Team Pager [phone] I have seen and examined the patient, [...] Based on clinical cholangitis, pt transferred to [facility], placed on IVF, NPO Zosyn, consented for [...] Electronically signed by: Felipe Licea Gastroenterology Fellow [facility] Pager [phone] 11/28/2014 Lazaro Kaiser MD - 11/28/2014 1:18 [...] meds: Cont hctz # Prophylaxis - lovenox sc # Full code Stephen Perez MD PGY3 Pager [phone] I have seen and examined the patient, [...] Lowe MD - 12/02/2014 7:31 AM EDT [facility] Operative Note Patient Name: Trina Vincent : [id number] MR#: [id number] Case Date: 12/01/2014 Surgeon: Surgeon(s) and Role: * Yamil Ferraro MD - Primary * Inder Lowe MD - Resident-Surgeon Tio * Zaki Gama MD - Resident-[employer] Department Chair Preoperative diagnosis: CHOLEDOCOLITHIASIS Postoperative diagnosis: CHOLEDOCOLITHIASIS Procedure(s): [...] and the bag was removed with a nicholas clamp. The specimen was sent for pathology. [...] with patient OUTCOME EVALUATION NOTE: OUTCOME SUMMARY: Trina had a good night this shift. He [...] in bed. Supervision: Independent with ADL's. Surveillance: Masimo, purposeful rounding. CPG GOAL OUTCOME EVALUATION: Goal: [...] of Human Response Clinical Practice Guideline (CPG) 12/01/14354 Pain, Acute Related Risk Factors (Acute Pain) disease process Signs and Symptoms (Acute Pain) verbalization of pain descriptors Goal: Acceptable Pain Control/Comfort Level Patient will demonstrate the desired outcomes. 12/01/14354 Pain, Acute (Adult, Obstetrics) Acceptable Pain Control/Comfort [...] (Interventions Implemented as Appropriate) 12/01/14 0355 12/01/14 180 Pain, Acute Related Risk Factors (Acute Pain) disease process -- Signs and Symptoms (Acute Pain) -- facial mask of pain/grimace;verbalization of pain descriptors Goal: Acceptable Pain Control/Comfort Level Patient will demonstrate the desired outcomes. Outcome: Ongoing (Interventions Implemented as Appropriate) 12/01/14 180 Pain, Acute (Adult, Obstetrics) Acceptable Pain Control/Comfort Level making progress toward outcome Brief Op Note - Inder Lowe MD - 12/01/2014 12:12 PM EDT Brief Operative Note Patient Name: Trina Vincent : [id number] MR#: [id number] Case Date: 12/01/2014 Surgeon: Surgeon(s) and Role: * Yamil Ferraro MD - Primary * Inder Lowe MD - Resident-Surgeon Tio * Zaki Gama MD - Resident-[employer] Department Chair Preoperative diagnosis: CHOLEDOCOLITHIASIS Postoperative diagnosis: CHOLEDOCOLITHIASIS Procedure(s): [...] with patient OUTCOME EVALUATION NOTE: OUTCOME SUMMARY: Trina had a good night this shift. He denies SOB, CP, N/V. Denies pain at this time and is aware to call RN if pain level increases. Pt repositions himself in bed prn. Voiding adequately. He has beenNPO since CT and is scheduled to go to OR [...] be going to the OR until tomorrow (Tues AM), diet switched from NPO to restricted [...] Intermittent, pt making needs known Surveillance: Purposeful omer cannon CPG GOAL OUTCOME EVALUATION: Goal: Individualization and [...] Ferraro MD - 11/30/2014 10:24 AM EDT [facility] Department of Acute Care Surgery Inpatient Consult Note Consultation Requested by: Lazaro Kaiser MD History of Present Illness: We are seeing Trina Vincent today at the request of Lazaro Stallings MD for evaluation and advice about cholecystectomy in the setting of choledocholithiasis. Mr. Vincent is 74 y.o. Man with PMH of HTN who presented to [facility] on [facility]/28 with worsening RUQ abdominal pain [...] in the past when he was in [place] which resolved after a couple of days. He had a RUQ US on 11/28 at [facility] whichshowed gallstones no acute cholecystitis and a [...] ??? Ercp,diagnostic N/A 11/28/2014 ERCP performed by Wiley Hemphill MD at [facility] ENDOSCOPY Family History: Emphysema Bone cancer Social [...] wishes to proceed. Please Make NPO at CT Recommendations: - NPO at CT - Plan for Cholecystectomy tomorrow morning - Type and screen - Discussed with Dr. Ferraro Thank you for this consult. If you have any questions regarding this consult, please page [phone] [X] Consult service to continue to follow [] Consult service to sign off Inder Lowe MD ADDENDUM: I have independently seen and evaluated the patient. I agree with the assessment and plan listed above with the following additions: Trina Vincent is a 74 y.o. male admitted [...] RUQ pain, progressive acute jaundice at OSH /5, cholestatic LFTs transaminases 200s, alk phos 200, T.bili 4.2. Last evening at OSH multiple temperatures at > 38C. Absd US noting interval increased CBD dilation to 9mm, cholelithiasis, sludge in gallbladder. Based on clinical cholangitis, pt transferred to [facility], placed on IVF, NPO Zosyn, consented for ERCP. S: I was surprised I could stand up today after the procedure but I was fine, I even ate a little fruit. O: Chart reviewed and met with pt who is lying in bed in [facility]. Pt had lap hansa this am and [...] Ongoing (Interventions Implemented as Appropriate) 11/29/14 1753 11/29/14 1934 Plan of Care Review Plan of Care [...] Ongoing (Interventions Implemented as Appropriate) 11/29/14 1753 Plan of Care Review Plan of Care [...] FALL PREVENTION: Assistance: independent Supervision: independent Surveillance: omer, hourly rounding CPG OUTCOME EVALUATION: progress Plan [...] FORWARD: INDIVIDUALIZED FALL PREVENTION: Assistance: Supervision: Surveillance: omer and rounding CPG GOAL OUTCOME EVALUATION: Goal: Individualization and Mutuality Outcome: Ongoing (Interventions Implemented as Appropriate) 11/28/14 06 Mutuality/Individual Preferences What anxieties, fears or concerns [...] Control Outcome: Ongoing (Interventions Implemented as Appropriate) 11/28/141930 Safety Interventions Isolation Precautions standard precautions maintained [...] Intermittent, pt making needs known Surveillance: Purposeful rounding, Omer CPG GOAL OUTCOME EVALUATION: Goal: Individualization and [...] Assistance: Standby assist Supervision: With ADLS/Transfers Surveillance: Fernando Ortizful rounding CPG OUTCOME EVALUATION: Goal: Individualization and [...] Ongoing (Interventions Implemented as Appropriate) 11/27/14 2343 11/28/14 0708 Safety Interventions Isolation Precautions -- standard [...] 04/17/2022 Office Visit Dermatology Pete Baltazar MD [address] [place] [address] DERMATOLOGY [place], [place] [address] (Wo rk) Pending Results [...] section. TYPE AND SCREEN Routine 12/01/2014 4:15 ([facility]) AM EDT HEPATIC FUNCTION PANEL Routine 12/01/2014 [...] EDT procedure are in the results section. BLOOD CULTURE STAT 11/28/2014 3:26 Results for [...] (ABNORMAL) Differential, Automated (12/02/2014 3:35 AM EDT) [facility] Method Time Signature Neutrophils % 83.6 % [...] Organization Address City/State/[place] [address] CERNER MILLENNIUM (ABNORMAL) Hemogram [...] Kaiser MD HEMATOLOGY ORDERABLES Performing Organization Address City/[facility] [place] [address] CERNER MILLENNIUM (ABNORMAL) Hepatic Function Panel (12/02/2014 3:35 AM EDT) athologist Signature Total Protein 6.3 6.1 - [...] Kaiser MD CHEMISTRY ORDERABLES Performing Organization Address City/[facility] [place] [address] CERNER MILLENNIUM (ABNORMAL) Basic Metabolic Panel (non-fasting) (12/02/2014 3:35 AM EDT) athologist Signature Glucose Lvl 147 65 - 199 CERNER mg/dL MILLENNIUM Comment: Diabetes: >=200 mg/dL plus symp toms BUN 15 10 - 20 mg/dL CERNER MILLENNIU M Creatinine 1.31 0.80 - 1.50 mg/dL CERNER MILL ENNIUM Comment: Please note that the pediatric reference intervals supplied above were not validated at [facility]. Results from pediatri c patients should be [...] the following links into your internet browser. [email or web address] Specimen Anatomical Collection Method Collection Time Receive d Time (Source) Location / / Volume Laterality Blood specimen 12/02/2014 3:35 AM 015 3:44 (specimen) EDT AM EDT Resulting Agency Comment Spec In Lab Lazaro Kaiser MD CHEMISTRY ORDERABLES Performing Organization Address City/State/ZIP Code Phon e Number [place] [phone] [facility] Surgical Pathology Report (12/01/2014 11:45 AM EDT) Component Value Ref Test Analysis Performed At [facility] Range Method Time Signature Surgical [facility] Pathology ? [facility] Report ? Provider: ?? YAMIL FERRARO ??Pt. Name: ?? TRINA VINCENT ? Acc #: ?[id number] ?Pt. MRN: ?[id number] ? Col Date: ?? 12/01/2014 ?/Sex: ?1940,(74 [...] MD PATHOLOGY/CYTOLOGY ORDERABLE S Performing Organization Address City/[facility]/ZIP Code Phon e Number [address] [facility] Specimen to Pathology (surgical or derm) (12/01/2014 11:21 AM EDT) Specimen Anatomical Collection Method Collection Time Receive d Time (Source) Location / / Volume Laterality AP Specimen 12/01/2014 11:21 12/01/2014 AM EDT 11:21 AM EDT Narrative [facility] - 12/01/2014 11:21 AM EDT Specimen requisition ordered. ??Separate Pathology report to follow Yamil Ferraro MD PATHOLOGY/CYTOLOGY ORDERABLE S Performing Organization Address City/[facility]/[place] [address] [facility] Antibody screen (12/01/2014 4:15 AM EDT) Analysis Performed At [facility] logis Time Signature Ab Screen Negative [facility] Inter MILLENNIUM Expires at [id number] [facility] 2358 on: MILLENNIUM Specimen Anatomical Collection Method Collection Time Receive d Time (Source) Location / / Volume Laterality Blood specimen 12/01/2014 4:15 AM 015 5:26 (specimen) EDT AM EDT Resulting Agency Comment Spec In Lab Lazaro Kaiser MD BLOOD BANK ORDERABLES Performing Organization Address City/[facility]/ZIP Code Phon e Number [address] CERNER MILLENNIUM ABO/Rh Typing (12/01/2014 4:15 AM EDT) athologist Signature ABORh Type A Neg CERNER MILLENNIUM Specimen Anatomical Collection Method Collection Time Receive d Time (Source) Location / / Volume Laterality Blood specimen 12/01/2014 4:15 AM 015 5:26 (specimen) EDT AM EDT Resulting Agency Comment Spec In Lab Lazaro Kaiser MD BLOOD BANK ORDERABLES Performing Organization Address City/[facility]/ZIP Code Phon e Number [address] CERNER MILLENNIUM Differential, Automated (12/01/2014 4:15 AM EDT) athologist [...] Diop MD HEMATOLOGY ORDERABLES Performing Organization Address City/[facility]/[place] [address] CERNER MILLENNIUM (ABNORMAL) Hemogram [...] Diop MD HEMATOLOGY ORDERABLES Performing Organization Address City/[facility]/ZIP Code Phon e Number [address] CERNER MILLENNIUM (ABNORMAL) Hepatic [...] Organization Address City/State/ZIP Code Phon e Number [address] CERNER MILLENNIUM (ABNORMAL) Basic Metabolic Panel (non-fasting) (12/01/2014 4:15 AM EDT) athologist Signature Glucose Lvl 97 65 - 199 CERNER mg/dL MILLENNIUM Comment: Diabetes: >=200 mg/dL plus symp toms BUN 14 10 - 20 mg/dL CERNER MILLENNIU M Creatinine 1.24 0.80 - 1.50 mg/dL CERNER MILL ENNIUM Comment: Please note that the pediatric reference intervals supplied above were not validated at [facility]. Results from pediatri c patients should be [...] the following links into your internet browser. [email or web address] Specimen Anatomical Collection Method Collection Time Receive d Time (Source) Location / / Volume Laterality Blood specimen 12/01/2014 4:15 AM 015 4:41 (specimen) EDT AM EDT Resulting Agency Comment Spec In Lab Lazaro Kaiser MD CHEMISTRY ORDERABLES Performing Organization Address City/State/ZIP Code Phon e Number [place] [phone] LUBNA VELASQUEZIUM EKG 12 Lead (11/30/2014 6:16 PM EDT) [facility] gist Method Time Signature Ventricular rate 62 BPM MUSE SYSTEM Atrial Rate 62 BPM MUSE SYSTEM P-R Interval 144 ms MUSE SYSTEM QRS Duration 122 ms MUSE SYSTEM Q-T Interval 458 ms MUSE SYSTEM QTC Calculated 464 ms MUSE SYSTEM (Bezet) Calculated P [place] 37 degrees MUSE SYSTEM Calculated R [place] -14 degrees MUSE SYSTEM Calculated T [place] 6 degrees MUSE SYSTEM INTERPRETATION Normal sinus rhythm MUSE SYSTEM Right bundle branch block Moderate voltage criteria for LVH, may be normal variant Abnormal ECG No previous ECGs available Confirmed by MD URRUTIA ARMIN ([id number]) on 11/30/2014 11:05:18 PM Specimen Anatomical Collection Method Collection Time Receive d Time (Source) Location / / Volume Laterality 11/30/2014 6:16 PM 201 5 EDT 11:05 PM EDT Gisel Tovar MD ECG ORDERABLES Performing Organization Address City/State/ZIP Code Phon e Number MUSE SYSTEM Differential, Automated (11/30/2014 3:45 AM EDT) athologist Signature Neutrophils % 61.8 % CERNER [...] Organization Address City/State/[place] [address] CERNER MILLENNIUM (ABNORMAL) Hemogram [...] Organization Address City/State/[place] [address] CERNER MILLENNIUM (ABNORMAL) Hepatic [...] Organization Address City/State/ZIP Code Phon e Number DIANE [place] [phone] CERNER MILLENNIUM (ABNORMAL) Basic Metabolic Panel (non-fasting) (11/30/2014 3:45 AM EDT) P athologist Signature Glucose Lvl 105 65 - 199 CERNER mg/dL MILLENNIUM Comment: Diabetes: >=200 mg/dL plus symp toms BUN 16 10 - 20 mg/dL CERNER MILLENNIU M Creatinine 1.34 0.80 - 1.50 mg/dL CERNER MILL ENNIUM Comment: Please note that the pediatric reference intervals supplied above were not validated at [facility]. Results from pediatri c patients should be [...] the following links into your internet browser. [email or web address] Specimen Anatomical Collection Method Collection Time Receive d Time (Source) Location / / Volume Laterality Blood specimen 11/30/2014 3:45 AM 015 4:27 (specimen) EDT AM EDT Resulting Agency Comment Spec In Lab Lazaro Kaiser MD CHEMISTRY ORDERABLES Performing Organization Address City/State/ZIP Code Phon e Number [place] [phone] CERNER MILLENNIUM (ABNORMAL) Differential, Automated (11/29/2014 4:22 AM EDT) [facility] Method Time Signature Neutrophils % 68.9 [...] Diop MD HEMATOLOGY ORDERABLES Performing Organization Address City/[facility]/[place] [address] CERNER MILLENNIUM (ABNORMAL) Hemogram [...] Organization Address City/State/ZIP Code Phon e Number [address] CERNER MILLENNIUM (ABNORMAL) Hepatic [...] Organization Address City/State/[place] [address] CERNER MILLENNIUM Basic Metabolic Panel (non-fasting) (11/29/2014 4:22 AM EDT) athologist Signature Glucose Lvl 102 65 - 199 CERNER mg/dL MILLENNIUM Comment: Diabetes: >=200 mg/dL plus symp toms BUN 14 10 - 20 mg/dL CERNER MILLENNIU M Creatinine 1.14 0.80 - 1.50 mg/dL CERNER MILL ENNIUM Comment: Please note that the pediatric reference intervals supplied above were not validated at [facility] [place]. Results from pediatri c patients should be [...] IUM CO2 29 22 - 31 mmol/L CERNER MILLENNI UM Anion Gap 10 5 - 15 mmol/L CERNER MILLENNIU M Calcium 8.6 8.5 - 10.5 mg/dL CERNER YNES NIUM Estimated GFR >60 >=60 CERNER MILLENNIU M Comment: This estimated [...] the following links into your internet browser. [email or web address] Specimen Anatomical Collection Method Collection Time Receive d Time (Source) Location / / Volume Laterality Blood specimen 11/29/2014 4:22 AM 015 4:30 (specimen) EDT AM EDT Resulting Agency Comment Spec In Lab Lazaro Kaiser MD CHEMISTRY ORDERABLES Performing Organization Address [facility]/State/[place] [address] LUBNA MATHUR Blood culture (11/28/2014 3:26 AM EDT) [facility] Method Time Signature Blood Culture [facility] ? Patient Name: TRINA VINCENT ? Ordered By: JONATHAN DIOP ? MR#: [id number] ?LOC: ??3WST ? /Sex: ??1940 (74 years), [...] Organization Address City/State/[place] [address] LUBNA MATHUR Blood culture (11/28/2014 3:21 AM EDT) [facility] Method Time Signature Blood Culture CERNER ? Patient Name: TRINA VINCENT ? Ordered By: JONATHAN DIOP ? MR#: [id number] ?LOC: ??3WST ? /Sex: ??1940 (74 years), [...] Organization Address City/State/[place] [address] CERNER MILLENNIUM (ABNORMAL) Differential, Automated (11/28/2014 2:11 AM EDT) [facility] Method Time Signature Neutrophils % 65.9 [...] Diop MD HEMATOLOGY ORDERABLES Performing Organization Address City/[facility]/[place] [address] CERNER MILLENNIUM (ABNORMAL) Hemogram [...] Diop MD HEMATOLOGY ORDERABLES Performing Organization Address City/[facility]/[place] [address] CERNER MILLENNIUM (ABNORMAL) Hepatic [...] Organization Address City/State/ZIP Code Phon e Number [address] CERNER MILLENNIUM (ABNORMAL) Basic Metabolic Panel (non-fasting) (11/28/2014 2:11 AM EDT) athologist Signature Glucose Lvl 86 65 - 199 CERNER mg/dL MILLENNIUM Comment: Diabetes: >=200 mg/dL plus symp toms BUN 16 10 - 20 mg/dL CERNER MILLENNIU M Creatinine 1.25 0.80 - 1.50 mg/dL CERNER MILL ENNIUM Comment: Please note that the pediatric reference intervals supplied above were not validated at [facility] [place]. Results from pediatri c patients should be [...] the following links into your internet browser. [email or web address] Specimen Anatomical Collection Method Collection Time Receive d Time (Source) Location / / Volume Laterality Blood specimen 11/28/2014 2:11 AM 015 2:17 (specimen) EDT AM EDT Resulting Agency Comment Spec In Lab Lazaro Kaiser MD CHEMISTRY ORDERABLES Performing Organization Address City/[facility] Code Phon e Number [address] CERNER MILLENNIUM Lipase (11/28/2014 2:11 AM EDT) P athologist Signature Lipase 34 0 - 60 CERNER unit/L MILLENNIUM Specimen Anatomical Collection Method Collection Time Receive d Time (Source) Location / / Volume Laterality Blood specimen 11/28/2014 2:11 AM 015 2:17 (specimen) EDT AM EDT Resulting Agency Comment Spec In Lab Jonathan Diop MD CHEMISTRY ORDERABLES Performing Organization Address [facility]/ZIP [facility] [place] [address] CERNER MILLENNIUM Phosphorus (11/28/2014 2:11 AM EDT) P athologist Signature Phosphorus 2.7 2.5 - 4.5 CERNER mg/dL MILLENNIUM Specimen Anatomical Collection Method Collection Time Receive d Time (Source) Location / / Volume Laterality Blood specimen 11/28/2014 2:11 AM 015 2:17 (specimen) EDT AM EDT Resulting Agency Comment Spec In Lab Jonathan Diop MD CHEMISTRY ORDERABLES Performing Organization Address City/[facility]/[place] [address] CERNER MILLENNIUM Magnesium (11/28/2014 2:11 AM EDT) athologist Signature Magnesium 0.74 0.69 - 1.07 CERNER mmol/L MILLENNIUM Specimen Anatomical Collection Method Collection Time Receive d Time (Source) Location / / Volume Laterality Blood specimen 11/28/2014 2:11 AM 015 2:17 (specimen) EDT AM EDT Resulting Agency Comment Spec In Lab Jonathan Diop MD CHEMISTRY ORDERABLES Performing Organization Address City/[facility] [place] [address] CERNER MILLENNIUM Prothrombin Time (11/28/2014 2:11 AM EDT) athologist Signature PT 15.1 12.5 - 15.5 [...] Diop MD HEMATOLOGY ORDERABLES Performing Organization Address City/[facility]/[place] [address] CERNER MILLENNIUM documented in this encounter Visit Diagnoses Not on filedocumented in this encounter Administered Medications Inactive Administered Medications - up to 3 most recent administrations Medication Order MAR Action Action Date Dose Rate Site BUpivacaine (PF) (MARCAINE) 0.25 % Given 12/01/2014 11:00 AM EDT 40 mg (2.5 mg/mL) injection ONCE PRN, Starting on Sun12/01/14 at 1100, Until Sun12/01/14 at 1335, Intra-Operative (Intra-Procedure), Routine documented in this encounter Active and Recently Administered Medications Times are shown in EDT. Scheduled Medication Order 11/30/2014 12/01/2014 12/02/2014 heparin (porcine) subcutaneous injection 5,000 Units (CANCEL ED) 0900 (AUG Hold - Provider: Admin Adt - Reason: Transfer to a Procedural area)1342 (AUG Unhold - Provider: Admin Adt)211 (Given - Provider: Marquita Valdez RN) 0939 (Given - Provider: Natalia Valverde, NASRIN) 5,000 Units, Subcutaneous, EVERY 12 HOUR S SCHEDULED (2 times per day), First dose on Sun12/01/14 at 2100, Until Discontinued, Routine hydrochlorothiazide (HYDRODIURIL) tablet 25 mg (CANCEL ED) 0822 (Given - Provider: Trudy Walden RN) 25 mg, Oral, DAILY, First dose on 12/07 at 0900, Until Discontinued, Routine hydrochlorothiazide (HYDRODIURIL) tablet 25 mg (CANCELED) 0844 (Given - Provider: Natalia Valverde, NASRIN)0900 (AUG Hold - Provider: Admin Adt - Reason: Transfer to a Procedural area)134 (AUG Unhold - Provider: Admin Adt) 0939 [...] Suspected): GI/Intra-abdominal 2117 (Given - Provider: Marquita Valdez RN) senna-docusate (PERICOLACE) 8.6-50 mg per tablet 2 tab let (CANCELED) 0822 (Given - Provider: Trudy Walden RN)214 (Given - Provider: Reva Hester RN) 0844 (Given - Provider: Natalia Valverde RN)0900 ([facility] Hold - Provider: Admin Adt - Reason: Transfer to a Procedural area)1342 ([facility] Unhold - Provider: Admin Adt)211 (Given - Provider: Marquita Valdez RN) 0939 (Given - Provider: Natalia Valverde RN) 2 tablet, Oral, 2 TIMES DAILY, First dos e on 11/28/14 at 0145, Until Discontinued, Routine sodium chloride 0.9 % flush 5 mL (CANCELED) 0823 (Give n - Provider: Trudy Walden RN)2147 (Given - Provider: Reva Hester, NASRIN) 0900 (Not Given - Provider: Natalia Valverde RN - Reason: See comment - Comment: IV infusing)0901 (AUG Hold - Provider: Admin Adt - Reason: Transfer to a Procedural area)1342 (AUG Unhold - Provider: Admin Adt) 0939 (Given - Provider: Natalia Valverde, NASRIN) 5 mL, Intravenous, 2 TIMES DAILY, First [...] at 100 ml/hr)0943 (Given - Provider: Trudy Walden, NASRIN) Intravenous, ONCE, 1 dose, 11/30/14 at 0915 Continuous Medication Order 11/30/2014 12/01/2014 12/02/2014 lactated ringers infusion (CANCELED) 124 1 (New Bag - Provider: Mohini Cunha RN) 100 mL/hr, at 100 mL/hr, Intravenous, CO NTINUOUS, Starting 12/01/14 at 1245, Until Sun12/02/14 at 1344 PRN Medication Order 11/30/2014 12/01/2014 12/02/2014 acetaminophen (TYLENOL) tablet 650 mg (CANCELED) 0900 (AUG Hold - Provider: Admin Adt - Reason: Transfer to a Procedural area)1236 (AUG Unhold - Provider: Mohini Cunha RN)1238 (Given - Provider: Mohini Cunha RN) 650 mg, Oral, EVERY 6 HOURS PRN, Startin g 11/28/14 at 0128, Until Sun12/02/14 at 1344, Pain, Fever, Administer for temperature greater than or equal to 38.2 degrees celsius. Maximum daily dose of acet aminophen from all sources not to exceed 4,000 mg., Routine BUpivacaine (PF) (MARCAINE) 0.25 % (2.5 mg/mL) injection (CA NCELED) 1100 (Given - Provider: Yamil Ferraro MD - Comment: 8 ml) ONCE PRN, Starting 12/01/14 at 1100, U ntil e 12/01/14 at 1335, Intra-Operative (Intra-Procedure), Routine documented in this encounter Care Teams Bilingual Secretary Relationship Specialty Start Date End Date Benedicto Amador MD PCP - General 05/17/10 06/24/19 documented as of this encounter
--- OUTSIDE RECORDS SUMMARY | 2022-01-27 01:59 | XMS_ITS | Encounter Summary ---
:1940 [place] [address] Care Team Providers Name Role Phone Arik Amador MD Primary Care Provider Encounter Details Date Type Department Care Team Description 12/01/2014 Anesthesia Event Main Operating Room Gisel Fritz MD [facility] [place] [address] [facility] Bon Martinez [facility] [place] [address] [facility] [address] Anesthesia Record Procedure Summary Procedure Name Responsible Anesthesia Start Anesthesia Stop Anesthesiologist Time Time LAPAROSCOPIC Gisel Tovar MD 12/01/14 0916 12/01/14 120 7 CHOLECYSTECTOMY (WRVU 10.47) (N/A Abdomen) Events Date Time Event Comment 12/01/2014 0916 0916 Start 0918 AN Verify 0918 An Start Data 0923 An Induction 0927 An Intubation 0929 Anesthesia Ready 0944 Procedure Start Time out perform ed, antibiotics discussed: okay to stay with schedu led Heather. 1154 Extubation/LMA Out OPA in place, mouth suctioned, eyes open to command, ett rem nidia. To FM O2 with adequate SV/VT. To PACU, report to RN, VSS, denies pain. 1157 an stop data 1207 Stop Name Total Midazolam 1 mg fentaNYL 150 mcg IV Lidocaine 30 mg Propofol 150 mg Rocuronium 80 mg PHENYLephrine 480 mcg ePHEDrine 5 mg Ondansetron 4 mg Dexamethasone 4 mg Neostigmine 4 mg Glycopyrrolate 0.8 mg Propofol INF 159.03 mg Lidocaine 4% LTA 3 mL Lactated Ringers 700 mL Agents Name O2 Air N2O Sevoflurane (et) Blood No blood administrations on file. Lines, Drains, and Airways Type Details Placement Removal Incision 12/01/14; abdomen; 12/01/14 0000 by Lycan, laparoscopic puncture Ashley Perez RN PIV 11/29/14; 2051; cephalic 11/29/142051 by 151 by vein left (lateral side of Danelle Seals Richardson, Amelia C, arm); [id number]-[id number]-engsbr RN RN catheter system; 20 gauge, 1 in length; intradermal injection; 12/02/14; 151 ETT Mask Ventilation: Adjunct 12/01/14 0927 by 12/01 1154 by (2); ETT Type: Cuffed, Oral; Bon Martinez , Bon Martinez, ETT Size: 7.5 mm; Mac Blade: DARIN Kemp 3; Notes: Asleep, Pre-O2, Stylette; Attempts: 1; Laryngoscopy Grade: 1; ETT Placement Verified By: Auscultation, Capnometry, Visual; Secured at Teeth: 21 cm; Inserted by: gianni NG/OG Tube 12/01/14; 0932; orogastric; 12/01/14 0932 by 03/09 1042 by 18 Fr; mouth; 12/01/14; 1042 Bon Martinez , Bon Martinez, DARIN WEBSTER documented in this encounter Social History Tobacco Use Types Packs/Day Years Used Date Former Smoker Quit: 06/30/18 69 Smokeless Tobacco: Never Used Alcohol Use Standard Drinks/Week Comments Yes 5 (1 standard drink = 0.6 oz pure alcoho l) Sex Assigned at Date Recorded Not on file documented as of this encounter OR Notes Anesthesia Postprocedure Evaluation - Gisel Tovar MD - 12/01/2014 3:53 PM EDT Patient: Toni Wells Procedure(s) Performed: Procedure(s): LAPAROSCOPIC CHOLECYSTECTOMY Actual Anesthetic: general Patient location: PACU Post-op pain: Adequate analgesia Post-op nausea: no nausea or vomiting Last Vitals: Filed Vitals: 12/01/14 1406 BP: 133/64 Pulse: 61 Temp: 36.6 ??C (97.9 ??F) Resp: 17 Post-op cardiovascular and respiratory status: is stable Level of consciousness: awake, alert and oriented Complications: no apparent complications and tolerated the procedure well Fluid Status: normal Anesthesia Preprocedure Evaluation - Gisel Tovar MD - 11/30/2014 5:33 PM EDT Pre-Anesthesia Evaluation for: Toni Wells a 74 y.o. male. Procedure(s): LAPAROSCOPIC CHOLECYSTECTOMY Patient Active Problem List Diagnosis ??? Choledocholithiasis S/p ERCP on 11/28/2014 ??? Hypertension ??? History of squamous cell carcinoma ??? Squamous cell carcinoma ??? History of malignant melanoma ??? Actinic keratosis No past medical history on file. Past Surgical History Procedure Laterality Date ??? Ercp,diagnostic N/A 11/28/2014 ERCP performed by Wiley Hemphill MD at [facility] ENDOSCOPY History Substance Use Topics ??? Smoking status: Former Smoker Quit date: 06/30/1969 ??? Smokeless tobacco: Never Used ??? Alcohol Use: 3.0 oz/week 5 Cans of beer per week History Drug Use No Allergies Allergen Reactions ??? Codeine ??? Tylox [Oxycodone-Acetaminophen] Medications: MAR and/or home medications have been reviewed. Physical Exam: Filed Vitals: 11/30/14 1708 BP: 144/76 Pulse: 63 Temp: 36.4 ??C (97.5 ??F) Resp: 18 Body mass index is 22.51 kg/(m^2). Height: 172.7 cm (5' 8) Weight - Scale: 67.132 kg (148 lb) Airway Assessment: Mallampati: I TM distance: >3 FB Neck ROM: full No airway mgmt hx available. Cardiovascular Assessment: Pulmonary Assessment: Dental Assessment: (+) upper dentures and lower dentures Misc Assessment: IV access: Peripheral line Anesthesia Plan: ASA 2 general, with a(n) intravenous induction 74 yo M w/ episodes biliary colic, choledocholithiasis, s/p ERCP w/ sweeping and sphincterotomy, presents for laparoscopic cholecystectomy. HTN Hx melanoma Hx SCCa Former smoker - quit 1969 No URi No GERd No hx problems w/ anesthesia No CP, RICHARDS Allergies: Codeine, oxycodone/acetaminophen Wt: 67.1 kg NPO: solids 1900, liquids 0845(sip H2O w/ meds) Code: Full 11/30/14 WBC 5.8, H/H 11.5/35, plts 180 Na 142, K 4.2, BUN 16, Cr 1.37, eGFR 52 (NB 11/29/14 Cr 1.14, eGFR greater than 60) ECG - NSR, RBBB, LVH by voltage Plan GAET, std ASA monitors, adequate IV access Plan GAET, std ASA monitors, adequate IV access. Region - Other Informed Consent: Anesthetic plan and risks discussed with patient. Use of blood products discussed with patient whom consented to blood products. Plan discussed with [facility] Assessment: documented in this encounter Plan of Treatment Upcoming Encounters Date Type Specialty Care Team Description 04/17/2022 Office Visit Dermatology Pete Baltazar MD [address] [place] [address] D[place]MATOLOGY [place], [place] [address] (Wo rk) documented as of this encounter Visit Diagnoses Not on filedocumented in this encounter Administered Medications Inactive Administered Medications - up to 3 most recent administrations Medication Order MAR Action Action Date Dose Rate Site dexamethasone (DECADRON) injection Given 12/01/2014 9:31 AM EDT 4 mg PRN, Starting on Sun12/01/14 at 0931, Until Sun12/01/14 at 1209, Anesthesia Intra-op, Routine ePHEDrine 5 mg/mL multi-dose injection Given 12/01/2014 9:43 AM EDT 5 mg PRN, Starting on Sun12/01/14 at 0943, Until Tu12/01/14 at 1209, Anesthesia Intra-op, Routine fentaNYL 50 mcg/mL multi-dose injection Given 12/01/2014 11:38 AM EDT 50 mcg PRN, Starting on Sun12/01/14 at 0922, Until Sun12/01/14 at 1209, Pain, Anesthesia Intra-op, Routine Given 12/01/2014 9:22 AM EDT 100 mcg glycopyrrolate (ROBINUL) multi-dose Given 12/01/2014 11:37 AM ED T 0.6 mg injection PRN, Starting on Sun12/01/14 at 0939, Until Sun12/01/14 at 1209, Anesthesia Intra-op, Routine Given 12/01/2014 9:42 AM EDT 0.1 mg Given 12/01/2014 9:39 AM EDT 0.1 mg lactated ringers infusion New Bag 12/01/2014 9:16 AM EDT CONTINUOUS PRN, Starting on Sun12/01/14 at 0916, Until Sun12/01/14 at 1209, Anesthesia Intra-op lidocaine (PF) (XYLOCAINE) 100 mg/5 mL (2 %) Given 5 9:23 AM EDT 30 mg injection PRN, Starting on Sun12/01/14 at 0923, Until Sun12/01/14 at 1209, Anesthesia Intra-op, Routine lidocaine (XYLOCAINE) 4 % external solut ion Given 12/01/2014 9:27 AM EDT 3 mLs PRN, Starting on Sun12/01/14 at 0927, Until Sun12/01/14 at 1209, Anesthesia Intra-op midazolam (PF) (VERSED) 1 mg/mL multi-dose Given 12/01/2014 9:21 AM EDT 0.5 mg injection PRN, Starting on Sun12/01/14 at 0916, Until Sun12/01/14 at 1209, Sleep, Anesthesia Intra-op, Routine Given 12/01/2014 9:16 AM EDT 0.5 mg neostigmine (PROSTIGMINE) multi-dose inj ection Given 12/01/2014 11:37 AM EDT 4 mg PRN, Starting on Sun12/01/14 at 1137, Until Sun12/01/14 at 1209, Anesthesia Intra-op, Routine ondansetron (ZOFRAN) injection Given 12/01/2014 11:20 AM EDT 4 mg PRN, Starting on Sun12/01/14 at 1120, Until Sun12/01/14 at 1209, Nausea, Anesthesia Intra-op, Routine PHENYLephrine HCl in NS (PF) Given 12/01/2014 11:02 AM EDT 80 mc g (KEELY-SYNEPHRINE) 0.8 mg/10 mL (80 mcg/mL) multi-dose injection Syrg PRN, Starting on Sun12/01/14 at 1017, Until Sun12/01/14 at 1209, Anesthesia Intra-op, Routine Given 12/01/2014 10:58 AM EDT 80 mcg Given 12/01/2014 10:51 AM EDT 80 mcg propofol (DIPRIVAN) 10 mg/mL bolus injection Given 02/2015 9:23 AM EDT 150 mg (Anesthesia) PRN, Starting on Sun12/01/14 at 0923, Until Sun12/01/14 at 1209, Anesthesia Intra-op propofol (DIPRIVAN) infusion New Bag 12/01/2014 9:31 AM 30 mcg/kg/min 12.1 mL/hr CONTINUOUS PRN, Starting on EDT Sun12/01/14 at 0931, Until Sun12/01/14 at 1209, Anesthesia Intra-op, Routine rocuronium (ZEMURON) multi-dose injectio n Given 12/01/2014 10:58 AM EDT 10 mg PRN, Starting on Sun12/01/14 at 0924, Until Sun12/01/14 at 1209, Anesthesia Intra-op, Routine Given 12/01/2014 10:40 AM EDT 10 mg Given 12/01/2014 9:24 AM EDT 60 mg documented in this encounter Care Teams Chemicals Distiller Relationship Specialty Start Date End Date Arik Amador MD PCP - General 05/17/10 06/24/19 documented as of this encounter
--- OUTSIDE RECORDS SUMMARY | 2022-01-27 01:59 | XMS_ITS | Encounter Summary ---
:1940 Author Organization [facility] [place] [address] Care Team Providers Name Role Phone Arik Amador MD Primary Care Provider Encounter Details Date Type Department Care Team Description 11/28/[address] [facility] Heidi Amador MD [facility] [address] [place] [address] [place] [phone] (Wo rk) Social History Tobacco Use Types [...] Care Team Description 04/17/2022 Office Visit Dermatology ePte Baltazar MD [address] [place] [address] DERMATOLOGY [place], [place] [address] (Wo rk) documented as of this encounter Procedures Procedure Name Priority Date/Time Associated Diagnosis Comme nts ERCP Routine 11/28/2014 8:44 AM Results f or this EDT procedure are i n the results section . documented in this encounter Results ERCP (11/28/2014 8:44 AM EDT) [facility] Method Time Signature ERCP [facility] Endoscopy Patient Name: Toni Wells ? Procedure Date: 11/28/2014 8:44 AM ? Date of : 1940 ? Age: 74 ? Order #: [id number] ? Procedure: ? ERCP Providers: ? Wiley Hemphill MD, Sara Dee, ? Paula Smart Optical Store Manager, Fatoumata galvez ? MD Vinayak Referring : ?Arik Amador MD Requesting Provider: Dr. Carrasquillo Medicines: ? Midazolam 5 mg IV, Fentanyl 200 ? micrograms IV, Diphenhydramin e 50 mg ? IV Complications: ? No immediate complications. Procedure: ? Pre-Anesthesia Assessment: ? - Prior to the procedure, a H istory ? and Physical was performed, a nd ? patient medications and aller gies ? were reviewed. The patient is ? competent. The risks and bene fits of ? the procedure and the sedatio n ? options and risks were discus sed with ? the patient. All questions we re ? answered and informed consent was ? obtained. Patient identificat ion and ? proposed procedure were verif ied by ? the physician in the pre-proc edure ? area. Mental Status Examinati on: ? alert and oriented. Airway ? Examination: normal oropharyn geal ? airway and neck mobility. Res piratory ? Examination: clear to auscult ation. ? CV Examination: normal. Proph ylactic ? Antibiotics: The patient does not ? require prophylactic antibiot ics. ? Prior Anticoagulants: The pat ient has ? taken no previous anticoagula nt or ? antiplatelet agents. ASA Grad e ? Assessment: II - A patient wi th mild ? systemic disease. After revie wing the ? risks and benefits, the patie nt was ? deemed in satisfactory condit ion to ? undergo the procedure. The an esthesia ? plan was to use moderate roberto tion / ? analgesia (conscious sedation ). ? Immediately prior to administ ration ? of medications, the patient w as ? re-assessed for adequacy to r eceive ? sedatives. The heart rate, ? respiratory rate, oxygen satu rations, ? blood pressure, adequacy of p ulmonary ? ventilation, and response to care ? were monitored throughout the ? procedure. The physical statu s of the ? patient was re-assessed after the ? procedure. ? The procedure, indications, b enefits, ? risks and alternatives were e xplained ? to the patient. Specifically ? discussed were potential ? complications including, but not ? limited to, bleeding, perfora tion, ? infection, pancreatitis, miss ing a ? cancer, and adverse medicatio n ? reactions.The Duodenoscope wa s ? introduced through the and ad vanced ? to the duodenum where it was used to ? inject contrast into. The ERC P was ? accomplished without difficul ty. The ? patient tolerated the procedu re well. ? Findings: ? The esophagus was successfully intubated under direct ? vision. The scope was advanced to a normal major ? papilla in the descending duodenum without detailed ? examination of the pharynx, larynx and associated ? structures, and upper GI tract. The upper GI tract ? was grossly normal. A straight Roadrunner wire was ? passed into the biliary tree. The short-nosed ? traction sphincterotome was passed over the guidewire ? and the bile duct was then deeply cannulated. The ? pancreatic duct was not intubated nor injected. ? Contrast was injected into the bile duct only. I ? personally interpreted the bile duct images. Ductal ? flow of contrast was adequate. Image quality was ? excellent. Contrast extended to the entire biliary ? tree. The middle third of the main bile duct ? contained filling defect(s; 3 or 4 small) thought to ? be a stone and/or sludge. A 7 mm biliary ? sphincterotomy was made with a traction (standard) ? sphincterotome using ERBE electrocautery. There was ? no post-sphincterotomy bleeding. The biliary tree was ? swept x 3 with an 11.5 mm balloon starting at the ? bifurcation. Sludge was swept from the duct. The ? patient tolerated this well. ? Impression: ?- A filling defect consistent with a ? stone and sludge was seen on the ? cholangiogram. ? - A sphincterotomy was perfor med. ? - The biliary tree was swept and ? sludge was found. ? - The examination was suspici ous for ? choledocholithiasis. Sludge w as ? removed from the common bile duct. No ? pus noted with initial sphinc terotomy ? and/or sweeping of bile duct. Recommendation: ?- [facility] ? ongoing care. ? - NPO ? - continue IV fluids ? - Continue iv antibiotics (zo syn). ? - surgical consultation for e lective ? cholecystectomy. ? Attending Participation: ? I personally performed the entire procedure. ? Wiley Hemphill MD 11/28/2014 11:40 AM This report has been signed electronically. Number of Addenda: 0 Note Initiated On: 11/28/2014 8:44 AM Specimen (Source) Anatomical Collection Method Collection Time Re ceived Time Location / / Volume Laterality 11/28/2014 8:44 AM EDT Arik Amador MD GENERAL SURGICAL ORDERABLES Performing Organization Address City/State/ZIP Code Phon e Number [place] documented in this encounter Visit Diagnoses Not on filedocumented in this encounter Care Teams Gold Nib Grinder Relationship Specialty Start Date End Date Arik Amador MD PCP - General 05/17/10 06/24/19 documented as of this encounter
--- OUTSIDE RECORDS SUMMARY | 2022-01-27 01:59 | XMS_ITS | Clinical Summary ---
:1940 Author Organization [facility] Address [place] [id number] Care Team Providers Name Role Phone Wing Phan MD Primary Care Provider Allergies Active Allergy Reactions Severity Noted Date Comments Adhesive Tape Other (See Comments) 09/03/2018 Codeine 05/16/2011 Oxycodone-Acetaminophen 11/28/2014 Medications Medication Sig Dispensed Refills Start Date End Date Status XARELTO 15 mg Tablet 0 01/21/2018 Active spironolactone TAKE ONE TABLET 0 03/14/2020 Active (Aldactone) 25 mg Tablet BY MOUTH DAILY Active Problems Problem Noted Date Choledocholithiasis 11/29/2014 Overview: S/p ERCP on 11/28/2014 Hypertension 11/28/2014 History of squamous cell carcinoma 11/19/2012 Squamous cell carcinoma 11/22/2011 History of malignant melanoma 05/16/2011 AK (actinic keratosis) 05/16/2011 Encounters Date Type Specialty Care Team Description 01/24/2022 Ancillary Procedure Radiology Arik Ross MD A rrived 01/24/2022 Ancillary Procedure Radiology Arik Ross MD A rrived 01/24/2022 Ancillary Procedure Radiology Arik Ross MD A rrived 01/24/2022 Telephone Urology Arik Ross MD from Last 3 Months Social History Tobacco Use Types Packs/Day Years Used Date Former Smoker Quit: 06/30/18 69 Smokeless Tobacco: Never Used Alcohol Use Standard Drinks/Week Comments Yes 5 (1 standard drink = 0.6 oz pure alcoho l) Sex Assigned at Date Recorded Not on file Last Filed Vital Signs Vital Sign Reading [...] Mass Index 22.5 11/28/2014 7:00 AM EDT Plan of Treatment Upcoming Encounters Date Type Specialty Care Team Description 04/17/2022 Office Visit Dermatology Pete Baltazar MD [address] [facility] DERMATOLOGY [place], [place] [address] (Wo rk) Health Maintenance Due Date Last Done Comments Covid-19 Vaccine (#1) 1944 Tdap adult 1958 Tetanus vaccine 1958 Zoster vaccine (1 of 2) 1989 Advance Directive 1994 Pneumoccocal Vaccine: 65+ (1 - PCV) 2004 Influenza (Flu) vaccine (1 of 1 - Influenza standard 02/23/2022 series) Procedures Procedure Name Priority Date/Time Associated Diagnosis Comme nts FILM LIBRARY Routine 01/24/2022 7:20 PM Results f or this STORAGE ONLY CT EDT procedure ar e in SPINE the results section. FILM LIBRARY Routine 01/24/2022 7:19 PM Results f or this STORAGE ONLY CT EDT procedure ar e in CHEST ABDOMEN the results PELVIS section. FILM LIBRARY Routine 01/24/2022 7:18 PM Results f or this STORAGE ONLY CT EDT procedure ar e in HEAD AND SPINE the results section. from Last 3 Months Results Film Library- Storage Only CT Spine (01/24/2022 7:20 PM EDT) Specimen (Source) Anatomical Location Collection Method / Collectio n Time Received Time / Laterality Volume Narrative [facility] RAD - 01/24/2022 7:20 PM EDT This exam is auto-finalizing. It's purpo se is for storage only. Arik Ross MD IMG FILM LIBRARY ORDERABLES Performing Organization Address City/[facility]/ZIP Code Phon e Number [place], [place] Film Library- Storage Only CT Chest Abdomen Pelvis (01/24/2022 7:19 PM EDT) Specimen (Source) Anatomical Location Collection Method / Collectio n Time Received Time / Laterality Volume Narrative RAD - 01/24/2022 7:19 PM EDT This exam is auto-finalizing. It's purpo se is for storage only. Arik Ross MD [facility] FILM LIBRARY ORDERABLES Performing Organization Address City/[facility]/ZIP Code Phon e Number RAD [place], [place] Film Library- Storage Only CT Head And Spine (01/24/2022 7:18 PM EDT) Specimen (Source) Anatomical Location Collection Method / Collectio n Time Received Time / Laterality Volume Narrative [facility] - 01/24/2022 7:18 PM EDT This exam is auto-finalizing. It's purpo se is for storage only. Arik Ross MD [facility] FILM LIBRARY ORDERABLES Performing Organization Address City/[facility]/ZIP Code Phon e Number [place], [place] from Last 3 Months Insurance Payer Benefit Plan / Subscriber ID Effective Phone Address T ype Group Dates MEDICARE MEDICARE PART [id number] 2018-Pres [phone] [place] [id number] [employer] [place] [id number] 2018-Prese [address] [place] [address] [place] [address] Advance Directives Latest Code Status on File Code Status Date Activated Date Inactivated Comments Full Code 11/28/2014 1:29 AM 12/02/2014 1:45 PM Does patient have decision making capacity? Yes, order is based on Patient wishes. Care Teams Nuclear Criticality Safety Engineer Relationship Specialty Start Date End Date Wing Phan MD PCP - General Family Medicine 03/29/20 [address] [place] [phone]
--- OUTSIDE RECORDS SUMMARY | 2022-01-27 02:00 | XMS_ITS | Encounter Summary ---
:1940 Author Organization [facility] [place] [address] Care Team Providers Name Role Phone Arik Amador MD Primary Care Provider Reason for Visit Reason Comments Skin Lesion Encounter Details Date Type Department Care Team Description 11/22/2011 Office Visit Dermatology Pete Baltazar, Squamous cell carcinoma (Christiana yue Dx); [address] [facility] Actinic keratosis [address] [place] [address] [id number] [place] [phone] (Wo rk) Social History Tobacco Use Types Packs/Day Years Used Date Never Smoker Sex Assigned at Date Recorded Not on file documented as of this encounter Progress Notes Pete Baltazar MD - 11/22/2011 9:29 AM EDT Problem: Right dorsal hand lesion. Toni follows up earlier than his usually scheduled yearly April visit because of a growth over the last roughly three to four weeks of a lesion on the right dorsal hand. It scabs, the scab falls off, then it starts to grow again. It is sore. Physical examination reveals a 1-cm hyperkeratotic nodule present over the third MCP of the right dorsal hand concerning for an SCCA. The patient has three actinics present on the left cheek, ear and jawline. Assessment and Plan: 1. SCCA, probable. a. After obtaining informed consent, the site was anesthetized and shave C and D times three performed. b. Triple antibiotic ointment and Band-Aid placed. c. Wound care instructions and supplies given. d. Recommend that I see him again in April for his regularly scheduled yearly skin checkup. 2. Actinic keratoses, left pentecostal, ear and jawline. a. LN2 times two applied to each of three sites. Pathology Addendum per [facility] 11/25/11 : Squamous Cell Carcinoma documented in this encounter Procedure Notes Provider, Scanning - 11/28/2011 5:38 PM EDTAssociated Order(s): SCAN DOC: SURGICAL PATHOLOGY documented in this encounter Miscellaneous Notes Miscellaneous - Savage, Optics Engineer - 11/28/2011 5:59 PM EDT documented in this encounter Plan of Treatment Upcoming Encounters Date Type Specialty Care Team Description 04/17/2022 Office Visit Dermatology Pete Baltazar MD [address] [place] [place] [address] DERMATOLOGY [place], [place] 03 [facility] [phone] (Wo rk) documented as of this encounter Procedures Procedure Name Priority Date/Time Associated Diagnosis Comme nts SURGICAL PATHOLOGY 11/28/2011 5:38 PM Res ults for this SCAN EDT procedure are i n the results section. documented in this encounter Results SCAN DOC: SURGICAL PATHOLOGY (11/28/2011 5:38 PM EDT) Narrative 11/28/2011 5:38 PM EDT Procedure Note Provider, Scanning - 11/28/2011 5:38 PM EDT Scanning Provider MEDIA MGR SCAN EXT ORDR/RSLT documented in this encounter Visit Diagnoses Diagnosis Squamous cell carcinoma - Primary Other malignant neoplasm without specifi cation of site Actinic keratosis documented in this encounter Care Teams Livestock Farmer Relationship Specialty Start Date End Date Arik Amador MD PCP - General 05/17/10 06/24/19 documented as of this encounter
--- OUTSIDE RECORDS SUMMARY | 2022-01-27 02:00 | XMS_ITS | Encounter Summary ---
:1940 [place] [address] Care Team Providers Name Role Phone Benedicto Amador MD Primary Care Provider Encounter Details Date Type Department Care Team Description 11/28/2014 Surgery Gastroenterology at [facility] Wiley Hemphill MD [facility] [place] [address] GASTROENTEROLOGY DEPT. [phone] [place], [place] [address] (Wo rk) Social History Tobacco Use Types [...] Toni Vincent Patient Age: 74 y.o. Language: Iranian Race: White Ethnicity: Not nor Admit date: [...] please contact your inpatient physician through the [facility] . Issues after hours and on weekends [...] 3 wbc, hgb, hct plt Recent Labs 12/02/1433412/01/1441411/30/14 0345 WBC 13.2* 6.0 5.8 HGB 11.8* 12.1* 11.5* HCT 35.4* 36.1* 35.0* PLATELET 187 189 180 Last 3 Lytes Recent Labs 12/02/14 0335 12/01/145 11/30/14 0345 NA 139 141 142 K 4.1 4.5 4.2 CL 99 101 99 CO2 28 28 30 BUN 15 14 16 CREATININE 1.31 1.24 1.34 Last 3 LFTs Recent Labs 12/02/145 12/01/1441411/30/14 0345 AST 71* 40* 49* ALT 94* [...] 101.3 F. The number for questions is [phone] before 5 PM weekdays and [phone] after 5 PM and weekends. Pain Medication: [...] weeks. Below is a scheduled time.Please call [phone] (clinic number for appointments) to confirm date and time of your appointment if you do not receive your apointment in 3 weeks. Future Appointments Date Time Provider Department Center 12/29/2014 10:30 AM Veronica Gibson APRN [facility] Your inpatient Providers: Attending - Lazaro Kaiser MD Resident - Celestino Carrasquillo MD Black Ash Worker - Latha Gunter MD Your PCP: BENEDICTO AMADOR MD [address] [address] General Instructions None Future Appointments Provider Department Dept Phone 12/29/2014 10:30 AM Veronica Gibson APRN General Surgery [phone] Discharge References/Attachments None documented in this encounter [...] 101.3 F. The number for questions is [phone] before 5 PM weekdays and [phone] after 5 PM and weekends. Pain Medication: [...] weeks. Below is a scheduled time.Please call [phone] (clinic number for appointments) to confirm date and time of your appointment if you do not receive your apointment in 3 weeks. Future Appointments Date Time Provider Department Center 12/29/2014 10:30 AM Veronica Gibson, PROTECTIVE SERVICE SPECIALIST [facility] Your inpatient Providers: Attending - Lazaro Kaiser MD Resident - Celestino Carrasquillo MD Black Ash Worker - Latha Gunter MD Your PCP: BENEDICTO AMADOR MD [address] / [facility] [id number] documented in this encounter Medications at Time [...] spent <30 minutes (Day of Discharge Code 62278) involved in the final examination of the [...] De Gordillo - 12/02/2014 9:05 AM EDT Professor Of Practice Encounter Note Patient Name: Toni Vincent : [id number] MR#: [id number] Admit Date: 11/27/2014 11:30 PM Hospital Day 5 days Narrative:Visited to introduce and assess acceptance of Professor Of Practice services. Pt was awake, alert, oriented and in bed. Pt says that he is feeling better and today going to home and his is coming to give him ride. Assessment:Patient coping positively with stresses of illness/hospitalization at this time. Pt seemed in good spirits and happy that he is going to home. Pt has family care and support. Intervention and Outcome:Professor Of Practice services accepted.Conversation to build trusting relationship.Provided pastoral [...] Lowe MD - 12/01/2014 8:54 AM EDT [facility] Department of Surgery Inpatient Consult Progress [...] Range Ab Screen Interp Negative Expires at [id number] on: [id number] Assessment: 74 y.o. male with [...] 1.14 GLUCOSE 97 105 102 Recent Labs 12/01/1441411/30/145 11/29/14 0422 AST 40* 49* 89* ALT [...] for elective cholecystectomy this morning. NPO at [place] otherwise doing well today. Plan: # Choledocholithiasis - s/p ERCP and sphincterotomy - LFTs down-trending - tolerating normal diet - tentative plan for cholecystectomy tomorrow - NPO at [place] tonight - good PO intake so d/c IVFs - cont zosyn for 5d course (D5) per GI; although no signs of infection # HTN - cont home HCTZ # PPx: DVT - lovenox, holding morning dose for OR Diet - low residual diet Code - FULL CODE Latha Gunter MD Internal Medcine, PGY-1 [facility], Pager #[phone] 12/01/2014 I have seen and examined the [...] Plan for elective cholecystectomy stan. NPO at [place] otherwise doing well today. Plan: # Choledocholithiasis - s/p ERCP and sphincterotomy - LFTs down-trending - tolerating normal diet - tentative plan for cholecystectomy tomorrow - NPO at [place] tonight - good PO intake so d/c IVFs - cont zosyn for 5d course (D4) per GI; although no signs of infection # HTN - cont home HCTZ # PPx: DVT - lovenox, holding morning dose for OR stan Diet - low residual diet Code - FULL CODE Latha Gunter MD Internal Medcine, PGY-1 [facility], Pager #[phone] 11/30/2014 I have seen and examined the [...] 11/30/2014 12:57 AM EDT Patient transferred to [facility], report given to NASRIN Orsandra. Patient denies pain, VSS. Ml Lopes MD - 11/29/2014 1:36 PM EDT [facility] Department of Gastroenterology Inpatient Progress Note Patient info: Toni Vincent 1940 [id number] BENEDICTO AMADOR MD Date of Admission: 11/27/2014 ( Hospital Day 2 days ) Attending: Dr. Lopes Service: Gastroenterology ID: 74yo male with pmh HTN, intermittent biliary colic for 1 year, with more acute 24 hours persistent RUQ pain, progressive acute jaundice at OSH 11/27, eventually febrile, transferred to [facility] for cholangitis, GI consulted. GI Problem List: [...] nonfocal Labs: Recent Labs 11/29/14 0422 11/28/14 0211 WBC 5.4 5.2 HGB 11.6* 11.4* HCT 34.1* 33.8* PLATELET 165 135* NEUTROABS 3.69 3.43 Recent Labs 11/29/14 0422 11/28/14 0211 NA 138 142 K 4.0 3.9 CL 99 103 CO2 29 28 BUN 14 16 CREATININE 1.14 1.25 Recent Labs 11/29/14 0422 11/28/14 0211 CALCIUM 8.6 8.7 MAGNESIUM -- 0.74 PHOS -- 2.7 Recent Labs 11/29/142 11/28/14 0211 AST 89* 125* ALT 128* [...] Code Felipe Licea Gastroenterology Fellow 11/29/2014 Pager #[phone] Staff Addendum: I have independently interviewed and [...] 1.14 1.25 GLUCOSE 102 86 Recent Labs 11/29/142 11/28/14210 CALCIUM 8.6 8.7 MAGNESIUM -- 0.74 PHOS -- 2.7 Recent Labs 06/07/15 0422 06/06/15 0211 AST 89* 125* ALT 128* 155* [...] admsion, maybe Mon or - NPO at [place] tonight - good PO intake so d/c IVFs - cont zosyn for now per GI; although no signs of infection # HTN - cont home HCTZ # PPx: DVT - lovenox Diet - low residual diet Code - FULL CODE Latha Gunter MD Internal Medcine, PGY-1 [facility], Pager #[phone] 11/29/2014 I have seen and examined the [...] MD Garrett Wasp, PGY-2 11/28/2014 Team Pager [phone] I have seen and examined the patient, [...] Based on clinical cholangitis, pt transferred to [facility], placed on IVF, NPO Zosyn, consented for [...] Electronically signed by: Felipe Licea Gastroenterology Fellow [facility] Pager [phone] 11/28/2014 Lazaro Kaiser MD - 11/28/2014 1:18 [...] Full code Stephen Perez MD PGY3 Pager [phone] I have seen and examined the patient, [...] Lowe MD - 12/02/2014 7:31 AM EDT [facility] Operative Note Patient Name: Toni Vincent : [id number] MR#: [id number] Case Date: 12/01/2014 Surgeon: Surgeon(s) and Role: * Yamil Ferraro MD - Primary * Inder Lowe MD - Resident-Surgeon Tio * Zaki Gama MD - Resident-Windows Application Packager Preoperative diagnosis: CHOLEDOCOLITHIASIS Postoperative diagnosis: CHOLEDOCOLITHIASIS Procedure(s): [...] Care Goal: Plan of Care Review 12/01/14 1914 Plan of Care Review Plan of Care [...] Operative Note Patient Name: Toni Vincent : [id number] MR#: [id number] Case Date: 12/01/2014 Surgeon: Surgeon(s) and Role: * Yamil Ferraro MD - Primary * Inder Lowe MD - Resident-Surgeon Tio * Zaki Gama MD - Resident-Windows Application Packager Preoperative diagnosis: CHOLEDOCOLITHIASIS Postoperative diagnosis: CHOLEDOCOLITHIASIS Procedure(s): [...] prn. Voiding adequately. He has beenNPO since [place] and is scheduled to go to OR around 08:30. PLAN MOVING FORWARD: OR today for lap cholecystectomy; pain management; infection control INDIVIDUALIZED FALL PREVENTION: Assistance: Stand by assist when OOB. Repositions self independently while in bed. Supervision: Independent with ADL's. Surveillance: Omer purposeful rounding. CPG GOAL OUTCOME EVALUATION: Goal: [...] be going to the OR until tomorrow ( AM), diet switched from NPO to restricted [...] pt making needs known Surveillance: Purposeful rounding, omer CPG GOAL OUTCOME EVALUATION: Goal: Individualization and [...] Ferraro MD - 11/30/2014 10:24 AM EDT [facility] Department of Acute Care Surgery Inpatient Consult Note Consultation Requested by: Lazaro Kaiser MD History of Present Illness: We are seeing Toni Vincent today at the request of Lazaro Stallings MD for evaluation and advice about cholecystectomy in the setting of choledocholithiasis. Mr. Vincent is 74 y.o. Man with PMH of HTN who presented to [facility] on 11/28 with worsening RUQ [...] in the past when he was in [place] which resolved after a couple of days. [...] ERCP performed by Wiley Hemphill MD at [facility] ENDOSCOPY Family History: Emphysema Bone cancer Social [...] wishes to proceed. Please Make NPO at [place] Recommendations: - NPO at [place] - Plan for Cholecystectomy tomorrow morning - Type and screen - Discussed with Dr. Ferraro Thank you for this consult. If you have any questions regarding this consult, please page [phone] [X] Consult service to continue to follow [...] Yamil Ferraro MD Care Management - Dax More, RN - 11/30/2014 8:54 AM EDT 74 [...] RUQ pain, progressive acute jaundice at OSH 5, cholestatic LFTs transaminases 200s, alk phos 200, T.bili 4.2. Last evening at OSH multiple temperatures at > 38C. Absd US noting interval increased CBD dilation to 9mm, cholelithiasis, sludge in gallbladder. Based on clinical cholangitis, pt transferred to [facility], placed on IVF, NPO Zosyn, consented for ERCP. S: I was surprised I could stand up today after the procedure but I was fine, I even ate a little fruit. O: Chart reviewed and met with pt who is lying in bed in [facility]. Pt had lap hansa this am and [...] PREVENTION: Assistance: independent Supervision: independent Surveillance: omer, misael rounding CPG OUTCOME EVALUATION: progress Plan of [...] morning, NPO all AM into late afternoon, changed diet tohealthy menu/cardiac diet in later [...] Assistance: Standby assist Supervision: With ADLS/Transfers Surveillance: Caty Ortiz rounding CPG OUTCOME EVALUATION: Goal: Individualization and [...] Office Visit Dermatology Pete Baltazar MD [address] [place] [address] DERMATOLOGY [place], [place] [address] (Wo rk) Pending Results [...] 12:00 AM EDT HEMOGRAM Routine 12/02/2014 3:35 AM Results f or this EDT procedure are i n the results section. DIFFERENTIAL, Routine 12/02/2014 3:35 AM Results for this AUTOMATED EDT procedure are i n the results section. CBC (WITH DIFF) Routine 12/02/2014 3:35 AM EDT HEPATIC FUNCTION Routine 12/02/2014 3:35 AM Resul ts for this PANEL EDT procedure are i n the results section. BASIC METABOLIC Routine 12/02/2014 3:35 AM Result s for this PANEL (NON-FASTING) EDT procedur e are in the results section. SURGICAL PATHOLOGY Routine 12/01/2014 11:45 Resul ts for this REPORT AM EDT procedure are i n the results section. SPECIMEN TO Routine 12/01/2014 11:21 Results for this PATHOLOGY AM EDT procedure are i n the results section. HEMOGRAM Routine 12/01/2014 4:15 AM Results f or this EDT procedure are i n the results section. DIFFERENTIAL, Routine 12/01/2014 4:15 AM Results for this AUTOMATED EDT procedure are i n the results section. ABO/RH TYPING Routine 12/01/2014 4:15 AM Results for this EDT procedure are i n the results section. CBC (WITH DIFF) Routine 12/01/2014 4:15 AM EDT ANTIBODY SCREEN Routine 12/01/2014 4:15 AM Result s for this EDT procedure are i n the results section. TYPE AND SCREEN Routine 12/01/2014 4:15 AM ([facility]/CGP/VINCE) EDT HEPATIC FUNCTION Routine 12/01/2014 4:15 AM Resul ts for this PANEL EDT procedure are i n the results section. BASIC METABOLIC Routine 12/01/2014 4:15 AM Result s for this PANEL (NON-FASTING) EDT procedur e are in the results section. EKG 12-LEAD Routine 11/30/2014 6:16 PM Choledocholithiasis Re sults for this EDT procedure are i n the results section. HEMOGRAM Routine 11/30/2014 3:45 AM Results f or this EDT procedure are i n the results section. DIFFERENTIAL, Routine 11/30/2014 3:45 AM Results for this AUTOMATED EDT procedure are i n the results section. CBC (WITH DIFF) Routine 11/30/2014 3:45 AM EDT HEPATIC FUNCTION Routine 11/30/2014 3:45 AM Resul ts for this PANEL EDT procedure are i n the results section. BASIC METABOLIC Routine 11/30/2014 3:45 AM Result s for this PANEL (NON-FASTING) EDT procedur e are in the results section. HEMOGRAM Routine 11/29/2014 4:22 AM Results f or this EDT procedure are i n the results section. DIFFERENTIAL, Routine 11/29/2014 4:22 AM Results for this AUTOMATED EDT procedure are i n the results section. CBC (WITH DIFF) Routine 11/29/2014 4:22 AM EDT HEPATIC FUNCTION Routine 11/29/2014 4:22 AM Resul ts for this PANEL EDT procedure are i n the results section. BASIC METABOLIC Routine 11/29/2014 4:22 AM Result s for this PANEL (NON-FASTING) EDT procedur e are in the results section. ERCP 11/28/2014 9:18 AM ? cholangitis EDT BLOOD CULTURE STAT 11/28/2014 3:26 AM Results for this EDT procedure are i n the results section. BLOOD CULTURE STAT 11/28/2014 3:21 AM Results for this EDT procedure are i n the results section. HEMOGRAM Routine 11/28/2014 2:11 AM Results f or this EDT procedure are i n the results section. DIFFERENTIAL, Routine 11/28/2014 2:11 AM Results for this AUTOMATED EDT procedure are i n the results section. PROTHROMBIN TIME Routine 11/28/2014 2:11 AM Resul ts for this EDT procedure are i n the results section. CBC (WITH DIFF) Routine 11/28/2014 2:11 AM EDT PHOSPHORUS Routine 11/28/2014 2:11 AM Results f or this EDT procedure are i n the results section. MAGNESIUM Routine 11/28/2014 2:11 AM Results f or this EDT procedure are i n the results section. LIPASE Routine 11/28/2014 2:11 AM Results f or this EDT procedure are i n the results section. HEPATIC FUNCTION Routine 11/28/2014 2:11 AM Resul ts for this PANEL EDT procedure are i n the results section. BASIC METABOLIC Routine 11/28/2014 2:11 AM Result s for this PANEL (NON-FASTING) EDT procedur e are in the results section. documented in this encounter Results SCAN DOC: ECG (12/03/2014 12:00 AM EDT) Narrative This result has an attachment that is no t available. Scanning Provider MEDIA MGR SCAN EXT ORDR/RSLT (ABNORMAL) Differential, Automated (12/02/2014 3:35 AM EDT) [facility] Method Time Signature Neutrophils % 83.6 [...] Organization Address City/State/ZIP [place] [address] CERNER MILLENNIUM (ABNORMAL) Hemogram [...] Kaiser MD HEMATOLOGY ORDERABLES Performing Organization Address [facility] [place] [address] CERNER MILLENNIUM (ABNORMAL) Hepatic [...] Kaiser MD CHEMISTRY ORDERABLES Performing Organization Address [facility] [place] [address] CERNER MILLENNIUM (ABNORMAL) Basic [...] intervals supplied above were not validated at [facility]. Results from pediatri c patients should be [...] the following links into your internet browser. [email or web address] [email or web address] Specimen Anatomical Collection Method Collection Time Receive d Time (Source) Location / / Volume Laterality Blood specimen 12/02/2014 3:35 AM 015 3:44 (specimen) EDT AM EDT Resulting Agency Comment Spec In Lab Lazaro Kaiser MD CHEMISTRY ORDERABLES Performing Organization Address City/State/ZIP Code Phon e [place] [address] [facility] Surgical Pathology Report (12/01/2014 11:45 AM EDT) Component Value Ref Test Analysis Performed At [facility] Range Method Time Signature Surgical [facility] Pathology ? [facility] Report ? Provider: ?? YAMIL FERRARO ??Pt. Name: ?? TONI VINCENT ? Acc #: ?[id number] ?Pt. MRN: ?[id number] ? Col Date: ?? 12/01/2014 ?/Sex: ?1940,(74 [...] MD PATHOLOGY/CYTOLOGY ORDERABLE S Performing Organization Address City/[facility]/[place] [address] LUBNA VELASQUEZIUM Specimen to Pathology (surgical or derm) (12/01/2014 11:21 AM EDT) Specimen Anatomical Collection Method Collection Time Receive d Time (Source) Location / / Volume Laterality AP Specimen 12/01/2014 11:21 12/01/2014 AM EDT 11:21 AM EDT Narrative LUBNA JAINENNIUM - 12/01/2014 11:21 AM EDT Specimen requisition ordered. ??Separate Pathology report to follow Yamil Ferraro MD PATHOLOGY/CYTOLOGY ORDERABLE S Performing Organization Address City/[facility]/[place] [address] LUBNA MILLENNIUM Antibody screen (12/01/2014 4:15 AM EDT) Analysis Performed At [facility] logis Time Signature Ab Screen Negative LUBNA Interp MILLENNIUM Expires at [id number] LUBNA 1796 on: MILLENNIUM Specimen Anatomical Collection Method Collection Time Receive d Time (Source) Location / / Volume Laterality Blood specimen 12/01/2014 4:15 AM 015 5:26 (specimen) EDT AM EDT Resulting Agency Comment Spec In Lab Lazaro Kaiser MD BLOOD BANK ORDERABLES Performing Organization Address City/[facility]/ZIP Code Phon e Number [address] CERNER MILLENNIUM ABO/Rh Typing (12/01/2014 4:15 AM EDT) athologist Signature ABORh Type A Neg CERNER MILLENNIUM Specimen Anatomical Collection Method Collection Time Receive d Time (Source) Location / / Volume Laterality Blood specimen 12/01/2014 4:15 AM 015 5:26 (specimen) EDT AM EDT Resulting Agency Comment Spec In Lab Lazaro Kaiser MD BLOOD BANK ORDERABLES Performing Organization Address City/[facility] [place] Phon e Number [address] CERNER MILLENNIUM Differential, Automated [...] Diop MD HEMATOLOGY ORDERABLES Performing Organization Address City/[facility] [place] [address] CERNER MILLENNIUM (ABNORMAL) Hemogram [...] Diop MD HEMATOLOGY ORDERABLES Performing Organization Address City/[facility]/[place] [address] CERNER MILLENNIUM (ABNORMAL) Hepatic [...] Organization Address City/State/ZIP Code Phon e Number [place] [phone] CERNER MILLENNIUM (ABNORMAL) Basic [...] intervals supplied above were not validated at [facility]. Results from pediatri c patients should be [...] estions. Chloride 101 98 - 107 mmol/L LUBNA JAINENN IUM CO2 28 22 - 31 mmol/L LUBNA JAINENNI UM Anion Gap 12 5 - 15 mmol/L LUBNA MILLENNIU M Calcium 9.4 8.5 - 10.5 mg/dL LUBNA JAINEN NIUM Estimated GFR 57 (L) >=60 LUBNA VELASQUEZIU M Comment: This estimated GFR (eGFR) value [...] the following links into your internet browser. [email or web address] [email or web address] Specimen Anatomical Collection Method Collection Time Receive d Time (Source) Location / / Volume Laterality Blood specimen 12/01/2014 4:15 AM 015 4:41 (specimen) EDT AM EDT Resulting Agency Comment Spec In Lab Lazaro Kaiser MD CHEMISTRY ORDERABLES Performing Organization Address City/State/ZIP [place] [address] LUBNA MATHUR EKG 12 Lead (11/30/2014 6:16 PM EDT) [facility] Method Time Signature Ventricular rate 62 BPM MUSE SYSTEM Atrial Rate 62 BPM MUSE SYSTEM P-R Interval 144 ms MUSE SYSTEM QRS Duration 122 ms MUSE SYSTEM Q-T Interval 458 ms MUSE SYSTEM QTC Calculated 464 ms MUSE SYSTEM (Bezet) Calculated P [place] 37 degrees MUSE SYSTEM Calculated R [place] -14 degrees MUSE SYSTEM Calculated T [place] 6 degrees MUSE SYSTEM INTERPRETATION Normal sinus [...] Organization Address City/State/ZIP [place] [address] CERNER MILLENNIUM (ABNORMAL) Hemogram [...] Organization Address City/State/ZIP Code Phon e Number [place] [phone] CERNER MILLENNIUM (ABNORMAL) Hepatic [...] Performing Organization Address City/State/ZIP Code Temo MARINELLI [place] [phone] CERNER MILLENNIUM (ABNORMAL) Basic [...] intervals supplied above were not validated at [facility]. Results from pediatri c patients should be [...] the following links into your internet browser. [email or web address] [email or web address] [email or web address] Specimen Anatomical Collection Method Collection Time Receive d Time (Source) Location / / Volume Laterality Blood specimen 11/30/2014 3:45 AM 015 4:27 (specimen) EDT AM EDT Resulting Agency Comment Spec In Lab Lazaro Kaiser MD CHEMISTRY ORDERABLES Performing Organization Address City/State/[place] [address] CERNER MILLENNIUM (ABNORMAL) Differential, Automated (11/29/2014 4:22 AM EDT) [facility] Method Time Signature Neutrophils % 68.9 [...] ed, a manual differential will be performed. Ignny Gran Abs 0.00 0.00 - 0.05 x10(3)/mcL CER NER MILLENNIUM Specimen Anatomical Collection Method Collection Time Receive d Time (Source) Location / / Volume Laterality Blood specimen 11/29/2014 4:22 AM 015 4:31 (specimen) EDT AM EDT Resulting Agency Comment Spec In Lab Jonathan Diop MD HEMATOLOGY ORDERABLES Performing Organization Address City/[facility]/[place] [address] CERNER MILLENNIUM (ABNORMAL) Hemogram [...] Diop MD HEMATOLOGY ORDERABLES Performing Organization Address City/[facility]/ZIP Code Phon e Number [address] CERNER MILLENNIUM (ABNORMAL) Hepatic [...] Organization Address City/State/ZIP Code Phon e Number [place] [phone] CERNER MILLENNIUM Basic Metabolic Panel (non-fasting) (11/29/2014 4:22 AM EDT) athologist Signature Glucose Lvl 102 65 - 199 CERNER mg/dL MILLENNIUM Comment: Diabetes: >=200 mg/dL plus symp toms BUN 14 10 - 20 mg/dL CERNER MILLENNIU M Creatinine 1.14 0.80 - 1.50 mg/dL CERNER MILL ENNIUM Comment: Please note that the pediatric reference intervals supplied above were not validated at [facility]. Results from pediatri c patients should be [...] the following links into your internet browser. [email or web address] [email or web address] Specimen Anatomical Collection Method Collection Time Receive d Time (Source) Location / / Volume Laterality Blood specimen 11/29/2014 4:22 AM 015 4:30 (specimen) EDT AM EDT Resulting Agency Comment Spec In Lab Lazaro Kaiser MD CHEMISTRY ORDERABLES Performing Organization Address City/State/[place] [address] [facility] Blood culture (11/28/2014 3:26 AM EDT) [facility] Method Time Signature Blood Culture [facility] ? Patient Name: TONI VINCENT ? Ordered By: JONATHAN DIOP [facility] ? MR#: [id number] ?LOC: ??3WST ? /Sex: ??1940 (74 years), [...] Organization Address City/State/[place] [address] LUBNA MATHUR Blood culture (11/28/2014 3:21 AM EDT) [facility] Method Time Signature Blood Culture CERNER ? Patient Name: TONI VINCENT ? Ordered By: JONATHAN DIOP ? MR#: [id number] ?LOC: ??[id number] ? /Sex: ??1940 (74 years), [...] Organization Address City/State/[place] [address] CERNER MILLENNIUM (ABNORMAL) Differential, Automated (11/28/2014 2:11 AM EDT) [facility] Method Time Signature Neutrophils % 65.9 [...] Diop MD HEMATOLOGY ORDERABLES Performing Organization Address City/[facility]/[place] [address] CERNER MILLENNIUM (ABNORMAL) Hemogram [...] Diop MD HEMATOLOGY ORDERABLES Performing Organization Address City/[facility]/[place] [address] CERNER MILLENNIUM (ABNORMAL) Hepatic [...] Organization Address City/State/[place] [address] CERNER MILLENNIUM (ABNORMAL) Basic [...] intervals supplied above were not validated at [facility]. Results from pediatri c patients should be [...] the following links into your internet browser. [email or web address] [email or web address] Specimen Anatomical Collection Method Collection Time Receive d Time (Source) Location / / Volume Laterality Blood specimen 11/28/2014 2:11 AM 015 2:17 (specimen) EDT AM EDT Resulting Agency Comment Spec In Lab Lazaro Kaiser MD CHEMISTRY ORDERABLES Performing Organization Address City/[facility] Code Phon e Number [address] CERNER MILLENNIUM Lipase (11/28/2014 2:11 AM EDT) P athologist Signature Lipase 34 0 - 60 CERNER unit/L MILLENNIUM Specimen Anatomical Collection Method Collection Time Receive d Time (Source) Location / / Volume Laterality Blood specimen 11/28/2014 2:11 AM 015 2:17 (specimen) EDT AM EDT Resulting Agency Comment Spec In Lab Jonathan Diop MD CHEMISTRY ORDERABLES Performing Organization Address [facility] Phon e Number [address] CERNER MILLENNIUM Phosphorus (11/28/2014 2:11 AM EDT) P athologist Signature Phosphorus 2.7 2.5 - 4.5 CERNER mg/dL MILLENNIUM Specimen Anatomical Collection Method Collection Time Receive d Time (Source) Location / / Volume Laterality Blood specimen 11/28/2014 2:11 AM 015 2:17 (specimen) EDT AM EDT Resulting Agency Comment Spec In Lab Jonathan Diop MD CHEMISTRY ORDERABLES Performing Organization Address City/[facility]/[place] [address] CERNER MILLENNIUM Magnesium (11/28/2014 2:11 AM EDT) P athologist Signature Magnesium 0.74 0.69 - 1.07 CERNER mmol/L MILLENNIUM Specimen Anatomical Collection Method Collection Time Receive d Time (Source) Location / / Volume Laterality Blood specimen 11/28/2014 2:11 AM 015 2:17 (specimen) EDT AM EDT Resulting Agency Comment Spec In Lab Jonathan Diop MD CHEMISTRY ORDERABLES Performing Organization Address [facility] [place] [address] CERNER MILLENNIUM Prothrombin Time [...] Diop MD HEMATOLOGY ORDERABLES Performing Organization Address City/[facility]/ZIP [facility] [place] [address] CERNER MILLENNIUM documented in this encounter Visit Diagnoses Not on filedocumented in this encounter Administered Medications Inactive Administered Medications - up to 3 most recent administrations Medication Order [facility] Action Action Date Dose Rate Site diphenhydrAMINE (BENADRYL) Given 11/28/2014 10:30 AM EDT 25 mg injection ONCE PRN, Starting on 11/28/14 at 1027, Until 11/28/14 at 1143, Intra-Operative (Intra-Procedure), Routine Given 11/28/2014 10:27 AM EDT 25 mg fentaNYL 50 mcg/mL multi-dose injection Given 11/28/2014 11:18 AM EDT 25 mcg ONCE PRN, Starting on 11/28/14 at 1027, Until 11/28/14 at 1143, Intra-Operative (Intra-Procedure), Routine Given 11/28/2014 10:59 AM EDT 25 mcg Given 11/28/2014 10:49 AM EDT 25 mcg midazolam (PF) (VERSED) 1 mg/mL multi-dose Given 11/28/2014 11:1 8 AM EDT 1 mg injection ONCE PRN, Starting on 11/28/14 at 1027, Until 11/28/14 at 1143, Intra-Operative (Intra-Procedure), Routine Given 11/28/2014 10:59 AM EDT 0.5 mg Given 11/28/2014 10:49 AM EDT 1 mg documented in this encounter Active and Recently Administered Medications Times are shown in EDT. Scheduled Medication Order 11/30/2014 12/01/2014 12/02/2014 heparin (porcine) subcutaneous injection 5,000 Units (CANCEL ED) 0900 (AUG Hold - Provider: Admin Adt - Reason: Transfer to a Procedural area)1342 (AUG Unhold - Provider: Admin Adt)2117 (Given - Provider: Marquita Valdez, RN) 0939 (Given - Provider: Natalia Valverde, NASRIN) 5,000 Units, Subcutaneous, EVERY 12 HOUR S SCHEDULED (2 times per day), First dose on Sun12/01/14 at 2100, Until Discontinued, Routine hydrochlorothiazide (HYDRODIURIL) tablet 25 mg (CANCEL ED) 0822 (Given - Provider: Trudy Walden, NASRIN) 25 mg, Oral, DAILY, First dose on [...] Trudy Walden RN)2144 (Given - Provider: Reva Hester, NASRIN) 0606 (Given - Provider: Reva Hester RN)0900 [...] (CANCELED) 0822 (Given - Provider: Trudy Walden RN)2144 (Given - Provider: Reva Hester RN) 0844 (Given - Provider: Natalia Valverde RN)0900 (AUG Hold - Provider: Admin Adt - Reason: Transfer to a Procedural area)1342 (AUG Unhold - Provider: Admin Adt)2117 (Given - Provider: Marquita Valdez RN) 0939 (Given - Provider: Natalia Valverde RN) 2 tablet, Oral, 2 TIMES DAILY, First dos e on Sun11/28/14 at 0145, Until Discontinued, Routine sodium chloride 0.9 % flush 5 mL (CANCELED) 0823 (Give n - Provider: Trudy Walden RN)2147 (Given - Provider: Reva Hester RN) 0900 [...] Routine documented in this encounter Care Teams Cable Mechanic Relationship Specialty Start Date End Date Benedicto Amador MD PCP - General 05/17/10 06/24/19 documented as of this encounter
--- OUTSIDE RECORDS SUMMARY | 2022-01-27 02:00 | XMS_ITS | Encounter Summary ---
:1940 Author Organization [facility] [place] [address] Care Team Providers Name Role Phone Arik Amador MD Primary Care Provider Reason for Visit Reason Comments Skin Check Encounter Details Date Type Department Care Team Description 05/16/2011 Office Visit Dermatology Pete Baltazar, History of malignant melanom a (Primary Dx); [address] [facility] Actinic keratosis [address] [place], [place] D[place]MATOLOGY [address] [place] [address] [phone] (Wo rk) Social History Tobacco Use Types Packs/Day Years Used Date Never Smoker Sex Assigned at Date Recorded Not on file documented as of this encounter Progress Notes Pete Baltazar MD - 05/16/2011 9:38 AM EST Problems: 1. Yearly skin checkup. 2. History of malignant melanoma, 0.5mm Breslow depth, left lateral shoulder, 11/2007. 3. History of malignant melanoma, 0.65mm Breslow depth, left elbow, 03/2007. 4. 43 years of service with the [employer]. Toni follows up and is doing well. He has been having a good hunting season this fall. He has run into a lot of tics around his house and certainly when he visits with his son and hunts for turkeys in [place] also. Physical examination today reveals a pleasant now 70-year-old gentleman who continues to have a trigger finger of his left second finger. It has been treated surgically three times in the past and he is no longer a candidate for the surgery. Careful examination of the head, neck, chest, back, hands, arms, forearms, thighs and calves is benign. He has an actinic keratosis on the left upper lateral cheek. Fortunately the melanoma sites remain well healed without evidence of recurrent pigmentation. Assessment & Plan: History of malignant melanomas. a. No evidence of recurrence. b. Patient reassured. c. RTC in one year for repeat check. Actinic keratosis left lateral upper cheek/malar prominence. a. LN2 x2 applied to single site. b. Stressed sun avoidance precautions. Copy: Arik Amador MD documented in this encounter Plan of Treatment Upcoming Encounters Date Type Specialty Care Team Description 04/17/2022 Office Visit Dermatology Pete Baltazar MD [address] [place] [address] DERMATOLOGY [place], [place] [address] (Wo rk) documented as of this encounter Visit Diagnoses Diagnosis History of malignant melanoma - Primary Personal history of malignant melanoma o f skin Actinic keratosis documented in this encounter Care Teams Psych Social Worker Relationship Specialty Start Date End Date Arik Amador MD PCP - General 05/17/10 06/24/19 documented as of this encounter
--- OUTSIDE RECORDS SUMMARY | 2022-01-27 02:00 | XMS_ITS | Encounter Summary ---
:1940 Author Organization [place] [address] Care Team Providers Name Role Phone Arik Amador MD Primary Care Provider Reason for Visit Reason Comments Skin Check Encounter Details Date Type Department Care Team Description 11/19/2012 Office Visit Dermatology Pete Baltazar, History of malignant melanom a (Primary Dx); [address] [facility] History of squamous cell carcinoma [address] [place], [place] D[place]MATOLOGY [address] [place] [address] [phone] (Wo rk) Social History Tobacco Use Types Packs/Day Years Used Date Never Smoker Sex Assigned at Date Recorded Not on file documented as of this encounter Progress Notes Pete Baltazar MD - 11/19/2012 1:58 PM EDT Problem is: 1. Repeat six-month skin checkup. 2. History of malignant melanoma, 0.5 mm Breslow depth, left lateral shoulder, November 2007. 3. History of malignant melanoma, 0.65 mm Breslow depth, left elbow, March 2007. 4. 42 years of service with the [employer]. 5. History of SCCA, right dorsal hand, October 2011. Toni follows up with his Rolo. He has been doing well. They had a good winter in [place] and have been back up in the [facility] since October 07. Physical examination reveals a pleasant now 72-year-old gentleman who has a benign examination, in fact, of the head and the neck, the chest, the back, hands, arms, forearms, thighs, and calves. There is no evidence of recurrent pigmentation at the melanoma excision sites. He has no evidence of recurrent SCCA on the right dorsal hand. He has mild diffuse actinic damage over the dorsal hands but otherwise examination is benign. Assessment and Plan: 1. History of malignant melanoma. a. Benign examination today. b. Patient reassured. c. Continue sun avoidance precautions. d. Recommend at this time that we go now to once yearly skin visits. 2. History of nonmelanoma cutaneous malignancies. a. Patient reassured about benign examination. COPY: Arik Jernigan M.D. documented in this encounter Plan of Treatment Upcoming Encounters Date Type Specialty Care Team Description 04/17/2022 Office Visit Dermatology Pete Baltazar MD [address] [place] [address] DERMATOLOGY [place], [place] [address] (Wo rk) documented as of this encounter Visit Diagnoses Diagnosis History of malignant melanoma - Primary Personal history of malignant melanoma o f skin History of squamous cell carcinoma Personal history of malignant neoplasm o f other site documented in this encounter Care Teams Policy Manager Relationship Specialty Start Date End Date Arik Amador MD PCP - General 05/17/10 06/24/19 documented as of this encounter
--- OUTSIDE RECORDS SUMMARY | 2022-01-27 02:00 | XMS_ITS | Encounter Summary ---
:1940 Author Organization [facility] [place] [address] Care Team Providers Name Role Phone Unavailable Primary Care Provider Unavailable Encounter Details Date Type Department Care Team Description 05/11/2010 Office Visit Dermatology Pete Baltazar MD [address] [facility] [address] [facility] [address] DERMATOLOGY [place], [place] [address] [place] [address] [phone] (Wo rk) Social History Tobacco Use Types Packs/Day Years Used Date Never Assessed Sex Assigned at Date Recorded Not on file documented as of this encounter Plan of Treatment Upcoming Encounters Date Type Specialty Care Team Description 04/17/2022 Office Visit Dermatology Pete Baltazar MD [address] [facility] DERMATOLOGY [place], [place] [address] (Wo rk) documented as of this encounter Visit Diagnoses Not on filedocumented in this encounter
--- OUTSIDE RECORDS SUMMARY | 2022-01-27 02:00 | XMS_ITS | Encounter Summary ---
:1940 Author Organization [facility] [place] [address] Care Team Providers Name Role Phone Arik Amador MD Primary Care Provider Encounter Details Date Type Department Care Team Description 11/27/2014 Orders Only General Surgery at [facility] Joe Ferraro MD [facility] [place] [address] GENERAL SURGERY [phone] [place], [place] [address] (Wo rk) Social History Tobacco Use Types Packs/Day Years Used Date Never Smoker Sex Assigned at Date Recorded Not on file documented as of this encounter Plan of Treatment Upcoming Encounters Date Type Specialty Care Team Description 04/17/2022 Office Visit Dermatology Pete Baltazar MD [address] [place] [address] DERMATOLOGY [place], [place] [address] (Wo rk) documented as of this encounter Procedures Procedure Name Priority Date/Time Associated Comments Diagnosis FILM LIBRARY STORAGE Routine 11/27/2014 9:15 AM R esults for this ONLY ULTRASOUND EDT procedure ar e in STUDY the results section. documented in this encounter Results Film Library- Storage only Ultrasound Study (11/27/2014 9:15 AM EDT) Anatomical Region Laterality Modality Other Specimen (Source) Anatomical Collection Method Collection Time Re ceived Time Location / / Volume Laterality 11/27/2014 9:15 AM EDT Narrative 11/30/2014 10:48 AM EDT This is a Non-reportable exam Procedure Note DENNISE, UNSIGNED REPORT - 11/30/2014Formatt ing of this note might be different from the original. This is a Non-reportable exam Joe Ferraro MD [facility] FILM LIBRARY ORDERABLES documented in this encounter Visit Diagnoses Not on filedocumented in this encounter Care Teams Director Microbiology Relationship Specialty Start Date End Date Arik Amador MD PCP - General 05/17/10 06/24/19 documented as of this encounter
--- OUTSIDE RECORDS SUMMARY | 2022-01-27 02:00 | XMS_ITS | Encounter Summary ---
:1940 Author Organization [facility] [place] [place] [address] Care Team Providers Name Role Phone Arik Amador MD Primary Care Provider Reason for Visit Reason Comments Skin Check Encounter Details Date Type Department Care Team Description 04/16/2012 Office Visit Dermatology Pete Baltazar, History of malignant melanom a (Primary Dx); [address] [facility] Actinic keratosis [address] [place], [place] D[place]MATOLOGY [address] [place] [address] [phone] (Wo rk) Social History Tobacco Use Types Packs/Day Years Used Date Never Smoker Sex Assigned at Date Recorded Not on file documented as of this encounter Progress Notes Pete Baltazar MD - 04/16/2012 4:16 PM EDT Problems: 1. Repeat skin checkup. 2. History of malignant melanoma, 0.5-mm Breslow depth, left lateral shoulder, November 2007. 3. History of malignant melanoma, 0.65-mm Breslow depth, left elbow, March 2007. 4. Forty-two years of service with the [employer]. Toni follows up today with his , Rolo. He has been doing well. The SCCA treatment site on the right dorsal hand has healed well from his last visit in October 2011. Physical examination reveals a pleasant, 71-year-old gentleman who has several actinics present on the right catholic, on the forehead, and on the dorsal hands. Fortunately there is no evidence of recurrent pigmentation at the melanoma excision sites. Careful examination of the head and the neck, the chest, the back, hands, arms, forearms, thighs, and calves is benign. Assessment and Plan: 1. History of malignant melanomas. a. Benign examination today. b. Patient reassured. c. Continue sun avoidance precautions. 2. History of nonmelanoma cutaneous malignancies. a. Patient reassured about benign examination. b. I recommend that I see him again in another six months. c. If doing well at that time, maybe we will go back to once-yearly visits. Copy: Arik Amador M.D. documented in this encounter Plan of Treatment Upcoming Encounters Date Type Specialty Care Team Description 04/17/2022 Office Visit Dermatology Pete Baltazar MD [address] [place] [address] DERMATOLOGY [place], [place] [address] (Wo rk) documented as of this encounter Visit Diagnoses Diagnosis History of malignant melanoma - Primary Personal history of malignant melanoma o f skin Actinic keratosis documented in this encounter Care Teams Practice Physician Relationship Specialty Start Date End Date Arik Amador MD PCP - General 05/17/10 06/24/19 documented as of this encounter
--- OUTSIDE RECORDS SUMMARY | 2022-01-27 02:03 | XMS_ITS | Encounter Summary ---
:1940 Author Organization [facility] Address [address] [place] [address] Care Team Providers Name Role Phone Arik Amador MD Primary Care Provider Encounter Details Date Type Department Care Team Description 03/12/2020 Lab Requisition [facility] Outr Resulting Lab, Pathology & Laboratory Provider [facility] [address] [place], [place] [address] Social History Tobacco Use Types Packs/Day Years Used Date Never Assessed Sex Assigned at Date Recorded Not on file documented as of this encounter Plan of Treatment Not on filedocumented as of this encounter Procedures Procedure Name Priority Date/Time Associated Comments Diagnosis IMMUNOTYPING, SERUM Today 03/12/2020 9:45 Resul ts for this EDT procedure are i n the results section. SPEP, INCLUDES Routine 03/12/2020 9:45 Results fo r this QUANTITATION OF EDT procedure ar e in MONOCLONAL SPIKE the results section. documented in this encounter Results IMMUNOTYPING, SERUM (03/12/2020 9:45 EDT) Pathologist Yamini Immunotyping, Current [facility] Serum Interpretation: LABORATORY SERVICES Negative for monoclonal immunoglobulins. Confirmed by immunofixation. Reviewed by: Jeffrey Bronson MD 03/16/2020 15:05 Specimen Blood - Venous blood (substance) Performing Organization Address City/State/ZIP Code Phon e Number [facility] LABORATORY [address] [place] [address] SERVICES (ABNORMAL) SPEP, INCLUDES QUANTITATION OF MONOCLONAL SPIKE (03/12/2020 9:45 EDT) Pathologist Yamini Total Protein 5.5 (L) 6.3 - 8.2 [facility] g/dL LABORATORY SERVICES Albumin % 47.7 (L) 55.8 - 66.1 % [facility] LABORATORY SERVICES Alpha-1 % 7.7 (H) 2.9 - 4.9 % [facility] LABORATORY SERVICES Alpha-2 % 12.2 (H) 7.1 - 11.8 % [facility] LABORATORY SERVICES Beta % 13.4 (H) 8.4 - 13.1 % [facility] LABORATORY SERVICES Gamma % 19.0 (H) 11.1 - 18.8 % [facility] LABORATORY SERVICES SPEP Comment Suspicious pattern [facility] seen on protein LABORATORY electrophoresis. SERVICES Immunotyping added by reflex.Comment: See scanned/supplementary report. Specimen Blood - Venous blood (substance) Narrative This result has an attachment that is no t available. Performing Organization Address City/State/ZIP Code Phon e Number [facility] LABORATORY [address] [place] [address] SERVICES documented in this encounter Visit Diagnoses Not on filedocumented in this encounter Care Teams Power Originator Relationship Specialty Start Date End Date Arik Amador MD PCP - General 02/16/16 documented as of this encounter
--- OUTSIDE RECORDS SUMMARY | 2022-01-27 02:03 | XMS_ITS | Encounter Summary ---
:1940 Author Organization [facility] Address [address] [place] [address] Care Team Providers Name Role Phone Arik Amador MD Primary Care Provider Encounter Details Date Type Department Care Team Description 03/12/2020 Lab Requisition [facility] Outr Resulting Lab, Pathology & Laboratory Provider [facility] [address] [place] [id number] Social History Tobacco Use Types Packs/Day Years Used Date Never Assessed Sex Assigned at Date Recorded Not on file documented as of this encounter Plan of Treatment Not on filedocumented as of this encounter Procedures Procedure Name Priority Date/Time Associated Comments Diagnosis URINE MONOCLONAL Routine 03/12/2020 11:20 Results for this PROTEIN STUDY (UPEP EDT procedur e are in WITH IMMUNOTYPING) the resul ts section. documented in this encounter Results URINE MONOCLONAL PROTEIN STUDY (UPEP WITH IMMUNOTYPING) (03/12/2020 11:20 EDT) Total Protein, 39 See Note mg/dL [facility] Urine CENTER LABORATORY SERVICES Albumin, Urine 13.8 Not Established % [facility] LABORATORY SERVICES Globulins, 86.2 N/A % [facility] Urine CENTER LABORATORY SERVICES UPEP Comment See CommentComment: [facility] MEDICAL Electrophoresis CENTER screening performed; LABORATORY Immunotyping to SERVICES follow. See scanned/supplementary report. Immunotyping, Current [facility] Urine Interpretation: [facility] monoclonal kappa LABORATORY light chains SERVICES identified. Reviewed by: Jeffrey Bronson MD 03/15/2020 15:15 Specimen Urine - Urine (substance) Narrative This result has an attachment that is no t available. Performing Organization Address City/State/ZIP Code Phon e Number [facility] LABORATORY [address] [place] [address] SERVICES documented in this encounter Visit Diagnoses Not on filedocumented in this encounter Care Teams Technical Manager Chemical [employer] Relationship Specialty Start Date End Date Arik Amador MD PCP - General 02/16/16 documented as of this encounter
--- OUTSIDE RECORDS SUMMARY | 2022-01-27 02:03 | XMS_ITS | Encounter Summary ---
:1940 Author Organization [facility] Address [address] [place] [address] Care Team Providers Name Role Phone Arik Amador MD Primary Care Provider Encounter Details Date Type Department Care Team Description 08/26/2020 Lab Requisition [facility] Outr Resulting Lab, Pathology & Laboratory Provider [facility] [address] [place] [address] Social History Tobacco Use Types Packs/Day Years Used Date Never Assessed Sex Assigned at Date Recorded Not on file documented as of this encounter Plan of Treatment Not on filedocumented as of this encounter Procedures Procedure Name Priority Date/Time Associated Diagnosis Comme nts HEPATITIS C AB W Routine 08/26/2020 10:30 Results for this REFLEX TO HCV RNA EST procedure are in BY PCR the results section. HEPATITIS B SURFACE Routine 08/26/2020 10:30 Resu lts for this ANTIGEN EST procedure are i n the results section. documented in this encounter Results HEPATITIS B SURFACE ANTIGEN (08/26/2020 10:30 EST) Pathologist Sig nature Hep B Surface Ag Negative Negative [facility] SERVICES Specimen Blood - Venous blood (substance) Performing Organization Address [facility]/ZIP Code Phon e Number [facility] [address] [place] [address] SERVICES HEPATITIS C AB W REFLEX TO HCV RNA BY PCR (08/26/2020 10:30 EST) Pathologist Sig nature Hep C Antibody Negative Negative [facility] [place] SERVICES Specimen Blood - Venous blood (substance) Performing Organization Address [facility] Phon e Number [facility] [address] [place] [address] SERVICES documented in this encounter Visit Diagnoses Not on filedocumented in this encounter Care Teams Trimmer Climber Relationship Specialty Start Date End Date Arik Amador MD PCP - General 02/16/16 documented as of this encounter
--- OUTSIDE RECORDS SUMMARY | 2022-01-27 02:03 | XMS_ITS | Encounter Summary ---
:1940 Author Organization [facility] Address [address] [place] [address] Care Team Providers Name Role Phone Benedicto Amador MD Primary Care Provider Encounter Details Date Type Department Care Team Description 11/05/[address] [facility]- Cara Duran, DO [phone] [address] [address] Social History Tobacco Use Types Packs/Day Years Used Date Never Assessed Sex Assigned at Date Recorded Not on file documented as of this encounter Plan of Treatment Not on filedocumented as of this encounter Procedures Procedure Name Priority Date/Time Associated Diagnosis Comme nts SURGICAL PATHOLOGY Routine 11/05/2018 15:30 Resul ts for this EDT procedure are i n the results section. documented in this encounter Results SURGICAL PATHOLOGY (11/05/2018 15:30 EDT) Pathology Report: SURGICAL PATHOLOGY REPORT [facility] Reports generated via electronic interface contain marjorie ginal data; LABORATORY however they are lacking the format of the original re port. SERVICES Caution should be taken when reading/interpreting unfo rmatted reports. Name: ? TRINA WELLS ? Accession #: ? [id number] ? : ? 1940 (Age: [age]) ??M ? Collect Date: ? 11/05/2018 ? Location: ? [facility] ? Receive Date: ? 11/06/19 19 ? Provider: CARA CARNES DO Copy to: BENEDICTO AMADOR MD ? Final Pathologic Diagnosis: SKIN OF BACK, RIGHT LOWER, BIOPSY: - Fibrovascular tissue, adipose and skeletal muscle. ? ?See microscopic. Microscopic Description: Sections reveal a fragmented biopsy of fibrous tissue with scattered small vessels consistent with scar. ??There is adipose tissu e and skeletal muscle identified. ??The findings m ay represent a ruptured cyst though cyst wall is not identified in the sections examined. ??(Dr. Cortez)/t mg Document reviewed and electronically signed by: STEVEN CORTEZ MD Report ??Date: 11/07/2018 15:05 By the signature above, the attending physician certif ies that he/she has personally conducted a gross and/or microscopic examin ation of the described specimens and rendered or confirmed the above diagnosi s. Specimen(s) Received: Sebaceous cyst, R lower back Clinical History: Sebaceous cyst Gross Description: ? Received in formalin labelled with proper patient identification (initials T, S) and sebaceous cyst R lower back is an aggregat e of fibrofatty tissue (2.2 x 0.8 x 0.5 cm). Slate Roofer Helper sections are subm itted in 1-2. MAYUR Seo ([facility]) 11/05/2018 3:39 PM End of Report Specimen Performing Organization Address City/State/ZIP Code Phon e Number [facility] [address] [place] [address] SERVICES documented in this encounter Visit Diagnoses Not on filedocumented in this encounter Care Teams Medical Assistant Supervisor Relationship Specialty Start Date End Date Benedicto Amador MD PCP - General 02/16/16 documented as of this encounter
--- OUTSIDE RECORDS SUMMARY | 2022-01-27 02:03 | XMS_ITS | Encounter Summary ---
:1940 Author Organization [facility] Address [address] [place] [address] Care Team Providers Name Role Phone Unavailable Primary Care Provider Unavailable Encounter Details Date Type Department Care Team Description 03/01/2007 Results Only [facility] - Benedicto Rueda MD [address] [place], [place] [id number] [place] [id number] [phone] Social History Tobacco Use Types Packs/Day Years Used Date Never Assessed Sex Assigned at Date Recorded Not on file documented as of this encounter Plan of Treatment Not on filedocumented as of this encounter Procedures Procedure Name Priority Date/Time Associated Diagnosis Comme nts SURGICAL PATHOLOGY Routine 03/01/2007 0:00 EDT Re sults for this procedure are i n the results section. documented in this encounter Results SURGICAL PATHOLOGY (03/01/2007 0:00 EDT) Pathology SURGICAL PATHOLOGY REPORT [facility] Report: Reports generated via electronic interface contain marjorie ginal data; LAB however they are lacking the format of the original re port. Caution should be taken when reading/interpreting unfo rmatted reports. Name: ? TRINA WELLS ? Accession #: ? [id number] ? : ? 1940 (Age: 66) ??M ? Collect Date: ? 03/01/2007 ? Location: ? [facility] ? Receive Date: ? 007 ? Provider: BENEDICTO BEY MD Copy to: ? Final Pathologic Diagnosis: ? Skin of hand, left, shave biopsy: 1. ??Hypertrophic actinic keratosis. See microscopic a nd comment. ?- Lesion extends to base of biopsy spec imen. ? Comment: ? The findings are those of a hyper trophic actinic keratosis. The lesion, however, is markedly acantholytic and is transected at the base. ??Thus, an invasive lesion cannot entirely be excluded. (Dr. Ursula martinez)/[facility] Microscopic Description: ? The stratum corneum is markedly thickened by or thohyperkeratosis and confluent parakeratosis. ??The epidermis is hyperplastic with expansion of the stratum spinosum by enlarged keratinocytes with abunda nt glassy eosinophilic cytoplasm. The keratinocytes show marked acantholysis. The basal keratinocytes show a variable degree of nu clear atypia including enlargement, dispolarity, and overlap. The dermis is marked by solar elastosis, vasc ular ectasia, and a lymphohistiocytic infiltrate. ?? Document reviewed and electronically signed by: Cristina Espinoza MD Report ??Date: 03/05/2007 19:54 By the signature above, the attending physician certif ies that he/she has personally conducted a gross and/or microscopic examin ation of the described specimens and rendered or confirmed the above diagnosi s. Specimen(s) Received: ? Shave biopsy L hand Clinical History: ? Non-healing lesion; ? SCCA Gross Description: ? Received in formalin labelled Russell and L hand is a arevalo-alfred granular 0.7 x 0.6 cm skin shave with a central indurated 0.3 x 0.2 x 0.2 cm papule. The specimen is inked, trisected, and is entirely submitte d in one cassette. (Cesario Schwartz ??[facility] End of Report Specimen Performing Organization Address City/State/ZIP Code Phon e Number [facility] [address] [place] [address] SERVICES [facility] [address] [place] [address] documented in this encounter Visit Diagnoses Not on filedocumented in this encounter
--- OUTSIDE RECORDS SUMMARY | 2022-01-27 02:03 | XMS_ITS | Encounter Summary ---
:1940 Author Organization [facility] Address [address] [place] [address] Care Team Providers Name Role Phone Arik Amador MD Primary Care Provider Encounter Details Date Type Department Care Team Description 03/09/2020 Lab Requisition [facility] Outr Resulting Lab, Pathology & Laboratory Provider [facility] [address] [place], [place] [address] Social History Tobacco Use Types Packs/Day Years Used Date Never Assessed Sex Assigned at Date Recorded Not on file documented as of this encounter Plan of Treatment Not on filedocumented as of this encounter Procedures Procedure Name Priority Date/Time Associated Diagnosis Comme nts [facility] Today 03/09/2020 10:50 LAB PCR EDT COVID-19 TESTING Routine 03/09/2020 10:50 Results for this EDT procedure are i n the results section. documented in this encounter Results COVID-19 TEST [facility] LAB PCR (03/09/2020 10:50 EDT) Specimen Swab - Entire nasopharynx (body structur e) Performing Organization Address City/State/ZIP Code Phon e Number [facility] [address] [place] [address] SERVICES COVID-19 TESTING (03/09/2020 10:50 EDT) COVID-19 rt-PCR Negative Negative [facility] Result Comment: CENTER LABORATORY This test has not been FDA c leared or approved. This test has been authorized by FDA under an EUA for use by authorized laboratories. This test has been authorized only for detection of nucleic acid fro SERVICES m 2019-nCoV, not for any oth er viruses or pathogens. This test is only authorized for the duration of the declaration that circumstances exist justifying the authorization of emergency use of in vitro d iagnostic tests for detectio n and/or diagnosis of 2019-nCoV under section 564(b)(1) of Act, 21 U.S.C ?? 360bbb-3(b) (1), unless the authorization is terminated or revoked sooner. Negative results do not prec lude 2019-nCoV infection and should not be used as the sole basis for treatment or other patient management decisions. Negative results must be combined with clinical observa tions, patient history, and epidemiological informatio n. Performed on the [employer] instrument Performing Lab [place] [facility] Lab [facility] SERVICES Specimen Swab Performing Organization Address City/State/ZIP Code Phon e Number [facility] [address] [place] [address] SERVICES documented in this encounter Visit Diagnoses Not on filedocumented in this encounter Care Teams Fisheries Specialist Relationship Specialty Start Date End Date Arik Amador MD PCP - General 02/16/16 documented as of this encounter
--- OUTSIDE RECORDS SUMMARY | 2022-01-27 02:03 | XMS_ITS | Encounter Summary ---
:1940 Author Organization [facility] Address [address] [place] [address] Care Team Providers Name Role Phone Arik Amador MD Primary Care Provider Encounter Details Date Type Department Care Team Description 03/11/2020 Lab Requisition [facility] Cristina Dean for other Pathology & M, DO general examination Laboratory Medicine - [address] [facility] [address] [place] [phone] Social History Tobacco Use Types Packs/Day Years Used Date Never Assessed Sex Assigned at Date Recorded Not on file documented as of this encounter Plan of Treatment Not on filedocumented as of this encounter Procedures Procedure Name Priority Date/Time Associated Diagnosis Comme nts SURGICAL PATHOLOGY Today 03/11/2020 15:15 Encounter for othe r Results for this EDT general examination procedur e are in the results section. documented in this encounter Results SURGICAL PATHOLOGY (03/11/2020 15:15 EDT) Final Diagnosis A. DUODENUM, BULB, BIOPSY: [facility] MEDICAL - Duodenal mucosa with no significant diagnostic abnor mality. CENTER LABORATORY B. STOMACH, ANTRUM, BIOPSY: SERVICES - Antral mucosa with acute erosive gastritis and focal intestinal metaplasia. - Moderate focal epithelial inflammatory atypia, negat tre for dysplasia. - Negative for Helicobacter pylori. See comment. C. STOMACH, GREATER CURVATURE, BIOPSY: - Fundic mucosa with no significant diagnostic abnorma lity. - Negative for Helicobacter pylori microorganisms on H &E stained sections. D. ESOPHAGUS, GE JUNCTION, BIOPSY: - Gastroesophageal junction mucosa with mild chronic inflammation and mild reactive changes. - Negative for intestinal metaplasia and dysplasia. E. ESOPHAGUS, DISTAL, BIOPSY: - Squamous mucosa with mild reactive changes. Diagnosis Comment ANTIBODY(CLONE)(BLOCK):RESULT [facility] H pylori (Rabbit Monoclonal (SP48), [place]) (B1): [facility] CENTER LABORATORY NOTE: One or more of the re agents used in immunoperoxidase testing in this case may not have been cleared or approved by the U.S. Food and Drug Administration (FDA). The FDA has determined that such cl SE RVICES earance or approval is not n ecessary. These tests are used for clinical purposes. They should not be regarded as investigational or for research. These reagents' performance characteristics have been de termined by [facility] and/or by the referring laboratory. The positive and negative controls worked appropriately. If immunoperoxidase staining has been performed on alcoh ol fixed cytology specimens, which has not been fully validated, the assays should be interpreted with caution and correlated with clinical data. This laboratory is certified under the Clinical Laborato ry Improvement Amendments of 1988 (CLIA-88) as qualified to perform high complexity clinical laboratory testing. Form Worker slides of thi s case were reviewed at the intradepartmental consultation conference (ROXY, URVASHI). Attestation By the signature below, [facility] tronically the attending physician CENTER sign ed by Holly Arechiga, certifies that they LABORATORY Colton Ham MD on have 1) personally SERVICES 03/16/2020 at 1619 conducted a gross and/or microscopic examination of the described specimen(s), and/or personally interpreted the results of laboratory testing of the described specimen(s), and 2) personally rendered or confirmed the above diagnosis. Clinical History Anemia [facility] Gross Description A. [facility] Received in formalin seth d with proper patient identification (initials T, S) and 1. Duodenal bulb Bx is a arevalo-brown tissue (0.4 x 0.3 x 0.2 cm). Submitted in toto in A1. CENTER LABORATORY B. SERVICES Received in formalin seth d with proper patient identification (initials T, S) and 2. Antrum Bx is a arevalo tissue (0.4 x 0.4 x 0.2 cm). Submitted in toto in B1. C. Received in formalin seth d with proper patient identification (initials T, S) and 3. Greater curve Bx is a arevalo-brown tissue (0.6 x 0.2 x 0.1 cm). Submitted in toto in C1. D. Received in formalin seth d with proper patient identification (initials T, S) and 4. GE junction Bx are 2 arevalo-brown tissues (0.1 x 0.1 x 0.1 cm and 0.4 x 0.3 x 0.2 cm). Submitted in toto in D1. E. Received in formalin seth d with proper patient identification (initials T, S) and 5. Distal esophagus Bx is a white-pink tissue (0.4 x 0.2 x 0.1 cm). Submitted in toto in E1. TIMMY PRIETOSONA 03/12/2020 8:18 Performing Lab [facility] Scanned Images [facility] Specimen Tissue - Entire esophagus (body structur e) Tissue specimen (specimen) - Entire stom ach (body structure) Tissue specimen (specimen) - Entire stom ach (body structure) Tissue specimen (specimen) - Entire esop hagus (body structure) Tissue specimen (specimen) - Entire esop hagus (body structure) Performing Organization Address City/State/ZIP Code Phon e Number [facility] [address] [place] [address] SERVICES documented in this encounter Visit Diagnoses Diagnosis Encounter for other general examination documented in this encounter Care Teams Sewing Department Supervisor Relationship Specialty Start Date End Date Arik Amador MD PCP - General 02/16/16 documented as of this encounter
--- OUTSIDE RECORDS SUMMARY | 2022-01-27 02:03 | XMS_ITS | Encounter Summary ---
:1940 Author Organization [facility] Address [address] [place] [address] Care Team Providers Name Role Phone Unavailable Primary Care Provider Unavailable Encounter Details Date Type Department Care Team Description 03/05/2007 Results Only [facility] - Benedicto Rueda MD [address] [place], [place] [id number] [place] [id number] [phone] Social History Tobacco Use Types Packs/Day Years Used Date Never Assessed Sex Assigned at Date Recorded Not on file documented as of this encounter Plan of Treatment Not on filedocumented as of this encounter Procedures Procedure Name Priority Date/Time Associated Diagnosis Comme nts SURGICAL PATHOLOGY Routine 03/05/2007 0:00 EDT Re sults for this procedure are i n the results section. documented in this encounter Results SURGICAL PATHOLOGY (03/05/2007 0:00 EDT) Pathology Report: SURGICAL PATHOLOGY REPORT [facility] Reports generated via electronic interface contain marjorie ginal data; LAB however they are lacking the format of the original re port. Caution should be taken when reading/interpreting unfo rmatted reports. Name: ? TRINA WELLS ? Accession #: ? [id number] ? : ? 1940 (Age: 66) ??M ? Collect Date: ? 03/05/2007 ? Location: ? [facility] ? Receive Date: ? 007 ? Provider: BENEDICTO AMADOR MD Copy to: ? Final Pathologic Diagnosis: ? Skin of elbow, left, shave biopsy: 1. ?Malignant m elanoma, invasive (lentigo maligna type). See microscopic and comment. ? - Melanoma is non-ulcerated. - Melanoma thickness (Breslow thickness) 0.64 mm. - Melanoma extends into but does not fill the pa pillary dermis (Payam's level II). - No lymphovascular invasion identified. - Features of complete regression not present. - Invas tre melanoma does not extend to edges of biopsy specimen. - Melanoma in situ focally extends to tissue edge. Comment: ? The biopsy is that of an invasive melanoma which is non-ulcerated, Breslow thickness 0.64 mm, and Payam's level II. This corresponds to an [id number]. The invasive component is encompassed by the edges of the biopsy specimen. Specifically the invasive co mponent measures approximately 0.6 mm to the base of the biopsy specimen, and approximately 4.0 mm to the nearest peripheral edge. Melanoma in situ extends focally to the edge of the biopsy specimen. This case has been reviewed by Dr. Lucita Smallwood who concurs with the above diagnoses. These results were phoned to Dr. Amador's office on 02/23 01/29. (Dr. Espinoza)/[facility] Microscopic Description: ? Sections consist of a shave biopsy to the mid reticular dermis. There is a compound melanocytic prolife ration. The epidermal component spans the epidermis and is of variable cellular density. The melanocytes are arranged as both nests and as well as individual ce lls. The nest vary in size, shape, and spacing with nests bridging rete ridges. The individu al cells are unevenly spaced along the dermal-epidermal junction with areas of confluence and upward migration. The individual cells are enlarge d and show a moderate to severe degree of cytologic atypia including irregular nuclear contours, prominent nucleoli, and aaliyah melanin pigment within the c ytoplasm. Similar appearing melanocytes invade into, but do not fill, the papillary dermis. Tumor infiltrat ing lymphocytes are non-brisk. Two mitoses per 10/hpf are identified. (Dr. Espinoza)/[facility] Document reviewed and electronically signed by: Cristina Espinoza MD Report ??Date: 03/12/2007 08:12 By the signature above, the attending physician certif ies that he/she has personally conducted a gross and/or microscopic examin ation of the described specimens and rendered or confirmed the above diagnosi s. Specimen(s) Received: ? Shave biopsy L elbow Clinical History: ? Irregular pigmented lesion Gross Description: ? Received in formalin labelled Russell and left elbow is a 1.2 x 1.1 cm shave biopsy of dark arevalo skin with tissu e to a depth of less than 0.1 cm. ??On the epidermal surface is an irregularly outlined region of light to dark brown pigmentation, at the edge of which is a 0.5 cm i n greatest dimension slightly raised lesion, which appears dark brown in pigmentation. ??The specimen is cross sectioned and submitted in toto in one cassette. ??(Dr Khurram Erwin)/[facility] End of Report Specimen Performing Organization Address City/State/ZIP Code Phon e Number [facility] [address] [place] [address] SERVICES [facility] [address] [place] [address] documented in this encounter Visit Diagnoses Not on filedocumented in this encounter
--- OUTSIDE RECORDS SUMMARY | 2022-01-27 02:03 | XMS_ITS | Encounter Summary ---
:1940 Author Organization [facility] Address [address] [place] [address] Care Team Providers Name Role Phone Arik Amador MD Primary Care Provider Encounter Details Date Type Department Care Team Description 11/05/2018 Hospital Encounter [facility] [place] Unknown, Provider, [facility] [address] [place] [address] [place] [address] (Work) [phone] Social History Tobacco Use Types Packs/Day Years Used Date Never Assessed Sex Assigned at Date Recorded Not on file documented as of this encounter Discharge Disposition Disposition Code Departure Means Destination Home or Self [facility] documented in this encounter Plan of Treatment Not on filedocumented as of this encounter Visit Diagnoses Not on filedocumented in this encounter Care Teams Nuclear Control Operator Relationship Specialty Start Date End Date Arik Amador MD PCP - General 02/16/16 documented as of this encounter
--- OUTSIDE RECORDS SUMMARY | 2022-01-27 02:03 | XMS_ITS | Clinical Summary ---
:1940 Author Organization [facility] Address [address] [place] [address] Care Team Providers Name Role Phone Arik Amador MD Primary Care Provider Social History Tobacco Use Types Packs/Day Years Used Date Never Assessed Sex Assigned at Date Recorded Not on file Plan of Treatment Health Maintenance Due Date Last Done Comments Fall Risk Screening 2004 Insurance Payer Benefit Plan / Subscriber ID Effective Phone Address T ype Group Dates MEDICARE MEDICARE A/B [id number] 2004-Prese [address] [facility] [place] [phone] [facility] 2018-Prese [phone] [address] [facility] [employer] [address] [place] [address] Care Teams Meteorological Technician Relationship Specialty Start Date End Date Arik Amador MD PCP - General 02/16/16
--- OUTSIDE RECORDS SUMMARY | 2022-01-27 02:03 | XMS_ITS | Encounter Summary ---
:1940 Author Organization [facility] Address [address] [place] [address] Care Team Providers Name Role Phone Unknown, Provider Primary Care Provider Encounter Details Date Type Department Care Team Description 02/11/2016 Results Only [facility] Karan Spencer, DO [phone] [place] [address] [address] [place], [place] [id number] (Wo rk) Social History Tobacco Use Types Packs/Day Years Used Date Never Assessed Sex Assigned at Date Recorded Not on file documented as of this encounter Plan of Treatment Not on filedocumented as of this encounter Procedures Procedure Name Priority Date/Time Associated Diagnosis [facility] SURGICAL PATHOLOGY Routine 02/11/2016 7:59 EDT Re sults for this procedure are i n the results section. documented in this encounter Results SURGICAL PATHOLOGY (02/11/2016 7:59 EDT) Pathology Report: SURGICAL PATHOLOGY REPORT [facility] Reports generated via electronic interface contain marjorie ginal data; LABORATORY however they are lacking the format of the original re port. SERVICES Caution should be taken when reading/interpreting unfo rmatted reports. Name: ? TRINA WELLS ? Accession #: ? [id number] ? : ? 1940 (Age: [age]) ??M ? Collect Date: ? 02/11/2016 ? Location: ? [facility] ? Receive Date: ? 02/12/20 16 ? Provider: KARAN SPENCER DO Copy to: BENEDICTO BEY MD ? Final Pathologic Diagnosis: A. ??COLON, CECUM, POLYP, BIOPSY: - Fragments of tubular adenoma. B. ??COLON, ASCENDING, POLYP, BIOPSY: - Fragments of tubular adenoma. C. ??COLON, TRANSVERSE, POLYPS, BIOPSY: - Fragments of tubular adenoma(s). D. ??COLON, DISTAL SIGMOID, POLYP, BIOPSY: - Tubular adenoma. ?? Document reviewed and electronically signed by: STEPHIE DIAZ MD Report ??Date: 02/16/2016 12:19 By the signature above, the attending physician certif ies that he/she has personally conducted a gross and/or microscopic examin ation of the described specimens and rendered or confirmed the above diagnosi s. Specimen(s) Received: A. ?Cecal polyp B. ? Ascending colon polyp C. ? Transverse colon polyps x2 D. ? Distal sigmoid polyp Clinical History: Colorectal screening; clinical diagnosis code: ??Z12.1 1 Gross Description: A. ?Received in formalin labelled with proper p atient identification (initials T, S) and #1 ceca l polyp are six yellow-brown polypoid tissues (0.2 x 0.1 x 0.1 cm to 0.4 x 0.2 x 0.2 cm). Entirely submit fazal in A1 and A2. B. ?Received in formalin labelled with proper p atient identification (initials T, S) and #2 ascending colon polyp are yellow-brown tissues (0.2 x 0.1 x 0.1 cm to 0.4 x 0.3 x 0.3). Entirely submitted i n B1 through B3. C. ?Received in formalin labelled with proper p atient identification (initials T, S) and #3 transverse colon polyps x2 ar e six yellow slightly polypoid tissues (0.3 x 0.2 x 0.1 cm to 0.4 x 0.3 x 0.2 cm). Entirely submitted in C1 and C2. D. ?Received in formalin labelled with proper p atient identification (initials T, S) and #4 distal sigmoid polyp is a single arevalo-yellow polypoid tissue fragment (0.5 x 0.3 x 0.3 cm). Bisected and sub mitted in D1. Little Resendiz 02/14/2016 9:12 AM End of Report Specimen Performing Organization Address City/State/ZIP Code Phon e Number [facility] [address] [place] [address] SERVICES documented in this encounter Visit Diagnoses Not on filedocumented in this encounter Care Teams Health Policy Nurse Relationship Specialty Start Date End Date Unknown, Provider, PCP - General 04/30/15 02/15/16 documented as of this encounter
--- OUTSIDE RECORDS SUMMARY | 2022-01-27 02:03 | XMS_ITS | Encounter Summary ---
:1940 Author Organization [facility] Address [address] [place] [address] Care Team Providers Name Role Phone Arik Amador MD Primary Care Provider Encounter Details Date Type Department Care Team Description 03/10/2020 Lab Requisition [facility] Outr Resulting Lab, Pathology & Laboratory Provider [facility] [address], [place] [address] Social History Tobacco Use Types Packs/Day Years Used Date Never Assessed Sex Assigned at Date Recorded Not on file documented as of this encounter Plan of Treatment Not on filedocumented as of this encounter Procedures Procedure Name Priority Date/Time Associated Comments Diagnosis HIV 1/2 ANTIGEN AND Routine 03/09/2020 10:45 Resu lts for this ANTIBODY, 4TH EDT procedure are in GENERATION the results section. documented in this encounter Results HIV 1/2 ANTIGEN AND ANTIBODY, 4TH GENERATION (03/09/2020 10:45 EDT) HIV 1 and 2 Negative Negative [facility] Antibody/p24 Comment: LABORATORY Antigen, 4th If acute HIV-1 infection is suspected in a high risk ??patient, submit plasma specimen for HIV-1 RNA quantitation test. SERV ICES Generation Fourth Generation assay performed on the Siemens Seziona ur. Specimen Blood - Venous blood (substance) Performing Organization Address City/State/ZIP Code Phon e Number [facility] [address] [place] [address] SERVICES documented in this encounter Visit Diagnoses Not on filedocumented in this encounter Care Teams Consumer Lending Manager Relationship Specialty Start Date End Date Arik Amador MD PCP - General 02/16/16 documented as of this encounter
--- OUTSIDE RECORDS SUMMARY | 2022-01-27 02:03 | XMS_ITS | Encounter Summary ---
:1940 Author Organization [facility] Address [address] [place] [address] Care Team Providers Name Role Phone Arik Amador MD Primary Care Provider Encounter Details Date Type Department Care Team Description 03/08/2020 Lab Requisition [facility] Outr Resulting Lab, Pathology & Laboratory Provider [facility] [address] [place], [place] [id number] Social History Tobacco Use Types Packs/Day Years Used Date Never Assessed Sex Assigned at Date Recorded Not on file documented as of this encounter Plan of Treatment Not on filedocumented as of this encounter Procedures Procedure Name Priority Date/Time Associated Comments Diagnosis DO NOT ORDER Today 03/08/2020 10:55 Results for this STANDALONE - BROAD EDT procedure are in COVID TEST the results section. COVID-19 TESTING Routine 03/08/2020 10:55 Results for this EDT procedure are i n the results section. documented in this encounter Results DO NOT ORDER STANDALONE - BROAD COVID TEST (03/08/2020 10:55 EDT) COVID-19 rt-PCR NEGATIVE Negative [facility] Result Comment: LABORATORY 2019-novel Coronavirus (2019 -nCoV) not detected by the qRT-PCR assay. Consider testing for other respiratory viruses or re-collecting for 2019-nCoV testing. Note: Optimum timing for peak viral levels du ring infections caused by 20 -nCoV have not been determined. Collection of multiple specimens from the same patient may be necessary to detect the virus. Limitations Positive results are indicat tre of active infection with SARS-CoV-2 but do not rule out bacterial infection or co-infection with other viruses. The agent detected may not be the definite cause of diseas e. In addition, detection of viral RNA may not indicate the presence of infectious virus or that SARS-CoV-2 is the causative agent for clinical symptoms. Negative results do not prec lude SARS-CoV-2 infection and should not be used as the sole basis for patient management decisions. Negative results must be combined with clinical observations, patient his tory, and epidemiological in formation. False negative results may also occur if amplification inhibitors are present in the specimen or if inadequate numbers of organisms are present in the specimen. Op timum specimen types and anita ing for peak viral levels during infections caused by SARS-CoV-2 have not been fully determined. Collection of multiple specimens (types and time points) from the same patient may be necessary to detect the virus. The test was validated for u se with upper respiratory specimens obtained via nasopharyngeal or oropharyngeal swabs in VTM, UTM, M4, M5, M6, saline, and MTM media. The performance of this test has not be en established for other spe cimens. Specimens collected using other FDA recommended Specimen Collection Materials listed in the FDA COVID-19 Diagnostic Technologies communication (September 18, 2019) are pr ocessed with the caveat that they were not all validated for use with this test and the result must be interpreted in this context. Furthermore, a false negative results may occur if a specimen is improperly collected, transported or handled. If the virus mutates in the RT-PCR target region, SARS-CoV-2 may not be detected or may be detected less predictably. Inhibitors or other types of interference may produce a false negative result. An interference study evaluating the effect of common cold medications was not performed. This test is not FDA-cleared but its performance characteristics were established by our CLIA-certified, CAP-accredited, high complexity laboratory in accordance with CLIA regulations, College of [employer] an Pathologists (CAP) guidel yves (Sep 11, 2019), and FDA guidance (Aug 23, 2019). This test is only for use un devendra the Food and Drug Administration's Emergency Use Authorization. Specimen Swab - Entire nasopharynx (body structur e) Performing Organization Address City/State/ZIP Code Phon e Number [facility] [place] COVID-19 TESTING (03/08/2020 10:55 EDT) COVID-19 rt-PCR NEGATIVE Negative [facility] Result Comment: LABORATORY 2019-novel Coronavirus (2019 -nCoV) not detected by the qRT-PCR assay. Consider testing for other respiratory viruses or re-collecting for 2019-nCoV testing. Note: Optimum timing for peak viral levels du ring infections caused by 20 -nCoV have not been determined. Collection of multiple specimens from the same patient may be necessary to detect the virus. Limitations Positive results are indicat tre of active infection with SARS-CoV-2 but do not rule out bacterial infection or co-infection with other viruses. The agent detected may not be the definite cause of diseas e. In addition, detection of viral RNA may not indicate the presence of infectious virus or that SARS-CoV-2 is the causative agent for clinical symptoms. Negative results do not prec lude SARS-CoV-2 infection and should not be used as the sole basis for patient management decisions. Negative results must be combined with clinical observations, patient his tory, and epidemiological in formation. False negative results may also occur if amplification inhibitors are present in the specimen or if inadequate numbers of organisms are present in the specimen. Op timum specimen types and anita ing for peak viral levels during infections caused by SARS-CoV-2 have not been fully determined. Collection of multiple specimens (types and time points) from the same patient may be necessary to detect the virus. The test was validated for u with upper respiratory specimens obtained via nasopharyngeal or oropharyngeal swabs in VTM, UTM, M4, M5, M6, saline, and MTM media. The performance of this test has not be en established for other spe cimens. Specimens collected using other FDA recommended Specimen Collection Materials listed in the FDA COVID-19 [employer] communication (September 18, 2019) are pr ocessed with the caveat that they were not all validated for use with this test and the result must be interpreted in this context. Furthermore, a false negative results may occur if a specimen is improperly collected, transported or handled. If the virus mutates in the RT-PCR target region, SARS-CoV-2 may not be detected or may be detected less predictably. Inhibitors or other types of interference may produce a false negative result. An interference study evaluating the effect of common cold medications was not performed. This test is not FDA-cleared but its performance characteristics were established by our CLIA-certified, CAP-accredited, high complexity laboratory in accordance with CLIA regulations, College of [employer] an Pathologists (CAP) guidel yves (Sep 11, 2019), and FDA guidance (Aug 23, 2019). This test is only for use un devendra the Food and Drug Administration's Emergency Use Authorization. Performing Lab [facility] LABORATORY SERVICES Specimen Swab Performing Organization Address City/State/ZIP Code Phon e Number [facility] [address] [place] [address] SERVICES [facility] [place], [place] documented in this encounter Visit Diagnoses Not on filedocumented in this encounter Care Teams Marine [employer] Professionals Relationship Specialty Start Date End Date Arik Amador MD PCP - General 02/16/16 documented as of this encounter
--- OUTSIDE RECORDS SUMMARY | 2022-01-27 02:03 | XMS_ITS | Encounter Summary ---
:1940 Author Organization [facility] Address [address] [place] [address] Care Team Providers Name Role Phone Arik Amador MD Primary Care Provider Encounter Details Date Type Department Care Team Description 03/12/2020 Lab Requisition [facility] Cristina Dean, unspecified; Pathology & M, DO Acute kidney failure, unspecified (HCC-C MS) Laboratory Medicine - [address] [employer] [facility] [address] [place] [phone] Social History Tobacco Use Types Packs/Day Years Used Date Never Assessed Sex Assigned at Date Recorded Not on file documented as of this encounter Plan of Treatment Not on filedocumented as of this encounter Procedures Procedure Name Priority Date/Time Associated Diagnosis Comme nts NON CATHODE BUILDER/FNA Today 03/10/2020 18:00 Fever, unspecified Resul ts for this CYTOLOGY EDT procedure are i n the results section. documented in this encounter Results NON CATHODE BUILDER/FNA CYTOLOGY (03/10/2020 18:00 EDT) Pathologist Sig nature Final Diagnosis URINE, VOIDED, CYTOLOGIC EVALUATION: U MEDICAL - Negative for high grade urothelial carcinoma. [facility] Attestation By the signature below, the attending physician certifies that they have personally conducted a gross and/or microscopic [facility] Electronically signed examination of the described specimens and rendered or confirmed the above diagnosis. [facility] by Danelle Marrero MD on 03/12 at 1129 Clinical History R50.9; Fever of [facility] unknown origin; ROD [facility] N17.9 SERVICES Gross Description A. [facility] 160ccs of clear yellow fluid , of which 80ccs are composed of fixative, were received and processed by selective cellular enhancement technique. [facility] Resident/Fellow: Evelyn Garcia MD [facility] Performing Lab [facility] Scanned Images [facility] Specimen Fluid - Voided urine specimen (specimen) Performing Organization Address City/State/ZIP Code Phon e Number [facility] [address] [place] [address] SERVICES documented in this encounter Visit Diagnoses Diagnosis Fever, unspecified Acute kidney failure, unspecified (HCC-C MS) (HCC) Acute kidney failure, unspecified documented in this encounter Care Teams Kitchen Helper Relationship Specialty Start Date End Date Arik Amador MD PCP - General 02/16/16 documented as of this encounter
[2022-01-27 12:57] LABS: HCT 37.8 % (40.0-50.0); HGB 12.4 g/dL (13.5-17.5); MCH 30.4 pg (27.0-33.0); MCHC 32.8 % (32.0-36.0); MCV 93 fL (80-95); MPV 10.9 fL (8.0-11.0); Platelet Count 146 10^3/uL (130-400); RBC 4.08 10^6/uL (4.36-5.78); RDW 13.3 % (11.8-14.1); RDW-SD 45.3 fL; WBC 5.43 10^3/uL (4.4-10.8)
== END 2022-01-27 01:58 | disposition home or self-care (01) ==
LOC: LBO 01:57
PROVIDERS: PCP Family Medicine; Visit Provider Surgery
DX: R31.9 Hematuria, unspecified (principal)
CPT/HCPCS: 36415; 85027; 99215

== ENCOUNTER 2022-03-20 11:09 | Day surgery (SDC) | payer MEDICARE, BC, SELFPAY ==
[2022-03-20] MEDS: Tropicam./Phenyleph. (1/2.5%) 5 ML BTL OD ×3 (11:58→12:11)
[2022-03-20 11:59] VITALS: BP 142/78; PULSE 49; RESP 16; TEMP 36.3; O2SAT 98
--- NOTE | 2022-03-20 12:28 | W.ANESPRE ---
General Info Date of Service Date Performed: 03/20/22 Height: 5 ft 7 in Weight: 56.6 kg Body Mass Index (BMI): 19.5 Surgical Procedure: Operation Date: 03/20/22 12:55 Proposed Procedure Side Surgeon p Cataract Extraction with IOL Implant Right Juaquin Ortez MD Meds Allergies and Home Medications Allergies Allergy/AdvReac Type Severity Reaction Status Date / Time oxycodone HCl [From Tylox] Allergy Skin Rash Verified 03/20/22 11:39 Home Medication Medication Instructions Recorded rivaroxaban 15 mg tablet (Xarelto) 15 mg PO QPM 11/15/18 spironolactone 25 mg tablet 25 mg PO DAILY #30 tabs 03/14/20 cholecalciferol (vitamin D3) 25 25 mcg PO DAILY 07/01/21 mcg (1,000 unit) capsule multivit with [id number] 1 cap PO DAILY 07/01/21 3,6,9 no.3 400 mcg-300 mcg capsule vitamin B complex (B 1 tab PO DAILY 01/27/22 Complex-Vitamin B12 tablet) Current Visit Medications: Current Medications Generic Name Dose Route Start Last Admin Trade Name Freq PRN Reason Stop Dose Admin Acetaminophen 1,000 mg 03/20/22 06:00 Acetaminophen 500 Mg Tab PO Q4H PRN PRN Miscellaneous Medication 0 ml 03/20/22 06:00 Prednisolone 1%, Moxifloxacin 0.5%, Nepafenac 0.1% 5ml Btl OD DIRECTED [facility] Miscellaneous Medication 0 ml 03/20/22 06:00 03/20/22 12:11 Tropicam./Phenyleph. 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 Atrial fibrillation I48.91 Tubular adenoma of colon 02/11/16 D12.6 Chronic anticoagulation Z79.01 Sebaceous cyst L72.3 Anemia D64.9 Hypokalemia, ECF to ICF shifts E87.6 CHF (congestive heart failure) I50.9 Cough R05 Fever R50.9 Febrile illness R50.9 Pancytopenia D61.818 Hematuria R31.9 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 Called a pilonidal cyst (via biopsy) in [facility], s/p partial resection at some point - wants it completely removed. mg Snoring Tick bite Trauma Vitreous floaters of left eye Surgical History Surgical History Cholecystectomy Colonoscopy - IV Sedation (02/11/16) H/O local excision of skin lesion 11/05/18 Dr Cristina Dean, right lower back, biopsy showed fibrovascular tissue, adipose tissue and skeletal muscle. Tobacco Smoking/Tobacco Use Status: Former Tobacco Use Alcohol Alcohol Intake: former Substance Use Substance use: Never Substance use type: does not use Vital Signs and Lab Results Vital Signs Most Recent Vital Signs in EMR: Most Recent Vital Signs Temp Pulse Resp BP Pulse Ox 36.3 C L 49 L 16 142/78 H 98 03/20/22 11:59 03/20/22 11:59 03/20/22 11:59 03/20/22 11:59 03/20/22 11:59 Lab Results Blood Type / Crossmatch: No Data to Display Complete Blood Count: No Data to Display Complete Metabolic Panel: No Data to Display Liver Function Panel: No Data to Display Coagulation Panel: No Data to Display Cardiac Panel: No Data to Display Arterial Blood Gas: No Data to Display Venous Blood Gas: No Data to Display Pancreas Panel: No Data to Display Thyroid Panel: No Data to Display Infectious Disease: No Data to Display Blood Cultures: No Data to Display Toxicology Panel: No Data to Display Anesthesia Assessment and Plan Anesthesia History Personal History: No History of Anesthesia Complications Family History: No Family History of Anesthesia Complications Exercise Tolerance Exercise Tolerance: Metabolic Equivalents>4 Pertinent Negatives Pertinent Negatives: No Symptoms of GERD, No Major Cardiovascular Symptoms or Complaints (Atrial fibrillation ), No Major Pulmonary Symptoms or Complaints and No History of CVA/TIA Cardiac & Pulmonary Exam Cardiac Exam: Normal S1/S2 Heart Sounds Pulmonary Exam: Clear Bilateral Breath Sounds Implantable Cardiac Device Does patient have a Pacemaker or an ICD?: No Airway Exam Known Difficult Airway: No Mallampati Class: 1 Mouth Opening: Normal (> 3cm) Thyromental Distance: Greater than 3 cm Neck Range of Motion: Full ROM Neck Circumference: Normal Teeth Condition: Normal Dentition ASA Classification ASA Score: ASA 2 Emergency Case?: No NPO Status NPO Status: NPO Clears >2 hours, Solids >8 hours Anesthesia Plan Resuscitation Status: Full Code Anesthesia Technique: MAC Anesthesia Airway Planned: Natural Airway Monitors Used: Standard Monitors
[2022-03-20 12:29] VITALS: BMI 19.5
[2022-03-20] MEDS: Povidone-Iodine Ophth 30 ML BTL (12:38)
[2022-03-20] MEDS: Tetracaine 0.5% 4 ML BTL OD (12:38)
[2022-03-20] MEDS: Lidocaine 2% Jelly 6 ML SYR (12:39)
[2022-03-20] MEDS: Duovisc Viscoelastic System EACH 1 EACH (12:44)
[2022-03-20] MEDS: Balanced Salt Soln.-PLUS 500 ML BAG (12:44)
[2022-03-20 13:02] VITALS: BP 155/76; PULSE 54; RESP 14; TEMP 36; O2SAT 100
--- NOTE | 2022-03-20 13:02 | PDOC.DSDIS_ITS ---
Discharge Plan Disposition Patient Disposition: HOME Condition: Good Discharge Details Attending Provider: Juaquin Ortez Primary Care Provider: Wing Phan Vandemere Meds and New Rx's Prescriptions: No Action Xarelto 15 mg tablet 15 mg PO QPM Hold Instructions: Resume on 01/28/22. cholecalciferol (vitamin D3) 25 mcg (1,000 unit) capsule 25 mcg PO DAILY [id number] 3,6,9 #3 400-300 mcg capsule 1 cap PO DAILY vitamin B complex [B Complex-Vitamin B12] Tablet 1 tab PO DAILY spironolactone 25 mg tablet 25 mg PO DAILY Qty: 30 0RF Discharge Instructions Stand Alone Forms: Post-op Topical Cataract, Jose Henry (DSU) Discharge Orders Discharge Orders: Discharge Order (Routine); Ordered 03/20/22 Ordered By: Juaquin Ortez DS: Diagnosis Discharge Diagnosis (1) Nuclear sclerotic cataract of right eye: Status: Resolved (2) Cortical cataract of right eye: Status: Resolved
--- NOTE | 2022-03-20 13:03 | W.PM.OP ---
Date of service: 03/20/22 Time of Service: 13:03 Operative Note Operative Note DATE OF PROCEDURE: 03/20/22 PRE-OP DIAGNOSIS: Nuclear/cortical cataract, right eye POST-OP DIAGNOSIS: same PROCEDURE: Cataract extraction using phacoemulsification with intraocular lens implant, right eye SURGEON: Juaquin Ortez ANESTHESIA TYPE: Local By Surgeon and MAC Refer to Anesthesia Record ESTIMATED BLOOD LOSS: 0 PATHOLOGY: none sent COMPLICATIONS: None Patient was transported to: same day Patient's condition: stable Implants: Christiano & Christiano/DEACON Tecnis [id number] Indications: Progressive visual loss due to cataract, right eye Procedure Description: CATARACT SURGERY OPERATIVE REPORT PREOPERATIVE DIAGNOSIS: 1. Nuclear/cortical cataract POSTOPERATIVE DIAGNOSIS: Same OPERATION: 1. Cataract extraction using phacoemulsification with posterior chamber intraocular lens implant, right eye. IOL: IOL Environmental Protection Specialist/Model: Christiano & Christiano / DEACON Tecnis [id number] IOL Power: + 26.0 diopters IOL Serial Number: [id number] Optic Diameter: 6.0mm Haptic/Overall Diameter: 13.0mm PHACO INFO: RejiGuía Localurion Vision System with OZil and Active Fluidics Cumulative Dispersed Energy (CDE): 9.22 seconds SURGEON: Juaquin Ortez MD, ZANA ANESTHESIA: Monitored Anesthesia Care (MAC), with local sub-tenon's anesthetic infiltration COMPLICATIONS: None SPECIMENS: None INDICATIONS FOR PROCEDURE: The patient is a 81-year-old gentleman with history of diminished visual acuity in both eyes secondary to the development of bilateral nuclear/cortical cataract. He is significantly symptomatic that he desires cataract surgery in the right eye and attempt to improve and maximize his vision. The option of cataract surgery was offered to the patient and he wished to proceed. PROCEDURE: The correct surgical eye was identified and marked as the right eye and the pupil was dilated in the preoperative area using mydriatics and cycloplegics. The dilated pupil size was 6 mm. The patient elected to proceed without oral sedation. The patient was brought to the operating room where cardiopulmonary monitoring was instituted and surgical time-out was performed, confirming the correct operative eye and IOL power. Topical anesthesia was administered and ophthalmic povidone-iodine 5% was instilled into the conjunctival fornices. Lidocaine gel was applied to the cornea and the leonela-ocular area was prepped with Betadine 10% solution and draped in the usual sterile fashion for intraocular surgery, including an aperture drape. A Tegaderm transparent film dressing was cut in half and used to cover the lashes and lid margins. Care was taken to sequester the lashes and lid margins under the Tegaderm dressing. A lid speculum was placed between the lids of the operative eye and the Reji LuxOR Revalia operating microscope was maneuvered into position. Sujatha scissors were then used to make a conjunctival buttonhole approximately 6mm posterior to the limbus in the inferonasal quadrant. Blunt dissection was carried out to expose bare sclera, and a blunt-tipped sub-tenon?s anesthesia cannula was introduced and passed posteriorly along the globe where non-preserved plain lidocaine was injected into posterior sub-Tenon?s space. A sideport knife was used to make a paracentesis port inferotemporally. Intraocular phenylephrine/lidocaine was injected into the anterior chamber. The anterior chamber was filled with viscoelastic. A keratome knife was used to construct a 2-plane near-clear corneal tunnel extending 2.0mm into clear cornea superiortemporally. A flap was raised on the anterior capsule and capsulorhexis forceps were used to complete a continuous curvilinear capsulorhexis of 5.0 mm. Balanced salt solution was then used to perform cortical cleaving hydrodissection and nuclear hydrodelineation until the lens could be freely rotated within the capsular bag. The lens nucleus was then disassembled and removed within the capsular bag and iris plane using phacoemulsification. Residual cortical material was removed using the I/A handpiece. The posterior capsule was carefully polished to remove as much residual lens epithelial cells as safely possible. The capsular bag was then inflated and the anterior chamber deepened with viscoelastic. The lens implant described above was inserted into the capsular bag using the DEACON [place] Injector. A Kuglen hook was used to dial the IOL into position. Residual viscoelastic was then removed first from posterior to the IOL, then from the anterior chamber using the I/A handpiece. The lens implant was noted to center nicely within the capsular bag. The incisions were stromally hydrated, and the anterior chamber was reformed using BSS. Then 0.5cc of moxifloxacin 1.0mg/ml were injected into the capsular bag and anterior chamber. The incisions were checked with a Weck spear and found to be secure. Several drops of ophthalmic povidone-iodine 5% were then applied to the eye followed by two drops of Imprimis combination prednisolone/moxifloxacin/nepafenac solution. The drapes were removed and a clear plastic protective eye shield was placed over the eye. The patient was then returned to Same Day Surgery in stable condition.
--- NOTE | 2022-03-20 13:03 | W.ANESPOSTOP ---
Postoperative Evaluation Date, Time and Location Date Performed: 03/20/22 Time Performed: 13:04 Patient Location: Day Surgery Unit Vital Signs Most Recent Imported Vital Signs: Most Recent Vital Signs Temp Pulse Resp BP Pulse Ox 36.3 C L 49 L 16 142/78 H 98 03/20/22 11:59 03/20/22 11:59 03/20/22 11:59 03/20/22 11:59 03/20/22 11:59 Most Recent Manually Entered Vital Signs: Adult Blood Pressure: 155/76 Heart Rate: 56 Respirations: 12 Oxygen Saturation (%): 99 Temperature (C): 36.3 C Pain Score (0-10 Scale): 0 Pain Score Most Recent Pain Score: Most Recent Pain Score Pain Level 0 03/20/22 11:59 Assessment Mental Status: Awake (Alert & Oriented to Patient Baseline) Airway and Respiratory Function: Patent airway with normal (patient baseline) respiratory exam Cardiovascular Function: Hemodynamically Stable Hydration Status: Adequately Hydrated Nausea & Vomiting: No Nausea or Vomiting Pain: Pt. Denies Any Pain Peripheral Nerve Block: Patient did not receive a nerve block
[2022-03-20 13:04] VITALS: BP 155/76; PULSE 56; RESP 12; TEMPC 36.3; O2SAT 99
== END 2022-03-20 13:27 | disposition home or self-care (01) ==
LOC: SUR 11:09
PROVIDERS: PCP Family Medicine; Visit Provider Ophthalmology
PROC: (CPT 66984; principal; 2022-03-20 12:45)
DX: H25.11 Age-related nuclear cataract, right eye (principal); I48.91 Unspecified atrial fibrillation
CPT/HCPCS: 66984; V2632

== ENCOUNTER → 2022-06-15 01:22 | Outpatient (CLI) | payer MEDICARE, BC, SELFPAY ==
--- NOTE | 2022-06-15 | DI.US_ITS ---
Exam(s) US RENAL EXAM: US RENAL CLINICAL HISTORY: F/U RUPTURED CYST ON KIDNEY, N28.1,COMPLEX WITH HEMORRHAGIC. TECHNIQUE: Covarrubias scale, color and spectral Doppler were used. COMPARISON: CT CT CHEST/ABD/PEL WO from 03/10/[address] ABDOMEN PELVIS W from 03/10/[address] CHEST/ABD/PEL W from 01/24/[address] THORACIC LUMBAR SPINE REC from 01/24/2022 FINDINGS: Renal size in cm: Right: 8.9. This could be underestimated as the lower pole was obscured by bowel g as. Left: 12.1 cm. This measurement includes the lower pole cyst. Echogenicity: Normal Hydronephrosis: No Cyst or mass: Several simple cysts are noted. The largest is at the lower pole of the left kidney, m easuring 4.2 cm in diameter, unchanged from prior CT. No hemorrhage or debris seen within. Nephrolithiasis: No Bladder:Normal Prevoid vol:294 Postvoid vol:0 Prostate not enlarged. IMPRESSION: Simple cyst 4.2 cm lower pole left kidney. No hemorrhage or debris is seen within. No solid compone nts. DATA REPOSITORY:
== END ==
PROVIDERS: PCP Family Medicine; Visit Provider Family Medicine
DX: N28.1 Cyst of kidney, acquired (principal)
CPT/HCPCS: 76770

== ENCOUNTER → 2022-06-30 09:41 | Outpatient (BNVA) | payer MEDICARE, BC, SELFPAY | PROVIDERS: PCP Family Medicine; Visit Provider Internal Medicine Cardiovascular Disease | DX: I48.0 Paroxysmal atrial fibrillation (principal); I10 Essential (primary) hypertension; I50.9 Heart failure, unspecified; I51.7 Cardiomegaly; Z79.01 Long term (current) use of anticoagulants | CPT/HCPCS: 93005; 99213 ==

== ENCOUNTER 2022-06-30 09:43 | Outpatient (CLI) | payer MEDICARE, BC, SELFPAY ==
--- NOTE | 2022-06-30 09:30 | RT.EKG_ITS ---
APPROVED REPORT Exam: Resting ECG Reason for Exam: cardiac evaluation Patient Location: O HR:45 bpm ECG Measurements Heart Rate 45 AXIS WA 216 P 36 QRSd 129 QRS 46 QT 480 T 23 QTc 416 Conclusion Sinus bradycardia...rate< 50 Right bundle branch block...QRSd>120, terminal axis(90,270) Baseline wander in lead(s) V5
== END 2022-06-30 09:44 | disposition home or self-care (01) ==
LOC: DI.CARD 09:44
PROVIDERS: PCP Family Medicine; Visit Provider Internal Medicine Cardiovascular Disease
DX: I10 Essential (primary) hypertension (principal); I48.91 Unspecified atrial fibrillation; I50.9 Heart failure, unspecified; I51.7 Cardiomegaly; R94.31 Abnormal electrocardiogram [ECG] [EKG]; I45.19 Other right bundle-branch block; R00.1 Bradycardia, unspecified
CPT/HCPCS: 93010

== ENCOUNTER 2022-10-24 17:03 | Outpatient (REF) | payer MEDICARE, BC, SELFPAY ==
[2022-10-24 18:51] LABS: HCT 36.1 % (40.0-50.0); HGB 12.3 g/dL (13.5-17.5); MCH 31.8 pg (27.0-33.0); MCHC 34.1 % (32.0-36.0); MCV 93 fL (80-95); MPV 11.8 fL (8.0-11.0); Platelet Count 153 10^3/uL (130-400); RBC 3.87 10^6/uL (4.36-5.78); RDW-SD 44.4 fL; WBC 5.56 10^3/uL (4.4-10.8)
[2022-10-24 19:23] LABS: ALT 26 U/L (16-63); AST 27 U/L (15-37); Albumin 4.1 g/dL (3.4-5.0); Alkaline Phosphatase 96 U/L (46-116); Anion Gap 9.6 mmol/L (3-11); BUN 34 mg/dL (7-18); Bilirubin, Total 0.4 mg/dL (0.2-1.0); CO2 28.4 mmol/L (21.0-32.0); CREATININE 1.3 mg/dL (0.70-1.30); Calcium 9.4 mg/dL (8.5-10.1); Chloride 103 mmol/L (98-107); Estimated GFR 54.51 (mL/min/1.73m2); Glucose 82 mg/dL (74-106); Potassium 4.7 mmol/L (3.5-5.1); Sodium 141 mmol/L (136-145); Total Protein 7.3 g/dL (6.4-8.2)
[2022-10-24 19:38] LABS: Iron 48 ug/dL (65-175); Total Iron Binding Capacity 344 ug/dL (250-450); Transferrin Sat 14 % (20-55)
== END 2022-10-24 17:04 | disposition home or self-care (01) ==
LOC: NCHCN 17:03
PROVIDERS: PCP Family Medicine; Visit Provider Family Medicine
DX: D50.9 Iron deficiency anemia, unspecified (principal); I10 Essential (primary) hypertension
CPT/HCPCS: 80053; 85027; 83540; 83550

== ENCOUNTER → 2023-06-29 10:43 | Outpatient (BNVA) | payer MEDICARE, BC, SELFPAY | PROVIDERS: PCP Family Medicine; Referring Provider Family Medicine; Visit Provider Internal Medicine Interventional Cardiology | DX: I48.0 Paroxysmal atrial fibrillation (principal) | CPT/HCPCS: 99213 ==

== ENCOUNTER → 2023-09-11 13:54 | Outpatient (BNVA) | payer MEDICARE, BC, SELFPAY | PROVIDERS: PCP Family Medicine; Referring Provider Family Medicine; Visit Provider Nurse Practitioner Adult Health | DX: G56.03 Carpal tunnel syndrome, bilateral upper limbs (principal) | CPT/HCPCS: 95911; 99215 ==

== ENCOUNTER → 2023-10-25 13:37 | Outpatient (BNVA) | payer MEDICARE, BC, SELFPAY | PROVIDERS: PCP Family Medicine; Referring Provider Family Medicine; Visit Provider Student in an Organized Health Care Education/Training Program | DX: G56.03 Carpal tunnel syndrome, bilateral upper limbs (principal) | CPT/HCPCS: 99213 ==

== ENCOUNTER 2023-10-31 08:17 | Day surgery (SDC) | payer MEDICARE, BC, SELFPAY ==
--- NOTE | 2023-10-31 07:14 | ANES.PREOP_ITS ---
General Info Date of Service Date Performed: 10/31/23 Height: 5 ft 5 in Weight: 58.6 kg Body Mass Index (BMI): 21.4 Surgical Procedure: Operation Date: 10/31/23 10:55 Proposed Procedure Side Surgeon p Wrist ECTR Left Elvis Carroll MD Meds Allergies and Home Medications Allergies Allergy/AdvReac Type Severity Reaction Status Date / Time oxycodone HCl [From Tylox] Allergy Skin Rash Verified 10/29/23 11:59 Home Medication Medication Instructions Recorded rivaroxaban 15 mg tablet (Xarelto) 15 mg PO QPM 11/15/18 spironolactone 25 mg tablet 25 mg PO DAILY #30 tabs 03/14/20 multivit with tn-QC-nrsqdlyb-omega 1 cap PO DAILY 07/01/21 3,6,9 no.3 400 mcg-300 mcg capsule acetaminophen 500 mg tablet 1,000 mg (2 x 500 mg) PO TID #90 10/31/23 tabs ibuprofen 600 mg tablet 600 mg PO TID PRN pain #90 tabs 10/31/23 Current Visit Medications: Current Medications Generic Name Dose Route Start Last Admin Trade Name Freq PRN Reason Stop Dose Admin Ringer's Solution 1,000 mls @ 80 mls/hr 10/31/23 06:00 IV 11/29/23 23:59 INFUSION MICHELLE Cefazolin Sodium/Dextrose 2 gm in 50 mls @ 100 mls/hr 10/31/23 06:00 Ancef Duplex IVPB 11/29/23 23:59 PREOP MICHELLE IV Miscellaneous Supplies 1 each 10/31/23 06:00 Iv Access IV 11/29/23 23:59 DIRECTED MICHELLE Sodium Chloride 0 ml 10/31/23 06:00 Normal Saline Flush 10 Ml Syr IV 11/29/23 23:59 PRN PRN Sodium Chloride 0 ml 10/31/23 06:00 Normal Saline 10 Ml Vial IJ 11/29/23 23:59 DIRECTED PRN Sterile Water 0 ml 10/31/23 06:00 Water,Injection,Sterile 10 Ml Vial IJ 11/29/23 23:59 DIRECTED PRN PFSH Active Problems Active Problems: Problem Status Onset Code Bilateral carpal tunnel syndrome G56.03 Screening for colorectal cancer Z12.11, Z12.12 HTN (hypertension) I10 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 C43.62 Atrial fibrillation I48.91 Tubular adenoma of colon 02/11/16 D12.6 Chronic anticoagulation Z79.01 Sebaceous cyst L72.3 Anemia D64.9 Hypokalemia, ECF to ICF shifts E87.6 CHF (congestive heart failure) I50.9 Cough R05 Fever R50.9 Febrile illness R50.9 Pancytopenia D61.818 Hematuria R31.9 Nuclear sclerotic cataract of right eye H25.11 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 Medical History Medical History Anaplasmosis Hx of colonic polyps Hx of melanoma of skin Hereditary angioneurotic edema Contracture of joint of finger Anemia, iron deficiency Hx of congestive heart failure Mild memory disturbance Cataract Carpal tunnel syndrome Foreign body in skin of buttock right side Tick bite Ruptured cyst of kidney (L) side 01/[address] of the abdomen Left ventricular hypertrophy Actinic keratoses Vitreous floaters of left eye Cough Shortness of breath Snoring Hx of fracture of finger L pointer Sensorineural hearing loss bilateral Angioneurotic edema Skin lesion of back 09/30/[address] Amador for mass of right mid back which has frequently been infected. Called a pilonidal cyst (via biopsy) in [facility], s/p partial resection at some point - wants it completely removed. mg Surgical History Surgical History H/O local excision of skin lesion 11/05/18 Dr Cristina Dean, right lower back, biopsy showed fibrovascular tissue, adipose tissue and skeletal muscle. Colonoscopy - IV Sedation (02/11/16) Cholecystectomy Tobacco Smoking/Tobacco Use Status: Former Tobacco Use Alcohol Alcohol Intake: former Substance Use Substance use: Never Substance use type: does not use Vital Signs and Lab Results Lab Results Blood Type / Crossmatch: No Data to Display Complete Blood Count: No Data to Display Complete Metabolic Panel: No Data to Display Liver Function Panel: No Data to Display Coagulation Panel: No Data to Display Cardiac Panel: No Data to Display Arterial Blood Gas: No Data to Display Venous Blood Gas: No Data to Display Pancreas Panel: No Data to Display Thyroid Panel: No Data to Display Infectious Disease: No Data to Display Blood Cultures: No Data to Display Toxicology Panel: No Data to Display Imaging and Studies Imaging and Studies Study information below may be from another EMR and interpreted by another provider. Please see original notes in EMR for more complete details. EKG Summary: EKG PATIENT NAME: Toni Wells UNIT #: [id number] ORDERING PROVIDER: Isis Martins M.D. PRIMARY CARE PROVIDER: RAJENDRA VILLANUEVA MD DATE/TIME OF SERVICE: 06/30/2254 : 1940 PERFORMING LOCATION: .CARD APPROVED REPORT Exam: Resting ECG Reason for Exam: cardiac evaluation Patient Location: O HR:45 bpm ECG Measurements Heart Rate 45 AXIS OR 216 P 36 QRSd 129 QRS 46 QT 480 T23 QTc 416 Conclusion Sinus bradycardia...rate< 50 Right bundle branch block...QRSd>120, terminal axis(90,270) Baseline wander in lead(s) V5 <Electronically signed by ISIS MARTINS MD in OV> E-Sign Date: 06/30/22 E-Sign Time: 1051 Echocardiogram Summary: Reviewed previous ECHO: Patient can proceed today but will require another ECHO prior to any further procedures. Anesthesia Assessment and Plan Anesthesia History Personal History: No History of Anesthesia Complications Family History: No Family History of Anesthesia Complications Exercise Tolerance Exercise Tolerance: Metabolic Equivalents>4 Pertinent Negatives Pertinent Negatives: No Symptoms of GERD and No History of CVA/TIA Cardiac & Pulmonary Exam Cardiac Exam: Other Pulmonary Exam: Clear Bilateral Breath Sounds Implantable Cardiac Device Does patient have a Pacemaker or an ICD?: No Airway Exam Known Difficult Airway: No Mallampati Class: 2 Mouth Opening: Normal (> 3cm) Thyromental Distance: Greater than 3 cm Neck Range of Motion: Full ROM Neck Circumference: Normal Teeth Condition: Normal Dentition ASA Classification ASA Score: ASA 3 Emergency Case?: No NPO Status NPO Status: NPO Clears >2 hours, Solids >8 hours Anesthesia Plan Resuscitation Status: Full Code Anesthesia Technique: General Anesthesia Airway Planned: Natural Airway Monitors Used: Standard Monitors
--- NOTE | 2023-10-31 07:21 | PDOC.DSDIS_ITS ---
Date of service: 10/31/23 Time of Service: 07:22 Discharge Plan Disposition Patient Disposition: Home Condition: Good Discharge Details Reason For Visit: L ECTR Attending Provider: Elvis Carroll Primary Care Provider: Wing Phan Home Meds and New Rx's Prescriptions: New acetaminophen 500 mg tablet 1,000 mg PO TID Qty: 90 0RF ibuprofen 600 mg tablet 600 mg PO TID PRN (Reason: pain) Qty: 90 0RF Continued Xarelto 15 mg tablet 15 mg PO QPM Hold Instructions: Resume on 01/28/22. sb-ll-DF-lycop-omega 3,6,9 #3 400-300 mcg capsule 1 cap PO DAILY spironolactone 25 mg tablet 25 mg PO DAILY Qty: 30 0RF Discharge Instructions Stand Alone Forms: Glen Gutierrez Tunnel Release Referrals: Elvis Carroll MD [ [facility] STAFF PHYSICIAN] - Activity:: Activity as Tolerated Remove Dressings/Wound Care:: 48 hours Shower/Bathe:: 48 hours Diet:: As Tolerated Discharge Orders Discharge Orders: Discharge Order (Routine); Ordered 10/31/23 Ordered By: Gualberto Mcclain DS: Diagnosis Discharge Diagnosis (1) Bilateral carpal tunnel syndrome: Status: Acute
[2023-10-31 08:23] VITALS: BP 146/75; PULSE 48; RESP 16; TEMP 36.2; O2SAT 100
[2023-10-31] MEDS: Lactated Ringers 1,000 ML 80 ML IV (08:54)
[2023-10-31 09:24] VITALS: BMI 21.4
[2023-10-31] MEDS: Lidocaine 1% Multi-Dose W/EPI 1/100,000 50 ML VIAL (10:30)
[2023-10-31 10:42] VITALS: BP 102/47; PULSE 40; RESP 16; TEMP 36.1; O2SAT 98
--- NOTE | 2023-10-31 10:43 | W.PM.OP ---
Date of service: 10/31/23 Time of Service: 10:15 Operative Note Operative Note DATE OF PROCEDURE: 10/31/23 PRE-OP DIAGNOSIS: Left Carpal Tunnel Syndrome POST-OP DIAGNOSIS: same PROCEDURE: Left Endoscopic Carpal Tunnel Release SURGEON: Elvis Carroll ANESTHESIA TYPE: General:No Airway Refer to Anesthesia Record ESTIMATED BLOOD LOSS: 0 PATHOLOGY: none sent TOURNIQUET TIME: 4 COMPLICATIONS: None Patient was transported to: same day Patient's condition: stable Indications: I have seen Toni in clinic for symptoms of carpal tunnel syndrome. The numbness, tingling, and pain limited function. Clinical exam findings with nerve conduction tests confirmed the diagnosis of carpal tunnel syndrome. Nonoperative measures such as bracing, time, activity modifications had been tried but disability and pain persisted. I discussed carpal tunnel release with the patient. I reviewed the risks of the procedure to include, but not limited to, bleeding, infection, pain, stiffness, incomplete release, damage to nerves or vessels, persistent numbness, recurrence. Despite these risks, the patient elected to proceed. Findings: There was tightened carpal tunnel. This was dilated and released successfully with the endoscopic with increased space within the tunnel. The antebrachial fascia was released proximally freeing the median nerve at the wrist. Procedure Description: Toni was greeted in the preoperative holding area where the correct side was identified and marked. The consent was reviewed with the patient and signed. The history and physical was updated. All questions were answered. He was taken back to the operating room. The patient was placed into the supine position on the operating room table with the left arm on an arm board. A nonsterile tourniquet was placed high onto the arm. All bony prominences were well padded. Prophylactic antibiotics in the form of Cefazolin were administered. The left arm was then prepped with Chloraprep and draped in a standard fashion with stockinette and extremity drape. A timeout to confirm correct identity, side and site, procedure, allergies, anesthesia, and medical concerns was performed. The surgical site was marked in the volar wrist creases in line with the radial border of the fourth ray. This area was anesthetized with approximately 6cc of 1% Lidocaine. The limb was then exsanguinated with an Esmarch. The skin was incised with a 15 blade, approximately 1cm. The skin only was cut and the deeper tissue was dissected bluntly with a tenotomy scissor, avoiding passing nerve and venous structures. The fascia was penetrated and opened bluntly. A two-prong skin hook was placed under this proximal fascial edge. A series of hamate finders were used to identify and dilate the carpal tunnel. Synovial elevator was used to free synovial attachments to the underside of the transverse carpal ligament. My thumb was kept in the palm to santiago the distal extent of the carpal tunnel and correctly position the hand. The Microaire endoscope was inserted without difficulty and without resistance. Excellent visualization showed horizontally running fibers of the transverse carpal ligament (TCL). The distal extent of the TCL was visualized and the end of the scope palpated with the thumb. The blade was elevated and withdrawn from distal to proximal. The TCL was split into two flaps. The endoscope was reinserted to confirm complete release and any remnant ligament was incised. The scope was withdrawn and the proximal aspect of the carpal tunnel was grossly inspected and appeared release with the median nerve visible. The antebrachial fascia at the level of the wrist was then freed from the overlying skin and then the underlying median nerve with blunt dissection. This was transected longitudinally for about 3cm proximal to the wrist incision. The wound was then irrigated with easy flow of irrigant distally and proximally. The incision was closed with a single 4-0 Nylon suture. The wound was dressed with Xeroform, Gauze, Kerlix and Dimitris. The tourniquet was deflated with the initial dressing and held with some pressure. Blood flow returned easily to all digits with capillary refill less than 2 seconds. The patient tolerated the procedure well and was returned to the Same Day Surgery area in a stable condition suffering no known complication.
[2023-10-31 11:16] VITALS: BP 142/78; PULSE 40; RESP 16; TEMP 36.2; O2SAT 100
--- NOTE | 2023-10-31 11:51 | W.ANESPOSTOP ---
Postoperative Evaluation Date, Time and Location Date Performed: 10/31/23 Time Performed: 11:40 Patient Location: Day Surgery Unit Vital Signs Most Recent Imported Vital Signs: Most Recent Vital Signs Temp Pulse Resp BP Pulse Ox 36.2 C L 40 L 16 142/78 H 100 10/31/23 11:16 10/31/23 11:16 10/31/23 11:16 10/31/23 11:16 10/31/23 11:16 Pain Score Most Recent Pain Score: Most Recent Pain Score Pain Level 0 10/31/23 11:16 Assessment Mental Status: Awake (Alert & Oriented to Patient Baseline) Airway and Respiratory Function: Patent airway with normal (patient baseline) respiratory exam Cardiovascular Function: Hemodynamically Stable Hydration Status: Adequately Hydrated Nausea & Vomiting: No Nausea or Vomiting Pain: Pt. Denies Any Pain Peripheral Nerve Block: Patient did not receive a nerve block
== END 2023-10-31 11:47 | disposition home or self-care (01) ==
LOC: SUR 08:18
PROVIDERS: PCP Family Medicine; Visit Provider Student in an Organized Health Care Education/Training Program
PROC: 01N54ZZ Release Median Nerve, Percutaneous Endoscopic Approach (ICD-10-PCS; CPT 29848; principal; 2023-10-31 10:45)
DX: I10 Essential (primary) hypertension; I48.91 Unspecified atrial fibrillation; I45.10 Unspecified right bundle-branch block; G56.02 Carpal tunnel syndrome, left upper limb
CPT/HCPCS: 29848; J2004; J2704

== ENCOUNTER → 2023-11-09 09:52 | Outpatient (BNVA) | payer MEDICARE, BC, SELFPAY | PROVIDERS: PCP Family Medicine; Referring Provider Family Medicine | DX: Z47.89 Encounter for other orthopedic aftercare (principal); G56.03 Carpal tunnel syndrome, bilateral upper limbs ==

== ENCOUNTER 2023-11-13 06:15 | Day surgery (SDC) | payer MEDICARE, BC, SELFPAY ==
[2023-11-13 06:31] VITALS: BP 139/75; PULSE 50; RESP 16; TEMP 36.7; O2SAT 100
[2023-11-13] MEDS: Lactated Ringers 1,000 ML 80 ML IV (06:54)
--- NOTE | 2023-11-13 07:01 | PDOC.DSDIS_ITS ---
Date of service: 11/13/23 Time of Service: 07:01 Discharge Plan Disposition Patient Disposition: Home Condition: Good Discharge Details Reason For Visit: R ECTR Attending Provider: Elvis Carroll Primary Care Provider: Wing Phan Home Meds and New Rx's Prescriptions: Continued Xarelto 15 mg tablet 15 mg PO QPM Hold Instructions: Resume on 01/28/22. hl-kh-SW-lycop-omega 3,6,9 #3 400-300 mcg capsule 1 cap PO DAILY spironolactone 25 mg tablet 25 mg PO DAILY Qty: 30 0RF acetaminophen 500 mg tablet 1,000 mg PO TID Qty: 90 0RF ibuprofen 600 mg tablet 600 mg PO TID PRN (Reason: pain) Qty: 90 0RF Discharge Instructions Stand Alone Forms: Glen Gutierrez Tunnel Release Referrals: Elvis Carroll MD [ [facility] STAFF PHYSICIAN] - Activity:: Activity as Tolerated Remove Dressings/Wound Care:: 48 hours Shower/Bathe:: 48 hours Diet:: As Tolerated Discharge Orders Discharge Orders: Discharge Order (Routine); Ordered 11/13/23 Ordered By: Gualberto Mcclain DS: Diagnosis Discharge Diagnosis (1) Bilateral carpal tunnel syndrome: Status: Acute
[2023-11-13 07:12] VITALS: BMI 20.9
--- NOTE | 2023-11-13 07:12 | W.ANESPRE ---
General Info Date of Service Date Performed: 11/13/23 Height: 5 ft 6 in Weight: 58.9 kg Body Mass Index (BMI): 20.9 Surgical Procedure: Operation Date: 11/13/23 07:40 Proposed Procedure Side Surgeon p Wrist ECTR Right Elvis Carroll MD Meds Allergies and Home Medications Allergies Allergy/AdvReac Type Severity Reaction Status Date / Time oxycodone HCl [From Tylox] Allergy Skin Rash Verified 11/13/23 06:30 Home Medication Medication Instructions Recorded rivaroxaban 15 mg tablet (Xarelto) 15 mg PO QPM 11/15/18 spironolactone 25 mg tablet 25 mg PO DAILY #30 tabs 03/14/20 multivit with [id number]-omega 1 cap PO DAILY 07/01/21 3,6,9 no.3 400 mcg-300 mcg capsule acetaminophen 500 mg tablet 1,000 mg (2 x 500 mg) PO TID #90 10/31/23 tabs ibuprofen 600 mg tablet 600 mg PO TID PRN pain #90 tabs 10/31/23 Current Visit Medications: Current Medications Generic Name Dose Route Start Last Admin Trade Name Freq PRN Reason Stop Dose Admin Acetaminophen 650 mg 11/13/23 07:00 Acetaminophen 325 Mg Tab PO 12/13/23 06:59 Q4H PRN PRN Ringer's Solution 1,000 mls @ 80 mls/hr 11/13/23 06:00 11/13/23 06:54 IV 11/13/23 23:59 80 mls/hr INFUSION MICHELLE Administration Cefazolin Sodium/Dextrose 2 gm in 50 mls @ 100 mls/hr 11/13/23 06:00 Ancef Duplex IVPB 11/13/23 23:59 PREOP MICHELLE IV Miscellaneous Supplies 1 each 11/13/23 06:00 Iv Access IV 11/13/23 23:59 DIRECTED MICHELLE Sodium Chloride 0 ml 11/13/23 06:00 Normal Saline Flush 10 Ml Syr IV 11/13/23 23:59 PRN PRN Sodium Chloride 0 ml 11/13/23 06:00 Normal Saline 10 Ml Vial IJ 11/13/23 23:59 DIRECTED PRN Sterile Water 0 ml 11/13/23 06:00 Water,Injection,Sterile 10 Ml Vial IJ 11/13/23 23:59 DIRECTED PRN PFSH Active Problems Active Problems: Problem Status Onset Code Bilateral carpal tunnel syndrome G56.03 Screening for colorectal cancer Z12.11, Z12.12 HTN (hypertension) I10 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 C43.62 Atrial fibrillation I48.91 Tubular adenoma of colon 02/11/16 D12.6 Chronic anticoagulation Z79.01 Sebaceous cyst L72.3 Anemia D64.9 Hypokalemia, ECF to ICF shifts E87.6 CHF (congestive heart failure) I50.9 Cough R05 Fever R50.9 Febrile illness R50.9 Pancytopenia D61.818 Hematuria R31.9 Nuclear sclerotic cataract of right eye H25.11 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 Medical History Medical History Anaplasmosis Hx of colonic polyps Hx of melanoma of skin Hereditary angioneurotic edema Contracture of joint of finger Anemia, iron deficiency Hx of congestive heart failure Mild memory disturbance Cataract Carpal tunnel syndrome Foreign body in skin of buttock right side Tick bite Ruptured cyst of kidney (L) side 01/[address] of the abdomen Left ventricular hypertrophy Actinic keratoses Vitreous floaters of left eye Cough Shortness of breath Snoring Hx of fracture of finger L pointer Sensorineural hearing loss bilateral Angioneurotic edema Skin lesion of back 09/30/[address] Amador for mass of right mid back which has frequently been infected. Called a pilonidal cyst (via biopsy) in [facility], s/p partial resection at some point - wants it completely removed. mg Surgical History Surgical History H/O local excision of skin lesion 11/05/18 Dr Cristina Dean, right lower back, biopsy showed fibrovascular tissue, adipose tissue and skeletal muscle. Colonoscopy - IV Sedation (02/11/16) Cholecystectomy Tobacco Smoking/Tobacco Use Status: Former Tobacco Use Alcohol Alcohol Intake: former Substance Use Substance use: Never Substance use type: does not use Vital Signs and Lab Results Vital Signs Most Recent Vital Signs in EMR: Most Recent Vital Signs Temp Pulse Resp BP Pulse Ox 36.7 C 50 L 16 139/75 100 11/13/23 06:31 11/13/23 06:31 11/13/23 06:31 11/13/23 06:31 11/13/23 06:31 Lab Results Blood Type / Crossmatch: No Data to Display Complete Blood Count: No Data to Display Complete Metabolic Panel: No Data to Display Liver Function Panel: No Data to Display Coagulation Panel: No Data to Display Cardiac Panel: No Data to Display Arterial Blood Gas: No Data to Display Venous Blood Gas: No Data to Display Pancreas Panel: No Data to Display Thyroid Panel: No Data to Display Infectious Disease: No Data to Display Blood Cultures: No Data to Display Toxicology Panel: No Data to Display Imaging and Studies Imaging and Studies Study information below may be from another EMR and interpreted by another provider. Please see original notes in EMR for more complete details. EKG Summary: EKG PATIENT NAME: Toni Wells UNIT #: [id number] ORDERING PROVIDER: Isis Martins M.D. PRIMARY CARE PROVIDER: RAJENDRA VILLANUEVA MD DATE/TIME OF SERVICE: 06/30/22 0954 : 1940 PERFORMING LOCATION: .CARD APPROVED REPORT Exam: Resting ECG Reason for Exam: cardiac evaluation Patient Location: O HR:45 bpm ECG Measurements Heart Rate 45 AXIS AR 216 P 36 QRSd 129 QRS 46 QT 480 T23 QTc 416 Conclusion Sinus bradycardia...rate< 50 Right bundle branch block...QRSd>120, terminal axis(90,270) Baseline wander in lead(s) V5 <Electronically signed by ISIS MARTINS MD in OV> E-Sign Date: 06/30/22 E-Sign Time: 1051 Echocardiogram Summary: Reviewed previous ECHO: Patient can proceed today but will require another ECHO prior to any further procedures. Anesthesia Assessment and Plan Anesthesia History Personal History: No History of Anesthesia Complications Family History: No Family History of Anesthesia Complications Exercise Tolerance Exercise Tolerance: Metabolic Equivalents>4 Pertinent Negatives Pertinent Negatives: No Symptoms of GERD, No Major Pulmonary Symptoms or Complaints and No History of CVA/TIA Cardiac & Pulmonary Exam Cardiac Exam: Normal S1/S2 Heart Sounds Pulmonary Exam: Clear Bilateral Breath Sounds Implantable Cardiac Device Does patient have a Pacemaker or an ICD?: No Airway Exam Known Difficult Airway: No Mallampati Class: 2 Mouth Opening: Normal (> 3cm) Thyromental Distance: Greater than 3 cm Neck Range of Motion: Full ROM Neck Circumference: Normal Teeth Condition: Normal Dentition ASA Classification ASA Score: ASA 3 Emergency Case?: No NPO Status NPO Status: NPO Clears >2 hours, Solids >8 hours Anesthesia Plan Resuscitation Status: Full Code Anesthesia Technique: General Anesthesia Airway Planned: Natural Airway Monitors Used: Standard Monitors
[2023-11-13] MEDS: ceFAZolin 2 GM/50 ML BAG IVPB (07:24)
[2023-11-13] MEDS: Lidocaine 1% Multi-Dose W/EPI 1/100,000 50 ML VIAL (07:34)
[2023-11-13 07:47] VITALS: BP 100/55; PULSE 43; RESP 16; TEMP 36.1; O2SAT 99
--- NOTE | 2023-11-13 07:55 | W.ANESPOSTOP ---
Postoperative Evaluation Date, Time and Location Date Performed: 11/13/23 Time Performed: 07:55 Patient Location: Day Surgery Unit Vital Signs Most Recent Imported Vital Signs: Most Recent Vital Signs Temp Pulse Resp BP Pulse Ox 36.1 C L 43 L 16 100/55 L 99 11/13/23 07:47 11/13/23 07:47 11/13/23 07:47 11/13/23 07:47 11/13/23 07:47 Pain Score Most Recent Pain Score: Most Recent Pain Score Pain Level 0 11/13/23 07:47 Assessment Mental Status: Awake (Alert & Oriented to Patient Baseline) Airway and Respiratory Function: Patent airway with normal (patient baseline) respiratory exam Cardiovascular Function: Hemodynamically Stable Hydration Status: Adequately Hydrated Nausea & Vomiting: No Nausea or Vomiting Pain: Pt. Denies Any Pain Peripheral Nerve Block: Patient did not receive a nerve block
[2023-11-13 08:12] VITALS: BP 98/68; PULSE 43; RESP 16; TEMP 36.3; O2SAT 98
--- NOTE | 2023-11-13 10:17 | ROE_ITS ---
Date of service: 11/13/23 Time of Service: 07:30 Operative Note Operative Note DATE OF PROCEDURE: 11/13/23 PRE-OP DIAGNOSIS: Right Carpal Tunnel Syndrome POST-OP DIAGNOSIS: same PROCEDURE: Right Endoscopic Carpal Tunnel Release SURGEON: Elvsi Carroll ANESTHESIA TYPE: General:No Airway Refer to Anesthesia Record ESTIMATED BLOOD LOSS: 0 PATHOLOGY: none sent TOURNIQUET TIME: 3 COMPLICATIONS: None Patient was transported to: same day Patient's condition: stable Indications: I have seen Toni in clinic for symptoms of carpal tunnel syndrome. The numbness, tingling, and pain limited function. Clinical exam findings with nerve conduction tests confirmed the diagnosis of carpal tunnel syndrome. Nonoperative measures such as bracing, time, activity modifications had been tried but disability and pain persisted. I discussed carpal tunnel release with the patient. I reviewed the risks of the procedure to include, but not limited to, bleeding, infection, pain, stiffness, incomplete release, damage to nerves or vessels, persistent numbness, recurrence. Despite these risks, the patient elected to proceed. Findings: There was tightened carpal tunnel. This was dilated and released successfully with the endoscopic with increased space within the tunnel. The antebrachial fascia was released proximally freeing the median nerve at the wrist. Procedure Description: Toni was greeted in the preoperative holding area where the correct side was identified and marked. The consent was reviewed with the patient and signed. The history and physical was updated. All questions were answered. He was taken back to the operating room. The patient was placed into the supine position on the operating room table with the right arm on an arm board. A nonsterile tourniquet was placed high onto the arm. All bony prominences were well padded. Prophylactic antibiotics in the form of Cefazolin were administered. The right arm was then prepped with Chloraprep and draped in a standard fashion with stockinette and extremity drape. A timeout to confirm correct identity, side and site, procedure, allergies, anesthesia, and medical concerns was performed. The surgical site was marked in the volar wrist creases in line with the radial border of the fourth ray. This area was anesthetized with approximately 6cc of 1% Lidocaine. The limb was then exsanguinated with an Esmarch. The skin was incised with a 15 blade, approximately 1cm. The skin only was cut and the deeper tissue was dissected bluntly with a tenotomy scissor, avoiding passing nerve and venous structures. The fascia was penetrated and opened bluntly. A two-prong skin hook was placed under this proximal fascial edge. A series of hamate finders were used to identify and dilate the carpal tunnel. Synovial elevator was used to free synovial attachments to the underside of the transverse carpal ligament. My thumb was kept in the palm to santiago the distal extent of the carpal tunnel and correctly position the hand. The Microaire en doscope was inserted without difficulty and without resistance. Excellent visualization showed horizontally running fibers of the transverse carpal ligament (TCL). The distal extent of the TCL was visualized and the end of the scope palpated with the thumb. The blade was elevated and withdrawn from distal to proximal. The TCL was split into two flaps. The endoscope was reinserted to confirm complete release and any remnant ligament was incised. The scope was withdrawn and the proximal aspect of the carpal tunnel was grossly inspected and appeared release with the median nerve visible. The antebrachial fascia at the level of the wrist was then freed from the overlying skin and then the underlying median nerve with blunt dissection. This was transected longitudinally for about 3cm proximal to the wrist incision. The wound was then irrigated with easy flow of irrigant distally and proximally. The incision was closed with a single 4-0 Nylon suture. The wound was dressed with Xeroform, Gauze, Kerlix and Dimitris. The tourniquet was deflated with the initial dressing and held with some pressure. Blood flow returned easily to all digits with capillary refill less than 2 seconds. The patient tolerated the procedure well and was returned to the Same Day Surgery area in a stable condition suffering no known complication.
== END 2023-11-13 09:04 | disposition home or self-care (01) ==
PROVIDERS: PCP Family Medicine; Visit Provider Student in an Organized Health Care Education/Training Program
PROC: 01N54ZZ Release Median Nerve, Percutaneous Endoscopic Approach (ICD-10-PCS; CPT 29848; principal; 2023-11-13 07:30)
DX: G56.03 Carpal tunnel syndrome, bilateral upper limbs (principal); I48.91 Unspecified atrial fibrillation
CPT/HCPCS: 29848; J0690; J2001; J2004; J2405; J2704

== ENCOUNTER → 2023-11-30 08:50 | Outpatient (BNVA) | payer MEDICARE, BC, SELFPAY | PROVIDERS: PCP Family Medicine; Referring Provider Family Medicine | DX: Z47.89 Encounter for other orthopedic aftercare (principal); G56.03 Carpal tunnel syndrome, bilateral upper limbs ==

== ENCOUNTER 2024-01-29 19:12 | Outpatient (REF) | payer MEDICARE, BC, SELFPAY ==
[2024-01-29 16:52] LABS: ALT 26 U/L (16-63); AST 30 U/L (15-37); Albumin 3.9 g/dL (3.4-5.0); Alkaline Phosphatase 87 U/L (46-116); Anion Gap 6.8 mmol/L (3-11); BUN 26 mg/dL (7-18); Bilirubin, Total 0.64 mg/dL (0.2-1.0); CO2 29.2 mmol/L (21.0-32.0); CREATININE 1.4 mg/dL (0.70-1.30); Chloride 105 mmol/L (98-107); Estimated GFR 49.56 (mL/min/1.73m2); Ferritin 121 ng/mL (26-388); Glucose 216 mg/dL (74-106); Iron 90 ug/dL (65-175); Magnesium 2.1 mg/dL (1.8-2.4); Potassium 4.5 mmol/L (3.5-5.1); Sodium 141 mmol/L (136-145); Total Iron Binding Capacity 306 ug/dL (250-450); Transferrin Sat 29 % (20-55)
== END 2024-01-29 19:13 | disposition home or self-care (01) ==
LOC: NCHCN 19:12
PROVIDERS: PCP Student in an Organized Health Care Education/Training Program; Visit Provider Student in an Organized Health Care Education/Training Program
DX: D50.9 Iron deficiency anemia, unspecified (principal); I10 Essential (primary) hypertension; R25.2 Cramp and spasm
CPT/HCPCS: 80053; 82728; 83540; 83550; 83735

== ENCOUNTER 2024-02-11 15:25 | Outpatient (REF) | payer MEDICARE, BC, SELFPAY ==
[2024-02-11 19:28] LABS: Hemoglobin A1C 6.1 % (<5.7)
== END 2024-02-11 15:26 | disposition home or self-care (01) ==
LOC: NCHCN 15:25
PROVIDERS: PCP Student in an Organized Health Care Education/Training Program; Visit Provider Student in an Organized Health Care Education/Training Program
DX: R73.9 Hyperglycemia, unspecified (principal)
CPT/HCPCS: 83036

== ENCOUNTER 2024-04-03 21:32 | Emergency (ER) | payer MEDICARE, BC, SELFPAY ==
[2024-04-03 21:32] VITALS: PULSE 53; RESP 16; TEMP 36.7; O2SAT 100
--- NOTE | 2024-04-03 21:56 | W.ED.GENAD ---
Discharge Plan Disposition Patient Disposition: Home Condition: Stable Discharge Details Clinical Impression: Surgical complication Primary Care Provider: Joe Rodriguez ED Provider: Paul Olivier Home Meds and New Rx's Prescriptions: No Action Xarelto 15 mg tablet 15 mg PO QPM [id number]-[id number]-lycop-omega 3,6,9 #3 400-300 mcg capsule 1 cap PO DAILY spironolactone 25 mg tablet 25 mg PO DAILY Qty: 30 0RF acetaminophen 500 mg tablet 1,000 mg PO TID Qty: 90 0RF ibuprofen 600 mg tablet 600 mg PO TID PRN (Reason: pain) Qty: 90 0RF Discharge Instructions Instructions: Surgical Wound (DC) Additional Instructions: You were seen in the emergency department for the bleeding from your surgical site to your right face performed earlier today at [facility]. We had to attempt multiple modality procedures to get the bleeding to stop including injection of lidocaine with epinephrine and TXA, we applied a hemostatic dressing and pressure dressing to head and appears to have stopped quite well, we observed you in the emergency department with cessation of bleeding and no evidence of hemodynamic instability you can be discharged home, please return to the emergency department this evening for any further bleeding or dizziness, please follow-up with your doctor regarding tonight's visit and surgical complication tomorrow. Referrals: Joe Rodriguez [Primary Care Provider] - Discharge Data Discharge Date/Time-TO BE ENTERED AT DEPARTURE: 04/04/24 01:00 HPI General Date/Time Provider Initiated Documentation: 04/03/24 21:36. HPI Narrative: 83 year-old male presents to ED today by [facility] with a chief complaint of bleeding from surgical site- had a basal cell carcinoma removed today by Dr. Baltazar at [facility] with onset this evening- patient states he mistakenly took his Xarelto this evening and noticed spontaneous bleeding from his R longitudinal suture site. Quality described as just bleeding, no radiation to dizziness, pain, chest pain, spurting bright orange blood. Severity is described as 0/10. Palliating factors include direct pressure by EMS has slowed bleeding but is still oozing. Provoking factors include nothing specific. Patient not anticoagulated. Related Data Home Medications ?Medication ?Instructions ?Recorded ?Confirmed rivaroxaban 15 mg tablet (Xarelto) 15 mg PO QPM 11/15/18 04/03/24 spironolactone 25 mg tablet 25 mg PO DAILY #30 tabs 03/14/20 04/03/24 multivit with yo-QQ-nwimflcj-omega 1 cap PO DAILY 07/01/21 04/03/24 3,6,9 no.3 400 mcg-300 mcg capsule acetaminophen 500 mg tablet 1,000 mg (2 x 500 mg) PO TID #90 10/31/23 04/03/24 tabs ibuprofen 600 mg tablet 600 mg PO TID PRN pain #90 tabs 10/31/23 04/03/24 Previous Rx's ?Medication ?Instructions ?Recorded spironolactone 25 mg tablet 25 mg PO DAILY #30 tabs 03/14/20 acetaminophen 500 mg tablet 1,000 mg (2 x 500 mg) PO TID #90 10/31/23 tabs ibuprofen 600 mg tablet 600 mg PO TID PRN pain #90 tabs 10/31/23 Allergies Allergy/AdvReac Type Severity Reaction Status Date / Time oxycodone HCl (From Tylox) Allergy Skin Rash Verified 04/03/24 21:39 General Stated Complaint: Laceration RICA: 3 Review of Systems All systems reviewed & are unremarkable except as noted in HPI and below Exam Narrative Exam Narrative: GENERAL APPEARANCE: Well-nourished, non-toxic, awake and alert, atraumatic, no acute distress. SKIN: Warm, pink, dry, steady oozing from the inferior aspect of a clean appearing suture site to the R face just in front of the ear around the yazidi- no bright orange blood spurting, no hematoma, sutures appear intact and no stitch has ruptured or torn through his skin. HEAD: Normocephalic, atraumatic, normal hair distribution for gender/age. EYES: Normal conjunctiva, no exudates on lids/lashes. ENT: Nares patent, no circumoral cyanosis, no facial swelling NECK: Supple, trachea midline, painless cervical ROM. LUNGS/CHEST: Non-labored respirations, normal A/P diameter, symmetrical expansion, no chest wall deformity HEART (CV/PV): No peripheral edema, no JVD. ABDOMEN: Soft, non-distended, no guarding. MSK: Normal ROM, no swelling/deformity to bilateral UEs or LEs, moving all extremities without weakness, no cyanosis, spine midline without tenderness, normal curvature. NEURO: Mental Status AAOx4 - alert to person, place, time, events No facial droop, no forehead involvement. Motor: No focal weakness - strength 5/5 in bilateral UEs and LEs, proximal and distal, symmetric. Sensory: sensation intact to light touch globally. Gait normal: patient ambulated without ataxia into ED room. PSYCH: euthymic, cooperative, pleasant, appropriate speech Course Vital Signs Vital signs: Vital Signs Temperature 36.7 C 04/03/24 21:32 Pulse 53 L 04/03/24 21:32 Respiratory Rate 16 04/03/24 21:32 Pulse Oximetry 100 04/03/24 21:32 Temperature 36.7 C 04/03/24 21:32 Temperature Source Temporal Artery Scan 04/03/24 21:32 Pulse 53 L 04/03/24 21:32 Respiratory Rate 16 04/03/24 21:32 Respiratory Effort Normal 04/03/24 21:38 Blood Pressure Position Sitting 04/03/24 21:32 Pulse Oximetry 100 04/03/24 21:32 Oxygen Delivery Method Room Air 04/03/24 21:32 Oxygen Flow Rate 0 04/03/24 21:32 Pain Level 0 04/03/24 21:32 Medical Decision Making This dictation utilizes [id number] dictation software and may contain unedited grammatical errors. 83 year-old male presents to ED today by [facility] with a chief complaint of bleeding from surgical site- had a basal cell carcinoma removed today by Dr. Baltazar at [facility] with onset this evening- patient states he mistakenly took his Xarelto this evening and noticed spontaneous bleeding from his R longitudinal suture site. Quality described as just bleeding, no radiation to dizziness, pain, chest pain, spurting bright orange blood. Severity is described as 0/10. Palliating factors include direct pressure by EMS has slowed bleeding but is still oozing. Provoking factors include nothing specific. Patients' medical history: History of melanoma of skin, iron deficiency anemia, CHF, hypertension, atrial fibrillation. Family and social history: Noncontributory. Pertinent exam findings / vital signs include steady oozing from the inferior aspect of a clean appearing suture site to the R face just in front of the ear around the yazidi- no bright orange blood spurting, no hematoma, sutures appear intact and no stitch has ruptured or torn through his skin. Differential / pathologies of concern include hematoma, surgical complication. Diagnostic studies of: -Type and Screen, CBC. Interventions of: -surgicell applied to the wound and re-wrapped. Let applied atop this. ED Course/Assessment/Plan: 83-year-old male presents after having some basal cell carcinoma removed from his right face just below the yazidi in the preauricular area, he has a longitudinal vertical incision with intact sutures, he was unaware and took a dose of his Xarelto this evening and then noticed blood pouring out of the wound, EMS applied a simple dressing and presented to our ER. I did place a Surgicel dressing on the oozing of the wound at the inferior aspect of the clean laceration and apply direct pressure for 5 to 10 minutes and then a pressure dressing with let applied on top of the Surgicel. After half hour we reevaluated and he was still oozing blood about the same level as upon arrival may be slightly less. His procedure was performed at [facility] by Dr. Baltazar who is a [employer] employee, [facility] refuses to page, [facility] dermatology Dr. Alas did call back and has no recommendations beyond what measures of already been taken, neck step would be opening the wound and performing electrocautery. Consulted with EM attending Dr. Gao, we injected about 10 mL of lidocaine 1% with epinephrine as well as TXA, reapplied Surgicel and direct pressure followed by TXA soaked gauze and pressure dressing. CBC and type and screen are held at this time with hopeful resolution of the bleeding upon reevaluation by Dr. Gao after sign-out. Findings not consistent with hemorrhage, hemodynamic instability. Disposition of Surgical Complication. Patient verbalized understanding of the plan and return to ED criteria and engaged in shared decision making. Medical Records Medical records reviewed: Yes I reviewed the patient's medical records. Quality:SDOH Health Related Social Needs: No Data to Display PFSH All Active Problems (Updated 04/03/24 @ 23:21 by MAYUR Bunch) Surgical complication (Acute) Screening for colorectal cancer (Acute) HTN (hypertension) (Chronic) Atrial fibrillation (Chronic) Chronic anticoagulation (Chronic) Xarelto 15mgs qam Sebaceous cyst (Acute) Anemia (Acute) Hypokalemia, ECF to ICF shifts (Acute) CHF (congestive heart failure) (Chronic) Cough (Acute) Fever (Acute) Febrile illness (Acute) Pancytopenia (Acute) Hematuria (Acute) Medical History (Updated 04/03/24 @ 23:21 by MAYUR Bunch) Anaplasmosis Hx of colonic polyps Hx of melanoma of skin Hereditary angioneurotic edema Contracture of joint of finger Anemia, iron deficiency Hx of congestive heart failure Mild memory disturbance Cataract Carpal tunnel syndrome Foreign body in skin of buttock right side Tick bite Ruptured cyst of kidney (L) side 01/[address] of the abdomen Left ventricular hypertrophy Actinic keratoses Vitreous floaters of left eye Cough Shortness of breath Snoring Hx of fracture of finger L pointer Sensorineural hearing loss bilateral Angioneurotic edema Skin lesion of back 09/30/[address] Amador for mass of right mid back which has frequently been infected. 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 mg Surgical History (Updated 11/30/23 @ 09:39 by MAYUR Cabrera) Bilateral carpal tunnel syndrome S/P L ECTR: 10/31/2023 S/P R ECTR: 11/13/2023 H/O local excision of skin lesion 11/05/18 Dr Cristina Dean, right lower back, biopsy showed fibrovascular tissue, adipose tissue and skeletal muscle. Colonoscopy - IV Sedation (02/11/16) Cholecystectomy Family History Sister , AT 24- ANGIONCUROTIC EDEMA No problems noted. Mother Bone cancer Father Hx of emphysema Social History Smoking/Tobacco Use Status: Former Tobacco Use Quit Date: 06/25/99 Smoking risk assessment performed?: Yes Alcohol Intake: former Drug use: Never Substance use type: does not use Housing: house Do you feel safe at home: Yes Do you feel safe in your relationship?: Yes
[2024-04-03] MEDS: Cellulose,Oxidized 2X3 PKT 1 EACH MC ×2 (21:57→22:56)
[2024-04-03 22:28] VITALS: BP 177/65
[2024-04-03 22:35] VITALS: BP 168/74
[2024-04-03] MEDS: Lidocaine/Epinephri/Tetracaine Topical Gel 3 ML TP (22:48)
[2024-04-03] MEDS: Tranexamic Acid 1,000 MG/10 ML VIAL 1000 MG IVP (22:48)
[2024-04-03] MEDS: Lidocaine 1% Multi-Dose W/EPI 1/100,000 10 ML VIAL IJ (22:48)
--- NOTE | 2024-04-04 00:16 | W.EDPROG ---
Date of service: 04/04/24 Time of Service: 00:16 Medical Decision Making I was asked by Paul Olivier to participate in the care of the patient with him. Patient had a small surgery performed by Dr. Baltazar just recently, unfortunately he is on rivaroxaban and did not skip any doses. This evening he had been bleeding quite persistently from the postoperative site. The incision site was otherwise clean dry and intact with no evidence of dehiscence. Initially by Clinton Olivier the area had lido with epi applied, and topical TXA applied, which did improve the bleeding but did not stop it. We further discussed the risks and benefits of additional management, and the patient consented for further proceduralization. I then administered additional lidocaine with epinephrine to the area, followed by a very small aliquot of TXA subdermally to the active bleeding site. Surgicel was then placed over this, and then pressure was applied to the area with an ABD pad. We did this for the following hour, and then at midnight all pads were removed, and the bleeding had completely resolved. I then rebandaged the area with Surgicel, 4 x 4's and ABD pads for continued mild pressure. Patient tolerated this well. Patient stable for discharge, he remains hemodynamically stable. No signs of shock. Patient agrees with plan. I have extensively reviewed the treatment plan and discharge instructions with the patient. I have addressed all patient concerns at this time. The patient was made aware of what symptoms to monitor for that would warrant a return to the emergency department. Discussed the plan with the patient, they demonstrate verbal understanding and agreement with our assessment and plan at this time. The documentation in this chart was dictated using [employer] dictation software. Please excuse any dictation errors. Quality:SDOH Health Related Social Needs: No Data to Display Discharge Plan Disposition Patient Disposition: Home Condition: Stable Discharge Details Clinical Impression: Surgical complication Primary Care Provider: Joe Rodriguez ED Provider: Paul Olivier Home Meds and New Rx's Prescriptions: No Action Xarelto 15 mg tablet 15 mg PO QPM [id number] 3,6,9 #3 400-300 mcg capsule 1 cap PO DAILY spironolactone 25 mg tablet 25 mg PO DAILY Qty: 30 0RF acetaminophen 500 mg tablet 1,000 mg PO TID Qty: 90 0RF ibuprofen 600 mg tablet 600 mg PO TID PRN (Reason: pain) Qty: 90 0RF Discharge Instructions Instructions: Surgical Wound (DC) Additional Instructions: You were seen in the emergency department for the bleeding from your surgical site to your right face performed earlier today at [facility]. We had to attempt multiple modality procedures to get the bleeding to stop including injection of lidocaine with epinephrine and TXA, we applied a hemostatic dressing and pressure dressing to head and appears to have stopped quite well, we observed you in the emergency department with cessation of bleeding and no evidence of hemodynamic instability you can be discharged home, please return to the emergency department this evening for any further bleeding or dizziness, please follow-up with your doctor regarding tonight's visit and surgical complication tomorrow. Referrals: Joe Rodriguez [Primary Care Provider] -
[2024-04-04 00:30] VITALS: BP 152/69; PULSE 72; RESP 16; O2SAT 99
== END 2024-04-04 01:00 | disposition home or self-care (01) ==
PROVIDERS: Emergency Provider Physician Assistant; PCP Student in an Organized Health Care Education/Training Program
DX: L76.21 Postprocedural hemorrhage of skin and subcutaneous tissue following a dermatologic procedure (principal); I11.0 Hypertensive heart disease with heart failure; I50.9 Heart failure, unspecified; I48.91 Unspecified atrial fibrillation; Z79.01 Long term (current) use of anticoagulants; Z87.891 Personal history of nicotine dependence
CPT/HCPCS: 00123; 36415; 80053; 86850; 86900; 86901; 99283; 85025; J2004

== ENCOUNTER 2024-06-30 08:27 | Outpatient (CLI) | payer MEDICARE, BC, SELFPAY ==
--- NOTE | 2024-06-30 08:15 | RT.EKG_ITS ---
APPROVED REPORT Exam: Resting ECG Reason for Exam: afib Patient Location: O HR:43 bpm ECG Measurements Heart Rate 43 AXIS AR 252 P 26 QRSd 131 QRS 29 QT 504 T 48 QTc 427 Conclusion Sinus bradycardia...rate< 50 Prolonged AR interval...AR >230, V-rate 30- 49 Right bundle branch block...QRSd>120, terminal axis(90,270)
== END 2024-06-30 08:28 | disposition home or self-care (01) ==
LOC: DI.CARD 08:27
PROVIDERS: PCP Student in an Organized Health Care Education/Training Program; Visit Provider Registered Nurse
DX: I48.0 Paroxysmal atrial fibrillation (principal)
CPT/HCPCS: 93010

== ENCOUNTER → 2024-06-30 08:50 | Outpatient (BNVA) | payer MEDICARE, BC, SELFPAY | PROVIDERS: PCP Student in an Organized Health Care Education/Training Program; Visit Provider Registered Nurse | DX: I48.0 Paroxysmal atrial fibrillation (principal) | CPT/HCPCS: 93005; 99214 ==

== ENCOUNTER 2024-10-08 11:40 | Outpatient (REF) | payer MEDICARE, BC, SELFPAY ==
[2024-10-08 15:39] LABS: Anion Gap 7.6 mmol/L (3-11); BUN 34 mg/dL (7-18); CO2 28.4 mmol/L (21.0-32.0); CREATININE 1.6 mg/dL (0.70-1.30); Calcium 9.5 mg/dL (8.5-10.1); Chloride 104 mmol/L (98-107); Estimated GFR 41.96 (mL/min/1.73m2); Glucose 97 mg/dL (74-106); Magnesium 2.3 mg/dL (1.8-2.4); Potassium 5.3 mmol/L (3.5-5.1); Sodium 140 mmol/L (136-145)
== END 2024-10-08 11:41 | disposition home or self-care (01) ==
LOC: NCHCN 11:40
PROVIDERS: PCP Student in an Organized Health Care Education/Training Program; Visit Provider Student in an Organized Health Care Education/Training Program
DX: I10 Essential (primary) hypertension (principal)
CPT/HCPCS: 80048; 83735

== ENCOUNTER 2024-11-05 09:17 | Outpatient (REF) | payer MEDICARE, BC, SELFPAY ==
[2024-11-05 15:44] LABS: Anion Gap 6.1 mmol/L (3-11); BUN 34 mg/dL (7-18); CO2 28.9 mmol/L (21.0-32.0); CREATININE 1.5 mg/dL (0.70-1.30); Calcium 8.7 mg/dL (8.5-10.1); Chloride 104 mmol/L (98-107); Estimated GFR 45.34 (mL/min/1.73m2); Glucose 128 mg/dL (74-106); Potassium 4.4 mmol/L (3.5-5.1); Sodium 139 mmol/L (136-145)
== END 2024-11-05 09:18 | disposition home or self-care (01) ==
LOC: NCHCN 09:17
PROVIDERS: PCP Student in an Organized Health Care Education/Training Program; Visit Provider Student in an Organized Health Care Education/Training Program
DX: I10 Essential (primary) hypertension (principal)
CPT/HCPCS: 80048

== ENCOUNTER 2025-04-15 16:13 | Outpatient (REF) | payer MEDICARE, BC, SELFPAY ==
[2025-04-15 20:36] LABS: Abs Immature Grans 0.01 10^3/uL (0.0-0.06); HCT 35.5 % (40.0-50.0); HGB 12.0 g/dL (13.5-17.5); Immature Grans % 0.2 %; MCH 31.3 pg (27.0-33.0); MCHC 33.8 % (32.0-36.0); MCV 92 fL (80-95); MPV 11.1 fL (8.0-11.0); Platelet Count 144 10^3/uL (130-400); RBC 3.84 10^6/uL (4.36-5.78); RDW 13.9 % (11.8-14.1); RDW-SD 47.5 fL; WBC 5.78 10^3/uL (4.4-10.8)
[2025-04-15 20:42] LABS: Anion Gap 10.3 mmol/L (3-11); BUN 32 mg/dL (7-18); CO2 27.7 mmol/L (21.0-32.0); Calcium 9.1 mg/dL (8.5-10.1); Chloride 103 mmol/L (98-107); Estimated GFR 49.25 (mL/min/1.73m2); Glucose 236 mg/dL (74-106); Potassium 4.5 mmol/L (3.5-5.1); Sodium 141 mmol/L (136-145)
== END 2025-04-15 16:14 | disposition home or self-care (01) ==
LOC: NCHCN 16:13
PROVIDERS: PCP Student in an Organized Health Care Education/Training Program; Visit Provider Student in an Organized Health Care Education/Training Program
DX: I10 Essential (primary) hypertension (principal)
CPT/HCPCS: 80048; 85025